=== PATIENT | male | born 1945 | race Caucasian/White ===

== ENCOUNTER 2018-02-05 04:22 | Emergency (ER) | payer MEDICARE, OTHER ==
[2018-02-05] MEDS ORDERED: ALBUTEROL SULFATE 0.083% NEB 2.5 MG/3 ML AMPUL NEB ONE ×2 (04:55→06:03)
[2018-02-05] MEDS ORDERED: IPRATROPIUM/ALBUTEROL 0.5-2.5 MG/3 ML AMPUL NEB ONE (04:55)
--- NOTE | 2018-02-05 04:56 | ER Document Report ---
ED Respiratory Problem - General Chief Complaint: Breathing Difficulty Stated Complaint: DIFFICULTY BREATHING Time Seen by Provider: 02/05/18 04:52 Notes: patient is a 72 year old male with a history of Parkinsons presents with wheezing and SOB that started this evening. Per at the bedside she, then went to check on him approximately 30 minutes prior to arrival and he was saying he was short of breath and wheezing and he was come to the emergency room. Denies any history of COPD, asthma. States he feels like he is breathing through a straw with chest tightness but he denies any pressure, pain , burning sensation. Otherwise healthy male TRAVEL OUTSIDE OF THE [place] IN LAST 30 DAYS: No - Related Data Allergies/Adverse Reactions: cimetidine [From Tagamet] Allergy (Severe, Verified 05/07/13 15:13) Anaphylaxis cimetidine HCl [From Tagamet] Allergy (Severe, Verified 05/07/13 15:13) Anaphylaxis ranitidine HCl [From Zantac] Allergy (Verified 09/05/13 14:23) Edema Past Medical History - Social History Smoking Status: Never Smoker Family History: Other - Past Medical History Cardiac Medical History: Reports: Hx Atrial Fibrillation Denies: Hx Heart Attack, Hx Hypertension Pulmonary Medical History: Denies: Hx Asthma Neurological Medical History: Denies: Hx Cerebrovascular Accident, Hx Seizures Malignancy Medical History: Reports Hx Skin Cancer GI Medical History: Reports: Hx Ulcer - 1978 PEPTIC. Denies: Hx Hepatitis, Hx Hiatal Hernia Infectious Medical History: Denies: Hx Hepatitis Past Surgical History: Denies: Hx Open Heart Surgery, Hx Pacemaker - Immunizations Hx Diphtheria, Pertussis, Tetanus Vaccination: No Review of Systems - Review of Systems Notes: REVIEW OF SYSTEMS: CONSTITUTIONAL : Denies fever, chills, or sweats. Denies recent illness. EENT: Denies eye, ear, throat, or mouth pain or symptoms. Denies nasal or sinus congestion or discharge. Denies throat, tongue, or mouth swelling or difficulty swallowing. CARDIOVASCULAR: Denies chest pain. Denies palpitations or racing or irregular heart beat. Denies ankle edema. RESPIRATORY: Admits shortness of breath, difficulty breathing, or wheezing.Denies cough, cold, or chest congestion. GASTROINTESTINAL: Denies abdominal pain or distention. Denies nausea, vomiting , or diarrhea. Denies blood in vomitus, stools, or per rectum. Denies black, tarry stools. Denies constipation. SKIN: Denies rash, lesions or sores. HEMATOLOGIC : Denies easy bruising or bleeding. LYMPHATIC: Denies swollen, enlarged glands. NEUROLOGICAL: Denies confusion or altered mental status. Denies passing out or loss of consciousness. Denies dizziness or lightheadedness. Denies headache. Denies weakness or paralysis or loss of use of either side. Denies problems with gait or speech. Denies sensory loss, numbness, or tingling. Denies seizures. PSYCHIATRIC: Denies anxiety or stress. Denies depression, suicidal ideation, or homicidal ideation. ALL OTHER SYSTEMS REVIEWED AND NEGATIVE. Dictation was performed using [employer] voice recognition software Physical Exam - Vital signs Vitals: Resp Pulse Ox 25 H 99 02/05/18 04:31 02/05/18 04:31 - Notes Notes: PHYSICAL EXAM GENERAL: Alert, interacts well. HEAD: Normocephalic, atraumatic. EYES: Pupils equal, round, and reactive to light. Extraocular movements intact. ENT: Oral mucosa moist, tongue midline. NECK: Full range of motion. Supple. Trachea midline. LUNGS: Wheezes noted bilaterally worse on inspiration without rales, or rhonchi. No respiratory distress. HEART: Regular rate and rhythm. No murmurs, gallops, or rubs. ABDOMEN: Soft, nondistended, nontender. No guarding, rebound, or rigidity.. Bowel sounds present in all 4 quadrants. EXTREMITIES: Moves all 4 extremities spontaneously. No edema, radial and dorsalis pedis pulses 2/4 bilaterally. No cyanosis. NEUROLOGICAL: Alert and oriented x4. Normal speech. PSYCH: Normal affect, normal mood. SKIN: Warm, dry, normal turgor. No rashes or lesions noted. Course - Re-evaluation Re-evalutation: 02/05/18 07:29 Patient is a 72-year-old male who is hemodynamically stable, no acute distress and afebrile. Patient satting 100% on 4 L nasal cannula. Patient received 2 nebulizer treatments and a dose of Solu-Medrol. Chest x-ray clear without any evidence of acute cardiopulmonary process or infiltrate. CBC stable without evidence of leukocytosis or anemia. Chemistry without evidence of electrolyte abnormalities, negative troponin. No evidence of EKG changes concerning for STEMI, arrhythmia. Patient with a well score of 0 and does not have any significant risk factors concerning for PE. No evidence of tachycardia or tachypnea and complete resolution of his wheezing after nebulizer treatments. Patient was ambulated to maintain a saturation as low as 98% on room air. Denies any tachypnea or tachycardia while ambulating. At this time patient does not meet inpatient criteria for admission and is in no acute respiratory distress. Family agreeable with discharge home with strict return precautions and follow-up instructions. - Vital Signs Vital signs: Temp Pulse Resp BP Pulse Ox 18 115/57 L 100 02/05/18 06:11 02/05/18 06:11 02/05/18 06:11 - Laboratory Result Diagrams: 02/05/18 05:00 02/05/18 05:00 Laboratory results interpreted by me: 02/05/18 02/05/18 05:00 05:00 RBC 4.14 L Hgb 12.9 L RDW 14.2 H Eosinophils % 7.0 H Total Protein 6.1 L - Diagnostic Test Radiology reviewed: Image reviewed, Reports reviewed - EKG Interpretation by Pa EKG shows normal: Sinus rhythm Rate: Normal Rhythm: NSR When compared to previous EKG there are: No significant change Discharge - Discharge Clinical Impression: Wheezing Condition: Good Disposition: HOME, SELF-CARE Additional Instructions: BRONCHITIS WITH BRONCHOSPASM (WHEEZING): You have bronchitis with bronchospasm (wheezing). Sometimes people develop wheezing with a chest cold. This occurs either because of an underlying tendency toward asthma or because the virus itself irritates the bronchial tubes. This irritation causes cough, shortness of breath, and wheezing. Emergency treatment of bronchospasm may include adrenaline shots or bronchodilator aerosol. You may feel lightheaded and have a rapid pulse for an hour or two. Rest and get plenty of fluids. At home, we'll treat you with a bronchodilator inhaler. Corticosteroids may be required for some patients. Until you recover, avoid chemical fumes, dusts, pollens, and exercising in very cold or dry air. If you smoke, stop now! Most cases of bronchitis get better without antibiotics. We prescribe antibiotics when we believe bacteria are damaging your airways, or if there's high risk the bronchitis will worsen into pneumonia. Increase your fluid intake. A cool mist humidifier may make your lungs more comfortable. An expectorant (cough medicine that loosens phlegm) can help. Repeated episodes of bronchitis and bronchospasm may result in lung damage -- for example, chronic bronchitis, recurrent pneumonias, or emphysema. If you develop a fever, increased wheezing, chest pain, or severe shortness of breath, you should contact the doctor immediately. DECONGESTANT MEDICATION: A decongestant medicine has been prescribed. Often this medicine is combined in the same tablet with an antihistamine or expectorant. This type of medicine is helpful in treating a bad cold or sinus condition, as well as in treatment of the nasal congestion of hay fever. It is not of much benefit for lung infections. Decongestant medicines are related to stimulants. They can cause an increase in blood pressure and heart rate. Persons with heart disease and high blood pressure should not take decongestants without discussing this with the physician. If you develop palpitations, chest pain, headache, or tremors, stop the medicine and consult your physician. COUGH-SUPPRESSANT & EXPECTORANT MEDICATION: You are to use a cough medication as needed for relief of symptoms. This medicine is a combination of an expectorant (to make the mucous thinner and more easily "coughed up") and a cough suppressant (to reduce the frequency of coughing). The cough-suppressant medicine is related to narcotics. You may experience mild nausea and sleepiness. Some patients who are very sensitive to narcotics may have stomach pain from this medicine. Taking the medicine with food reduces these side effects. Do not drive or work with machinery until you know how this medicine affects you. The expectorant should have no side effects. Iodine-containing expectorants (such as organidin) should not be taken by persons with active thyroid disease unless approved by your doctor. Call the doctor if you develop shortness of breath, hives, rash, itching, lightheadedness, or severe nausea and vomiting. INHALED BRONCHODILATORS: You have received a treatment of and/or prescription for an inhaled bronchodilator -- a medication which stimulates the airways in the lung to dilate. This improves the flow of air in asthma, bronchitis, and emphysema. These medicines have some similarity to adrenaline, and can cause similar side effects: shakiness, racing heart, and a sense of nervousness. These side effects decrease with time. Contact your doctor if these side effects are severe. Do not over-use the medicine. Too-frequent use of the inhaler may make it ineffective. Call your doctor if the inhaler is not controlling your symptoms at the prescribed doses. STEROID MEDICATION: You have been given an injection of or oral medicine of the cortisone/ steroid class. This medication is used to control inflammation or allergy. Evan t is usually only given for a short period of time, until the acute process subsides. There are usually no side effects from short-term use of cortisone-like medications. Some persons feel an increased sense of well-being and are not sleepy at bedtime. Long-term use of cortisone medications is best avoided, unless required for a severe condition. If your condition does not remit, or relapses after the course of corticosteroid medication, you should consult your physician. USE OF ACETAMINOPHEN (Tylenol): Acetaminophen may be taken for pain relief or fever control. It's much safer than aspirin, offering a wider range of "safe" dosages. It is safe during . Some brand names are Tylenol, Panadol, Datril, Anacin 3, Tempra, and Liquiprin. Acetaminophen can be repeated every four hours. The following are maximum recommended dosages: >89 pounds or adults 650 mg to 900 mg Acetaminophen can be repeated every four hours. Maximum dose not to exceed 4000 mg a day. FOLLOW-UP CARE: If you have been referred to a physician for follow-up care, call the physician s office for an appointment as you were instructed or within the next two days. If you experience worsening or a significant change in your symptoms, notify the physician immediately or return to the Emergency Department at any time for re-evaluation. Prescriptions: Albuterol Sulfate [Proair HFA Inhalation Aerosol 8.5 gm MDI] 2 puff IH Q4H PRN # 1 mdi PRN Reason: Prednisone [Deltasone 20 mg Tablet] 3 tab PO DAILY 5 Days tablet Referrals: MORAIMA AKERS PA-C [Primary Care Provider] - Follow up in 3-5 days
[2018-02-05 05:19] LABS: ABSOLUTE BASOPHILS # (AUTO) 0.1 10^3/uL (0.0-0.2); ABSOLUTE EOSINOPHILS # (AUTO) 0.5 10^3/uL (0.0-0.6); ABSOLUTE LYMPHOCYTES (AUTO) 1.5 10^3/uL (0.5-4.7); ABSOLUTE MONOCYTES (AUTO) 0.5 10^3/uL (0.1-1.4); BASOPHILS % (AUTO) 0.9 % (0-2); HEMATOCRIT 38.2 % (37.9-51.0); HEMOGLOBIN 12.9 g/dL (13.5-17.0); LYMPHOCYTES % (AUTO) 22.6 % (13-45); MEAN CORPUSCULAR HEMOGLOBIN 31.2 pg (27.0-33.4); MEAN CORPUSCULAR HGB CONC 33.8 g/dL (32.0-36.0); MEAN CORPUSCULAR VOLUME 92 fl (80-97); MONOCYTES % (AUTO) 7.9 % (3-13); PLATELET COUNT 216 10^3/uL (150-450); RED BLOOD COUNT 4.14 10^6/uL (4.35-5.55); RED CELL DISTRIBUTION WIDTH 14.2 % (11.5-14.0); SEGMENTED NEUTROPHILS % (AUTO) 61.6 % (42-78); TOTAL CELLS COUNTED % (AUTO) 100 %; VENOUS BLOOD BASE EXCESS 0.6 mmol/L; VENOUS BLOOD PCO2 50.5 mmHg (35-63); VENOUS BLOOD PH 7.35 (7.30-7.42); WHITE BLOOD COUNT 6.5 10^3/uL (4.0-10.5)
[2018-02-05 05:46] LABS: ALANINE AMINOTRANSFERASE 28 U/L (21-72); ALBUMIN 4.1 g/dL (3.5-5.0); ALKALINE PHOSPHATASE 45 U/L (38-126); ANION GAP 10 (5-19); ASPARTATE AMINO TRANSFERASE 22 U/L (17-59); BILIRUBIN,DIRECT 0.1 mg/dL (0.0-0.4); BILIRUBIN,TOTAL 0.4 mg/dL (0.2-1.3); BLOOD UREA NITROGEN 19 mg/dL (7-20); CALCIUM 9.1 mg/dL (8.4-10.2); CARBON DIOXIDE 29 mmol/L (22-30); CHLORIDE 103 mmol/L (98-107); GLUCOSE 100 mg/dL (75-110); POTASSIUM 4.3 mmol/L (3.6-5.0); SODIUM 141.5 mmol/L (137-145); TOTAL PROTEIN 6.1 g/dL (6.3-8.2)
[2018-02-05 05:47] LABS: NT PRO BNP 220 pg/mL (5-900)
[2018-02-05 05:48] LABS: TROPONIN I < 0.012 ng/mL
--- NOTE | 2018-02-05 06:06 | RADIOLOGY REPORT (SQ) ---
EXAM DESCRIPTION: CHEST PA/LAT CLINICAL HISTORY: 72 years, Male, SOB, wheezing COMPARISON: None. FINDINGS: Normal lung volume, clear parenchyma, normal cardiac silhouette, and intact bony thorax. IMPRESSION: No acute cardiopulmonary findings.
[2018-02-05 06:52] VITALS: BP 115/57
--- NOTE | 2018-02-05 10:27 | EKG REPORT ---
SEVERITY:- NORMAL ECG - SINUS RHYTHM : Confirmed by: Ruperto Rivera MD 05-Feb-2018 10:26:09
== END 2018-02-05 07:05 | disposition home or self-care (01) ==
LOC: ER 04:22
DX: R06.2 Wheezing (principal); R06.02 Shortness of breath; R07.89 Other chest pain; Z88.8 Allergy status to other drugs, medicaments and biological substances; Z85.828 Personal history of other malignant neoplasm of skin
CPT/HCPCS: 93005; 94640 ×2; 99285; 36415; 85025; 80053; 84484; 82803; 83880; 71046; 93010; A9270 ×2; J7620

== ENCOUNTER 2018-04-22 03:28 | Emergency (ER) | payer MEDICARE, BC ==
--- NOTE | 2018-04-22 03:42 | ER Document Report ---
ED General - General Chief Complaint: Breathing Difficulty Stated Complaint: RESPIRATORY DISTRESS Time Seen by Provider: 04/22/18 03:39 Notes: Patient is a 72-year-old male presents with complaint of difficulty breathing. She says he has recent diagnosis of bronchitis. Was given an inhaler and steroids. Tonight he started having some difficulty breathing. Paramedics arrived given 1 DuoNeb treatment and no sign of jaundice wheezing is completely resolved and now he feels better. He has no further complaints. Denies any chest pain. No fevers. No abdominal pain. No vomiting. TRAVEL OUTSIDE OF THE [place] IN LAST 30 DAYS: No - Related Data Allergies/Adverse Reactions: cimetidine [From Tagamet] Allergy (Severe, Verified 05/07/13 15:13) Anaphylaxis cimetidine HCl [From Tagamet] Allergy (Severe, Verified 05/07/13 15:13) Anaphylaxis ranitidine HCl [From Zantac] Allergy (Verified 09/05/13 14:23) Edema Past Medical History - Social History Smoking Status: Former Smoker Frequency of alcohol use: None Drug Abuse: None Family History: Other - Past Medical History Cardiac Medical History: Reports: Hx Atrial Fibrillation Denies: Hx Heart Attack, Hx Hypertension Pulmonary Medical History: Denies: Hx Asthma Neurological Medical History: Denies: Hx Cerebrovascular Accident, Hx Seizures Renal/ Medical History: Denies: Hx Peritoneal Dialysis Malignancy Medical History: Reports Hx Skin Cancer GI Medical History: Reports: Hx Ulcer - 1978 PEPTIC. Denies: Hx Hepatitis, Hx Hiatal Hernia Infectious Medical History: Denies: Hx Hepatitis Past Surgical History: Reports: Hx Cardiac Surgery - ablation. Denies: Hx Open Heart Surgery, Hx Pacemaker - Immunizations Hx Diphtheria, Pertussis, Tetanus Vaccination: No Review of Systems - Review of Systems Notes: My Normal Review Basic REVIEW OF SYSTEMS: CONSTITUTIONAL : Denies fever, chills, or sweats. Denies recent illness. EENT: Denies eye, ear, throat, or mouth pain or symptoms. Denies nasal or sinus congestion. CARDIOVASCULAR: Denies chest pain. RESPIRATORY: Wheezing and difficulty breathing. GASTROINTESTINAL: Denies abdominal pain. Denies nausea, vomiting, or diarrhea. GENITOURINARY: Denies difficulty urinating, painful urination, burning, frequency, or blood in urine. MUSCULOSKELETAL: Denies neck or back pain or joint pain or swelling. SKIN: Denies rash or skin lesions. NEUROLOGICAL: Denies altered mental status or loss of consciousness. Denies headache. Denies weakness or paralysis or loss of use of either side. Denies problems with gait or speech. Denies sensory or motor loss. ALL OTHER SYSTEMS REVIEWED AND NEGATIVE. Physical Exam - Vital signs Vitals: Resp Pulse Ox 13 99 04/22/18 03:32 04/22/18 03:32 - Notes Notes: General Appearance: Well nourished, alert, cooperative, no acute distress, no obvious discomfort. Well-appearing. Vitals: reviewed, See vital signs table. Head: no swelling or tenderness to the head Eyes: PERRL, EOMI, Conjuctiva clear Mouth: No decreasd moisture Throat: No tonsillar inflammation, No airway obstruction, No lymphadenopathy Neck: Supple, no neck tenderness Lungs: No wheezing, No rales, No rhonci, No accessory muscle use, good air exchange bilaterally. Heart: Normal rate, Regular rythm, No murmur, no rub Abdomen: Normal BS, soft, No rigidity, No abdominal tenderness, No guarding, no rebound, no abdominal masses, no organomegaly Extremities: strength 5/5 in all extremities, good pulses in all extremities, no swelling or tenderness in the extremities, no edema. Skin: warm, dry, appropriate color, no rash Neuro: speech clear, oriented x 2, normal affect, responds appropriately to questions. Course - Re-evaluation Re-evalutation: 04/22/18 06:02 Patient's lungs remained completely clear. His chest x-ray was negative for pneumonia. I did speak with patient's . She says that you have have a nebulizer machine at home but the rather vials. I will prescribe him some vitals. Also she mentions that he has inhaler but he does not really know how to use it. I will give him a spacer so that is much easier to use inhaler. Encouraged him follow-up post with a primary care doctor. Encourage him return to ER if he has recurrent wheezing, difficulty breathing, or feels unwell. agrees with plan and patient was discharged home. Dictation of this chart was performed using voice recognition software; therefore, there may be some unintended grammatical errors. - Vital Signs Vital signs: Temp Pulse Resp BP Pulse Ox 98.6 F 75 16 134/76 H 100 04/22/18 05:41 04/22/18 05:41 04/22/18 05:41 04/22/18 05:41 04/22/18 05:41 - EKG Interpretation by Me Additional EKG results interpreted by me: 04/22/18 03:47 EKG is reviewed and interpreted by me. EKG shows normal sinus rhythm with a rate of [address] segment elevation or depression. No ischemic T-wave inversions. [place] interval, QRS duration, QTc intervals are within normal range. No old EKG available for comparison. Discharge - Discharge Clinical Impression: Acute bronchitis Qualifiers: Bronchitis organism: unspecified organism Qualified Code(s): J20.9 - Acute bronchitis, unspecified Condition: Good Disposition: HOME, SELF-CARE Additional Instructions: Please use the spacer when you use the inhaler. Please use the nebulizer if you are at home as it may be more effective than the inhaler for Mr. Burns. Please return to the ER immediately if you develop worsening difficulty breathing not responding to the inhaler or nebulizer, fevers, or feel unwell. Prescriptions: Albuterol Sulfate [Albuterol Sulfate 2.5mg/3 mL] 1 vial IH Q4 PRN #25 vial PRN Reason: difficulty breathing Referrals: MORAIMA AKERS PA-C [Primary Care Provider] - 04/25/18
--- NOTE | 2018-04-22 04:17 | RADIOLOGY REPORT (SQ) ---
EXAM DESCRIPTION: XR CHEST 1 VIEW COMPLETED DATE/TME: 04/22/2018 03:39 CLINICAL HISTORY: dyspnea COMPARISON: 02/05/2018 FINDINGS: Single frontal view of the chest. Atherosclerotic calcification of the thoracic aorta. Heart is not enlarged. Leads overlie the chest. No consolidation, pneumothorax, or pleural effusion. No displaced rib fractures identified. Upper abdominal soft tissues are unremarkable. IMPRESSION: 1. No acute pulmonary process identified.
[2018-04-22 05:47] VITALS: BP 134/76
--- NOTE | 2018-04-22 13:52 | EKG REPORT ---
SEVERITY:- NORMAL ECG - SINUS RHYTHM : Confirmed by: Ruperto Rivera MD 22-Apr-2018 13:52:17
== END 2018-04-22 05:41 | disposition home or self-care (01) ==
LOC: ER 03:28
DX: J20.9 Acute bronchitis, unspecified (principal); R06.2 Wheezing; R06.9 Unspecified abnormalities of breathing; Z87.891 Personal history of nicotine dependence
CPT/HCPCS: 71045; 93005; 93010; 99285

== ENCOUNTER 2018-06-04 18:42 | Inpatient (IN) | payer MEDICARE, BC ==
--- NOTE | 2018-06-04 19:17 | ER Document Report ---
ED General - General Stated Complaint: DIFFICULTY BREATHING Time Seen by Provider: 06/04/18 18:58 Mode of Arrival: Ambulatory Information source: Patient Notes: 72-year-old male history of questionable COPD presents with difficulty breathing , patient's O2 sats noted to be 82% on room air he was admitting to shortness of breath. Patient does have a history of Parkinson's dementia. Patient was placed on BiPAP and O2 sats have been at 100%, he is in no respiratory distress at this time states he feels better TRAVEL OUTSIDE OF THE [place] IN LAST 30 DAYS: No - HPI Onset: Just prior to arrival Onset/Duration: Sudden Quality of pain: No pain Severity: Severe Pain Level: Denies Associated symptoms: Nonproductive cough, Shortness of breath Exacerbated by: Walking Relieved by: Denies Similar symptoms previously: Yes Recently seen / treated by doctor: No - Related Data Allergies/Adverse Reactions: cimetidine [From Tagamet] Allergy (Severe, Verified 05/07/13 15:13) Anaphylaxis cimetidine HCl [From Tagamet] Allergy (Severe, Verified 05/07/13 15:13) Anaphylaxis ranitidine HCl [From Zantac] Allergy (Verified 09/05/13 14:23) Edema Past Medical History - Social History Smoking Status: Former Smoker Cigarette use (# per day): No Chew tobacco use (# tins/day): No Smoking Education Provided: No Family History: Other - Past Medical History Cardiac Medical History: Reports: Hx Atrial Fibrillation Denies: Hx Heart Attack, Hx Hypertension Pulmonary Medical History: Denies: Hx Asthma Neurological Medical History: Denies: Hx Cerebrovascular Accident, Hx Seizures Renal/ Medical History: Denies: Hx Peritoneal Dialysis Malignancy Medical History: Reports Hx Skin Cancer GI Medical History: Reports: Hx Ulcer - 1978 PEPTIC. Denies: Hx Hepatitis, Hx Hiatal Hernia Infectious Medical History: Denies: Hx Hepatitis Past Surgical History: Reports: Hx Cardiac Surgery - ablation. Denies: Hx Open Heart Surgery, Hx Pacemaker - Immunizations Hx Diphtheria, Pertussis, Tetanus Vaccination: No Review of Systems - Review of Systems Notes: REVIEW OF SYSTEMS: CONSTITUTIONAL : Denies fever, chills, or sweats. Denies recent illness. EENT: Denies eye, ear, throat, or mouth pain or symptoms. Denies nasal or sinus congestion or discharge. Denies throat, tongue, or mouth swelling or difficulty swallowing. CARDIOVASCULAR: Denies chest pain. Denies palpitations or racing or irregular heart beat. Denies ankle edema. RESPIRATORY: Admits shortness of breath difficulty breathing. GASTROINTESTINAL: Denies abdominal pain or distention. Denies nausea, vomiting , or diarrhea. Denies blood in vomitus, stools, or per rectum. Denies black, tarry stools. Denies constipation. GENITOURINARY: Denies difficulty urinating, painful urination, burning, frequency, blood in urine, or discharge. MUSCULOSKELETAL: Denies back or neck pain or stiffness. Denies joint pain or swelling. SKIN: Denies rash, lesions or sores. HEMATOLOGIC : Denies easy bruising or bleeding. LYMPHATIC: Denies swollen, enlarged glands. NEUROLOGICAL: Denies confusion or altered mental status. Denies passing out or loss of consciousness. Denies dizziness or lightheadedness. Denies headache. Denies weakness or paralysis or loss of use of either side. Denies problems with gait or speech. Denies sensory loss, numbness, or tingling. Denies seizures. PSYCHIATRIC: Denies anxiety or stress. Denies depression, suicidal ideation, or homicidal ideation. ALL OTHER SYSTEMS REVIEWED AND NEGATIVE. Dictation was performed using [employer] voice recognition software PHYSICAL EXAMINATION: GENERAL: Well-appearing, well-nourished and in no acute distress. HEAD: Atraumatic, normocephalic. EYES: Pupils equal round and reactive to light, extraocular movements intact, sclera anicteric, conjunctiva are normal. ENT: Nares patent, oropharynx clear without exudates. Moist mucous membranes. NECK: Normal range of motion, supple without lymphadenopathy LUNGS: Intermittent wheezing HEART: Regular rate and rhythm without murmurs ABDOMEN: Soft, nontender, nondistended abdomen. No guarding, no rebound. No masses appreciated. Musculoskeletal: Normal range of motion, no pitting or edema. No cyanosis. NEUROLOGICAL: Cranial nerves grossly intact. Normal speech, normal gait. Normal sensory, motor exams PSYCH: Normal mood, normal affect. SKIN: Warm, Dry, normal turgor, no rashes or lesions noted. Physical Exam - Vital signs Vitals: Resp Pulse Ox 20 100 06/04/18 18:54 06/04/18 18:54 Course - Re-evaluation Re-evalutation: 07/28/18 19:31 Patient is alert oriented he knows where he dislocated it, he overall is in no distress at this time on BiPAP, he was noted to be significantly hypoxic 06/04/18 22:03 Patient has been stable on BiPAP, workup thus far is most consistent with COPD exacerbation, he is doing well on BiPAP but due to his Parkinson's is anxious, I will give some Valium at the request of family and admit - Vital Signs Vital signs: Temp Pulse Resp BP Pulse Ox 19 119/78 100 06/04/18 20:01 06/04/18 20:01 06/04/18 20:04 - Laboratory Result Diagrams: 06/04/18 19:23 06/04/18 19:23 Laboratory results interpreted by me: 06/04/18 06/04/18 06/04/18 19:23 19:23 19:30 RBC 4.14 L Hgb 13.2 L Seg Neutrophils % 78.2 H Lymphocytes % 11.4 L BUN 23 H Glucose 124 H Urine Protein 100 H Urine Ketones TRACE H Urine Bilirubin SMALL H Urine Urobilinogen 4.0 H Urine Ascorbic Acid 40 H - Diagnostic Test Radiology reviewed: Image reviewed, Reports reviewed Discharge - Discharge Clinical Impression: Hypoxemia Condition: Fair Disposition: ADMITTED INPATIENT Admitting Provider: Hospitalist Unit Admitted: Telemetry Referrals: MORAIMA AKERS PA-C [Primary Care Provider] - Follow up as needed
[2018-06-04 19:39] LABS: VENOUS BLOOD BASE EXCESS 2.5 mmol/L; VENOUS BLOOD HCO3 28.9 mmol/L (20-32); VENOUS BLOOD PCO2 52.1 mmHg (35-63); VENOUS BLOOD PH 7.36 (7.30-7.42)
[2018-06-04 19:49] LABS: ABSOLUTE EOSINOPHILS # (AUTO) 0.4 10^3/uL (0.0-0.6); ABSOLUTE MONOCYTES (AUTO) 0.5 10^3/uL (0.1-1.4); ABSOLUTE NEUT (AUTO) 7.1 10^3/uL (1.7-8.2); BASOPHILS % (AUTO) 0.5 % (0-2); EOSINOPHILS % (AUTO) 4.1 % (0-6); HEMATOCRIT 38.2 % (37.9-51.0); HEMOGLOBIN 13.2 g/dL (13.5-17.0); LYMPHOCYTES % (AUTO) 11.4 % (13-45); MEAN CORPUSCULAR HEMOGLOBIN 31.8 pg (27.0-33.4); MEAN CORPUSCULAR HGB CONC 34.4 g/dL (32.0-36.0); MEAN CORPUSCULAR VOLUME 92 fl (80-97); MONOCYTES % (AUTO) 5.8 % (3-13); PLATELET COUNT 200 10^3/uL (150-450); RED BLOOD COUNT 4.14 10^6/uL (4.35-5.55); RED CELL DISTRIBUTION WIDTH 13.7 % (11.5-14.0); SEGMENTED NEUTROPHILS % (AUTO) 78.2 % (42-78); TOTAL CELLS COUNTED % (AUTO) 100 %
[2018-06-04 19:51] LABS: APPEARANCE,URINE CLOUDY; BILIRUBIN,URINE SMALL (NEGATIVE); CALCIUM OXALATE CRYSTALS,URINE MODERATE /HPF; COLOR,URINE AMBER; GLUCOSE, URINE NEGATIVE (NEGATIVE); KETONES,URINE TRACE mg/dL (NEGATIVE); LEUKOCYTE ESTERASE,URINE NEGATIVE (NEGATIVE); NITRITE,URINE NEGATIVE (NEGATIVE); PROTEIN,URINE 100 mg/dL (NEGATIVE); URINE SPECIFIC GRAVITY 1.031
--- NOTE | 2018-06-04 19:52 | RADIOLOGY REPORT (SQ) ---
EXAM DESCRIPTION: CHEST SINGLE VIEW COMPLETED DATE/TIME: 06/04/2018 7:40 pm REASON FOR STUDY: sob COMPARISON: 04/22/2018 EXAM PARAMETERS: NUMBER OF VIEWS: One view. TECHNIQUE: Single frontal radiographic view of the chest acquired. RADIATION DOSE: NA LIMITATIONS: None. FINDINGS: LUNGS AND PLEURA: No opacities, masses or pneumothorax. No pleural effusion. MEDIASTINUM AND HILAR STRUCTURES: No masses. Contour normal. HEART AND VASCULAR STRUCTURES: Heart normal in size. Normal vasculature. BONES: No acute findings. HARDWARE: None in the chest. OTHER: No other significant finding. IMPRESSION: NO ACUTE RADIOGRAPHIC FINDING IN THE CHEST. TECHNICAL DOCUMENTATION: JOB ID: [id number] [employer]- All Rights Reserved Reading location - IP/workstation name: [email or web address]
[2018-06-04 19:56] LABS: ALANINE AMINOTRANSFERASE 26 U/L (21-72); ALBUMIN 3.8 g/dL (3.5-5.0); ALKALINE PHOSPHATASE 41 U/L (38-126); ANION GAP 10 (5-19); ASPARTATE AMINO TRANSFERASE 45 U/L (17-59); BILIRUBIN,DIRECT 0.3 mg/dL (0.0-0.4); BILIRUBIN,TOTAL 0.5 mg/dL (0.2-1.3); BLOOD UREA NITROGEN 23 mg/dL (7-20); CARBON DIOXIDE 29 mmol/L (22-30); CHLORIDE 103 mmol/L (98-107); CREATINE KINASE 81 U/L (55-170); GLUCOSE 124 mg/dL (75-110); POTASSIUM 4.4 mmol/L (3.6-5.0); TOTAL PROTEIN 6.5 g/dL (6.3-8.2)
[2018-06-04] MEDS ORDERED: METHYLPREDNISOLONE INJ 125 MG/2 ML SDV IV ONE (20:03)
[2018-06-04] MEDS ORDERED: IPRATROPIUM/ALBUTEROL 0.5-2.5 MG/3 ML AMPUL NEB ONE (20:03)
[2018-06-04 20:08] LABS: CREATINE KINASE MB 2.18 ng/mL (<4.55); NT PRO BNP 385 pg/mL (5-900)
[2018-06-04 20:16] LABS: TROPONIN I < 0.012 ng/mL
[2018-06-04] MEDS ORDERED: DIAZEPAM INJ 10 MG/2 ML DISP.SYRIN IV ONE (22:02)
[2018-06-04] MEDS ORDERED: LEVALBUTEROL HCL NEB 0.63 MG/3 ML AMPUL NEB PRN (23:38)
--- NOTE | 2018-06-05 01:24 | PDOC H&P ---
History of Present Illness Admission Date/PCP: 06/04/18 22:20 MORAIMA AKERS PA-C Patient complains of: difficulty breathing History of Present Illness: JAYLON QUICK JR is a 72 year old man with a history of parkinsonism and hallucinations, workup in progress for underlying diagnosis. The patient reports that about 2 years ago her was diagnosed with Parkinson's disease. Since that time he has been seen by multiple specialists. He currently has a new neurologist at [facility], Dr. Galarza. Prior to this he has been seeing Dr. Wilman Molina neurologist in [place]. Per his he is being worked up for the possibility of dementia with Lewy bodies and other causes of the mention including reversible causes. She states that over the past several weeks he has been having episodes of dyspnea. She also reports that intermittently he is having a significant amount of mucus draining from his nose. Over the past several weeks he has been in the ER several times. He does not have underlying lung disease of which we are aware. Today at home he started having respiratory distress, got to the place where he really could not breathe at all per his and she called EMS. By the time ambulance arrived the patient was satting 84% on room air. With a nonrebreather his sats improved and he was placed on a BiPAP in the ER. He was found to be wheezing and received a dose of Solu-Medrol. On my evaluation the patient is comfortable. He is intermittently nodding yes or no but cannot really answer questions and so all of this history is obtained from his . He is being admitted to the hospitalist service for acute hypoxemic respiratory failure of unclear etiology. Past Medical History Cardiac Medical History: Reports: Atrial Fibrillation Denies: Myocardial Infarction, Hypertension, Pulmonary Embolism Pulmonary Medical History: Reports: Respiratory Failure Denies: Asthma EENT Medical History: Reports: Eyes Neurological Medical History: Denies: Ischemic CVA, Seizures Endocrine Medical History: Denies: Diabetes Mellitus Type 2 Renal/ Medical History: Denies: Chronic Kidney Disease Malignancy Medical History: Reports: Skin Cancer GI Medical History: Denies: Hepatitis, Hiatal Hernia Musculoskeltal Medical History: Denies: Arthritis Skin Medical History: Reports: None Psychiatric Medical History: Reports: Dementia, Depression Denies: Alcohol Dependency, Substance Abuse, Tobacco Dependency Hematology: Denies: Anemia, Sickle Cell Disease Infectious Medical History: Reports: Other Infectious History Note: Patient's reports that in the he was diagnosed with a parasitic infection in [place], contrary unknown. He spent over a month in the hospital. I do not have other details related to this infectious history. Past Surgical History Past Surgical History: Reports: Other - Patient has undergone cardiac ablation for A. 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 - Advance Directive Resuscitation Status: Full Code Surrogate healthcare decision maker:: Spouse Dorothy Quick phone number [phone] Family History Family History: Other Parental Family History Reviewed: Yes - Father with COPD and pneumonia, mother with PA Children Family History Reviewed: Yes - Patient has 2 healthy children aged 50 and 47 Sibling(s) Family History Reviewed.: Yes - Patient's states that his siblings are healthy Medication/Allergy Home Medications: Aspirin [Aspirin 325 mg Tablet] 1 tab PO DAILY 06/04/18 Rivastigmine Tartrate [Rivastigmine] 1.5 mg PO DAILY 06/04/18 Allergies/Adverse Reactions: cimetidine [From Tagamet] Allergy (Severe, Verified 05/07/13 15:13) Anaphylaxis cimetidine HCl [From Tagamet] Allergy (Severe, Verified 05/07/13 15:13) Anaphylaxis ranitidine HCl [From Zantac] Allergy (Verified 09/05/13 14:23) Edema Review of Systems ROS unobtainable: Due to mental status, Other - I was able to obtain the following from his Constitutional: PRESENT: anorexia, weight loss Cardiovascular: ABSENT: chest pain Respiratory: PRESENT: cough, sputum Gastrointestinal: ABSENT: abdominal pain, nausea, vomiting Integumentary: ABSENT: rash Neurological: PRESENT: confusion, memory loss. ABSENT: syncope Psychiatric: PRESENT: depression, hallucinations Hematologic/Lymphatic: ABSENT: easy bleeding, easy bruising Allergic/Immunologic: ABSENT: seasonal rhinorrhea Physical Exam Vital Signs: Temp Pulse Resp BP Pulse Ox 19 114/57 L 97 06/04/18 22:01 06/04/18 22:00 06/05/18 00:37 Intake & Output 06/03/18 06/04/18 06/05/18 06:59 06:59 06:59 Weight 84.7 kg General appearance: PRESENT: no acute distress, well-developed, well-nourished Head exam: PRESENT: atraumatic, normocephalic Eye exam: ABSENT: conjunctival injection, scleral icterus Ear exam: PRESENT: normal external ear exam Mouth exam: PRESENT: moist Neck exam: ABSENT: lymphadenopathy Respiratory exam: PRESENT: decreased breath sounds, unlabored. ABSENT: rales, rhonchi, wheezes Cardiovascular exam: PRESENT: RRR. ABSENT: diastolic murmur, systolic murmur GI/Abdominal exam: PRESENT: normal bowel sounds, soft. ABSENT: distended, guarding, tenderness Rectal exam: PRESENT: deferred Musculoskeletal exam: ABSENT: deformity Neurological exam: PRESENT: awake, oriented to person. ABSENT: oriented to place, oriented to situation Psychiatric exam: PRESENT: flat affect Focused psych exam: PRESENT: other - Cannot assess Skin exam: PRESENT: dry, intact, warm Results Impressions: Chest X-Ray 06/04/18 19:03 IMPRESSION: NO ACUTE RADIOGRAPHIC FINDING IN THE CHEST. Assessment & Plan - Diagnosis (1) Acute hypoxemic respiratory failure Is this a current diagnosis for this admission?: Yes Plan: Unclear etiology at this time. Patient is afebrile but has been reporting feeling hot. His states at home he did not have a fever. He has been having thick mucus draining from his nose. This is possibly an infectious etiology. He has been started on ceftriaxone 1 g IV daily until further data returns. Will order sputum culture. He was wheezing in the ER and so I have started him on duo nebs scheduled while awake and then Xopenex every 2 hours as needed. He received a dose of Solu-Medrol in the ER and we can decide upon continuation of steroids or not tomorrow. Given his hallucinations and the possibility of an undiagnosed dementia I would want to avoid steroids if at all possible. Dr. Yousif pulmonology has been consulted to assist with assessment. If patient does not continue to improve we can consider CT scan of the chest. He was on BiPAP in the ER and has now improved and is on 4 L of nasal cannula oxygen without respiratory distress satting in the 90s. He is not tachypneic and not tachycardic, I think a PE is unlikely but we can consider this possibility if he does not improve. There is no strong evidence for volume overload but BNP is pending. We will continue to monitor closely on telemetry. (2) Hallucinations Is this a current diagnosis for this admission?: Yes Plan: Patient may have an undiagnosed dementia including the possibility of Lewy body dementia. His states that he is in the process of extensive workup at [facility]. He has recently been evaluated also for reversible causes of dementia such as related to vitamin B12, thyroid. Other lab tests are pending at [facility] including ESR, RPR, apolipoprotein E. He has recently been put on a trial of Rivest did mean 1.5 mg in the a.m. and 1.5 mg in the p.m. He took a dose on the morning of 06/04 but missed his dose in the evening, will bring his medication in. tells me that he has been trialed on multiple medications for hallucinations including antipsychotics which have all made his hallucinations worse. (3) Parkinsonism Is this a current diagnosis for this admission?: Yes Plan: Patient had been on Sinemet for a while and then developed hallucinations and Sinemet has been discontinued. Likely does not have Parkinson's disease. (4) Memory loss Is this a current diagnosis for this admission?: Yes Plan: Likely related to an undiagnosed dementia which is being worked up at [facility]. states that his distant memory is intact for the most part except that oftentimes he does not remember who she is. She states that at sikhism sometimes he recognizes people that he is known in the past. - Time Time Spent: Greater than 70 Minutes Medications reviewed and adjusted accordingly: Yes - Inpatient Certification Based on my medical assessment, after consideration of the patient's comorbidities, presenting symptoms, or acuity I expect that the services needed warrant INPATIENT care.: Yes I certify that my determination is in accordance with my understanding of Medicare's requirements for reasonable and necessary INPATIENT services [42 CFR 412.3e].: Yes Medical Necessity: Need Close Monitoring Due to Risk of Patient Decompensation, Risk of Complication if Not Cared For in Hospital
--- NOTE | 2018-06-05 03:08 | EKG REPORT ---
SEVERITY:- NORMAL ECG - SINUS RHYTHM : Confirmed by: Tyesha Garce MD 05-Jun-2018 03:07:53
[2018-06-05 06:10] LABS: HEMATOCRIT 38.1 % (37.9-51.0); HEMOGLOBIN 13.1 g/dL (13.5-17.0); MEAN CORPUSCULAR HEMOGLOBIN 31.8 pg (27.0-33.4); MEAN CORPUSCULAR HGB CONC 34.4 g/dL (32.0-36.0); MEAN CORPUSCULAR VOLUME 93 fl (80-97); PLATELET COUNT 196 10^3/uL (150-450); RED BLOOD COUNT 4.12 10^6/uL (4.35-5.55); RED CELL DISTRIBUTION WIDTH 13.6 % (11.5-14.0); WHITE BLOOD COUNT 7.9 10^3/uL (4.0-10.5)
[2018-06-05] MEDS: IPRATROPIUM/ALBUTEROL 0.5-2.5 MG/3 ML AMPUL NEB SCH ×4 (08:07→19:48)
[2018-06-05 09:19] LABS: ANION GAP 13 (5-19); BLOOD UREA NITROGEN 18 mg/dL (7-20); CALCIUM 9.2 mg/dL (8.4-10.2); CARBON DIOXIDE 22 mmol/L (22-30); CHLORIDE 107 mmol/L (98-107); CREATINE KINASE 109 U/L (55-170); GLUCOSE 162 mg/dL (75-110); POTASSIUM 4.8 mmol/L (3.6-5.0); SODIUM 141.9 mmol/L (137-145)
[2018-06-05] MEDS ORDERED: CEFTRIAXONE 1 GM/D5W RTU 1 GM/50 ML RTUPB IV SCH (10:00)
[2018-06-05] MEDS: CEFTRIAXONE SODIUM 1,000 MG in DEXTROSE 5%-WATER 50 ML IV SCH (11:02)
[2018-06-05] MEDS: NORMAL SALINE 1000 ML 1,000 ML IV PRN ×2 (11:55→22:49)
[2018-06-05] MEDS: DIAZEPAM 5 MG TABLET PO PRN (14:46)
--- NOTE | 2018-06-05 17:44 | PDOC PROGRESS REPORT ---
Subjective Progress Note for:: 06/05/18 Subjective:: No adverse events overnight. No fevers. He intermittently has a productive cough. His says that he occasionally chokes on food of all consistencies. She says that he does not do it all the time but she has noticed over the past several months he got it once in a while. Reason For Visit: ACUTE HYPOXEMIC RESPIRATORY FAILURE Physical Exam Vital Signs: Temp Pulse Resp BP Pulse Ox 98.2 F 92 12 134/65 H 99 06/05/18 15:25 06/05/18 15:25 06/05/18 15:25 06/05/18 15:25 06/05/18 15:25 Intake & Output 06/04/18 06/05/18 06/06/18 06:59 06:59 06:59 Intake Total 118 405 Output Total 250 Balance 118 155 Weight 84.7 kg General appearance: PRESENT: no acute distress, cooperative, disheveled Respiratory exam: PRESENT: clear to auscultation nicolle, unlabored. ABSENT: accessory muscle use, rales, rhonchi, tachypnea, wheezes Cardiovascular exam: PRESENT: RRR, +S1, +S2, systolic murmur. ABSENT: diastolic murmur GI/Abdominal exam: PRESENT: normal bowel sounds, soft. ABSENT: distended, guarding, rebound, tenderness Extremities exam: ABSENT: pedal edema, tenderness Musculoskeletal exam: PRESENT: normal inspection. ABSENT: deformity Neurological exam: PRESENT: alert, awake, oriented to person. ABSENT: oriented to place, oriented to time, oriented to situation Results Laboratory Results: 06/05/18 05:53 06/05/18 07:22 06/05/18 06/05/18 06/05/18 00:07 05:53 05:53 WBC 7.9 RBC 4.12 L Hgb 13.1 L Hct 38.1 MCV 93 MCH 31.8 MCHC 34.4 RDW 13.6 Plt Count 196 Sodium Cancelled Potassium Cancelled Chloride Cancelled Carbon Dioxide Cancelled Anion Gap Cancelled BUN Cancelled Creatinine Cancelled Est GFR ( Amer) Cancelled Est GFR (Non-Af Amer) Cancelled Glucose Cancelled Calcium Cancelled TSH 1.23 06/05/18 07:22 WBC RBC Hgb Hct MCV MCH MCHC RDW Plt Count Sodium 141.9 Potassium 4.8 Chloride 107 Carbon Dioxide 22 Anion Gap 13 BUN 18 Creatinine 0.87 Est GFR ( Amer) > 60 Est GFR (Non-Af Amer) > 60 Glucose 162 H Calcium 9.2 TSH 06/05/18 12:05 Sputum Gram Stain - Final 06/05/18 12:05 Sputum Sputum Culture - Final 06/05/18 06/05/18 06/05/18 00:07 00:07 05:53 Creatine Kinase 66 Cancelled NT-Pro-B Natriuret Pep 267 06/05/18 06/05/18 07:22 11:46 Creatine Kinase 109 115 NT-Pro-B Natriuret Pep Impressions: Chest X-Ray 06/04/18 19:03 IMPRESSION: NO ACUTE RADIOGRAPHIC FINDING IN THE CHEST. Assessment & Plan - Diagnosis (1) Acute hypoxemic respiratory failure Is this a current diagnosis for this admission?: Yes Plan: Resolved. I suspect that he may be aspirating and that could have triggered this episode yesterday, so I am going to have a speech therapy evaluation. - Time Time Spent with patient: 15-24 minutes
[2018-06-06] MEDS: DIAZEPAM 5 MG TABLET PO PRN ×3 (00:37→15:00)
[2018-06-06 04:42] LABS: HEMATOCRIT 34.5 % (37.9-51.0); HEMOGLOBIN 11.9 g/dL (13.5-17.0); MEAN CORPUSCULAR HEMOGLOBIN 31.9 pg (27.0-33.4); MEAN CORPUSCULAR HGB CONC 34.5 g/dL (32.0-36.0); MEAN CORPUSCULAR VOLUME 93 fl (80-97); PLATELET COUNT 198 10^3/uL (150-450); RED BLOOD COUNT 3.73 10^6/uL (4.35-5.55); RED CELL DISTRIBUTION WIDTH 13.6 % (11.5-14.0); WHITE BLOOD COUNT 9.7 10^3/uL (4.0-10.5)
[2018-06-06 04:47] LABS: ANION GAP 8 (5-19); BLOOD UREA NITROGEN 18 mg/dL (7-20); CALCIUM 8.8 mg/dL (8.4-10.2); CARBON DIOXIDE 26 mmol/L (22-30); CHLORIDE 110 mmol/L (98-107); GLUCOSE 96 mg/dL (75-110); SODIUM 143.8 mmol/L (137-145)
[2018-06-06] MEDS: IPRATROPIUM/ALBUTEROL 0.5-2.5 MG/3 ML AMPUL NEB SCH ×4 (07:54→20:58)
[2018-06-06] MEDS: CEFTRIAXONE SODIUM 1,000 MG in DEXTROSE 5%-WATER 50 ML IV SCH (10:49)
[2018-06-06] MEDS: NORMAL SALINE 1000 ML 1,000 ML IV PRN ×2 (10:50→22:12)
--- NOTE | 2018-06-06 17:29 | PDOC PROGRESS REPORT ---
Subjective Progress Note for:: 06/06/18 Subjective:: No adverse events overnight. No fevers. He intermittently has a productive cough. He had a swallow evaluation today and he did show a lot of signs of aspirating what apparently he was pocketing a lot of the foods that he was eating. Reason For Visit: ACUTE HYPOXEMIC RESPIRATORY FAILURE Physical Exam Vital Signs: Temp Pulse Resp BP Pulse Ox 98.5 F 86 16 149/77 H 97 06/06/18 15:25 06/06/18 15:25 06/06/18 15:25 06/06/18 15:25 06/06/18 15:25 Intake & Output 06/05/18 06/06/18 06/07/18 06:59 06:59 06:59 Intake Total 118 1705 1050 Output Total 800 Balance 734 490 9921 Weight 84.7 kg 81.7 kg General appearance: PRESENT: no acute distress, cooperative, disheveled Respiratory exam: PRESENT: clear to auscultation nicolle, unlabored. ABSENT: accessory muscle use, rales, rhonchi, tachypnea, wheezes Cardiovascular exam: PRESENT: RRR, +S1, +S2, systolic murmur. ABSENT: diastolic murmur GI/Abdominal exam: PRESENT: normal bowel sounds, soft. ABSENT: distended, guarding, rebound, tenderness Extremities exam: ABSENT: pedal edema, tenderness Musculoskeletal exam: PRESENT: normal inspection. ABSENT: deformity Neurological exam: PRESENT: alert, awake, oriented to person. ABSENT: oriented to place, oriented to time, oriented to situation Results Laboratory Results: 06/06/18 04:02 06/06/18 04:02 06/06/18 06/06/18 04:02 04:02 WBC 9.7 RBC 3.73 L Hgb 11.9 L Hct 34.5 L MCV 93 MCH 31.9 MCHC 34.5 RDW 13.6 Plt Count 198 Sodium 143.8 Potassium 4.0 Chloride 110 H Carbon Dioxide 26 Anion Gap 8 BUN 18 Creatinine 0.86 Est GFR ( Amer) > 60 Est GFR (Non-Af Amer) > 60 Glucose 96 Calcium 8.8 06/05/18 12:05 Sputum Gram Stain - Final 06/05/18 12:05 Sputum Sputum Culture - Final 06/05/18 06/05/18 06/05/18 00:07 00:07 05:53 Creatine Kinase 66 Cancelled NT-Pro-B Natriuret Pep 267 06/05/18 06/05/18 07:22 11:46 Creatine Kinase 109 115 NT-Pro-B Natriuret Pep Impressions: Chest X-Ray 06/04/18 19:03 IMPRESSION: NO ACUTE RADIOGRAPHIC FINDING IN THE CHEST. Assessment & Plan - Diagnosis (1) Acute hypoxemic respiratory failure Is this a current diagnosis for this admission?: Yes Plan: Resolved. I suspect that he may be aspirating and that could have triggered this episode yesterday. A modified barium swallow study has been ordered for tomorrow. - Time Time Spent with patient: 15-24 minutes
[2018-06-06] MEDS: RIVASTIGMINE TARTRATE 1.5 MG CAPSULE PO SCH (20:53)
[2018-06-07 04:47] LABS: HEMATOCRIT 38.4 % (37.9-51.0); HEMOGLOBIN 12.9 g/dL (13.5-17.0); MEAN CORPUSCULAR HEMOGLOBIN 31.2 pg (27.0-33.4); MEAN CORPUSCULAR HGB CONC 33.7 g/dL (32.0-36.0); MEAN CORPUSCULAR VOLUME 93 fl (80-97); PLATELET COUNT 194 10^3/uL (150-450); RED BLOOD COUNT 4.15 10^6/uL (4.35-5.55); RED CELL DISTRIBUTION WIDTH 13.6 % (11.5-14.0); WHITE BLOOD COUNT 9.6 10^3/uL (4.0-10.5)
[2018-06-07 05:06] LABS: ANION GAP 11 (5-19); BLOOD UREA NITROGEN 15 mg/dL (7-20); CALCIUM 8.9 mg/dL (8.4-10.2); CARBON DIOXIDE 24 mmol/L (22-30); CHLORIDE 108 mmol/L (98-107); GLUCOSE 92 mg/dL (75-110); POTASSIUM 3.9 mmol/L (3.6-5.0); SODIUM 142.9 mmol/L (137-145)
[2018-06-07] MEDS: NORMAL SALINE 1000 ML 1,000 ML IV PRN (08:14)
[2018-06-07] MEDS: IPRATROPIUM/ALBUTEROL 0.5-2.5 MG/3 ML AMPUL NEB SCH ×2 (09:06→13:17)
[2018-06-07] MEDS: RIVASTIGMINE TARTRATE 1.5 MG CAPSULE PO SCH ×2 (09:51→17:53)
[2018-06-07] MEDS: CEFTRIAXONE SODIUM 1,000 MG in DEXTROSE 5%-WATER 50 ML IV SCH (09:51)
[2018-06-07] MEDS: ASPIRIN 325 MG TABLET PO SCH (11:32)
[2018-06-07] MEDS ORDERED: GLYCERIN (ADULT) SUPP.RECT PR ONE (12:00)
--- NOTE | 2018-06-07 12:18 | RADIOLOGY REPORT (SQ) ---
EXAM DESCRIPTION: YOSHI SWALLOW COMPLETED DATE/TIME: 06/07/2018 9:18 am REASON FOR STUDY: dysphagia Parkinson's disease COMPARISON: None. TECHNIQUE: Videofluoroscopic swallowing examination was performed in conjunction with speech patholo gy. Videofluoroscopic imaging was obtained and reviewed and these are the findings: RADIATION DOSE: 2 minutes 3 seconds of fluoroscopy was used. 1 images saved to PACS. LIMITATIONS: None FINDINGS: The patient was brought into the fluoro room and placed upright on a modified barium swall ow chair. The patient was then given multiple consistencies mixed with barium to swallow under live fluoroscopic video guidance. According to the Speech Pathologist there was no penetration or aspirat ion. IMPRESSION: NO EVIDENCE OF PENETRATION OR ASPIRATION.PLEASE SEE SPEECH PATHOLOGIST REPORT FOR OTHER FINDINGS AND RECOMMENDATIONS. COMMENT: Quality ID [id number]: Final reports for procedures using fluoroscopy that document radiation exp osure indices, or exposure time and number of fluorographic images (if radiation exposure indices are not available) TECHNICAL DOCUMENTATION: JOB ID: [id number] [email or web address]- All Rights Reserved Reading location - IP/workstation name: [email or web address]
[2018-06-07] MEDS: ACETYLCYSTEINE 20% SOLN 800 MG/4 ML VIAL.NEB NEB SCH ×3 (14:08→20:04)
[2018-06-07] MEDS: LEVALBUTEROL HCL NEB 0.63 MG/3 ML AMPUL NEB PRN ×2 (15:03→20:04)
[2018-06-07] MEDS ORDERED: FUROSEMIDE INJ/PF 40 MG/4 ML SDV ONE (15:19)
[2018-06-07] MEDS ORDERED: FUROSEMIDE INJ/PF 40 MG/4 ML SDV IV ONE (16:00)
--- NOTE | 2018-06-07 17:21 | RADIOLOGY REPORT (SQ) ---
EXAM DESCRIPTION: CHEST SINGLE VIEW COMPLETED DATE/TIME: 06/07/2018 4:46 pm REASON FOR STUDY: Possible fluid overload COMPARISON: 06/04/2018 EXAM PARAMETERS: NUMBER OF VIEWS: One view. TECHNIQUE: Single frontal radiographic view of the chest acquired. RADIATION DOSE: NA LIMITATIONS: None. FINDINGS: LUNGS AND PLEURA: No opacities, masses or pneumothorax. No pleural effusion. MEDIASTINUM AND HILAR STRUCTURES: No masses. Contour normal. HEART AND VASCULAR STRUCTURES: Heart normal in size. Normal vasculature. BONES: No acute findings. HARDWARE: Loop recorder. OTHER: No other significant finding. IMPRESSION: NO ACUTE RADIOGRAPHIC FINDING IN THE CHEST. TECHNICAL DOCUMENTATION: JOB ID: [id number] [employer]- All Rights Reserved Reading location - IP/workstation name: [email or web address]
--- NOTE | 2018-06-07 17:47 | ST Inp Modified Barium Swallow ---
Medical Diagnosis - Medical Diagnoses Medical Diagnosis Description & ICD-10 Code(s): respiratory failure, dysphagia ST [place]patient [facility] [place] [facility] [place] General Date: 06/07/18 - History History Obtained From: Other - EMR -: Medical - Current diagnoses include acute hypoxemic respiratory failure, hallucinations, Parkinsonism, and memory loss. Patient has history of hallucinations and Parkinsonism, has seen multiple neurologist per history and physical. Per patients , diagnosis being considered is Lewy body dementia. Patient has recent episodes of dyspnea & mucus running from nose. Patient on regular diet consistency. No overt signs/symptoms of aspiration during bedside eval, but orally held bite of edith cracker for 1 minutes. Not sure if orally holding or severely delayed swallow and possible silent aspiration. Nursing reported that tests indicated aspiration and doctor also had concerns. Medications: Medications Reviewed Allergies: Refer to medical record - Subjective Current Nutritional Means: PO Current PO Diet: Regular Current Symptoms: Pneumonia Pain: Patient reports, 0/5 - Objective Assessment: Upright, Left Lateral - Food Trials Food Trials Used: Thin liquids, Pureed, Soft solids - edith cracker trials The Patient: Required Assist, fed by ST - Assessment Labial Function: Within Normal Limits Lingual Function: Within Functional Limits Mandibular Function: Within Functional Limits - Pharyngeal Stage Initiation of Pharyngeal Stage: Delayed Reflex Delay Time (seconds): 7 - with solid trials only Decreased Laryngeal Elevation: No Reduced Velo-Pharyngeal Closure: no Reduced Pressure Generation: Yes - mild Reduced Tongue Base Retraction: No Pre-Swallowing Pooling in Valleculae: Moderate Pre-Swallowing Pooling in Pyriforms: None Reduced Thyro-Hyiod Approximation: No Reduced Epiglottic Excursion: No Reduced Pharyngeal Peristalsis: No Multiple Swallows With: Effective - cued for second swallow Post Swallow Residuals in Valleculae: Mild Post Swallow Residuals in Pyriforms: None - Esophageal Stage Cricophageal Function: Normal - Impression/Summary Laryngeal Penetration: No Tracheal Aspiration: no Patient Presents With: Pharyngeal stage dysph., Mild-Moderate Risk of Aspiration: Mild Risk of Nutritional Compromise: WNL Risk Due To: Delayed swallow reflex - Recommendations Solid Diet Recommendations: Regular Liquid Diet Recommendations: Thin Regular Diet: Yes Strict Aspitarion Precautions: Yes Dysphagia Therapy with BATT MACHINE OPERATOR: No Recommended Techniques: Fully Upright During Meal, Alternate Bites/Sips Supervision: requires assistance - Time Total Time: 20 Total Timed Minutes: 20
--- NOTE | 2018-06-07 19:28 | PDOC PROGRESS REPORT ---
Subjective Progress Note for:: 06/07/18 Subjective:: Mr. Burns was initially admitted for shortness of breath with unclear etiology. He was suspected to have an episode of aspiration. No acute event overnight. Patient is tolerating a diet and oral intake well. He denies shortness of breath, cough, fever or chills. Reason For Visit: ACUTE HYPOXEMIC RESPIRATORY FAILURE Physical Exam Vital Signs: Temp Pulse Resp BP Pulse Ox 97.9 F 89 16 142/84 H 100 06/07/18 15:15 06/07/18 15:15 06/07/18 15:15 06/07/18 15:15 06/07/18 16:52 Intake & Output 06/06/18 06/07/18 06/08/18 06:59 06:59 06:59 Intake Total 1705 3144 1237 Output Total 800 925 225 Balance 905 2219 1012 Weight 180 lb 1.883 oz 174 lb 2.643 oz General appearance: PRESENT: no acute distress Head exam: PRESENT: atraumatic, normocephalic Eye exam: PRESENT: conjunctiva pink, EOMI, PERRLA. ABSENT: scleral icterus Neck exam: ABSENT: carotid bruit, JVD, lymphadenopathy, thyromegaly Respiratory exam: PRESENT: clear to auscultation nicolle. ABSENT: rales, rhonchi, wheezes Cardiovascular exam: PRESENT: RRR. ABSENT: diastolic murmur, rubs, systolic murmur Pulses: PRESENT: normal dorsalis pedis pul GI/Abdominal exam: PRESENT: normal bowel sounds, soft. ABSENT: distended, guarding, mass, organolmegaly, rebound, tenderness Rectal exam: PRESENT: deferred Extremities exam: PRESENT: full ROM. ABSENT: calf tenderness, clubbing, pedal edema Neurological exam: PRESENT: awake, oriented to person Psychiatric exam: PRESENT: appropriate affect, normal mood. ABSENT: homicidal ideation, suicidal ideation Skin exam: PRESENT: dry, intact, warm. ABSENT: cyanosis, rash Results Laboratory Results: 06/07/18 04:08 06/07/18 04:08 06/07/18 06/07/18 04:08 04:08 WBC 9.6 RBC 4.15 L Hgb 12.9 L Hct 38.4 MCV 93 MCH 31.2 MCHC 33.7 RDW 13.6 Plt Count 194 Sodium 142.9 Potassium 3.9 Chloride 108 H Carbon Dioxide 24 Anion Gap 11 BUN 15 Creatinine 0.82 Est GFR ( Amer) > 60 Est GFR (Non-Af Amer) > 60 Glucose 92 Calcium 8.9 06/05/18 06/05/18 06/05/18 00:07 00:07 05:53 Creatine Kinase 66 Cancelled NT-Pro-B Natriuret Pep 267 06/05/18 06/05/18 07:22 11:46 Creatine Kinase 109 115 NT-Pro-B Natriuret Pep Impressions: Chest X-Ray 06/07/18 00:00 IMPRESSION: NO ACUTE RADIOGRAPHIC FINDING IN THE CHEST. Modified Barium Swallow 06/07/18 00:00 IMPRESSION: NO EVIDENCE OF PENETRATION OR ASPIRATION.PLEASE SEE SPEECH PATHOLOGIST REPORT FOR OTHER FINDINGS AND RECOMMENDATIONS. Assessment & Plan - Diagnosis (1) Acute hypoxemic respiratory failure Is this a current diagnosis for this admission?: Yes Plan: Aspiration was suspected in light of patient's comorbidities. Pulmonology was also consulted. Swallow evaluation was unremarkable. Patient's care will be transferred to Dr. Teresa as per patient and 's request. Apparently Dr. Teresa has been the patient's PCP and is very familiar with the patient.
[2018-06-07] MEDS: DIAZEPAM 5 MG TABLET PO PRN (22:19)
[2018-06-08 05:26] LABS: ABSOLUTE BASOPHILS # (AUTO) 0.1 10^3/uL (0.0-0.2); ABSOLUTE EOSINOPHILS # (AUTO) 0.9 10^3/uL (0.0-0.6); ABSOLUTE LYMPHOCYTES (AUTO) 1.7 10^3/uL (0.5-4.7); ABSOLUTE MONOCYTES (AUTO) 0.6 10^3/uL (0.1-1.4); ABSOLUTE NEUT (AUTO) 4.5 10^3/uL (1.7-8.2); BASOPHILS % (AUTO) 0.8 % (0-2); EOSINOPHILS % (AUTO) 11.4 % (0-6); HEMATOCRIT 38.9 % (37.9-51.0); HEMOGLOBIN 13.1 g/dL (13.5-17.0); LYMPHOCYTES % (AUTO) 22.1 % (13-45); MEAN CORPUSCULAR HEMOGLOBIN 30.9 pg (27.0-33.4); MEAN CORPUSCULAR HGB CONC 33.6 g/dL (32.0-36.0); MEAN CORPUSCULAR VOLUME 92 fl (80-97); MONOCYTES % (AUTO) 8.1 % (3-13); PLATELET COUNT 196 10^3/uL (150-450); RED BLOOD COUNT 4.23 10^6/uL (4.35-5.55); RED CELL DISTRIBUTION WIDTH 13.6 % (11.5-14.0); SEGMENTED NEUTROPHILS % (AUTO) 57.6 % (42-78); TOTAL CELLS COUNTED % (AUTO) 100 %; WHITE BLOOD COUNT 7.8 10^3/uL (4.0-10.5)
[2018-06-08 05:41] LABS: ANION GAP 13 (5-19); BLOOD UREA NITROGEN 18 mg/dL (7-20); CALCIUM 9.3 mg/dL (8.4-10.2); CARBON DIOXIDE 25 mmol/L (22-30); CHLORIDE 104 mmol/L (98-107); GLUCOSE 93 mg/dL (75-110); POTASSIUM 3.6 mmol/L (3.6-5.0); SODIUM 142.4 mmol/L (137-145)
[2018-06-08] MEDS: ACETYLCYSTEINE 20% SOLN 800 MG/4 ML VIAL.NEB NEB SCH ×2 (07:43→19:35)
[2018-06-08] MEDS: LEVALBUTEROL HCL NEB 0.63 MG/3 ML AMPUL NEB PRN ×2 (07:43→19:36)
[2018-06-08] MEDS ORDERED: DIAZEPAM 5 MG TABLET PO PRN (09:17)
[2018-06-08] MEDS: ASPIRIN 325 MG TABLET PO SCH (09:53)
[2018-06-08] MEDS: CEFTRIAXONE SODIUM 1,000 MG in DEXTROSE 5%-WATER 50 ML IV SCH (09:53)
[2018-06-08] MEDS: RIVASTIGMINE TARTRATE 1.5 MG CAPSULE PO SCH ×2 (09:53→17:01)
--- NOTE | 2018-06-08 12:01 | PDOC PROGRESS REPORT ---
Subjective Progress Note for:: 06/08/18 Subjective:: Patient is seen he is sluggish but he responds to verbal stimuli. He is not confused he is not agitated he denies shortness of breath, fever, some intermittent cough no nausea vomiting. Discussed at full length and history with over the last several months. She does state that having intermittent dysphagia to swallow it solids for 6 months no regurgitation no nausea or vomiting. Reason For Visit: ACUTE HYPOXEMIC RESPIRATORY FAILURE Physical Exam Vital Signs: Temp Pulse Resp BP Pulse Ox 98.9 F 74 16 137/71 H 96 06/08/18 07:15 06/08/18 07:43 06/08/18 07:43 06/08/18 07:15 06/08/18 07:43 Intake & Output 06/07/18 06/08/18 06/09/18 06:59 06:59 06:59 Intake Total 3144 2487 Output Total 925 525 Balance 2219 1962 Weight 79 kg 68.1 kg General appearance: PRESENT: no acute distress, well-developed, well-nourished Head exam: PRESENT: atraumatic, normocephalic Eye exam: PRESENT: conjunctiva pink, EOMI, PERRLA. ABSENT: scleral icterus Ear exam: PRESENT: normal external ear exam Mouth exam: PRESENT: moist, tongue midline Neck exam: PRESENT: full ROM. ABSENT: carotid bruit, JVD, lymphadenopathy, thyromegaly Respiratory exam: PRESENT: clear to auscultation nicolle, symmetrical Cardiovascular exam: PRESENT: RRR. ABSENT: diastolic murmur, rubs, systolic murmur Pulses: PRESENT: normal dorsalis pedis pul, +2 pedal pulses bilateral Vascular exam: PRESENT: normal capillary refill GI/Abdominal exam: PRESENT: normal bowel sounds, soft Rectal exam: PRESENT: deferred Extremities exam: PRESENT: full ROM Neurological exam: PRESENT: awake, oriented to person, abnormal gait, CN II-XII grossly intact Psychiatric exam: PRESENT: appropriate affect Skin exam: PRESENT: dry, intact, warm. ABSENT: cyanosis, rash Results Laboratory Results: 06/08/18 04:19 06/08/18 04:19 06/08/18 06/08/18 04:19 04:19 WBC 7.8 RBC 4.23 L Hgb 13.1 L Hct 38.9 MCV 92 MCH 30.9 MCHC 33.6 RDW 13.6 Plt Count 196 Seg Neutrophils % 57.6 Lymphocytes % 22.1 Monocytes % 8.1 Eosinophils % 11.4 H Basophils % 0.8 Absolute Neutrophils 4.5 Absolute Lymphocytes 1.7 Absolute Monocytes 0.6 Absolute Eosinophils 0.9 H Absolute Basophils 0.1 Sodium 142.4 Potassium 3.6 Chloride 104 Carbon Dioxide 25 Anion Gap 13 BUN 18 Creatinine 0.88 Est GFR ( Amer) > 60 Est GFR (Non-Af Amer) > 60 Glucose 93 Calcium 9.3 06/05/18 06/05/18 06/05/18 00:07 00:07 05:53 Creatine Kinase 66 Cancelled NT-Pro-B Natriuret Pep 267 06/05/18 06/05/18 07:22 11:46 Creatine Kinase 109 115 NT-Pro-B Natriuret Pep Impressions: Chest X-Ray 06/07/18 00:00 IMPRESSION: NO ACUTE RADIOGRAPHIC FINDING IN THE CHEST. Modified Barium Swallow 06/07/18 00:00 IMPRESSION: NO EVIDENCE OF PENETRATION OR ASPIRATION.PLEASE SEE SPEECH PATHOLOGIST REPORT FOR OTHER FINDINGS AND RECOMMENDATIONS. Assessment & Plan - Diagnosis (1) Acute hypoxemic respiratory failure Is this a current diagnosis for this admission?: Yes Plan: Plan continue IV antibiotics beta-2 agonists, institute aspiration precautions elevate head of bed at 45 when feeding alternate solids with liquids small portions. We will also decrease his diazepam from 5 mg to 2.5 discussed at length with . (2) Hallucinations Is this a current diagnosis for this admission?: Yes (3) Dysphagia Qualifiers: Dysphagia type: oral phase Qualified Code(s): R13.11 - Dysphagia, oral phase Is this a current diagnosis for this admission?: Yes Plan: Plan we will check with call schedule to gastroenterology for evaluation for possible EGD if not now as an outpatient. - Time Time Spent with patient: 15-24 minutes Medications reviewed and adjusted accordingly: Yes Anticipated discharge: Home Within: within 48 hours - Inpatient Certification Medical Necessity: Failure to Improve With Outpatient Therapy, Significant Comorbidiites Make Outpatient Treatment Too Risky, Need for Nebulizer Therapy and Monitoring of Response Post Hospital Care: D/C Senior Compensation Consultant Documentation
[2018-06-09] MEDS: LEVALBUTEROL HCL NEB 0.63 MG/3 ML AMPUL NEB PRN ×2 (07:55→19:47)
[2018-06-09] MEDS: ACETYLCYSTEINE 20% SOLN 800 MG/4 ML VIAL.NEB NEB SCH ×2 (07:55→19:46)
[2018-06-09] MEDS: CEFTRIAXONE SODIUM 1,000 MG in DEXTROSE 5%-WATER 50 ML IV SCH (09:39)
[2018-06-09] MEDS: RIVASTIGMINE TARTRATE 1.5 MG CAPSULE PO SCH ×2 (09:39→17:13)
[2018-06-09] MEDS: ASPIRIN 325 MG TABLET PO SCH (09:39)
--- NOTE | 2018-06-09 13:12 | PDOC PROGRESS REPORT ---
Subjective Progress Note for:: 06/09/18 Subjective:: Patient seen today while being seen by PT/OT, reviewed recent HH request by also no GI consumer marketing specialist till Jun 14 . He is pleasant, denies SOB, afebrile and no cough. Reason For Visit: ACUTE HYPOXEMIC RESPIRATORY FAILURE Physical Exam Vital Signs: Temp Pulse Resp BP Pulse Ox 97.4 F 80 19 129/74 H 99 06/09/18 11:40 06/09/18 11:40 06/09/18 11:40 06/09/18 11:40 06/09/18 11:40 Intake & Output 06/08/18 06/09/18 06/10/18 06:59 06:59 06:59 Intake Total 2487 1138 50 Output Total 525 Balance 1962 1138 50 Weight 68.1 kg 68.2 kg General appearance: PRESENT: no acute distress, well-developed, well-nourished Head exam: PRESENT: atraumatic, normocephalic Eye exam: PRESENT: conjunctiva pink, EOMI, PERRLA. ABSENT: scleral icterus Ear exam: PRESENT: normal external ear exam Mouth exam: PRESENT: moist, tongue midline Neck exam: PRESENT: full ROM. ABSENT: carotid bruit, JVD, lymphadenopathy, thyromegaly Respiratory exam: PRESENT: decreased breath sounds Cardiovascular exam: PRESENT: RRR. ABSENT: diastolic murmur, rubs, systolic murmur Pulses: PRESENT: normal dorsalis pedis pul, +2 pedal pulses bilateral Vascular exam: PRESENT: normal capillary refill GI/Abdominal exam: PRESENT: normal bowel sounds, soft. ABSENT: distended, guarding, mass, organolmegaly, rebound, tenderness Rectal exam: PRESENT: deferred Extremities exam: PRESENT: full ROM Neurological exam: PRESENT: awake, oriented to person, abnormal gait, CN II-XII grossly intact Psychiatric exam: PRESENT: other - confused Skin exam: PRESENT: dry, intact, warm. ABSENT: cyanosis, rash Results Laboratory Results: 06/08/18 04:19 06/08/18 04:19 06/05/18 06/05/18 06/05/18 00:07 00:07 05:53 Creatine Kinase 66 Cancelled NT-Pro-B Natriuret Pep 267 06/05/18 06/05/18 07:22 11:46 Creatine Kinase 109 115 NT-Pro-B Natriuret Pep Impressions: Chest X-Ray 06/07/18 00:00 IMPRESSION: NO ACUTE RADIOGRAPHIC FINDING IN THE CHEST. Modified Barium Swallow 06/07/18 00:00 IMPRESSION: NO EVIDENCE OF PENETRATION OR ASPIRATION.PLEASE SEE SPEECH PATHOLOGIST REPORT FOR OTHER FINDINGS AND RECOMMENDATIONS. Assessment & Plan - Diagnosis (1) Acute hypoxemic respiratory failure Is this a current diagnosis for this admission?: Yes Plan: Plan continue IV antibiotics beta-2 agonists, institute aspiration precautions elevate head of bed at 45 when feeding alternate solids with liquids small portions. We will also decrease his diazepam from 5 mg to 2.5 discussed at length with . (2) Hallucinations Is this a current diagnosis for this admission?: Yes Plan: cont. d/c valium trial clonazepam (3) Dysphagia Qualifiers: Dysphagia type: oral phase Qualified Code(s): R13.11 - Dysphagia, oral phase Is this a current diagnosis for this admission?: Yes (4) Memory loss Is this a current diagnosis for this admission?: Yes Plan: schedule care PT/OT, hospital bed - Time Time Spent with patient: 15-24 minutes Medications reviewed and adjusted accordingly: Yes Anticipated discharge: Home with Homehealth Within: within 24 hours - Inpatient Certification I certify that my determination is in accordance with my understanding of Medicare's requirements for reasonable and necessary INPATIENT services [42 CFR 412.3e].: Yes Medical Necessity: Significant Comorbidiites Make Outpatient Treatment Too Risky , Need Close Monitoring Due to Risk of Patient Decompensation, Need for Nebulizer Therapy and Monitoring of Response, Need for Neurological Checks Post Hospital Care: D/C Boning Room Worker Documentation
[2018-06-10] MEDS: LEVALBUTEROL HCL NEB 0.63 MG/3 ML AMPUL NEB PRN (09:15)
[2018-06-10] MEDS: ACETYLCYSTEINE 20% SOLN 800 MG/4 ML VIAL.NEB NEB SCH (09:15)
[2018-06-10] MEDS: CEFTRIAXONE SODIUM 1,000 MG in DEXTROSE 5%-WATER 50 ML IV SCH (09:52)
[2018-06-10] MEDS: RIVASTIGMINE TARTRATE 1.5 MG CAPSULE PO SCH (09:53)
[2018-06-10] MEDS: ASPIRIN 325 MG TABLET PO SCH (09:53)
[2018-06-10 12:27] VITALS: BP 100/63
== END 2018-06-10 12:55 | disposition home health service (06) | DRG 189 ==
LOC: ER 18:42 → EH 22:20 → 5 23:59
PROVIDERS: ADMIT Internal Medicine; ATTEND Internal Medicine
DX: J96.01 Acute respiratory failure with hypoxia (principal); J44.1 Chronic obstructive pulmonary disease with (acute) exacerbation; R44.3 Hallucinations, unspecified; I48.91 Unspecified atrial fibrillation; G20 Parkinson's disease; R13.11 Dysphagia, oral phase; F02.80 Dementia in other diseases classified elsewhere, unspecified severity, without behavioral disturbance, psychotic disturbance, mood disturbance, and anxiety; R45.1 Restlessness and agitation; R41.3 Other amnesia
CPT/HCPCS: 36415; 71045; 74230; 80048; 80053; 81001; 82550; 82553; 82803; 83880; 84443; 84484; 85025; 85027; 87040; 87205; 93005; 93010; 94640; 94660; 96374; 96375; 99285; G8978-GP; G8979-GP; G8987-GO; G8988-GO; G8996-GN; G8997-GN; G8998-GN; J0696; J1940; J2930; J3360; J3490; J7030; J7614; J7620

== ENCOUNTER 2018-06-22 08:48 | Day surgery (SDC) | payer MEDICARE, BC ==
[~2018-06-22 08:48] MED LIST: DIPHENHYDRAMINE HCL 50 MG/ML VIAL ONE; EPINEPHRINE INJ 1 MG/10 ML DISP.SYRIN ONE; FENTANYL CITRATE INJ/PF 100 MCG/2 ML AMPUL ONE; FLUMAZENIL INJ 0.5 MG/5 ML VIAL ONE; GLUCAGON,HUMAN RECOMB 1 MG INJ ONE; MIDAZOLAM 2 MG/2 ML INJ ONE; NALOXONE HCL INJ/PF 0.4 MG/1 ML SDV ONE; ONDANSETRON HCL INJ/PF 4 MG/2 ML SDV ONE
--- NOTE | 2018-06-22 10:15 | Operative Report ---
Operative Report DATE OF SURGERY: 06/22/18 Operative Report: The risks benefits and alternatives of the procedure explained to the patient in detail and informed consent is obtained.A GIF Olympus video scope was inserted into the patient's mouth and hypopharynx, the esophagus is identified intubated and insufflated, the scope was then advanced through the esophagus stomach and duodenum ,retroflexion maneuver is done, the esophagus stomach and first and second portions of the duodenum examined PREOPERATIVE DIAGNOSIS: Chronic cough, possible extra esophageal symptoms of GERD POSTOPERATIVE DIAGNOSIS: Esophagitis. Hiatal hernia. Gastritis. Duodenitis with small duodenal erosion. Gastric mucosal specimen obtained to rule out for Helicobacter pylori OPERATION: EGD with biopsy SURGEON: KATHI RAMOS ANESTHESIA: Moderate Sedation - 2 mg of Versed. Conscious sedation monitoring time 30 minutes. TISSUE REMOVED OR ALTERED: As noted above. COMPLICATIONS: None. ESTIMATED BLOOD LOSS: None. INTRAOPERATIVE FINDINGS: As noted above. PROCEDURE: Patient tolerated the procedure well. No immediate postprocedure complications are noted. Patient discharged in good condition. Discharge date 06/22/2018. Discharge diet: Regular. Discharge activity: Regular. 2-3 week follow-up to discuss findings. Patient is instructed to call the office or proceed to the emergency room should there be any further problems or questions. We will wait on the pathology.
[2018-06-22 13:11] VITALS: BP 132/64
== END 2018-06-22 11:55 | disposition home or self-care (01) ==
LOC: END 08:48
PROVIDERS: ATTEND Internal Medicine Gastroenterology
DX: K20.9 Esophagitis, unspecified (principal); K29.50 Unspecified chronic gastritis without bleeding; K26.9 Duodenal ulcer, unspecified as acute or chronic, without hemorrhage or perforation; K44.9 Diaphragmatic hernia without obstruction or gangrene; G20 Parkinson's disease
CPT/HCPCS: 43239; J2250; J0171; J1200; J1610; J2310; J2405; J3010; J3490

== ENCOUNTER 2018-08-23 18:48 | Emergency (ER) | payer MEDICARE, BC ==
--- NOTE | 2018-08-23 19:38 | ER Document Report ---
ED Medical Screen (RME) - General Chief Complaint: Lower Abdominal Pain Stated Complaint: ABDOMINAL PAIN Time Seen by Provider: 08/23/18 19:34 Mode of Arrival: Ambulatory Information source: Patient Notes: 72-year-old male with a history of memory loss is brought to the emergency department by his after being seen by VERA Moreno. Patient had an appointment today because has had increased urination over the last few days. He was sent to the ED for evaluation of appendicitis. He was tender in the RLQ. In the ED, patient denies any abdominal pain, nausea. denies vomiting, diarrhea, constipation. I have greeted and performed a rapid initial assessment of this patient. A comprehensive ED assessment and evaluation of the patient, analysis of test results and completion of the medical decision making process will be conducted by additional ED providers. PHYSICAL EXAMINATION: GENERAL: Well-appearing, well-nourished and in no acute distress. HEAD: Atraumatic, normocephalic. EYES: Pupils equal round extraocular movements intact, conjunctiva are normal. ENT: Nares patent NECK: Normal range of motion LUNGS: No respiratory distress Musculoskeletal: Normal range of motion NEUROLOGICAL: Normal speech, normal gait. PSYCH: Normal mood, normal affect. SKIN: Warm, Dry, normal turgor, no rashes or lesions noted. TRAVEL OUTSIDE OF THE [place] IN LAST 30 DAYS: No - Related Data Allergies/Adverse Reactions: cimetidine [From Tagamet] Allergy (Severe, Verified 06/22/18 09:23) Anaphylaxis cimetidine HCl [From Tagamet] Allergy (Severe, Verified 06/22/18 09:23) Anaphylaxis ranitidine HCl [From Zantac] Allergy (Verified 06/22/18 09:23) Edema Past Medical History - Social History Frequency of alcohol use: None Drug Abuse: None - Past Medical History Cardiac Medical History: Reports: Hx Atrial Fibrillation Denies: Hx Coronary Artery Disease, Hx Heart Attack, Hx Hypertension, Hx Pulmonary Embolism Pulmonary Medical History: Reports: Hx Respiratory Failure Denies: Hx Asthma, Hx Bronchitis, Hx COPD, Hx Pneumonia Neurological Medical History: Denies: Hx Cerebrovascular Accident, Hx Seizures Endocrine Medical History: Denies: Hx Diabetes Mellitus Type 2 Renal/ Medical History: Denies: Hx Peritoneal Dialysis Malignancy Medical History: Reports Hx Skin Cancer GI Medical History: Reports: Hx Ulcer - 1978 [facility]. Denies: Hx Hepatitis, Hx Hiatal Hernia Musculoskeltal Medical History: Denies Hx Arthritis Psychiatric Medical History: Reports: Hx Dementia, Hx Depression Infectious Medical History: Denies: Hx Hepatitis Past Surgical History: Reports: Hx Cardiac Surgery - ablation, Other - Patient has undergone cardiac ablation for A. fib. Denies: Hx Open Heart Surgery, Hx Pacemaker - Immunizations Hx Diphtheria, Pertussis, Tetanus Vaccination: No History of Influenza Vaccine for 08/2017 - 01/2018 Season: Refused Physical Exam - Vital signs Vitals: Temp Pulse Resp BP Pulse Ox 97.7 F 74 18 127/64 H 99 08/23/18 18:56 08/23/18 18:56 08/23/18 18:56 08/23/18 18:56 08/23/18 18:56 Course - Vital Signs Vital signs: Temp Pulse Resp BP Pulse Ox 97.7 F 74 18 127/64 H 99 08/23/18 18:56 08/23/18 18:56 08/23/18 18:56 08/23/18 18:56 08/23/18 18:56 Doctor's Discharge - Discharge Referrals: LEROY AKHTAR MD [Primary Care Provider] - Follow up as needed
[2018-08-23 20:35] LABS: ABSOLUTE BASOPHILS # (AUTO) 0.1 10^3/uL (0.0-0.2); ABSOLUTE EOSINOPHILS # (AUTO) 0.7 10^3/uL (0.0-0.6); ABSOLUTE LYMPHOCYTES (AUTO) 1.6 10^3/uL (0.5-4.7); ABSOLUTE MONOCYTES (AUTO) 0.5 10^3/uL (0.1-1.4); EOSINOPHILS % (AUTO) 9.8 % (0-6); HEMATOCRIT 40.3 % (37.9-51.0); HEMOGLOBIN 13.7 g/dL (13.5-17.0); LYMPHOCYTES % (AUTO) 23.5 % (13-45); MEAN CORPUSCULAR HEMOGLOBIN 31.4 pg (27.0-33.4); MEAN CORPUSCULAR HGB CONC 33.9 g/dL (32.0-36.0); MEAN CORPUSCULAR VOLUME 93 fl (80-97); MONOCYTES % (AUTO) 7.4 % (3-13); PLATELET COUNT 213 10^3/uL (150-450); RED BLOOD COUNT 4.36 10^6/uL (4.35-5.55); RED CELL DISTRIBUTION WIDTH 13.5 % (11.5-14.0); SEGMENTED NEUTROPHILS % (AUTO) 58.3 % (42-78); TOTAL CELLS COUNTED % (AUTO) 100 %; WHITE BLOOD COUNT 6.9 10^3/uL (4.0-10.5)
[2018-08-23 20:40] LABS: APPEARANCE,URINE SLIGHTLY-CLOUDY; BILIRUBIN,URINE NEGATIVE (NEGATIVE); COLOR,URINE YELLOW; GLUCOSE, URINE NEGATIVE (NEGATIVE); KETONES,URINE NEGATIVE (NEGATIVE); LEUKOCYTE ESTERASE,URINE NEGATIVE (NEGATIVE); NITRITE,URINE NEGATIVE (NEGATIVE); PROTEIN,URINE NEGATIVE (NEGATIVE)
[2018-08-23 20:53] LABS: ALANINE AMINOTRANSFERASE 21 U/L (21-72); ALBUMIN 4.1 g/dL (3.5-5.0); ALKALINE PHOSPHATASE 44 U/L (38-126); ANION GAP 10 (5-19); ASPARTATE AMINO TRANSFERASE 18 U/L (17-59); BILIRUBIN,DIRECT 0.2 mg/dL (0.0-0.4); BILIRUBIN,TOTAL 0.7 mg/dL (0.2-1.3); BLOOD UREA NITROGEN 23 mg/dL (7-20); CALCIUM 9.1 mg/dL (8.4-10.2); CARBON DIOXIDE 29 mmol/L (22-30); CHLORIDE 104 mmol/L (98-107); GLUCOSE 136 mg/dL (75-110); LIPASE 94.6 U/L (23-300); POTASSIUM 3.8 mmol/L (3.6-5.0); SODIUM 142.6 mmol/L (137-145); TOTAL PROTEIN 6.7 g/dL (6.3-8.2)
[2018-08-23] MEDS ORDERED: NORMAL SALINE 1000 ML 1,000 ML IV ONE (21:12)
--- NOTE | 2018-08-23 21:48 | RADIOLOGY REPORT (SQ) ---
EXAM DESCRIPTION: CT ABDOMEN PELVIS WITH IV CONTRAST COMPLETED DATE/TME: 08/23/2018 20:19 CLINICAL HISTORY: 72 years Male RLQ pain COMPARISON: None. TECHNIQUE: Contiguous axial images obtained through the abdomen and pelvis following IV contrast. Reformatted images obtained. This exam was performed according to our department optimization program which includes automated exposure control, adjustment of the mA and/or kv according to patient size and/or use of iterative reconstruction technique. FINDINGS: The liver appears unremarkable. The spleen and pancreas appear unremarkable. No adrenal masses. The kidneys appear unremarkable. No hydronephrosis. The gallbladder is visualized. No aneurysmal dilatation of the aorta. No bowel obstruction. The appendix is unremarkable. No significant free fluid noted. IMPRESSION: No acute abnormality is identified.
--- NOTE | 2018-08-23 22:27 | ER Document Report ---
ED GI/ - General Chief Complaint: Lower Abdominal Pain Stated Complaint: ABDOMINAL PAIN Time Seen by Provider: 08/23/18 19:34 Mode of Arrival: Ambulatory Information source: Patient, Relative Notes: Patient was sent to the emergency room by his primary doctor for rule out appendicitis. Patient was having left lower quadrant abdominal pain. TRAVEL OUTSIDE OF THE [place] IN LAST 30 DAYS: No - HPI Patient complains to provider of: Abdominal pain Onset: Just prior to arrival Timing/Duration: Sudden Quality of pain: Sharp Severity at maximum: Moderate Severity in ED: Moderate Pain Level: 3 Location: LLQ Associated symptoms: None Exacerbated by: Denies Relieved by: Denies Similar symptoms previously: No Recently seen / treated by doctor: No - Related Data Allergies/Adverse Reactions: cimetidine [From Tagamet] Allergy (Severe, Verified 06/22/18 09:23) Anaphylaxis cimetidine HCl [From Tagamet] Allergy (Severe, Verified 06/22/18 09:23) Anaphylaxis ranitidine HCl [From Zantac] Allergy (Verified 06/22/18 09:23) Edema Past Medical History - General Information source: Patient - Social History Smoking Status: Never Smoker Frequency of alcohol use: None Drug Abuse: None Family History: Other Patient has suicidal ideation: No Patient has homicidal ideation: No - Past Medical History Cardiac Medical History: Reports: Hx Atrial Fibrillation Denies: Hx Coronary Artery Disease, Hx Heart Attack, Hx Hypertension, Hx Pulmonary Embolism Pulmonary Medical History: Reports: Hx Respiratory Failure Denies: Hx Asthma, Hx Bronchitis, Hx COPD, Hx Pneumonia Neurological Medical History: Denies: Hx Cerebrovascular Accident, Hx Seizures Endocrine Medical History: Denies: Hx Diabetes Mellitus Type 2 Renal/ Medical History: Denies: Hx Peritoneal Dialysis Malignancy Medical History: Reports Hx Skin Cancer GI Medical History: Reports: Hx Ulcer - 1978 [facility]. Denies: Hx Hepatitis, Hx Hiatal Hernia Musculoskeletal Medical History: Denies Hx Arthritis Psychiatric Medical History: Reports: Hx Dementia, Hx Depression Infectious Medical History: Denies: Hx Hepatitis Past Surgical History: Reports: Hx Cardiac Surgery - ablation, Other - Patient has undergone cardiac ablation for A. fib. Denies: Hx Open Heart Surgery, Hx Pacemaker - Immunizations Hx Diphtheria, Pertussis, Tetanus Vaccination: No Review of Systems - Review of Systems Constitutional: No symptoms reported EENT: No symptoms reported Cardiovascular: No symptoms reported Respiratory: No symptoms reported Gastrointestinal: Abdominal pain Genitourinary: No symptoms reported Male Genitourinary: No symptoms reported Musculoskeletal: No symptoms reported Skin: No symptoms reported Hematologic/Lymphatic: No symptoms reported Neurological/Psychological: No symptoms reported Physical Exam - Vital signs Vitals: Temp Pulse Resp BP Pulse Ox 97.7 F 74 18 127/64 H 99 08/23/18 18:56 18 18:56 08/23/18 18:56 08/23/18 18:56 08/23/18 18:56 Interpretation: Normal - General General appearance: Appears well, Alert - HEENT Head: Normocephalic, Atraumatic Eyes: Normal Pupils: PERRL - Respiratory Respiratory status: No respiratory distress Chest status: Nontender Breath sounds: Normal Chest palpation: Normal - Cardiovascular Rhythm: Regular Heart sounds: Normal auscultation Murmur: No - Abdominal Inspection: Normal Distension: No distension Bowel sounds: Normal Tenderness: Tender - LLQ tenderness to palpation. Organomegaly: No organomegaly - Back Back: Normal, Nontender - Extremities General upper extremity: Normal inspection, Nontender, Normal color, Normal ROM , Normal temperature General lower extremity: Normal inspection, Nontender, Normal color, Normal ROM , Normal temperature, Normal weight bearing. No: Tony's sign - Neurological Neuro grossly intact: Yes Cognition: Normal Orientation: AAOx4 [place] Coma Scale Eye Opening: Spontaneous [place] Coma Scale Verbal: Oriented Dede Coma Scale Motor: Obeys Commands Four [place] Coma Scale Total: 15 Speech: Normal Motor strength normal: LUE, RUE, LLE, RLE Sensory: Normal - Psychological Associated symptoms: Normal affect, Normal mood - Skin Skin Temperature: Warm Skin Moisture: Dry Skin Color: Normal Course - Vital Signs Vital signs: Temp Pulse Resp BP Pulse Ox 97.7 F 74 18 127/64 H 99 08/23/18 18:56 08/23/18 18:56 08/23/18 18:56 08/23/18 18:56 08/23/18 18:56 - Laboratory Result Diagrams: 08/23/18 19:50 08/23/18 19:50 Laboratory results interpreted by me: 08/23/18 08/23/18 08/23/18 19:50 19:50 19:50 Eosinophils % 9.8 H Absolute Eosinophils 0.7 H BUN 23 H Glucose 136 H Urine Urobilinogen 2.0 H - Diagnostic Test Radiology reviewed: Image reviewed, Reports reviewed - Transfer of Care Notes: 08/23/18 22:26 Abdominal pain. Discharge - Discharge Clinical Impression: Abdominal pain Qualifiers: Abdominal location: left lower quadrant Qualified Code(s): R10.32 - Left lower quadrant pain Condition: Stable Disposition: HOME, SELF-CARE Instructions: Abdominal Pain ([facility]) Additional Instructions: Please follow up with yoour regular doctor tomorrow morning. Return to the ED if your condition worsens. Referrals: LEROY AKHTAR MD [Primary Care Provider] - Follow up as needed
[2018-08-24 00:13] VITALS: BP 142/63
== END 2018-08-24 00:13 | disposition home or self-care (01) ==
LOC: ER 18:48
DX: R10.32 Left lower quadrant pain (principal); Z87.892 Personal history of anaphylaxis; Z88.8 Allergy status to other drugs, medicaments and biological substances
CPT/HCPCS: 99284; 96360; 36415; 83690; 85025; 80053; 81001; 74177; J7030

== ENCOUNTER 2018-11-12 19:06 | Emergency (ER) | payer MEDICARE, BC ==
[2018-11-12] MEDS ORDERED: RINGERS SOLUTION,LACTATED 500 ML IV ONE (19:10)
[2018-11-12] MEDS ORDERED: METHYLPREDNISOLONE INJ 125 MG/2 ML SDV IV ONE (19:10)
--- NOTE | 2018-11-12 19:10 | ER Document Report ---
ED General - General Chief Complaint: Breathing Difficulty Stated Complaint: DIFFICULTY BREATHING Time Seen by Provider: 11/12/18 19:08 Notes: Cognitive impairment patient is a 73-year-old male with a past medical history of a not yet defined form of cognitive impairment with associated memory loss, visual donations, and debility that has been progressively worsening over the last 3-4 years, recurrent episodes of shortness of breath, presents tonight by EMS after apparently being found dangling out of his car in a parking lot at [employer] while his had briefly gone inside to purchase something. Apparently the patient had set off the car alarm and was trying to get the attention of passerby's. The patient was apparently originally noted to be tachypneic, first responders initially reported a saturation of 67% although when EMS arrived they did note that the patient was saturating 100% on a nebulizer. History is extremely limited at time of presentation as the patient is profoundly demented, does not provide any meaningful history. TRAVEL OUTSIDE OF THE [place] IN LAST 30 DAYS: No - Related Data Allergies/Adverse Reactions: cimetidine [From Tagamet] Allergy (Severe, Verified 06/22/18 09:23) Anaphylaxis cimetidine HCl [From Tagamet] Allergy (Severe, Verified 06/22/18 09:23) Anaphylaxis ranitidine HCl [From Zantac] Allergy (Verified 06/22/18 09:23) Edema Past Medical History - General Information source: Emergency Med Personnel, [facility] Records Cannot obtain history due to: Dementia - Social History Smoking Status: Never Smoker Frequency of alcohol use: None Drug Abuse: None Lives with: Spouse/Significant other Family History: Reviewed & Not Pertinent, Other - Past Medical History Cardiac Medical History: Reports: Hx Atrial Fibrillation Denies: Hx Coronary Artery Disease, Hx Heart Attack, Hx Hypertension, Hx Pulmonary Embolism Pulmonary Medical History: Reports: Hx Respiratory Failure Denies: Hx Asthma, Hx Bronchitis, Hx COPD, Hx Pneumonia Neurological Medical History: Denies: Hx Cerebrovascular Accident, Hx Seizures Endocrine Medical History: Denies: Hx Diabetes Mellitus Type 2 Renal/ Medical History: Denies: Hx Peritoneal Dialysis Malignancy Medical History: Reports Hx Skin Cancer GI Medical History: Reports: Hx Ulcer - 1978 PEPTIC. Denies: Hx Hepatitis, Hx Hiatal Hernia Musculoskeletal Medical History: Denies Hx Arthritis Psychiatric Medical History: Reports: Hx Dementia, Hx Depression Infectious Medical History: Denies: Hx Hepatitis Past Surgical History: Reports: Hx Cardiac Surgery - ablation, Other - Patient has undergone cardiac ablation for A. fib. Denies: Hx Open Heart Surgery, Hx Pacemaker - Immunizations Hx Diphtheria, Pertussis, Tetanus Vaccination: No Review of Systems - Review of Systems Notes: Constitutional: Negative for fever. HENT: Negative for sore throat. Eyes: Negative for visual changes. Cardiovascular: Negative for chest pain. Respiratory: Positive for shortness of breath. Gastrointestinal: Negative for abdominal pain, vomiting or diarrhea. Genitourinary: Negative for dysuria. Musculoskeletal: Negative for back pain. Skin: Negative for rash. Neurological: Negative for headaches, weakness or numbness. 10 point ROS negative except as marked above and in HPI. Physical Exam - Vital signs Vitals: Resp Pulse Ox 17 96 11/12/18 19:26 11/12/18 19:26 Interpretation: Normal Notes: PHYSICAL EXAMINATION: GENERAL: Frail, somewhat chronically ill in appearance but in no acute distress HEAD: Atraumatic, normocephalic. EYES: Pupils equal round and reactive to light, extraocular movements intact, sclera anicteric, conjunctiva are normal. ENT: nares patent, oropharynx clear without exudates. Moist mucous membranes. NECK: Normal range of motion, supple without lymphadenopathy LUNGS: Breath sounds clear to auscultation bilaterally and equal. No wheezes rales or rhonchi. HEART: Regular rate and rhythm without murmurs ABDOMEN: Soft, nontender, normoactive bowel sounds. No guarding, no rebound. No masses appreciated. EXTREMITIES: Normal range of motion, no pitting or edema. No cyanosis. NEUROLOGICAL: No focal neurological deficits. Moves all extremities spontaneously and on command. PSYCH: Alert, oriented only to name SKIN: Warm, Dry, normal turgor, no rashes or lesions noted. Course - Re-evaluation Re-evalutation: 11/12/18 19:09 Patient presents after apparently initially being hypoxic in the field per initial first responders although when EMS arrived and patient was on a nebulizer he was 100%. They report that he was initially quite tight and after multiple normalizes his lungs opened, diffuse wheezing which has now resolved. On my assessment the patient is in no respiratory distress, no retractions, mild tachypnea, no wheezing. Heart rate is within normal limits. Patient appears to be somewhat frail, has a history of Parkinson's and appears to have a component of possible dementia or parkinsonian dementia. He is apparently already on steroids and has been diagnosed previously with a bronchitis. Will proceed with labs, chest x-ray and clinical monitoring. Will allow the fourth nebulizer have been initiated by EMS to complete. 11/12/18 21:04 I have had an extended conversation with the at the bedside. In summary I believe the patient's overall presentation is much more likely psychiatric, likely secondary to underlying progressive dementia or parkinsonian dementia than a true breathing issue. The patient has been seen repeatedly for these episodes, has had formal PFTs, CT scan of the chest, repeated chest x-rays always all of which have been unremarkable. The patient has been saturating above 94% on room air here in the emergency room despite sleeping without any supplemental oxygen. He has not received any additional breathing treatments. His lungs are remain completely clear. This episode did occur after the briefly went inside [employer] and left the patient in the car alone for several moments. She reports that most the time he has breathing irregularities it seems to be in the context of severe anxiety. She also reports the patient frequent he has visual and auditory hallucinations and is trying to get the patient a follow-up visit with geriatric psychiatry. We will start the patient on olanzapine here in the emergency room at 2.5 mg p.o. twice daily. The has also requested a urinalysis to further for any possibility of a urinary tract infection. This will also be completed. Will plan for discharge home thereafter. - Vital Signs Vital signs: Temp Pulse Resp BP Pulse Ox 97.9 F 16 106/70 95 11/12/18 23:25 11/12/18 22:01 11/12/18 22:01 11/12/18 22:01 - Laboratory Result Diagrams: 11/12/18 20:25 11/12/18 20:25 Laboratory results interpreted by me: 11/12/18 11/12/18 11/12/18 20:25 20:25 20:25 RBC 4.30 L VBG HCO3 32.7 H BUN 21 H Glucose 118 H Urine Urobilinogen Urine Ascorbic Acid 11/12/18 21:40 RBC VBG HCO3 BUN Glucose Urine Urobilinogen 2.0 H Urine Ascorbic Acid 40 H - Diagnostic Test Radiology reviewed: Image reviewed, Reports reviewed Radiology results interpreted by me: 11/12/18 22:10 Chest x-ray: No acute infiltrate or pneumothorax Discharge - Discharge Clinical Impression: Hallucinations, Memory loss, Panic reaction, Shortness of breath Condition: Good Disposition: HOME, SELF-CARE Additional Instructions: Your chest x-ray and labs are all normal today. The exact cause of your shortness of breath episodes that you keep having recurrently is uncertain but may be related to underlying panic reaction. After our conversation, we have elected to begin a low-dose of olanzapine at home as needed twice daily for anxiety or hallucinations. Please follow-up with your primary care doctor regarding today's concerns. Return for recurrence of shortness of breath, passing out, vomiting, fever or any other symptoms that are worrisome to you. Prescriptions: Olanzapine [Olanzapine Odt] 2.5 mg PO BID #20 tab.rapdis Referrals: LEROY AKHTAR MD [Primary Care Provider] - Follow up tomorrow
--- NOTE | 2018-11-12 20:14 | RADIOLOGY REPORT (SQ) ---
EXAM DESCRIPTION: CHEST SINGLE VIEW COMPLETED DATE/TIME: 11/12/2018 8:07 pm REASON FOR STUDY: sob COMPARISON: 02/05/2018 EXAM PARAMETERS: NUMBER OF VIEWS: One view. TECHNIQUE: Single frontal radiographic view of the chest acquired. RADIATION DOSE: NA LIMITATIONS: None. FINDINGS: LUNGS AND PLEURA: No opacities, masses or pneumothorax. No pleural effusion. MEDIASTINUM AND HILAR STRUCTURES: No masses. Contour normal. HEART AND VASCULAR STRUCTURES: Heart normal in size. Normal vasculature. BONES: No acute findings. HARDWARE: None in the chest. OTHER: No other significant finding. IMPRESSION: NO ACUTE RADIOGRAPHIC FINDING IN THE CHEST. TECHNICAL DOCUMENTATION: JOB ID: [id number] [employer]- All Rights Reserved Reading location - IP/workstation name: [email or web address]
[2018-11-12 20:36] LABS: ABSOLUTE LYMPHOCYTES (AUTO) 1.1 10^3/uL (0.5-4.7); ABSOLUTE MONOCYTES (AUTO) 0.3 10^3/uL (0.1-1.4); ABSOLUTE NEUT (AUTO) 4.2 10^3/uL (1.7-8.2); BASOPHILS % (AUTO) 0.6 % (0-2); EOSINOPHILS % (AUTO) 0.3 % (0-6); HEMATOCRIT 40.4 % (37.9-51.0); HEMOGLOBIN 13.6 g/dL (13.5-17.0); LYMPHOCYTES % (AUTO) 18.8 % (13-45); MEAN CORPUSCULAR HEMOGLOBIN 31.7 pg (27.0-33.4); MEAN CORPUSCULAR HGB CONC 33.7 g/dL (32.0-36.0); MEAN CORPUSCULAR VOLUME 94 fl (80-97); MONOCYTES % (AUTO) 4.6 % (3-13); PLATELET COUNT 231 10^3/uL (150-450); RED CELL DISTRIBUTION WIDTH 13.4 % (11.5-14.0); SEGMENTED NEUTROPHILS % (AUTO) 75.7 % (42-78); TOTAL CELLS COUNTED % (AUTO) 100 %; WHITE BLOOD COUNT 5.6 10^3/uL (4.0-10.5)
[2018-11-12 20:38] LABS: VENOUS BLOOD BASE EXCESS 5.3 mmol/L; VENOUS BLOOD HCO3 32.7 mmol/L (20-32); VENOUS BLOOD PCO2 60.4 mmHg (35-63); VENOUS BLOOD PH 7.35 (7.30-7.42)
[2018-11-12 20:52] LABS: ANION GAP 8 (5-19); BLOOD UREA NITROGEN 21 mg/dL (7-20); CALCIUM 9.4 mg/dL (8.4-10.2); CARBON DIOXIDE 28 mmol/L (22-30); CHLORIDE 104 mmol/L (98-107); GLUCOSE 118 mg/dL (75-110); POTASSIUM 4.5 mmol/L (3.6-5.0); SODIUM 139.9 mmol/L (137-145)
[2018-11-12] MEDS ORDERED: OLANZAPINE 5 MG TAB.RAPDIS PO ONE (21:04)
[2018-11-12 22:21] LABS: APPEARANCE,URINE CLEAR; BILIRUBIN,URINE NEGATIVE (NEGATIVE); COLOR,URINE YELLOW; GLUCOSE, URINE NEGATIVE (NEGATIVE); KETONES,URINE NEGATIVE (NEGATIVE); LEUKOCYTE ESTERASE,URINE NEGATIVE (NEGATIVE); NITRITE,URINE NEGATIVE (NEGATIVE); PROTEIN,URINE NEGATIVE (NEGATIVE); URINE SPECIFIC GRAVITY 1.026
[2018-11-12 22:49] VITALS: BP 106/70
--- NOTE | 2018-11-13 12:50 | EKG REPORT ---
SEVERITY:- NORMAL ECG - SINUS RHYTHM : Confirmed by: Tyesha Grace MD 13-Nov-2018 12:49:28
== END 2018-11-12 23:25 | disposition home or self-care (01) ==
LOC: ER 19:06
DX: R44.3 Hallucinations, unspecified (principal); R41.3 Other amnesia; F41.0 Panic disorder [episodic paroxysmal anxiety]; R06.82 Tachypnea, not elsewhere classified; F03.90 Unspecified dementia, unspecified severity, without behavioral disturbance, psychotic disturbance, mood disturbance, and anxiety
CPT/HCPCS: 93005; 99285; 51701; 36415; 85025; 80048; 81001; 84484; 82803; 71045; 93010; C1758; A9270; J3490

== ENCOUNTER 2018-12-30 23:57 | Emergency (ER) | payer MEDICARE, BC ==
[2018-12-31] MEDS ORDERED: IPRATROPIUM/ALBUTEROL 0.5-2.5 MG/3 ML AMPUL NEB ONE (00:21)
--- NOTE | 2018-12-31 00:25 | ER Document Report ---
ED General - General Chief Complaint: Breathing Difficulty Stated Complaint: DIFFICULTY BREATHING Time Seen by Provider: 12/31/18 00:09 Primary Care Provider: LEROY AKHTAR MD [Primary Care Provider] - Follow up as needed Cannot obtain history due to: Dementia Notes: Patient is a 73-year-old male with presumed Lewy body dementia who presents with concerns of difficulty breathing. He presents with his who states over the last several days his work of breathing has worsened and actually came significantly worse tonight prompting him to come to the emergency department for assessment. Patient has had an extensive evaluation for recurrent episodes of what appears to be difficulty breathing but is had normal pulmonary function testings and repeatedly normal evaluations by pulmonology. He has been followed by ENT, treated with sinusitis with cephalexin but states that this is not appear to have improved in symptoms. History is otherwise limited secondary to the patient's degree of dementia. TRAVEL OUTSIDE OF THE [place] IN LAST 30 DAYS: No - Related Data Allergies/Adverse Reactions: cimetidine [From Tagamet] Allergy (Severe, Verified 06/22/18 09:23) Anaphylaxis cimetidine HCl [From Tagamet] Allergy (Severe, Verified 06/22/18 09:23) Anaphylaxis ranitidine HCl [From Zantac] Allergy (Verified 06/22/18 09:23) Edema Past Medical History - General Information source: Relative - Social History Smoking Status: Former Smoker Frequency of alcohol use: None Drug Abuse: None Lives with: Spouse/Significant other Family History: Reviewed & Not Pertinent, Other - Past Medical History Cardiac Medical History: Reports: Hx Atrial Fibrillation Denies: Hx Coronary Artery Disease, Hx Heart Attack, Hx Hypertension, Hx Pulmonary Embolism Pulmonary Medical History: Reports: Hx Respiratory Failure Denies: Hx Asthma, Hx Bronchitis, Hx COPD, Hx Pneumonia Neurological Medical History: Denies: Hx Cerebrovascular Accident, Hx Seizures Endocrine Medical History: Denies: Hx Diabetes Mellitus Type 2 Renal/ Medical History: Denies: Hx Peritoneal Dialysis Malignancy Medical History: Reports Hx Skin Cancer GI Medical History: Reports: Hx Ulcer - 1978 [facility]. Denies: Hx Hepatitis, Hx Hiatal Hernia Musculoskeletal Medical History: Denies Hx Arthritis Psychiatric Medical History: Reports: Hx Dementia, Hx Depression Infectious Medical History: Denies: Hx Hepatitis Past Surgical History: Reports: Hx Cardiac Surgery - ablation, Other - Patient has undergone cardiac ablation for A. fib. Denies: Hx Open Heart Surgery, Hx Pacemaker - Immunizations Hx Diphtheria, Pertussis, Tetanus Vaccination: No Review of Systems - Review of Systems -: Yes ROS unobtainable due to patient's medical condition Physical Exam - Vital signs Vitals: Pulse 103 H 12/31/18 00:04 Interpretation: Tachycardic Notes: PHYSICAL EXAMINATION: GENERAL: Appears somewhat lethargic, in no overt distress HEAD: Atraumatic, normocephalic. EYES: Pupils equal round and reactive to light, extraocular movements intact, sclera anicteric, conjunctiva are normal. ENT: nares patent, oropharynx clear without exudates. Moist mucous membranes. NECK: Normal range of motion, supple without lymphadenopathy LUNGS: Somewhat rapid and deep respiratory pattern. Scattered extra Tory wheezing in all lung burns. HEART: Regular tachycardia without murmurs ABDOMEN: Soft, nontender, normoactive bowel sounds. No guarding, no rebound. No masses appreciated. EXTREMITIES: Normal range of motion, no pitting or edema. No cyanosis. NEUROLOGICAL: No focal neurological deficits. Moves all extremities sponta neously. PSYCH: Effectively nonverbal SKIN: Warm, Dry, normal turgor, no rashes or lesions noted. Course - Re-evaluation Re-evalutation: 12/31/18 00:23 Patient presents with coughing, intermittent difficulty breathing, ongoing for months but worse tonight. Patient likely has underlying lewy body dementia vs rapidly progressive Alzheimer's dementia. Unable to provide history. Sating 92% on initial presentation, moderately labored breathing with scattered rales and wheezes in all lung burns. Will obtain labs, CXR, provide duoneb and reassess. 12/31/18 02:55 Chest x-ray clear. Labs unremarkable. Patient has continued to clinically improve. 94% on room air. Continues to have coarse breath sounds in the upper airway although no longer wheezing. is very concerned about the possibility of sinusitis, states the patient has been having 5-6 weeks of similar symptoms and is requesting treatment for sinusitis. Will start the patient on a course of Augmentin for 10 days. Patient is otherwise cleared for discharge home. At this time will discharge with return precautions and follow- up recommendations. Verbal discharge instructions given a the bedside and opportunity for questions given. Medication warnings reviewed. is in agreement with this plan and has verbalized understanding of return precautions and the need for primary care follow-up in the next 24-72 hours. 12/31/18 02:56 - Vital Signs Vital signs: Temp Pulse Resp BP Pulse Ox 103 H 21 H 98 12/31/18 00:04 12/31/18 01:00 12/31/18 01:00 - Laboratory Result Diagrams: 12/31/18 00:15 12/31/18 00:15 Laboratory results interpreted by me: 12/31/18 12/31/18 12/31/18 00:15 00:15 00:15 WBC 13.6 H Seg Neutrophils % 79.1 H Absolute Neutrophils 10.8 H VBG pH 7.29 L BUN 29 H Glucose 126 H - Diagnostic Test Radiology reviewed: Image reviewed, Reports reviewed Radiology results interpreted by me: 12/31/18 02:56 Chest x-ray: No acute infiltrate or pneumothorax - EKG Interpretation by Me Additional EKG results interpreted by me: 12/31/18 02:57 Sinus tachycardia, rate 101. No ST elevations or depressions. QTC is 457. Discharge - Discharge Clinical Impression: Memory loss, Shortness of breath Sinusitis Qualifiers: Sinusitis location: maxillary Chronicity: acute Recurrence: not specified as recurrent Qualified Code(s): J01.00 - Acute maxillary sinusitis, unspecified Condition: Good Disposition: HOME, SELF-CARE Additional Instructions: Your 's breathing pattern improved here with treatment. He is maintaining his oxygen saturations without supplemental oxygen. His chest x-ray is normal. All of his labs are included with your paperwork today and do not show any concerning findings. We have started him on a course of Augmentin due to the duration of his ongoing sinusitis. Please return if your appear to be having increasing difficulty breathing, develops a fever greater than 100.4 F, or develops any other symptoms that are worrisome to you. Please foll ow-up with your primary care doctor in the next 24-48 hours. Prescriptions: Amox Tr/Potassium Clavulanate [Augmentin 875-125 Tablet] 1 tab PO BID 10 Days tablet Referrals: LEROY AKHTAR MD [Primary Care Provider] - Follow up in 3-5 days
[2018-12-31 00:30] LABS: VENOUS BLOOD BASE EXCESS -0.1 mmol/L; VENOUS BLOOD HCO3 27.9 mmol/L (20-32); VENOUS BLOOD PCO2 59.1 mmHg (35-63); VENOUS BLOOD PH 7.29 (7.30-7.42)
[2018-12-31 00:41] LABS: ABSOLUTE BASOPHILS # (AUTO) 0.1 10^3/uL (0.0-0.2); ABSOLUTE EOSINOPHILS # (AUTO) 0.3 10^3/uL (0.0-0.6); ABSOLUTE LYMPHOCYTES (AUTO) 1.9 10^3/uL (0.5-4.7); ABSOLUTE MONOCYTES (AUTO) 0.6 10^3/uL (0.1-1.4); ABSOLUTE NEUT (AUTO) 10.8 10^3/uL (1.7-8.2); BASOPHILS % (AUTO) 0.4 % (0-2); EOSINOPHILS % (AUTO) 2.4 % (0-6); HEMATOCRIT 42.2 % (37.9-51.0); HEMOGLOBIN 14.2 g/dL (13.5-17.0); LYMPHOCYTES % (AUTO) 13.9 % (13-45); MEAN CORPUSCULAR HEMOGLOBIN 31.3 pg (27.0-33.4); MEAN CORPUSCULAR HGB CONC 33.7 g/dL (32.0-36.0); MEAN CORPUSCULAR VOLUME 93 fl (80-97); MONOCYTES % (AUTO) 4.2 % (3-13); PLATELET COUNT 267 10^3/uL (150-450); RED BLOOD COUNT 4.53 10^6/uL (4.35-5.55); RED CELL DISTRIBUTION WIDTH 13.6 % (11.5-14.0); SEGMENTED NEUTROPHILS % (AUTO) 79.1 % (42-78); TOTAL CELLS COUNTED % (AUTO) 100 %; WHITE BLOOD COUNT 13.6 10^3/uL (4.0-10.5)
[2018-12-31 00:42] LABS: ANION GAP 8 (5-19); BLOOD UREA NITROGEN 29 mg/dL (7-20); CALCIUM 9.3 mg/dL (8.4-10.2); CARBON DIOXIDE 28 mmol/L (22-30); CHLORIDE 106 mmol/L (98-107); GLUCOSE 126 mg/dL (75-110); POTASSIUM 4.2 mmol/L (3.6-5.0); SODIUM 141.9 mmol/L (137-145)
--- NOTE | 2018-12-31 01:25 | RADIOLOGY REPORT (SQ) ---
EXAM DESCRIPTION: XR CHEST 1 VIEW COMPLETED DATE/TME: 12/31/2018 00:09 CLINICAL HISTORY: 73 years, Male, sob COMPARISON: 11/12/2018 chest NUMBER OF VIEWS: 1 TECHNIQUE: Portable chest LIMITATIONS: None. FINDINGS: Heart size is normal. Osteopenia. Lungs are clear. No pneumothorax IMPRESSION: No acute cardiopulmonary process copyright 2010 [employer]- All Rights Reserved
[2018-12-31 01:50] LABS: A TYPE INFLUENZA AG NEGATIVE (NEGATIVE); B INFLUENZA AG NEGATIVE (NEGATIVE)
[2018-12-31] MEDS ORDERED: AMOXICILLIN TR/POT CLAVULANATE 500-125 MG TAB PO ONE (02:55)
[2018-12-31 03:09] VITALS: BP 108/66
--- NOTE | 2018-12-31 08:25 | EKG REPORT ---
SEVERITY:- OTHERWISE NORMAL ECG - SINUS TACHYCARDIA : Confirmed by: Ruperto Rivera MD 31-Dec-2018 08:24:18
== END 2018-12-31 03:28 | disposition home or self-care (01) ==
LOC: ER 23:57
DX: J01.00 Acute maxillary sinusitis, unspecified (principal); R06.02 Shortness of breath; R41.3 Other amnesia; I48.91 Unspecified atrial fibrillation
CPT/HCPCS: 93005; 94640; 99285; 36415; 85025; 80048; 84484; 82803; 87804; 71045; 93010; A9270 ×2; J7620

== ENCOUNTER 2019-01-18 23:11 | Inpatient (IN) | payer MEDICARE, BC ==
[2019-01-19] MEDS ORDERED: IPRATROPIUM/ALBUTEROL 0.5-2.5 MG/3 ML AMPUL NEB ONE ×2 (00:41→03:09)
[2019-01-19] MEDS ORDERED: ONDANSETRON HCL INJ/PF 4 MG/2 ML SDV IV ONE ×2 (00:42→12:00)
[2019-01-19] MEDS ORDERED: MORPHINE SULFATE 10 MG/ML INJ IV ONE ×2 (00:42→02:46)
[2019-01-19 00:47] LABS: ALANINE AMINOTRANSFERASE 28 U/L (21-72); ALBUMIN 3.4 g/dL (3.5-5.0); ALKALINE PHOSPHATASE 49 U/L (38-126); ANION GAP 6 (5-19); ASPARTATE AMINO TRANSFERASE 15 U/L (17-59); BILIRUBIN,DIRECT 0.1 mg/dL (0.0-0.4); BILIRUBIN,TOTAL 0.7 mg/dL (0.2-1.3); BLOOD UREA NITROGEN 21 mg/dL (7-20); CALCIUM 8.7 mg/dL (8.4-10.2); CARBON DIOXIDE 26 mmol/L (22-30); CHLORIDE 106 mmol/L (98-107); GLUCOSE 178 mg/dL (75-110); LIPASE 95.1 U/L (23-300); SODIUM 137.8 mmol/L (137-145); TOTAL PROTEIN 5.1 g/dL (6.3-8.2)
[2019-01-19 00:56] LABS: HEMATOCRIT 41.3 % (37.9-51.0); HEMOGLOBIN 13.7 g/dL (13.5-17.0); MEAN CORPUSCULAR HEMOGLOBIN 31.5 pg (27.0-33.4); MEAN CORPUSCULAR HGB CONC 33.2 g/dL (32.0-36.0); MEAN CORPUSCULAR VOLUME 95 fl (80-97); PLATELET COUNT 212 10^3/uL (150-450); RED BLOOD COUNT 4.35 10^6/uL (4.35-5.55); RED CELL DISTRIBUTION WIDTH 14.1 % (11.5-14.0)
[2019-01-19 01:21] LABS: ABSOLUTE LYMPHOCYTES# (MANUAL) 0.5 10^3/uL (0.5-4.7); ABSOLUTE MONOCYTES # (MANUAL) 0.3 10^3/uL (0.1-1.4); ABSOLUTE NEUTROPHILS# (MANUAL) 12.2 10^3/uL (1.7-8.2); BAND NEUTROPHILS % (MANUAL) 2 % (3-5); BASOPHILS % (MANUAL) 0 % (0-2); EOSINOPHILS % (MANUAL) 0 % (0-6); LYMPHOCYTES % (MANUAL) 4 % (13-45); MONOCYTES % (MANUAL) 2 % (3-13); POLYCHROMASIA SLIGHT; SEGMENTED NEUTROPHILS % (MAN) 92 % (42-78); TOTAL CELLS COUNTED 100
[2019-01-19 01:22] LABS: PLATELET COMMENT ADEQUATE
--- NOTE | 2019-01-19 01:25 | RADIOLOGY REPORT (SQ) ---
EXAM DESCRIPTION: XR CHEST 1 VIEW COMPLETED DATE/TME: 01/19/2019 00:41 CLINICAL HISTORY: 73 years, Male, dyspnea COMPARISON: X-ray chest 12/31/2018 NUMBER OF VIEWS: TECHNIQUE: LIMITATIONS: None. FINDINGS: No evidence of pulmonary infiltrate or pleural effusion. The heart and mediastinum are unremarkable. Pulmonary vascularity appears normal. There is no significant change, as compared with the prior x-ray. IMPRESSION: No acute finding. copyright 2010 [employer]- All Rights Reserved
[2019-01-19 01:56] LABS: CREATINE KINASE MB 1.11 ng/mL (<4.55)
[2019-01-19 02:00] LABS: TROPONIN I < 0.012 ng/mL
[2019-01-19] MEDS ORDERED: LORAZEPAM INJ 2 MG/1 ML VIAL IV ONE (03:09)
[2019-01-19 04:24] LABS: APPEARANCE,URINE SLIGHTLY-CLOUDY; BILIRUBIN,URINE NEGATIVE (NEGATIVE); COLOR,URINE AMBER; GLUCOSE, URINE 50 mg/dL (NEGATIVE); KETONES,URINE TRACE mg/dL (NEGATIVE); LEUKOCYTE ESTERASE,URINE NEGATIVE (NEGATIVE); NITRITE,URINE NEGATIVE (NEGATIVE); PROTEIN,URINE 30 mg/dL (NEGATIVE); URINE SPECIFIC GRAVITY 1.033
--- NOTE | 2019-01-19 04:59 | RADIOLOGY REPORT (SQ) ---
EXAM DESCRIPTION: CT ABDOMEN PELVIS WITH IV CONTRAST COMPLETED DATE/TME: 01/19/2019 02:46 CLINICAL HISTORY: 73 years, Male, Abdominal pain. CREAT 1.08 COMPARISON: 08/23/18 TECHNIQUE: Axial CT images of the abdomen and pelvis were obtained after the administration of IV contrast. DLP 570 Images stored on PACS. All CT scanners at this facility use dose modulation, iterative reconstruction, and/or weight based dosing when appropriate to reduce radiation dose to as low as reasonably achievable (ALARA). [facility]: Dose Right [facility]: CareDose [facility]: Dose Right [facility]: Teradose 4D [facility]: [employer] LIMITATIONS: None. FINDINGS: Lower chest: Partially imaged. Lung bases: Unremarkable. Cardiac apex: Unremarkable. Solid abdominal viscera: Liver: Unremarkable. Gallbladder: Distended Pancreas: Unremarkable. Spleen: Unremarkable. Adrenal glands: Unremarkable. Right kidney: No hydronephrosis. There is a 3.3 cm cyst. Left kidney: No hydronephrosis. Urinary bladder: Unremarkable. Abdominal aorta: Atherosclerotic calcifications Peritoneal: Free fluid: None. Free air: None. Other: No pathologic sized lymph nodes in the upper abdomen. Bowel: Stomach: Unremarkable. Small bowel: Mild thickening of the small bowel Appendix: Unremarkable. Colon: Mild thickening of the sigmoid colon. Rectum: Unremarkable. Prostate: Unremarkable. Bones: Unremarkable. IMPRESSION: Distended gallbladder with no definite surrounding inflammatory changes. If there is concern for acute cholecystitis, an ultrasound may be useful in further evaluation. Mild thickening of the small bowel, which may be due to an enteritis. Mild thickening of the sigmoid colon, which may be due to underdistention or mild colitis/diverticulitis. TECHNICAL DOCUMENTATION: Quality ID # [id number]: Final reports with documentation of one or more dose reduction techniques (e.g., Automated exposure control, adjustment of the mA and/or kV according to patient size, use of iterative reconstruction technique) copyright 2011 [employer]- All Rights Reserved
--- NOTE | 2019-01-19 05:00 | RADIOLOGY REPORT (SQ) ---
EXAM DESCRIPTION: CT HEAD WITHOUT IV CONTRAST COMPLETED DATE/TME: 01/19/2019 03:22 CLINICAL HISTORY: 73 years Male, altered mental status COMPARISON: None. TECHNIQUE: No contrast. Coronal and sagittal reformat. This exam was performed according to our departmental dose-optimization program, which includes automated exposure control, adjustment of the mA and/or kV according to patient size and/or use of iterative reconstruction technique. FINDINGS: No hemorrhage or infarct. No mass, mass effect, or midline shift. Moderate pansinusitis includes mucosal occlusion of the frontal sinuses and ethmoid air cells. Moderate mucosal thickening of the left sphenoid sinus and bilateral maxillary air cells. High attenuation components of the left maxillary air cell. Atherosclerosis. Brain and extra-axial structures appear otherwise intact. IMPRESSION: No acute findings. Moderate chronic pansinusitis with possible fungal superinfection at the left maxillary air cell.
[2019-01-19] MEDS ORDERED: CIPROFLOXACIN 400 MG/D5W RTU 400 MG/200 ML RTUPB IV ONE (05:13)
[2019-01-19] MEDS ORDERED: NORMAL SALINE 500 ML IV ONE (05:14)
--- NOTE | 2019-01-19 05:26 | ER Document Report ---
ED General - General Chief Complaint: Abdominal Pain Stated Complaint: ABDOMINAL PAIN Time Seen by Provider: 01/19/19 00:28 Primary Care Provider: MORAIMA RIUZ PA-C [Primary Care Provider] - Follow up as needed TRAVEL OUTSIDE OF THE [place] IN LAST 30 DAYS: No - HPI Notes: Patient presents emergency department for evaluation with . She is a primary historian as patient does have Parkinson's as well as parkinsonian dementia. Evidently he has had a cough and some wheezing for the last week or 2. Today he started complaining of abdominal pain. He has had some nausea but no emesis. Normal bowel movements. He actually ate well today, eating breakfast, lunch, and dinner. Patient's states he is just not acting himself. He seems more agitated. - Related Data Allergies/Adverse Reactions: cimetidine [From Tagamet] Allergy (Severe, Verified 06/22/18 09:23) Anaphylaxis cimetidine HCl [From Tagamet] Allergy (Severe, Verified 06/22/18 09:23) Anaphylaxis ranitidine HCl [From Zantac] Allergy (Verified 06/22/18 09:23) Edema Past Medical History - General Information source: Patient, Relative - - Social History Smoking Status: Never Smoker Chew tobacco use (# tins/day): No Frequency of alcohol use: None Drug Abuse: None Family History: Reviewed & Not Pertinent, Other Patient has suicidal ideation: No Patient has homicidal ideation: No - Past Medical History Cardiac Medical History: Reports: Hx Atrial Fibrillation Denies: Hx Coronary Artery Disease, Hx Heart Attack, Hx Hypertension, Hx Pulmonary Embolism Pulmonary Medical History: Reports: Hx Respiratory Failure Denies: Hx Asthma, Hx Bronchitis, Hx COPD, Hx Pneumonia Neurological Medical History: Denies: Hx Cerebrovascular Accident, Hx Seizures Endocrine Medical History: Denies: Hx Diabetes Mellitus Type 2 Renal/ Medical History: Denies: Hx Peritoneal Dialysis Malignancy Medical History: Reports Hx Skin Cancer GI Medical History: Reports: Hx Ulcer - 1978 [employer]. Denies: Hx Hepatitis, Hx Hiatal Hernia Musculoskeletal Medical History: Denies Hx Arthritis Psychiatric Medical History: Reports: Hx Dementia - Parkinson's, Hx Depression Infectious Medical History: Denies: Hx Hepatitis Past Surgical History: Reports: Hx Cardiac Surgery - ablation, Other - Patient has undergone cardiac ablation for A. fib. Denies: Hx Open Heart Surgery, Hx Pacemaker - Immunizations Hx Diphtheria, Pertussis, Tetanus Vaccination: No Review of Systems - Review of Systems Constitutional: Weakness EENT: No symptoms reported Cardiovascular: No symptoms reported Respiratory: See HPI Gastrointestinal: See HPI Genitourinary: No symptoms reported Musculoskeletal: No symptoms reported Skin: No symptoms reported Hematologic/Lymphatic: No symptoms reported Neurological/Psychological: See HPI Physical Exam - Vital signs Notes: Afebrile. Blood pressure 92/58, heart rate 108, respiratory rate 14 and unlabored. - Notes Notes: Vital signs reviewed. Head is normocephalic and appears atraumatic. Pupils are equal, round, reactive to light. Oral mucosa is moist. Heart is regular rate and rhythm. Lungs show expiratory wheezes throughout. Abdomen is soft moderate left lower quadrant tenderness. No rebound or guarding. Extremities without cyanosis or clubbing. Skin is warm and dry. Parkinson's sequelae noted with facial expressions and some rigidity on muscle movement. Course - Re-evaluation Re-evalutation: 01/19/19 05:36 Patient presents emergency department for evaluation. He has placed on a car diac monitor. He is wheezing, given breathing treatment. Laboratory investigations were ordered. He is found to have a leukocytosis. He has a heart rate in the low 100s. His blood pressure remained stable. He did at one become more agitated. He was given a second breathing treatment and Ativan was ordered. I was still waiting for urine sample at that time to straight cath order was placed. Patient was sent for CT scan of the head and abdomen. CT scan of the head was unremarkable for anything acute. CT scan of the abdomen showed gallbladder distention as well as possible diverticulitis. He has absolutely no right upper quadrant tenderness to palpation, L initially or on recheck. He does continue to have left lower quadrant tenderness to palpation. He was given IV Cipro and Flagyl. Dr. Pretty was contacted for admission. - Laboratory Result Diagrams: 01/19/19 00:23 01/19/19 00:23 Laboratory results interpreted by me: 01/19/19 01/19/19 01/19/19 00:23 00:23 01:12 WBC 13.0 H RDW 14.1 H Seg Neuts % (Manual) 92 H Band Neutrophils % 2 L Lymphocytes % (Manual) 4 L Monocytes % (Manual) 2 L Abs Neuts (Manual) 12.2 H BUN 21 H Glucose 178 H AST 15 L Creatine Kinase 40 L Total Protein 5.1 L Albumin 3.4 L Urine Protein Urine Glucose (UA) Urine Ketones Urine Urobilinogen Urine Ascorbic Acid 01/19/19 04:02 WBC RDW Seg Neuts % (Manual) Band Neutrophils % Lymphocytes % (Manual) Monocytes % (Manual) Abs Neuts (Manual) BUN Glucose AST Creatine Kinase Total Protein Albumin Urine Protein 30 H Urine Glucose (UA) 50 H Urine Ketones TRACE H Urine Urobilinogen 4.0 H Urine Ascorbic Acid 40 H - Diagnostic Test Radiology reviewed: Reports reviewed - CT head unremarkable. Abdomen and pelvis revealed distended gallbladder and possible sigmoid diverticulitis - EKG Interpretation by Me Additional EKG results interpreted by me: 01/19/19 05:38 Sinus tach with a rate of 104 bpm. Normal axis and intervals, no acute ST changes concerning for ischemia or infarction. Discharge - Discharge Clinical Impression: Sigmoid diverticulitis, Sepsis Condition: Stable Disposition: ADMITTED INPATIENT Admitting Provider: Abrahan Pretty Referrals: MORAIMA RUIZ PA-C [Primary Care Provider] - Follow up as needed
[2019-01-19] MEDS ORDERED: DIAZEPAM INJ 10 MG/2 ML DISP.SYRIN IV PRN (05:37)
[2019-01-19] MEDS ORDERED: OLANZAPINE INJ/PF 10 MG SDV IM PRN (05:37)
[2019-01-19] MEDS ORDERED: MAGNESIUM HYDROXIDE SUSP 30 ML UDCUP PO PRN (05:39)
[2019-01-19] MEDS ORDERED: IPRATROPIUM/ALBUTEROL 0.5-2.5 MG/3 ML AMPUL NEB PRN (05:39)
[2019-01-19] MEDS ORDERED: ACETAMINOPHEN 325 MG TABLET PO PRN (05:39)
[2019-01-19] MEDS ORDERED: MAG HYDROX/AL HYDROX/SIMETH SUSP 30 ML UDCUP PO PRN (05:39)
[2019-01-19] MEDS ORDERED: METRONIDAZOLE 500 MG TABLET PO SCH (05:45)
[2019-01-19] MEDS ORDERED: METRONIDAZOLE 500 MG/NS RTU 500 MG/100 ML RTUPB IV ONE (06:00)
[2019-01-19] MEDS ORDERED: CIPROFLOXACIN 400 MG/D5W RTU 400 MG/200 ML RTUPB IV SCH (06:00)
[2019-01-19] MEDS: HEPARIN SOD (PORCINE) 5,000 UNIT/ML 1 ML SYRINGE SUBCUT SCH ×3 (06:04→22:32)
[2019-01-19] MEDS: NORMAL SALINE 1000 ML 1,000 ML IV PRN ×3 (06:04→10:15)
[2019-01-19] MEDS: CIPROFLOXACIN 400 MG/D5W RTU 400 MG/200 ML RTUPB IV SCH ×2 (06:04→16:59)
--- NOTE | 2019-01-19 06:59 | PDOC H&P ---
History of Present Illness Admission Date/PCP: 01/19/19 05:55 MORAIMA RUIZ PA-C Patient complains of: Abdominal pain History of Present Illness: JAYLON QUICK JR is a 73 year old male with a history of Parkinson's disease with Lewy body dementia and recent sinusitis. Requiring 100% care by his at bedside who is power of energy attorney. Patient has complained of at least 24 hours of abdominal pain several episodes of loose stools. In the emergency room is found to have leukocytosis and a CT revealing diverticulitis. Patient is currently sedated but has frequent episodes of severe confusion. No new medications. No previous episode known. He started on antibiotics and referred to the hospitalist for admission. Past Medical History Cardiac Medical History: Reports: Atrial Fibrillation Denies: Coronary Artery Disease, Myocardial Infarction, Hypertension, Pulmonary Embolism Pulmonary Medical History: Reports: Respiratory Failure Denies: Asthma, Bronchitis, Chronic Obstructive Pulmonary Disease (COPD), Pneumonia Neurological Medical History: Denies: Seizures Endocrine Medical History: Denies: Diabetes Mellitus Type 2 Malignancy Medical History: Reports: Skin Cancer GI Medical History: Denies: Hepatitis, Hiatal Hernia Musculoskeltal Medical History: Denies: Arthritis Psychiatric Medical History: Reports: Dementia - Parkinson's, Depression Hematology: Denies: Anemia, Sickle Cell Disease Past Surgical History Past Surgical History: Reports: Other - Patient has undergone cardiac ablation for A. fib Denies: Pacemaker Social History Information Source: Legal Guardian, POA - Power of [employer], [facility] Records Lives with: Spouse/Significant other Smoking Status: Never Smoker Frequency of Alcohol Use: Rare Hx Recreational Drug Use: No Drugs: None Hx Prescription Drug Abuse: No - Advance Directive Resuscitation Status: Full Code Family History Family History: Other Parental Family History Reviewed: Yes Children Family History Reviewed: Yes Sibling(s) Family History Reviewed.: Yes Medication/Allergy Home Medications: Aspirin [Aspirin 325 mg Tablet] 325 mg PO DAILY tablet 06/10/18 Olanzapine [Olanzapine Odt] 2.5 mg PO BID #20 tab.rapdis 11/12/18 Amox Tr/Potassium Clavulanate [Augmentin 875-125 Tablet] 1 tab PO BID 10 Days tablet 12/31/18 Allergies/Adverse Reactions: cimetidine [From Tagamet] Allergy (Severe, Verified 06/22/18 09:23) Anaphylaxis cimetidine HCl [From Tagamet] Allergy (Severe, Verified 06/22/18 09:23) Anaphylaxis ranitidine HCl [From Zantac] Allergy (Verified 06/22/18 09:23) Edema Review of Systems ROS unobtainable: Due to mental status - Advanced dementia Physical Exam Vital Signs: Temp Pulse Resp BP Pulse Ox 98.3 F 14 105/62 97 01/19/19 06:22 01/19/19 06:22 01/19/19 06:22 01/19/19 06:22 Intake & Output 01/17/19 01/18/19 01/19/19 11:59 11:59 11:59 Intake Total 500 Balance 500 Weight 70.307 kg General appearance: PRESENT: mild distress, thin, well-developed, other - Some temporal wasting with cachexia. ABSENT: cooperative, obese Head exam: PRESENT: atraumatic, normocephalic Eye exam: PRESENT: conjunctiva pink, EOMI, PERRLA. ABSENT: scleral icterus Ear exam: PRESENT: normal external ear exam Mouth exam: PRESENT: moist, tongue midline Neck exam: ABSENT: carotid bruit, JVD, lymphadenopathy, thyromegaly Respiratory exam: PRESENT: clear to auscultation nicolle. ABSENT: rales, rhonchi, wheezes Cardiovascular exam: PRESENT: RRR. ABSENT: diastolic murmur, rubs, systolic murmur Pulses: PRESENT: normal carotid pulses Vascular exam: PRESENT: normal capillary refill GI/Abdominal exam: PRESENT: normal bowel sounds, soft, tenderness - Left lower quadrant tenderness. ABSENT: distended, guarding, mass, organolmegaly, rebound Rectal exam: PRESENT: deferred Extremities exam: PRESENT: full ROM. ABSENT: calf tenderness, clubbing, pedal edema Neurological exam: PRESENT: altered, CN II-XII grossly intact. ABSENT: oriented to person, oriented to place, oriented to time, oriented to situation Psychiatric exam: PRESENT: agitated, appropriate affect, normal mood. ABSENT: homicidal ideation, suicidal ideation Skin exam: PRESENT: dry, intact, warm. ABSENT: cyanosis, rash Results Laboratory Results: 01/19/19 00:23 01/19/19 00:23 01/19/19 01/19/19 01/19/19 00:23 00:23 01:59 WBC 13.0 H RBC 4.35 Hgb 13.7 Hct 41.3 MCV 95 MCH 31.5 MCHC 33.2 RDW 14.1 H Plt Count 212 Seg Neutrophils % Not Reportable Lymphocytes % Not Reportable Monocytes % Not Reportable Eosinophils % Not Reportable Basophils % Not Reportable Absolute Neutrophils Not Reportable Absolute Lymphocytes Not Reportable Absolute Monocytes Not Reportable Absolute Eosinophils Not Reportable Absolute Basophils Not Reportable Sodium 137.8 Potassium 4.0 Chloride 106 Carbon Dioxide 26 Anion Gap 6 BUN 21 H Creatinine 1.08 Est GFR ( Amer) > 60 Est GFR (Non-Af Amer) > 60 Glucose 178 H Lactic Acid 1.6 Calcium 8.7 Total Bilirubin 0.7 AST 15 L ALT 28 Alkaline Phosphatase 49 Total Protein 5.1 L Albumin 3.4 L Lipase 95.1 Urine Color Urine Appearance Urine pH Ur Specific [place] Urine Protein Urine Glucose (UA) Urine Ketones Urine Blood Urine Nitrite Ur Leukocyte Esterase Urine WBC (Auto) Urine RBC (Auto) 01/19/19 04:02 WBC RBC Hgb Hct MCV MCH MCHC RDW Plt Count Seg Neutrophils % Lymphocytes % Monocytes % Eosinophils % Basophils % Absolute Neutrophils Absolute Lymphocytes Absolute Monocytes Absolute Eosinophils Absolute Basophils Sodium Potassium Chloride Carbon Dioxide Anion Gap BUN Creatinine Est GFR ( Amer) Est GFR (Non-Af Amer) Glucose Lactic Acid Calcium Total Bilirubin AST ALT Alkaline Phosphatase Total Protein Albumin Lipase Urine Color DICKSON Urine Appearance SLIGHTLY-CLOUDY Urine pH 5.0 Ur Specific [place] 1.033 Urine Protein 30 H Urine Glucose (UA) 50 H Urine Ketones TRACE H Urine Blood NEGATIVE Urine Nitrite NEGATIVE Ur Leukocyte Esterase NEGATIVE Urine WBC (Auto) 1 Urine RBC (Auto) 2 01/19/19 01/19/19 01:12 01:12 Creatine Kinase 40 L CK-MB (CK-2) 1.11 Troponin I < 0.012 Impressions: Chest X-Ray 01/19/19 00:41 IMPRESSION: No acute finding. copyright 2011 [employer]- All Rights Reserved Abdomen/Pelvis CT 01/19/19 02:46 IMPRESSION: Distended gallbladder with no definite surrounding inflammatory changes. If there is concern for acute cholecystitis, an ultrasound may be useful in further evaluation. Mild thickening of the small bowel, which may be due to an enteritis. Mild thickening of the sigmoid colon, which may be due to underdistention or mild colitis/diverticulitis. TECHNICAL DOCUMENTATION: Quality ID # 436: Final reports with documentation of one or more dose reduction techniques (e.g., Automated exposure control, adjustment of the mA and/or kV according to patient size, use of iterative reconstruction technique) copyright 2011 [employer]- All Rights Reserved Head CT 01/19/19 03:22 IMPRESSION: No acute findings. Moderate chronic pansinusitis with possible fungal superinfection at the left maxillary air cell. Assessment & Plan - Diagnosis (1) Sigmoid diverticulitis Is this a current diagnosis for this admission?: Yes Plan: Clear liquid as tolerated, Flagyl and Cipro. Supportive care (2) Dementia Is this a current diagnosis for this admission?: Yes Plan: Advanced dementia, anticipate pharmacological restraint. Unfortunately currently full code. POA education (3) Sepsis Is this a current diagnosis for this admission?: Yes Plan: Secondary to #1, follow-up CBC and culture - Time Time Spent: 50 to 70 Minutes - Inpatient Certification Medical Necessity: Need Close Monitoring Due to Risk of Patient Decompensation
--- NOTE | 2019-01-19 08:09 | EKG REPORT ---
SEVERITY:- OTHERWISE NORMAL ECG - SINUS TACHYCARDIA : Confirmed by: Ruperto Rviera MD 19-Jan-2019 08:08:48
[2019-01-19 09:01] LABS: ABSOLUTE EOSINOPHILS # (AUTO) 0.1 10^3/uL (0.0-0.6); ABSOLUTE LYMPHOCYTES (AUTO) 0.7 10^3/uL (0.5-4.7); ABSOLUTE MONOCYTES (AUTO) 0.4 10^3/uL (0.1-1.4); BASOPHILS % (AUTO) 0.3 % (0-2); EOSINOPHILS % (AUTO) 0.7 % (0-6); HEMATOCRIT 35.5 % (37.9-51.0); LYMPHOCYTES % (AUTO) 8.1 % (13-45); MEAN CORPUSCULAR HEMOGLOBIN 31.6 pg (27.0-33.4); MEAN CORPUSCULAR HGB CONC 33.7 g/dL (32.0-36.0); MEAN CORPUSCULAR VOLUME 94 fl (80-97); MONOCYTES % (AUTO) 4.3 % (3-13); PLATELET COUNT 193 10^3/uL (150-450); RED BLOOD COUNT 3.79 10^6/uL (4.35-5.55); RED CELL DISTRIBUTION WIDTH 13.8 % (11.5-14.0); SEGMENTED NEUTROPHILS % (AUTO) 86.6 % (42-78); TOTAL CELLS COUNTED % (AUTO) 100 %; WHITE BLOOD COUNT 9.2 10^3/uL (4.0-10.5)
[2019-01-19 09:31] LABS: ANION GAP 9 (5-19); BLOOD UREA NITROGEN 20 mg/dL (7-20); CALCIUM 8.4 mg/dL (8.4-10.2); CARBON DIOXIDE 22 mmol/L (22-30); CHLORIDE 108 mmol/L (98-107); GLUCOSE 128 mg/dL (75-110); POTASSIUM 4.2 mmol/L (3.6-5.0); SODIUM 138.5 mmol/L (137-145)
[2019-01-19] MEDS: METRONIDAZOLE 500 MG TABLET PO SCH ×3 (10:09→22:30)
[2019-01-19] MEDS: LORAZEPAM INJ 2 MG/1 ML VIAL IV PRN ×2 (13:55→22:29)
[2019-01-19] MEDS: RIVASTIGMINE 4.6 MG/24 HR PATCH.TD24 TD SCH (22:30)
[2019-01-20] MEDS: METRONIDAZOLE 500 MG TABLET PO SCH ×4 (03:07→21:18)
[2019-01-20] MEDS: LORAZEPAM INJ 2 MG/1 ML VIAL IV PRN (03:18)
[2019-01-20] MEDS: HEPARIN SOD (PORCINE) 5,000 UNIT/ML 1 ML SYRINGE SUBCUT SCH ×3 (05:22→21:12)
[2019-01-20] MEDS: CIPROFLOXACIN 400 MG/D5W RTU 400 MG/200 ML RTUPB IV SCH ×2 (06:26→17:16)
[2019-01-20 08:20] LABS: ABSOLUTE EOSINOPHILS # (AUTO) 0.9 10^3/uL (0.0-0.6); ABSOLUTE LYMPHOCYTES (AUTO) 1.7 10^3/uL (0.5-4.7); ABSOLUTE MONOCYTES (AUTO) 0.4 10^3/uL (0.1-1.4); ABSOLUTE NEUT (AUTO) 4.2 10^3/uL (1.7-8.2); BASOPHILS % (AUTO) 0.3 % (0-2); EOSINOPHILS % (AUTO) 12.1 % (0-6); HEMATOCRIT 37.8 % (37.9-51.0); HEMOGLOBIN 12.8 g/dL (13.5-17.0); LYMPHOCYTES % (AUTO) 23.4 % (13-45); MEAN CORPUSCULAR HEMOGLOBIN 31.8 pg (27.0-33.4); MEAN CORPUSCULAR HGB CONC 33.8 g/dL (32.0-36.0); MEAN CORPUSCULAR VOLUME 94 fl (80-97); MONOCYTES % (AUTO) 5.9 % (3-13); PLATELET COUNT 210 10^3/uL (150-450); RED BLOOD COUNT 4.01 10^6/uL (4.35-5.55); SEGMENTED NEUTROPHILS % (AUTO) 58.3 % (42-78); TOTAL CELLS COUNTED % (AUTO) 100 %; WHITE BLOOD COUNT 7.3 10^3/uL (4.0-10.5)
[2019-01-20 08:42] LABS: ANION GAP 7 (5-19); BLOOD UREA NITROGEN 14 mg/dL (7-20); CALCIUM 8.9 mg/dL (8.4-10.2); CARBON DIOXIDE 26 mmol/L (22-30); CHLORIDE 106 mmol/L (98-107); GLUCOSE 80 mg/dL (75-110); POTASSIUM 4.1 mmol/L (3.6-5.0); SODIUM 138.9 mmol/L (137-145)
[2019-01-20] MEDS: ASPIRIN 325 MG TABLET PO SCH (10:40)
--- NOTE | 2019-01-20 13:15 | PDOC PROGRESS REPORT ---
Subjective Progress Note for:: 01/20/19 Subjective:: 73 year old male with a history of Parkinson's disease with Lewy body dementia and recent sinusitis. Requiring 100% care by his at bedside who is power of attorney lawyer. Patient has complained of at least 24 hours of abdominal pain several episodes of loose stools. In the emergency room is found to have leukocytosis and a CT revealing diverticulitis. Patient is currently sedated but has frequent episodes of severe confusion. No new medications. No previous episode known. He started on antibiotics and referred to the hospitalist for admission. [id number]-ydol-old male history of Parkinson's disease admitted for diverticulitis. And on Cipro and Flagyl. No acute events in the last 24 hours. Afebrile. is complaining that patient is complaining of pain during the urination urine analysis and culture was requested. Reason For Visit: DIVERTICULITIS, DEMENTIA HYPOTENSION Physical Exam Vital Signs: Temp Pulse Resp BP Pulse Ox 97.9 F 80 18 156/86 H 97 01/20/19 12:00 01/20/19 12:00 01/20/19 12:00 01/20/19 12:00 01/20/19 12:00 Intake & Output 01/19/19 01/20/19 01/21/19 06:59 06:59 06:59 Intake Total 500 4126 Output Total 875 Balance 500 3251 Weight 70.307 kg 71.5 kg General appearance: PRESENT: no acute distress Head exam: PRESENT: atraumatic Eye exam: PRESENT: PERRLA Ear exam: PRESENT: normal external ear exam Neck exam: ABSENT: carotid bruit, JVD, lymphadenopathy, thyromegaly Respiratory exam: PRESENT: decreased breath sounds Cardiovascular exam: PRESENT: tachycardia GI/Abdominal exam: PRESENT: normal bowel sounds, soft. ABSENT: distended, guarding, mass, organolmegaly, rebound, tenderness Extremities exam: PRESENT: full ROM. ABSENT: calf tenderness, clubbing, pedal edema Neurological exam: PRESENT: alert, awake, oriented to person, oriented to place, oriented to time, oriented to situation, CN II-XII grossly intact. ABSENT: motor sensory deficit Psychiatric exam: PRESENT: appropriate affect, normal mood. ABSENT: homicidal ideation, suicidal ideation Results Laboratory Results: 01/20/19 06:24 01/20/19 06:24 01/20/19 01/20/19 06:24 06:24 WBC 7.3 RBC 4.01 L Hgb 12.8 L Hct 37.8 L MCV 94 MCH 31.8 MCHC 33.8 RDW 14.0 Plt Count 210 Seg Neutrophils % 58.3 Lymphocytes % 23.4 Monocytes % 5.9 Eosinophils % 12.1 H Basophils % 0.3 Absolute Neutrophils 4.2 Absolute Lymphocytes 1.7 Absolute Monocytes 0.4 Absolute Eosinophils 0.9 H Absolute Basophils 0.0 Sodium 138.9 Potassium 4.1 Chloride 106 Carbon Dioxide 26 Anion Gap 7 BUN 14 Creatinine 0.87 Est GFR ( Amer) > 60 Est GFR (Non-Af Amer) > 60 Glucose 80 Calcium 8.9 01/19/19 01/19/19 01:12 01:12 Creatine Kinase 40 L CK-MB (CK-2) 1.11 Troponin I < 0.012 Impressions: Chest X-Ray 01/19/19 00:41 IMPRESSION: No acute finding. copyright 2010 [employer]- All Rights Reserved Abdomen/Pelvis CT 01/19/19 02:46 IMPRESSION: Distended gallbladder with no definite surrounding inflammatory changes. If there is concern for acute cholecystitis, an ultrasound may be useful in further evaluation. Mild thickening of the small bowel, which may be due to an enteritis. Mild thickening of the sigmoid colon, which may be due to underdistention or mild colitis/diverticulitis. TECHNICAL DOCUMENTATION: Quality ID # 436: Final reports with documentation of one or more dose reduction techniques (e.g., Automated exposure control, adjustment of the mA and/or kV according to patient size, use of iterative reconstruction technique) copyright 2010 [employer]- All Rights Reserved Head CT 01/19/19 03:22 IMPRESSION: No acute findings. Moderate chronic pansinusitis with possible fungal superinfection at the left maxillary air cell. Assessment & Plan - Diagnosis (1) Sigmoid diverticulitis Is this a current diagnosis for this admission?: Yes Plan: 01/20/2019-patient came in with sigmoid diverticulitis he was started on clear liquid diet, and Flagyl and Cipro. There is mild thickening of the sigmoid co ta may be due to under distention or mild colitis/diverticulitis. Plan is to continue the present management. (2) Dementia Is this a current diagnosis for this admission?: No Plan: 01/20/2019-patient has advanced dementia. Patient is in restraints. Plan is to continue Exelon patch. (3) Sepsis Is this a current diagnosis for this admission?: Yes Plan: 01/20/2019-blood cultures urine cultures are pending. Patient is on ciprofloxacin 400 mg IV daily and Flagyl 500 mg p.o. every 6 hours. Patient is afebrile since admission. WBC count and on admission is 13,000. Patient baseline creatinine is around 2.88 it was 1.08 on admission acute kidney injury most likely due to sepsis. Patient's meet the criteria for sepsis. Of note lactic acid on admission is 1.6 normal. Managed to continue the present management. (4) Acute kidney failure Is this a current diagnosis for this admission?: Yes Plan: 01/20/2019 patient's baseline creatinine is 1.08 it was improved to 0.87 today acute kidney injury most likely secondary to sepsis/poor oral intake resolving. - Time Time Spent with patient: 15-24 minutes Medications reviewed and adjusted accordingly: Yes Anticipated discharge: Home
[2019-01-20] MEDS: RIVASTIGMINE 4.6 MG/24 HR PATCH.TD24 TD SCH (21:18)
[2019-01-21] MEDS: LORAZEPAM INJ 2 MG/1 ML VIAL IV PRN (01:26)
[2019-01-21] MEDS: HEPARIN SOD (PORCINE) 5,000 UNIT/ML 1 ML SYRINGE SUBCUT SCH ×2 (05:16→14:25)
[2019-01-21] MEDS: CIPROFLOXACIN 400 MG/D5W RTU 400 MG/200 ML RTUPB IV SCH (06:06)
[2019-01-21] MEDS: METRONIDAZOLE 500 MG TABLET PO SCH ×3 (06:06→14:25)
--- NOTE | 2019-01-21 07:20 | RADIOLOGY REPORT (SQ) ---
EXAM DESCRIPTION: US ABDOMEN LIMITED COMPLETED DATE/TME: 01/21/2019 00:00 CLINICAL HISTORY: 73 years Male, distended gall bladder Comparison: CT, one day prior. LIMITATIONS: None. FINDINGS: Cholelithiasis, negative sonographic Diaz's test, liver, a 0.5-cm diameter common bile duct, no intrahepatic ductal dilation, 12-cm right kidney with likely benign 2.8 cm cyst of the upper pole, obscured pancreas, visualized vasculature/abdominal aorta, small right pleural effusion, and no significant ascites appear otherwise unremarkable. IMPRESSION: Cholelithiasis. Small right pleural effusion. Else, no acute abdominal findings.
[2019-01-21 07:41] LABS: ABSOLUTE EOSINOPHILS # (AUTO) 0.8 10^3/uL (0.0-0.6); ABSOLUTE MONOCYTES (AUTO) 0.5 10^3/uL (0.1-1.4); ABSOLUTE NEUT (AUTO) 3.8 10^3/uL (1.7-8.2); BASOPHILS % (AUTO) 0.6 % (0-2); EOSINOPHILS % (AUTO) 11.6 % (0-6); HEMATOCRIT 38.3 % (37.9-51.0); HEMOGLOBIN 13.2 g/dL (13.5-17.0); LYMPHOCYTES % (AUTO) 28.1 % (13-45); MEAN CORPUSCULAR HGB CONC 34.5 g/dL (32.0-36.0); MEAN CORPUSCULAR VOLUME 93 fl (80-97); MONOCYTES % (AUTO) 6.9 % (3-13); PLATELET COUNT 212 10^3/uL (150-450); RED BLOOD COUNT 4.13 10^6/uL (4.35-5.55); RED CELL DISTRIBUTION WIDTH 13.7 % (11.5-14.0); SEGMENTED NEUTROPHILS % (AUTO) 52.8 % (42-78); TOTAL CELLS COUNTED % (AUTO) 100 %; WHITE BLOOD COUNT 7.3 10^3/uL (4.0-10.5)
[2019-01-21 08:05] LABS: ALANINE AMINOTRANSFERASE 19 U/L (21-72); ALBUMIN 3.3 g/dL (3.5-5.0); ALKALINE PHOSPHATASE 45 U/L (38-126); ANION GAP 8 (5-19); ASPARTATE AMINO TRANSFERASE 21 U/L (17-59); BILIRUBIN,DIRECT 0.2 mg/dL (0.0-0.4); BILIRUBIN,TOTAL 1.2 mg/dL (0.2-1.3); BLOOD UREA NITROGEN 12 mg/dL (7-20); CARBON DIOXIDE 26 mmol/L (22-30); CHLORIDE 104 mmol/L (98-107); GLUCOSE 76 mg/dL (75-110); POTASSIUM 3.8 mmol/L (3.6-5.0); SODIUM 138.3 mmol/L (137-145); TOTAL PROTEIN 5.2 g/dL (6.3-8.2)
[2019-01-21] MEDS: ASPIRIN 325 MG TABLET PO SCH (09:37)
[2019-01-21 16:12] VITALS: BP 141/71
--- NOTE | 2019-01-21 17:07 | PDOC DISCHARGE SUMMARY ---
General - Admit/Disc Date/PCP Admission Date/Primary Care Provider: 01/19/19 05:55 MORAIMA RUIZ PA-C Discharge Date: 01/21/19 - Discharge Diagnosis (1) Acute diarrhea Is this a current diagnosis for this admission?: Yes (2) Colitis Is this a current diagnosis for this admission?: Yes - Additional Information Resuscitation Status: Full Code Discharge Diet: As Tolerated Discharge Activity: Activity As Tolerated, Balance Activity w/Rest Prescriptions: Metronidazole [Flagyl 500 mg Tablet] 500 mg PO Q8H 5 Days #15 tablet Quetiapine Fumarate [Seroquel 25 mg Tablet] 25 mg PO QHS PRN #10 tablet PRN Reason: Home Medications: Aspirin [Aspirin 325 mg Tablet] 325 mg PO DAILY tablet 06/10/18 Ciprofloxacin HCl [Cipro 500 mg Tablet] 500 mg PO Q12 01/19/19 Rivastigmine [Exelon 4.6 mg/24 Hr Transdermal Patch] 1 each TD DAILY 01/19/19 Metronidazole [Flagyl 500 mg Tablet] 500 mg PO Q8H 5 Days #15 tablet 01/21/19 Quetiapine Fumarate [Seroquel 25 mg Tablet] 25 mg PO QHS PRN #10 tablet 01/21/19 History of Present Illness History of Present Illness: Admitting hospitalist's H&P: JAYLON QUICK JR is a 73 year old male with a history of Parkinson's disease with Lewy body dementia and recent sinusitis. Requiring 100% care by his at bedside who is power of claim attorney. Patient has complained of at least 24 hours of abdominal pain several episodes of loose stools. In the emergency room is found to have leukocytosis and a CT revealing diverticulitis. Patient is currently sedated but has frequent episodes of severe confusion. No new medications. No previous episode known. He started on antibiotics and referred to the hospitalist for admission. Hospital Course Hospital Course: This is a 73 year old male with a history of Parkinson's disease with Lewy body dementia and recent sinusitis who was admitted for colitis/diverticulitis. Per H&P, patient reportedly presented with loose stools. Per ED provider's note, patient had normal BM. Reinquired on history, patient's /DPOA says he was brought in as he had constipation and later had increasing frequency of non watery, nonbloody stools along with left lower quadrant pain. CT of the abdomen/pelvis did shows mild enteritis and mild colitis/diverticulitis. He was started on Flagyl and continued on ciprofloxacin. He did improve clinically. He tolerated diet well. CT did mention a distended gallbladder so a RUQ US was ordered by preceding provider. US showed cholelithiasis with no cholecystitis. Patient denies pain on the RUQ. There was also no RUQ tenderness and says he was only complaining of LLQ pain. He will be continued on 5 more days of Flagyl and cipro at home. was advised to discuss possible referral to surgery with PCP if patient's chol elithiasis becomes symptomatic. also asked for Ativan prn for patient's occasional agitation or restlessness as he required one dose for Ativan during this course. Explained ativan is not preferred to control agitation for dementia patients. also reports patient was having frequent urination. His UA was negative for UTI. His urinary frequency is likely related to his colitis secondary to bladder irritation from inflamed bowel. Physical Exam Vital Signs: Temp Pulse Resp BP Pulse Ox 98.3 F 96 18 125/66 97 01/21/19 15:32 01/21/19 15:32 01/21/19 15:32 01/21/19 15:32 01/21/19 15:32 Intake & Output 01/20/19 01/21/19 01/22/19 06:59 06:59 06:59 Intake Total 4126 760 466 Output Total 875 200 Balance 3251 560 466 Weight 157 lb 10.088 oz 157 lb 3.033 oz General appearance: PRESENT: no acute distress, well-developed, well-nourished Head exam: PRESENT: atraumatic, normocephalic Eye exam: PRESENT: conjunctiva pink, EOMI, PERRLA. ABSENT: scleral icterus Ear exam: PRESENT: normal external ear exam Mouth exam: PRESENT: moist, tongue midline Neck exam: ABSENT: carotid bruit, JVD, lymphadenopathy, thyromegaly Respiratory exam: PRESENT: clear to auscultation nicolle. ABSENT: rales, rhonchi, wheezes Cardiovascular exam: PRESENT: RRR. ABSENT: diastolic murmur, rubs, systolic murmur Pulses: PRESENT: normal dorsalis pedis pul Vascular exam: PRESENT: normal capillary refill GI/Abdominal exam: PRESENT: normal bowel sounds, soft. ABSENT: distended, guarding, mass, organolmegaly, rebound, tenderness Rectal exam: PRESENT: deferred Neurological exam: PRESENT: alert, awake, oriented to person, CN II-XII grossly intact. ABSENT: oriented to place, oriented to time, oriented to situation, motor sensory deficit Results Laboratory Results: 01/21/19 06:05 01/21/19 06:05 01/21/19 01/21/19 06:05 06:05 WBC 7.3 RBC 4.13 L Hgb 13.2 L Hct 38.3 MCV 93 MCH 32.0 MCHC 34.5 RDW 13.7 Plt Count 212 Seg Neutrophils % 52.8 Lymphocytes % 28.1 Monocytes % 6.9 Eosinophils % 11.6 H Basophils % 0.6 Absolute Neutrophils 3.8 Absolute Lymphocytes 2.0 Absolute Monocytes 0.5 Absolute Eosinophils 0.8 H Absolute Basophils 0.0 Sodium 138.3 Potassium 3.8 Chloride 104 Carbon Dioxide 26 Anion Gap 8 BUN 12 Creatinine 0.97 Est GFR ( Amer) > 60 Est GFR (Non-Af Amer) > 60 Glucose 76 Calcium 9.0 Magnesium 2.1 Total Bilirubin 1.2 AST 21 ALT 19 L Alkaline Phosphatase 45 Total Protein 5.2 L Albumin 3.3 L 01/19/19 01/19/19 01:12 01:12 Creatine Kinase 40 L CK-MB (CK-2) 1.11 Troponin I < 0.012 Impressions: Chest X-Ray 01/19/19 00:41 IMPRESSION: No acute finding. copyright 2010 [employer]- All Rights Reserved Abdomen/Pelvis CT 01/19/19 02:46 IMPRESSION: Distended gallbladder with no definite surrounding inflammatory changes. If there is concern for acute cholecystitis, an ultrasound may be useful in further evaluation. Mild thickening of the small bowel, which may be due to an enteritis. Mild thickening of the sigmoid colon, which may be due to underdistention or mild colitis/diverticulitis. TECHNICAL DOCUMENTATION: Quality ID # [id number]: Final reports with documentation of one or more dose reduction techniques (e.g., Automated exposure control, adjustment of the mA and/or kV according to patient size, use of iterative reconstruction technique) copyright 2011 [employer]- All Rights Reserved Head CT 01/19/19 03:22 IMPRESSION: No acute findings. Moderate chronic pansinusitis with possible fungal superinfection at the left maxillary air cell. Abdomen Ultrasound 01/21/19 00:00 IMPRESSION: Cholelithiasis. Small right pleural effusion. Else, no acute abdominal findings. Qualifiers - * PATIENT BEING DISCHARGED WITH ANY OF THE FOLLOWING DIAGNOSIS: No
== END 2019-01-21 16:39 | disposition home health service (06) | DRG 872 ==
LOC: ER 23:11 → EH 01-19 05:55 → 4N 01-19 07:20
PROVIDERS: ADMIT Internal Medicine; ATTEND Internal Medicine
DX: A41.9 Sepsis, unspecified organism (principal); K57.32 Diverticulitis of large intestine without perforation or abscess without bleeding; N17.9 Acute kidney failure, unspecified; I48.91 Unspecified atrial fibrillation; F02.80 Dementia in other diseases classified elsewhere, unspecified severity, without behavioral disturbance, psychotic disturbance, mood disturbance, and anxiety; G31.83 Neurocognitive disorder with Lewy bodies
CPT/HCPCS: 36415; 70450; 71045; 74177; 76705; 80048; 80053; 81001; 82550; 82553; 83605; 83690; 83735; 84484; 85025; 87040; 87086; 93005; 93010; 94640; 96374; 96375; 96376; 99285; C1758; J0744; J1644; J2060; J2270; J2405; J3490; J7030; J7040; J7620

== ENCOUNTER 2019-03-10 19:04 | Inpatient (IN) | payer MEDICARE, BC ==
[2019-03-10] MEDS ORDERED: IPRATROPIUM/ALBUTEROL 0.5-2.5 MG/3 ML AMPUL NEB ONE (19:37)
[2019-03-10] MEDS ORDERED: METHYLPREDNISOLONE INJ 125 MG/2 ML SDV IV ONE (19:37)
[2019-03-10] MEDS: ALBUTEROL SULFATE 0.083% NEB 2.5 MG/3 ML AMPUL NEB SCH ×2 (19:53→20:02)
--- NOTE | 2019-03-10 20:25 | RADIOLOGY REPORT (SQ) ---
EXAM DESCRIPTION: XR CHEST 1 VIEW COMPLETED DATE/TME: 03/10/2019 19:38 CLINICAL HISTORY: 73 years, Male, Shortness of breath COMPARISON: EXAM DESCRIPTION: CLINICAL HISTORY: Shortness of breath COMPARISON: None. FINDINGS: Single view of the chest is submitted. Cardiac silhouette is normal. No focal parenchymal or pleural disease. No acute bony abnormality. There is no significant pulmonary vascular engorgement. IMPRESSION: No evidence of acute cardiopulmonary disease. NUMBER OF VIEWS: TECHNIQUE: LIMITATIONS: None. FINDINGS: IMPRESSION: copyright 2010 [facility]- All Rights Reserved
[2019-03-10 20:47] LABS: HEMATOCRIT 40.7 % (37.9-51.0); HEMOGLOBIN 13.5 g/dL (13.5-17.0); MEAN CORPUSCULAR HEMOGLOBIN 31.1 pg (27.0-33.4); MEAN CORPUSCULAR HGB CONC 33.2 g/dL (32.0-36.0); MEAN CORPUSCULAR VOLUME 94 fl (80-97); PLATELET COUNT 234 10^3/uL (150-450); RED BLOOD COUNT 4.34 10^6/uL (4.35-5.55); RED CELL DISTRIBUTION WIDTH 14.2 % (11.5-14.0); VENOUS BLOOD HCO3 23.5 mmol/L (20-32); VENOUS BLOOD PCO2 42.5 mmHg (35-63); VENOUS BLOOD PH 7.36 (7.30-7.42); WHITE BLOOD COUNT 10.6 10^3/uL (4.0-10.5)
[2019-03-10 21:04] LABS: ABSOLUTE LYMPHOCYTES# (MANUAL) 0.6 10^3/uL (0.5-4.7); ANISOCYTOSIS SLIGHT; BAND NEUTROPHILS % (MANUAL) 5 % (3-5); BASOPHILS % (MANUAL) 0 % (0-2); BURR CELLS SLIGHT; EOSINOPHILS % (MANUAL) 0 % (0-6); HYPOCHROMASIA SLIGHT; LYMPHOCYTES % (MANUAL) 6 % (13-45); MONOCYTES % (MANUAL) 0 % (3-13); PLATELET COMMENT ADEQUATE; SEGMENTED NEUTROPHILS % (MAN) 89 % (42-78); TOTAL CELLS COUNTED 100
[2019-03-10 21:07] LABS: ALANINE AMINOTRANSFERASE 42 U/L (21-72); ALBUMIN 3.8 g/dL (3.5-5.0); ALKALINE PHOSPHATASE 54 U/L (38-126); ANION GAP 14 (5-19); ASPARTATE AMINO TRANSFERASE 24 U/L (17-59); BILIRUBIN,DIRECT 0.2 mg/dL (0.0-0.4); BILIRUBIN,TOTAL 0.4 mg/dL (0.2-1.3); BLOOD UREA NITROGEN 16 mg/dL (7-20); CALCIUM 8.8 mg/dL (8.4-10.2); CARBON DIOXIDE 22 mmol/L (22-30); CHLORIDE 103 mmol/L (98-107); GLUCOSE 194 mg/dL (75-110); POTASSIUM 3.4 mmol/L (3.6-5.0); SODIUM 138.8 mmol/L (137-145); TOTAL PROTEIN 5.9 g/dL (6.3-8.2)
[2019-03-11] MEDS ORDERED: CEFTRIAXONE 1 GM/D5W RTU 1 GM/50 ML RTUPB IV ONE (00:31)
[2019-03-11] MEDS ORDERED: AZITHROMYCIN INJ 500 MG VIAL IV ONE (00:31)
[2019-03-11] MEDS: NORMAL SALINE 1000 ML 1,000 ML IV PRN ×2 (01:08→03:00)
--- NOTE | 2019-03-11 02:42 | ER Document Report ---
ED General - General Chief Complaint: Respiratory Distress Stated Complaint: DIFFICULTY BREATHING Time Seen by Provider: 03/10/19 19:42 Primary Care Provider: LEROY AKHTAR MD [Primary Care Provider] - Follow up as needed Notes: 73-year-old male who was recently diagnosed with asthma and COPD presents the emergency department via EMS for progressively worsening shortness of breath over the past several days. states she gave him 2 breathing treatments at home and he did not improve so then she gave him 20 mg of Solu-Medrol that he had leftover from his last hospitalization and he still did not improve so that he was brought in by EMS. When EMS arrived the patient had a oxygen saturation of 89%, they gave him 2 duo nebs, Solu-Medrol 125 mg and albuterol in route. Patient admits to increasing cough productive of increased amount of sputum and increasing shortness bursts of breath, denies chest pain. Of note patient is also on Augmentin for diverticulitis which was diagnosed several weeks ago. Stool specimen was sent on Wednesday for C. difficile and it was negative. states she is somewhat disbelieving of this as his stool looks like "gelled mucus" and is constantly runny. TRAVEL OUTSIDE OF THE [place] IN LAST 30 DAYS: No - Related Data Allergies/Adverse Reactions: cimetidine [From Tagamet] Allergy (Severe, Verified 06/22/18 09:23) Anaphylaxis cimetidine HCl [From Tagamet] Allergy (Severe, Verified 06/22/18 09:23) Anaphylaxis ranitidine HCl [From Zantac] Allergy (Verified 06/22/18 09:23) Edema Past Medical History - General Information source: Patient, Relative - - Social History Smoking Status: Never Smoker Chew tobacco use (# tins/day): No Frequency of alcohol use: None Drug Abuse: None Family History: Reviewed & Not Pertinent Patient has suicidal ideation: No Patient has homicidal ideation: No - Past Medical History Cardiac Medical History: Reports: Hx Atrial Fibrillation Denies: Hx Coronary Artery Disease, Hx Heart Attack, Hx Hypertension, Hx Pulmonary Embolism Pulmonary Medical History: Reports: Hx Respiratory Failure Denies: Hx Asthma, Hx Bronchitis, Hx COPD, Hx Pneumonia Neurological Medical History: Denies: Hx Cerebrovascular Accident, Hx Seizures Endocrine Medical History: Denies: Hx Diabetes Mellitus Type 2 Renal/ Medical History: Denies: Hx Peritoneal Dialysis Malignancy Medical History: Reports Hx Skin Cancer GI Medical History: Reports: Hx Ulcer - 1978 [facility]. Denies: Hx Hepatitis, Hx Hiatal Hernia Musculoskeletal Medical History: Denies Hx Arthritis Psychiatric Medical History: Reports: Hx Dementia - Parkinson's, Hx Depression Infectious Medical History: Denies: Hx Hepatitis Past Surgical History: Reports: Hx Cardiac Surgery - ablation, Other - Patient has undergone cardiac ablation for A. fib. Denies: Hx Open Heart Surgery, Hx Pacemaker - Immunizations Hx Diphtheria, Pertussis, Tetanus Vaccination: No Review of Systems - Review of Systems Constitutional: No symptoms reported EENT: No symptoms reported Cardiovascular: No symptoms reported Respiratory: See HPI, Cough, Short of breath. denies: Hurts to breathe Gastrointestinal: See HPI, Diarrhea -: Yes All other systems reviewed and negative Physical Exam - Vital signs Vitals: Pulse Resp Pulse Ox 109 H 24 H 89 L 03/10/19 19:12 03/10/19 19:12 03/10/19 19:12 Interpretation: Hypertensive, Tachypneic - Notes Notes: GENERAL: Alert, interacts well. No acute distress. HEAD: Normocephalic, atraumatic EYES: Pupils equal, round and reactive to light, extraocular movements intact. ENT: Oral mucosa moist, tongue midline. NECK: Full range of motion, supple, trachea midline. LUNGS: Expiratory wheezing in the upper lobes, lower lobes are clear, no rales or rhonchi, no respiratory distress. HEART: Regular rate and rhythm, no murmurs, gallops, rubs. ABDOMEN: Soft, minimal epigastric tenderness to palpation, nondistended, bowel sounds present in all 4 quadrants. EXTREMITIES: Moves all 4 extremities spontaneously, no edema, radial and dorsalis pedis pulses 2/4 bilaterally. No cyanosis. NEUROLOGICAL: Alert and oriented x3, normal speech, biceps and patellar DTRs 2+ bilaterally. PSYCH: Normal mood, normal affect. SKIN: Warm, Dry, normal turgor, no rashes or lesions noted. Course - Re-evaluation Re-evalutation: 03/11/19 02:44 CBC shows slight leukocytosis at 10.6, otherwise unremarkable, venous blood gas unremarkable, CMP shows slight low potassium 3.4, elevated glucose at 194, lactic acid was initially elevated at 3.5 and then became significantly higher at 7.0, chest x-ray does not reveal any acute process. After the lactic acid doubled patient was started on empiric antibiotics and started treatment for sepsis. Discussed patient with Dr. Iraheta who agrees to admit the patient to his service on behalf of Dr. Akhtar. - Vital Signs Vital signs: Temp Pulse Resp BP Pulse Ox 98.1 F 109 H 19 115/57 L 98 03/10/19 23:00 03/10/19 19:12 03/11/19 01:01 03/11/19 01:01 03/11/19 01:01 - Laboratory Result Diagrams: 03/10/19 20:35 03/10/19 20:35 Laboratory results interpreted by me: 03/10/19 03/10/19 03/10/19 20:35 20:35 20:35 WBC 10.6 H RBC 4.34 L RDW 14.2 H Seg Neuts % (Manual) 89 H Lymphocytes % (Manual) 6 L Monocytes % (Manual) 0 L Abs Neuts (Manual) 10.0 H Abs Monocytes (Manual) 0.0 L Potassium 3.4 L Glucose 194 H Lactic Acid 3.5 H Total Protein 5.9 L 03/10/19 23:50 WBC RBC RDW Seg Neuts % (Manual) Lymphocytes % (Manual) Monocytes % (Manual) Abs Neuts (Manual) Abs Monocytes (Manual) Potassium Glucose Lactic Acid 7.0 H Total Protein - EKG Interpretation by Me Additional EKG results interpreted by me: 03/11/19 02:44 EKG shows sinus tachycardia at a rate of 117, left axis deviation, normal intervals, no ST segment change, no T wave inversions per my interpretation. Discharge - Discharge Clinical Impression: Acute hypoxemic respiratory failure Sepsis Qualifiers: Sepsis type: sepsis due to unspecified organism Qualified Code(s): A41.9 - Sepsis, unspecified organism Condition: Fair Disposition: ADMITTED INPATIENT Admitting Provider: Malick Unit Admitted: Telemetry Referrals: LEROY AKHTAR MD [Primary Care Provider] - Follow up as needed
[2019-03-11] MEDS ORDERED: ACETAMINOPHEN 325 MG TABLET PO PRN (07:50)
--- NOTE | 2019-03-11 08:14 | PDOC H&P ---
History of Present Illness Admission Date/PCP: 03/11/19 02:53 LEROY AKHTAR MD Patient complains of: Cough, shortness of breath, low oxygen level. History of Present Illness: JAYLON QUICK JR is a 73 year old male Past Medical History Cardiac Medical History: Reports: Atrial Fibrillation Denies: Coronary Artery Disease, Myocardial Infarction, Hypertension, Pulmonary Embolism Pulmonary Medical History: Reports: Respiratory Failure Denies: Asthma, Bronchitis, Chronic Obstructive Pulmonary Disease (COPD), Pneumonia Neurological Medical History: Denies: Seizures Endocrine Medical History: Denies: Diabetes Mellitus Type 2 Malignancy Medical History: Reports: Skin Cancer GI Medical History: Denies: Hepatitis, Hiatal Hernia Musculoskeltal Medical History: Denies: Arthritis Psychiatric Medical History: Reports: Dementia - Parkinson's, Depression Hematology: Denies: Anemia, Sickle Cell Disease Past Surgical History Past Surgical History: Reports: Other - Patient has undergone cardiac ablation for A. fib Denies: Pacemaker Social History Information Source: Relative, [facility] Records Lives with: Family Smoking Status: Never Smoker Frequency of Alcohol Use: Rare Hx Recreational Drug Use: No Drugs: None Hx Prescription Drug Abuse: No Family History Family History: Reviewed & Not Pertinent Parental Family History Reviewed: Yes Children Family History Reviewed: Yes Sibling(s) Family History Reviewed.: Yes Medication/Allergy Home Medications: Aspirin [Aspirin 325 mg Tablet] 325 mg PO DAILY tablet 06/10/18 Ciprofloxacin HCl [Cipro 500 mg Tablet] 500 mg PO Q12 01/19/19 Rivastigmine [Exelon 4.6 mg/24 Hr Transdermal Patch] 1 each TD DAILY 01/19/19 Metronidazole [Flagyl 500 mg Tablet] 500 mg PO Q8H 5 Days #15 tablet 01/21/19 Quetiapine Fumarate [Seroquel 25 mg Tablet] 25 mg PO QHS PRN #10 tablet 01/21/19 Allergies/Adverse Reactions: cimetidine [From Tagamet] Allergy (Severe, Verified 06/22/18 09:23) Anaphylaxis cimetidine HCl [From Tagamet] Allergy (Severe, Verified 06/22/18 09:23) Anaphylaxis ranitidine HCl [From Zantac] Allergy (Verified 06/22/18 09:23) Edema Review of Systems All systems: as per PMH Physical Exam Vital Signs: Temp Pulse Resp BP Pulse Ox 98.1 F 109 H 21 H 120/68 98 03/11/19 03:04 03/10/19 19:12 03/11/19 07:01 03/11/19 07:01 03/11/19 07:01 Intake & Output 03/10/19 03/11/19 03/12/19 06:59 06:59 06:59 Intake Total 2049 Balance 2049 Weight 68.946 kg General appearance: PRESENT: severe distress Head exam: PRESENT: atraumatic Eye exam: PRESENT: conjunctival injection Mouth exam: PRESENT: dry mucosa Neck exam: ABSENT: carotid bruit, JVD Respiratory exam: PRESENT: rhonchi. ABSENT: wheezes Cardiovascular exam: PRESENT: +S1, +S2, tachycardia GI/Abdominal exam: PRESENT: normal bowel sounds, soft Extremities exam: PRESENT: tenderness Musculoskeletal exam: PRESENT: tenderness Neurological exam: PRESENT: abnormal gait Psychiatric exam: PRESENT: anxious Results Laboratory Results: 03/10/19 20:35 03/10/19 20:35 03/10/19 03/10/19 03/10/19 20:35 20:35 20:35 WBC 10.6 H RBC 4.34 L Hgb 13.5 Hct 40.7 MCV 94 MCH 31.1 MCHC 33.2 RDW 14.2 H Plt Count 234 Seg Neutrophils % Not Reportable Lymphocytes % Not Reportable Monocytes % Not Reportable Eosinophils % Not Reportable Basophils % Not Reportable Absolute Neutrophils Not Reportable Absolute Lymphocytes Not Reportable Absolute Monocytes Not Reportable Absolute Eosinophils Not Reportable Absolute Basophils Not Reportable VBG pH VBG pCO2 VBG HCO3 VBG Base Excess Sodium 138.8 Potassium 3.4 L Chloride 103 Carbon Dioxide 22 Anion Gap 14 BUN 16 Creatinine 0.86 Est GFR ( Amer) > 60 Est GFR (Non-Af Amer) > 60 Glucose 194 H Lactic Acid 3.5 H Calcium 8.8 Total Bilirubin 0.4 AST 24 ALT 42 Alkaline Phosphatase 54 Total Protein 5.9 L Albumin 3.8 03/10/19 03/10/19 03/10/19 20:35 23:50 23:50 WBC RBC Hgb Hct MCV MCH MCHC RDW Plt Count Seg Neutrophils % Lymphocytes % Monocytes % Eosinophils % Basophils % Absolute Neutrophils Absolute Lymphocytes Absolute Monocytes Absolute Eosinophils Absolute Basophils VBG pH 7.36 VBG pCO2 42.5 VBG HCO3 23.5 VBG Base Excess -2.0 Sodium Potassium Chloride Carbon Dioxide Anion Gap BUN Creatinine Est GFR ( Amer) Est GFR (Non-Af Amer) Glucose Lactic Acid Cancelled 7.0 H Calcium Total Bilirubin AST ALT Alkaline Phosphatase Total Protein Albumin 03/11/19 05:10 WBC RBC Hgb Hct MCV MCH MCHC RDW Plt Count Seg Neutrophils % Lymphocytes % Monocytes % Eosinophils % Basophils % Absolute Neutrophils Absolute Lymphocytes Absolute Monocytes Absolute Eosinophils Absolute Basophils VBG pH VBG pCO2 VBG HCO3 VBG Base Excess Sodium Potassium Chloride Carbon Dioxide Anion Gap BUN Creatinine Est GFR ( Amer) Est GFR (Non-Af Amer) Glucose Lactic Acid 5.3 H Calcium Total Bilirubin AST ALT Alkaline Phosphatase Total Protein Albumin Impressions: Chest X-Ray 03/10/19 19:38 IMPRESSION: No evidence of acute cardiopulmonary disease. NUMBER OF VIEWS: TECHNIQUE: LIMITATIONS: None. FINDINGS: IMPRESSION: copyright 2010 [employer]- All Rights Reserved Assessment & Plan - Diagnosis (1) Tachycardia Is this a current diagnosis for this admission?: Yes Plan: We will continue with IV fluids and obtain an EKG (2) Leukocytosis Qualifiers: Leukocytosis type: unspecified Qualified Code(s): D72.829 - Elevated white blood cell count, unspecified Is this a current diagnosis for this admission?: Yes Plan: We will start with Rocephin and azithromycin (3) Acute hypoxemic respiratory failure Is this a current diagnosis for this admission?: Yes Plan: O2 with nebulization treatments (4) Sepsis Qualifiers: Sepsis type: sepsis due to unspecified organism Qualified Code(s): A41.9 - Sepsis, unspecified organism Is this a current diagnosis for this admission?: Yes Plan: We will continue with IV fluids and repeat lactic acid in couple of days (5) Dementia Qualifiers: Dementia type: Parkinson's disease Dementia behavioral disturbance: with behavioral disturbance Qualified Code(s): G20 - Parkinson's disease; F02.81 - Dementia in other diseases classified elsewhere with behavioral disturbance Is this a current diagnosis for this admission?: Yes Plan: We will add some lorazepam (6) Parkinsonism Qualifiers: Parkinsonism type: Parkinson's disease Qualified Code(s): G20 - Parkinson's disease Is this a current diagnosis for this admission?: Yes Plan: Continue current treatment (7) Pneumonia Qualifiers: Pneumonia type: due to unspecified organism Laterality: unspecified laterality Is this a current diagnosis for this admission?: Yes Plan: Continue with antibiotics (8) COPD (chronic obstructive pulmonary disease) Qualifiers: COPD type: COPD with acute exacerbation Qualified Code(s): J44.1 - Chronic obstructive pulmonary disease with (acute) exacerbation Is this a current diagnosis for this admission?: Yes Plan: We will add steroids and nebulization treatments (9) Asthma attack Is this a current diagnosis for this admission?: Yes Plan: Continue steroids and nebulization treatments
[2019-03-11] MEDS ORDERED: IPRATROPIUM BROMIDE 0.02% NEB 0.5 MG/2.5 ML AMPUL NEB ONE (09:01)
[2019-03-11] MEDS: LEVALBUTEROL HCL NEB 0.63 MG/3 ML AMPUL NEB SCH ×5 (09:01→23:56)
[2019-03-11] MEDS ORDERED: LEVALBUTEROL HCL NEB 0.63 MG/3 ML AMPUL NEB ONE (09:01)
[2019-03-11] MEDS: IPRATROPIUM BROMIDE 0.02% NEB 0.5 MG/2.5 ML AMPUL NEB SCH ×5 (09:01→23:55)
[2019-03-11] MEDS: METHYLPREDNISOLONE INJ 40 MG/1 ML SDV IV SCH ×3 (09:49→20:04)
[2019-03-11] MEDS: ENOXAPARIN SODIUM INJ 40 MG/0.4 ML DISP.SYRIN SUBCUT SCH (09:49)
[2019-03-11] MEDS: GUAIFENESIN 600 MG TABLET.SA PO SCH ×2 (09:49→21:01)
[2019-03-11] MEDS: POTASSI CL 20 MEQ/NS 1L 1,000 ML IV PRN ×2 (10:09→20:27)
[2019-03-11] MEDS: RIVASTIGMINE 4.6 MG/24 HR PATCH.TD24 TD SCH (10:37)
[2019-03-11] MEDS: CEFTRIAXONE SODIUM 1,000 MG in DEXTROSE 5%-WATER 50 ML IV SCH (10:37)
--- NOTE | 2019-03-11 11:16 | EKG REPORT ---
SEVERITY:- OTHERWISE NORMAL ECG - SINUS TACHYCARDIA : Confirmed by: Leidy Melton 11-Mar-2019 11:15:39
[2019-03-11] MEDS: QUETIAPINE FUMARATE 25 MG TABLET PO SCH (21:01)
[2019-03-11] MEDS: LORAZEPAM 0.5 MG TABLET PO PRN (23:51)
[2019-03-12] MEDS: METHYLPREDNISOLONE INJ 40 MG/1 ML SDV IV SCH ×4 (03:32→20:10)
[2019-03-12] MEDS: IPRATROPIUM BROMIDE 0.02% NEB 0.5 MG/2.5 ML AMPUL NEB SCH ×6 (04:06→23:41)
[2019-03-12] MEDS: LEVALBUTEROL HCL NEB 0.63 MG/3 ML AMPUL NEB SCH ×6 (04:06→23:41)
[2019-03-12] MEDS: POTASSI CL 20 MEQ/NS 1L 1,000 ML IV PRN (04:37)
[2019-03-12] MEDS: PANTOPRAZOLE SODIUM 40 MG TABLET.DR PO SCH (05:21)
[2019-03-12 05:33] LABS: ABSOLUTE MONOCYTES (AUTO) 0.7 10^3/uL (0.1-1.4); ABSOLUTE NEUT (AUTO) 11.7 10^3/uL (1.7-8.2); BASOPHILS % (AUTO) 0.2 % (0-2); HEMATOCRIT 37.3 % (37.9-51.0); HEMOGLOBIN 12.2 g/dL (13.5-17.0); LYMPHOCYTES % (AUTO) 7.4 % (13-45); MEAN CORPUSCULAR HEMOGLOBIN 30.4 pg (27.0-33.4); MEAN CORPUSCULAR HGB CONC 32.7 g/dL (32.0-36.0); MEAN CORPUSCULAR VOLUME 93 fl (80-97); MONOCYTES % (AUTO) 5.4 % (3-13); PLATELET COUNT 188 10^3/uL (150-450); RED CELL DISTRIBUTION WIDTH 14.4 % (11.5-14.0); TOTAL CELLS COUNTED % (AUTO) 100 %; WHITE BLOOD COUNT 13.5 10^3/uL (4.0-10.5)
[2019-03-12 05:48] LABS: ALANINE AMINOTRANSFERASE 34 U/L (21-72); ALKALINE PHOSPHATASE 34 U/L (38-126); ANION GAP 8 (5-19); ASPARTATE AMINO TRANSFERASE 35 U/L (17-59); BILIRUBIN,DIRECT 0.3 mg/dL (0.0-0.4); BILIRUBIN,TOTAL 0.5 mg/dL (0.2-1.3); BLOOD UREA NITROGEN 22 mg/dL (7-20); CALCIUM 8.4 mg/dL (8.4-10.2); CARBON DIOXIDE 23 mmol/L (22-30); CHLORIDE 110 mmol/L (98-107); GLUCOSE 140 mg/dL (75-110); POTASSIUM 4.8 mmol/L (3.6-5.0); SODIUM 140.8 mmol/L (137-145); TOTAL PROTEIN 5.5 g/dL (6.3-8.2)
[2019-03-12 07:08] LABS: ARTERIAL BLOOD BASE EXCESS 0.2 mmol/L; ARTERIAL BLOOD FIO2 21%; ARTERIAL BLOOD H2CO3 1.12 mmol/L (1.05-1.35); ARTERIAL BLOOD HCO3 24.2 mmol/L (20-24); ARTERIAL BLOOD O2 SATURATION 96.6 % (94-98); ARTERIAL BLOOD PCO2 37.2 mmHg (35-45); ARTERIAL BLOOD PH 7.43 (7.35-7.45); ARTERIAL BLOOD PO2 83.6 mmHg (80-100); ARTERIAL BLOOD TOTAL CO2 25.4 mmol/L (23-27)
[2019-03-12] MEDS ORDERED: CEFTRIAXONE 1 GM/D5W RTU 50 ML IV SCH (10:00)
--- NOTE | 2019-03-12 10:20 | PDOC PROGRESS REPORT ---
Subjective Progress Note for:: 03/12/19 Subjective:: The patient appears to be much better. His heart rate is down. He is less anxious. He is less shaky. He did have a good night. The apparently has helped him to get out of bed. Discussed with the about the need to call for help when she wants to get him out of bed so he does not fall. Reason For Visit: PNEUMONIA,SEPSIS Physical Exam Vital Signs: Temp Pulse Resp BP Pulse Ox 97.8 F 81 18 97/62 L 96 03/12/19 09:38 03/12/19 09:38 03/12/19 09:38 03/12/19 09:38 03/12/19 09:38 Intake & Output 03/11/19 03/12/19 03/13/19 06:59 06:59 06:59 Intake Total 2049 2339 Balance 2049 2339 Weight 68.946 kg 69.4 kg General appearance: PRESENT: mild distress Head exam: PRESENT: atraumatic Eye exam: PRESENT: conjunctival injection Mouth exam: PRESENT: moist Neck exam: ABSENT: carotid bruit, JVD Respiratory exam: PRESENT: rhonchi Cardiovascular exam: PRESENT: RRR, +S1, +S2 GI/Abdominal exam: PRESENT: normal bowel sounds, soft Extremities exam: PRESENT: tenderness Musculoskeletal exam: PRESENT: tenderness Neurological exam: PRESENT: other Psychiatric exam: PRESENT: anxious Results Laboratory Results: 03/12/19 04:38 03/12/19 04:38 03/12/19 03/12/19 03/12/19 04:38 04:38 06:17 WBC 13.5 H RBC 4.00 L Hgb 12.2 L Hct 37.3 L MCV 93 MCH 30.4 MCHC 32.7 RDW 14.4 H Plt Count 188 Seg Neutrophils % 87.0 H Lymphocytes % 7.4 L Monocytes % 5.4 Eosinophils % 0.0 Basophils % 0.2 Absolute Neutrophils 11.7 H Absolute Lymphocytes 1.0 Absolute Monocytes 0.7 Absolute Eosinophils 0.0 Absolute Basophils 0.0 Carbonic Acid 1.12 HCO3/H2CO3 Ratio 21:1 ABG pH 7.43 ABG pCO2 37.2 ABG pO2 83.6 ABG HCO3 24.2 H ABG O2 Saturation 96.6 ABG Base Excess 0.2 FiO2 21% Sodium 140.8 Potassium 4.8 Chloride 110 H Carbon Dioxide 23 Anion Gap 8 BUN 22 H Creatinine 0.79 Est GFR ( Amer) > 60 Est GFR (Non-Af Amer) > 60 Glucose 140 H Calcium 8.4 Total Bilirubin 0.5 AST 35 ALT 34 Alkaline Phosphatase 34 L Total Protein 5.5 L Albumin 3.0 L Impressions: Chest X-Ray 03/10/19 19:38 IMPRESSION: No evidence of acute cardiopulmonary disease. NUMBER OF VIEWS: TECHNIQUE: LIMITATIONS: None. FINDINGS: IMPRESSION: copyright 2010 [employer]- All Rights Reserved Assessment & Plan - Diagnosis (1) Tachycardia Is this a current diagnosis for this admission?: Yes Plan: Resolved continue IV hydration (2) Leukocytosis Qualifiers: Leukocytosis type: unspecified Qualified Code(s): D72.829 - Elevated white blood cell count, unspecified Is this a current diagnosis for this admission?: Yes Plan: Stable continue current treatment (3) Acute hypoxemic respiratory failure Is this a current diagnosis for this admission?: Yes (4) Sepsis Qualifiers: Sepsis type: sepsis due to unspecified organism Qualified Code(s): A41.9 - Sepsis, unspecified organism Is this a current diagnosis for this admission?: Yes Plan: Stable continue current treatment (5) Dementia Qualifiers: Dementia type: Parkinson's disease Dementia behavioral disturbance: with behavioral disturbance Qualified Code(s): G20 - Parkinson's disease; F02.81 - Dementia in other diseases classified elsewhere with behavioral disturbance Is this a current diagnosis for this admission?: Yes Plan: We will add some lorazepam (6) Parkinsonism Qualifiers: Parkinsonism type: Parkinson's disease Qualified Code(s): G20 - Parkinson's disease Is this a current diagnosis for this admission?: Yes Plan: Continue current treatment (7) Pneumonia Qualifiers: Pneumonia type: due to unspecified organism Laterality: unspecified laterality Is this a current diagnosis for this admission?: Yes (8) COPD (chronic obstructive pulmonary disease) Qualifiers: COPD type: COPD with acute exacerbation Qualified Code(s): J44.1 - Chronic obstructive pulmonary disease with (acute) exacerbation Is this a current diagnosis for this admission?: Yes Plan: We will add steroids and nebulization treatments (9) Asthma attack Is this a current diagnosis for this admission?: Yes Plan: Continue steroids and nebulization treatments
[2019-03-12] MEDS ORDERED: POTASSI CL 20 MEQ/NS 1L 1,000 ML IV PRN (10:21)
[2019-03-12] MEDS: ENOXAPARIN SODIUM INJ 40 MG/0.4 ML DISP.SYRIN SUBCUT SCH (10:40)
[2019-03-12] MEDS: GUAIFENESIN 600 MG TABLET.SA PO SCH ×2 (10:41→21:57)
[2019-03-12] MEDS: CEFTRIAXONE SODIUM 1,000 MG in DEXTROSE 5%-WATER 50 ML IV SCH (10:42)
[2019-03-12] MEDS: AZITHROMYCIN 500 MG in DEXTROSE 5%-WATER 250 ML IV SCH (10:43)
[2019-03-12] MEDS: RIVASTIGMINE 4.6 MG/24 HR PATCH.TD24 TD SCH (10:47)
[2019-03-12] MEDS: LORAZEPAM 0.5 MG TABLET PO PRN ×2 (13:37→17:20)
[2019-03-12] MEDS: QUETIAPINE FUMARATE 25 MG TABLET PO SCH (21:57)
--- NOTE | 2019-03-12 23:08 | EKG REPORT ---
SEVERITY:- NORMAL ECG - SINUS RHYTHM : Confirmed by: Leidy Melton 12-Mar-2019 23:08:00
[2019-03-13] MEDS: METHYLPREDNISOLONE INJ 40 MG/1 ML SDV IV SCH ×4 (03:47→21:40)
[2019-03-13] MEDS: LEVALBUTEROL HCL NEB 0.63 MG/3 ML AMPUL NEB SCH ×5 (03:55→20:45)
[2019-03-13] MEDS: IPRATROPIUM BROMIDE 0.02% NEB 0.5 MG/2.5 ML AMPUL NEB SCH ×5 (03:55→20:45)
[2019-03-13] MEDS: PANTOPRAZOLE SODIUM 40 MG TABLET.DR PO SCH (05:45)
[2019-03-13 06:47] LABS: HEMATOCRIT 36.9 % (37.9-51.0); HEMOGLOBIN 12.5 g/dL (13.5-17.0); MEAN CORPUSCULAR HEMOGLOBIN 31.5 pg (27.0-33.4); MEAN CORPUSCULAR HGB CONC 33.8 g/dL (32.0-36.0); MEAN CORPUSCULAR VOLUME 93 fl (80-97); PLATELET COUNT 209 10^3/uL (150-450); RED BLOOD COUNT 3.96 10^6/uL (4.35-5.55); RED CELL DISTRIBUTION WIDTH 14.3 % (11.5-14.0); WHITE BLOOD COUNT 9.5 10^3/uL (4.0-10.5)
[2019-03-13 07:08] LABS: ABSOLUTE LYMPHOCYTES# (MANUAL) 0.5 10^3/uL (0.5-4.7); ABSOLUTE MONOCYTES # (MANUAL) 0.3 10^3/uL (0.1-1.4); ABSOLUTE NEUTROPHILS# (MANUAL) 8.7 10^3/uL (1.7-8.2); BASOPHILS % (MANUAL) 0 % (0-2); EOSINOPHILS % (MANUAL) 0 % (0-6); LYMPHOCYTES % (MANUAL) 5 % (13-45); MONOCYTES % (MANUAL) 3 % (3-13); SEGMENTED NEUTROPHILS % (MAN) 92 % (42-78); TOTAL CELLS COUNTED 100
[2019-03-13 07:10] LABS: OVALOCYTES SLIGHT; PLATELET COMMENT ADEQUATE; POIKILOCYTOSIS SLIGHT
[2019-03-13] MEDS: RIVASTIGMINE 4.6 MG/24 HR PATCH.TD24 TD SCH (10:10)
[2019-03-13] MEDS: GUAIFENESIN 600 MG TABLET.SA PO SCH ×2 (10:11→21:41)
[2019-03-13] MEDS: CEFTRIAXONE SODIUM 1,000 MG in DEXTROSE 5%-WATER 50 ML IV SCH (11:02)
[2019-03-13] MEDS: AZITHROMYCIN 500 MG in DEXTROSE 5%-WATER 250 ML IV SCH (11:02)
[2019-03-13] MEDS: ENOXAPARIN SODIUM INJ 40 MG/0.4 ML DISP.SYRIN SUBCUT SCH (11:11)
--- NOTE | 2019-03-13 11:40 | RADIOLOGY REPORT (SQ) ---
EXAM DESCRIPTION: CT CHEST WITH COMPLETED DATE/TIME: 03/13/2019 11:20 am REASON FOR STUDY: sob COMPARISON: None. TECHNIQUE: CT scan of the chest performed using helical scanning technique with dynamic intravenous contrast injection. Images reviewed with lung, soft tissue and bone windows. Reconstructed coronal and sagittal MPR and MIP images reviewed. All images stored on PACS. All CT scanners at this facility use dose modulation, iterative reconstruction, and/or weight based d osing when appropriate to reduce radiation dose to as low as reasonably achievable (ALARA). [facility]: Dose Right [facility]: CareDose [facility]: Dose Right [facility]: Teradose 4D [facility]: SportsBoard CONTRAST TYPE AND DOSE: contrast/concentration: Isovue 350.00 mg/ml; Total Contrast Delivered: 80.0 ml; Total Saline Delivered: 55.0 ml RENAL FUNCTION: Within normal limits. RADIATION DOSE: CT Rad equipment meets quality standard of care and radiation dose reduction techniq ues were employed. CTDIvol: 8.2 mGy. DLP: 286 mGy-cm. . LIMITATIONS: None. FINDINGS: LUNGS AND PLEURA: Bilateral small pleural effusions and bibasilar atelectasis/ infiltrate s. No pneumothorax or pleural effusion. The central airways are clear. HILAR AND MEDIASTINAL STRUCTURES: Small calcified mediastinal and hilar or lymph nodes, probably sec ondary to prior granulomatous disease. HEART AND VASCULAR STRUCTURES: The pulmonary vasculature is mildly prominent in appearance particular ly in the lower lobes, may represents vascular congestion. No aneurysm or dissection. No central pul monary emboli. No pericardial effusion. Mild coronary artery calcifications. HARDWARE: None in the chest. UPPER ABDOMEN: No significant findings. Limited exam. THYROID AND OTHER SOFT TISSUES: No masses. No adenopathy. BONES: No significant finding. OTHER: No other significant finding. IMPRESSION: 1. Bilateral small pleural effusions and bibasilar atelectasis/infiltrates. 2. The pulmonary vasculature is mildly prominent particularly in the lower lobes, may represent vasc ular congestion. 3. Additional findings as above. TECHNICAL DOCUMENTATION: JOB ID: [id number] Quality ID # [id number]: Final reports with documentation of one or more dose reduction techniques (e.g., Au tomated exposure control, adjustment of the mA and/or kV according to patient size, use of iterative reconstruction technique) 2010 [employer]- All Rights Reserved Reading location - IP/workstation name: [email or web address]
--- NOTE | 2019-03-13 13:28 | PDOC PROGRESS REPORT ---
Subjective Progress Note for:: 03/13/19 Subjective:: He is confused today he is afebrile he is off oxygen with saturation over 94% he is not tachypneic the and states he has intermittent episodes of coughing with phlegm there is no diarrhea his appetite is fair to poor. Reason For Visit: PNEUMONIA,SEPSIS Physical Exam Vital Signs: Temp Pulse Resp BP Pulse Ox 98.0 F 90 14 152/83 H 98 03/13/19 08:13 03/13/19 11:55 03/13/19 11:55 03/13/19 08:13 03/13/19 11:55 Pulse Oximeter Continuous Start: 03/13/19 09:37 Freq: RTQ4 Status: Active Protocol: Document 03/13/19 11:55 [facility] (Rec: 03/13/19 11:56 [facility] [id number]) Pulse Oximetry Assessment Oxygen Saturation (92-100) 98 Oxygen Delivery Method Room Air Equipment Usage Initial Set Up Continuous Pulse Oximeter 24 Hour Charge Charge Now Continuous SpO2 Machine # N1 Intake & Output 03/12/19 03/13/19 03/14/19 06:59 06:59 06:59 Intake Total 2340 2340 Output Total 400 Balance 2340 1940 Weight 69.4 kg 66.2 kg General appearance: PRESENT: no acute distress Head exam: PRESENT: atraumatic, normocephalic Eye exam: PRESENT: conjunctiva pink, EOMI, PERRLA. ABSENT: scleral icterus Ear exam: PRESENT: normal external ear exam Mouth exam: PRESENT: moist, tongue midline Neck exam: PRESENT: full ROM. ABSENT: carotid bruit, JVD, lymphadenopathy, thyromegaly Respiratory exam: PRESENT: decreased breath sounds Cardiovascular exam: PRESENT: RRR. ABSENT: diastolic murmur, rubs, systolic murmur Pulses: PRESENT: normal dorsalis pedis pul, +2 pedal pulses bilateral Vascular exam: PRESENT: normal capillary refill GI/Abdominal exam: PRESENT: normal bowel sounds, soft. ABSENT: distended, guarding, mass, organolmegaly, rebound, tenderness Rectal exam: PRESENT: deferred Extremities exam: PRESENT: full ROM Neurological exam: PRESENT: awake, oriented to person, CN II-XII grossly intact, motor sensory deficit Psychiatric exam: PRESENT: appropriate affect, normal mood. ABSENT: homicidal ideation, suicidal ideation Results Laboratory Results: 03/13/19 06:25 03/12/19 04:38 03/13/19 06:25 WBC 9.5 RBC 3.96 L Hgb 12.5 L Hct 36.9 L MCV 93 MCH 31.5 MCHC 33.8 RDW 14.3 H Plt Count 209 Seg Neutrophils % Not Reportable Lymphocytes % Not Reportable Monocytes % Not Reportable Eosinophils % Not Reportable Basophils % Not Reportable Absolute Neutrophils Not Reportable Absolute Lymphocytes Not Reportable Absolute Monocytes Not Reportable Absolute Eosinophils Not Reportable Absolute Basophils Not Reportable Impressions: Chest X-Ray 03/10/19 19:38 IMPRESSION: No evidence of acute cardiopulmonary disease. NUMBER OF VIEWS: TECHNIQUE: LIMITATIONS: None. FINDINGS: IMPRESSION: copyright 2011 [employer]- All Rights Reserved Chest CT 03/13/19 09:38 IMPRESSION: 1. Bilateral small pleural effusions and bibasilar atelectasis/infiltrates. 2. The pulmonary vasculature is mildly prominent particularly in the lower lobes, may represent vascular congestion. 3. Additional findings as above. Assessment & Plan - Diagnosis (1) COPD (chronic obstructive pulmonary disease) Qualifiers: COPD type: COPD with acute exacerbation Qualified Code(s): J44.1 - Chronic obstructive pulmonary disease with (acute) exacerbation Is this a current diagnosis for this admission?: Yes Plan: We will decrease his steroids continue the beta-2 agonist and the Tia tropia we will put him on continuous O2 sat monitoring to see if they correlate with the episodes of shortness of breath we will also get a CT of the chest. (2) Leukocytosis Qualifiers: Leukocytosis type: unspecified Qualified Code(s): D72.829 - Elevated white blood cell count, unspecified Is this a current diagnosis for this admission?: Yes Plan: This has resolved so far blood cultures are negative he is no longer tachycardic there is no other obvious source of infection at present time but we will look into the CT of the chest since his chest x-ray was essentially normal. (3) Tachycardia Is this a current diagnosis for this admission?: Yes Plan: This has resolved with IV fluids we will continue to monitor. 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
[2019-03-13] MEDS: FUROSEMIDE INJ/PF 40 MG/4 ML SDV IV SCH (15:00)
--- NOTE | 2019-03-13 17:55 | XCELERA REPORT ---
[address] [address] Transthoracic Echocardiogram Report Name: ABDELRAHMAN MARES JAYLON JR [place] Age: 73 yrs Gender: Male : 1945 Patient Status: Inpatient Patient Location: [facility]^A Study Date: 03/13/2019 01:23 PM Height: 69 in Weight: 145 lb BSA: 1.8 m2 Procedure: A complete two-dimensional transthoracic echocardiogram was performed (2D, M-mode, spectral and color flow Doppler). The study was technically adequate with some images being suboptimal in quality. Reason For Study: chf Ordering Physician: LEROY AKHTAR Performed By: Ivette Love Interpretation Summary The left ventricular ejection fraction is normal. Doppler measurements suggest impaired left ventricular relaxation, which is associated with grade I/IV or mild diastolic dysfunction There is borderline concentric left ventricular hypertrophy. The left ventricle is grossly normal size. Not all wall segments were well visualized. The right ventricular systolic function is normal. The right ventricle is grossly normal size. The right atrium is normal. The left atrium is mildly dilated. There is a mild amount of mitral regurgitation There is no mitral valve stenosis. There is mild aortic stenosis There is a peak gradient of 20-25 mm of Hg. There is a trace to mild amount of aortic regurgitation There is a trace or physiologic amount of tricuspid regurgitation Tricuspid regurgitation jet envelope not well defined to measure RV systolic pressure accurately. The aortic root is not well visualized but is probably normal size. The inferior vena cava appeared normal and decreased < 50% with respiration (RAP 10-15 mmHg) There is no pericardial effusion. MMode/2D Measurements & Calculations RVDd: 2.7 cm LVIDd: 5.3 cm FS: 31.9 % Ao root diam: IVSd: 0.81 cm LVIDs: 3.6 cm EDV(Teich): 3.2 cm 135.0 ml Ao root area: LVPWd: 1.0 cm ESV(Teich): 54.6 ml7.9 cm2 EF(Teich): 59.6 % EDV(MOD-sp4): SV(MOD-sp4): 75.5 ml 47.0 ml ESV(MOD-sp4): 28.4 ml EF(MOD-sp4): 62.3 % Doppler Measurements & Calculations MV E max konstantin: MV dec slope: Ao V2 max: LV V1 max P.6 cm/sec 230.7 cm/sec 5.1 mmHg MV A max konstantin: 670.3 cm/sec2 Ao max PG: LV V1 mean P.9 cm/sec MV dec time: 0.15 sec 21.3 mmHg 2.5 mmHg MV E/A: 1.4 Ao V2 mean: LV V1 max: 163.2 cm/sec 113.1 cm/sec Ao mean PG: LV V1 mean: 12.0 mmHg 73.6 cm/sec Ao V2 VTI: 49.9 cm LV V1 VTI: 27.1 cm PA V2 max: 98.3 cm/sec PA max P.9 mmHg Left Ventricle The left ventricle is grossly normal size. There is borderline concentric left ventricular hypertrophy. The left ventricular ejection fraction is normal. Doppler measurements suggest impaired left ventricular relaxation, which is associated with grade I/IV or mild diastolic dysfunction. Not all wall segments were well visualized. Right Ventricle The right ventricle is grossly normal size. There is normal right ventricular wall thickness. The right ventricular systolic function is normal. Atria The right atrium is normal. The left atrium is mildly dilated. Interarterial septum not well visualized and not well dopplered. Cannot comment on ASD/PFO presence. Mitral Valve The mitral valve is grossly normal. There is no mitral valve stenosis. There is a mild amount of mitral regurgitation. Aortic Valve The aortic valve is mildly calcified. There is mild aortic stenosis. There is a peak gradient of 20-25 mm of Hg. There is a trace to mild amount of aortic regurgitation. Tricuspid Valve The tricuspid valve is not well visualized, but is grossly normal. There is no tricuspid stenosis. There is a trace or physiologic amount of tricuspid regurgitation. Tricuspid regurgitation jet envelope not well defined to measure RV systolic pressure accurately. Pulmonic Valve The pulmonic valve is not well visualized. Great Vessels The aortic root is not well visualized but is probably normal size. The inferior vena cava appeared normal and decreased < 50% with respiration (RAP 10-15 mmHg). Effusions There is no pericardial effusion. : LEROY AKHTAR > Leidy Melton
[2019-03-13] MEDS: QUETIAPINE FUMARATE 25 MG TABLET PO SCH (21:41)
[2019-03-14] MEDS: IPRATROPIUM BROMIDE 0.02% NEB 0.5 MG/2.5 ML AMPUL NEB SCH ×6 (00:55→20:17)
[2019-03-14] MEDS: LEVALBUTEROL HCL NEB 0.63 MG/3 ML AMPUL NEB SCH ×6 (00:55→20:17)
[2019-03-14] MEDS: METHYLPREDNISOLONE INJ 40 MG/1 ML SDV IV SCH ×3 (03:57→22:15)
[2019-03-14 04:45] LABS: ABSOLUTE LYMPHOCYTES (AUTO) 0.7 10^3/uL (0.5-4.7); ABSOLUTE MONOCYTES (AUTO) 0.6 10^3/uL (0.1-1.4); ABSOLUTE NEUT (AUTO) 8.4 10^3/uL (1.7-8.2); HEMATOCRIT 37.9 % (37.9-51.0); HEMOGLOBIN 12.7 g/dL (13.5-17.0); LYMPHOCYTES % (AUTO) 7.1 % (13-45); MEAN CORPUSCULAR HEMOGLOBIN 31.2 pg (27.0-33.4); MEAN CORPUSCULAR HGB CONC 33.6 g/dL (32.0-36.0); MEAN CORPUSCULAR VOLUME 93 fl (80-97); MONOCYTES % (AUTO) 6.3 % (3-13); PLATELET COUNT 208 10^3/uL (150-450); RED BLOOD COUNT 4.08 10^6/uL (4.35-5.55); RED CELL DISTRIBUTION WIDTH 13.7 % (11.5-14.0); SEGMENTED NEUTROPHILS % (AUTO) 86.6 % (42-78); TOTAL CELLS COUNTED % (AUTO) 100 %; WHITE BLOOD COUNT 9.7 10^3/uL (4.0-10.5)
[2019-03-14 05:06] LABS: ALANINE AMINOTRANSFERASE 69 U/L (21-72); ALBUMIN 2.8 g/dL (3.5-5.0); ALKALINE PHOSPHATASE 37 U/L (38-126); ANION GAP 8 (5-19); ASPARTATE AMINO TRANSFERASE 35 U/L (17-59); BILIRUBIN,DIRECT 0.3 mg/dL (0.0-0.4); BILIRUBIN,TOTAL 0.5 mg/dL (0.2-1.3); BLOOD UREA NITROGEN 26 mg/dL (7-20); CALCIUM 8.8 mg/dL (8.4-10.2); CARBON DIOXIDE 28 mmol/L (22-30); CHLORIDE 105 mmol/L (98-107); GLUCOSE 132 mg/dL (75-110); POTASSIUM 4.1 mmol/L (3.6-5.0)
[2019-03-14] MEDS: PANTOPRAZOLE SODIUM 40 MG TABLET.DR PO SCH (05:43)
[2019-03-14] MEDS: FUROSEMIDE INJ/PF 40 MG/4 ML SDV IV SCH (09:35)
[2019-03-14] MEDS: RIVASTIGMINE 4.6 MG/24 HR PATCH.TD24 TD SCH (09:41)
[2019-03-14] MEDS: GUAIFENESIN 600 MG TABLET.SA PO SCH ×2 (09:41→22:15)
[2019-03-14] MEDS: CEFTRIAXONE SODIUM 1,000 MG in DEXTROSE 5%-WATER 50 ML IV SCH (09:43)
[2019-03-14] MEDS: ENOXAPARIN SODIUM INJ 40 MG/0.4 ML DISP.SYRIN SUBCUT SCH (09:54)
[2019-03-14] MEDS: POLYETHYLENE GLYCOL 3350 POWDER 17 GM/1 PACKET PO SCH (10:30)
[2019-03-14] MEDS: AZITHROMYCIN 500 MG in DEXTROSE 5%-WATER 250 ML IV SCH (10:31)
--- NOTE | 2019-03-14 13:23 | PDOC PROGRESS REPORT ---
Subjective Progress Note for:: 03/14/19 Subjective:: Patient is seen today lying in bed off oxygen his O2 saturations are over 97% he is afebrile states that he does eat when she went out and brought him food does not like the hospital food at a cardiac diet. Throughout the night quiet slept no episodes of chest congestion coughing which when it does is intermittent no episodes of shortness of breath nausea vomiting. She states he has not had a BM in the last 48 hours. He has only been out of bed to chair has not ambulated. Discussed with her options regarding post hospital discharge i.e. residential facility, home health, physical therapy, home health aide. She is agreeable to meet with web content & social media manager to discuss those options. Discussed results of blood cultures, CBC, BMP 7, echo, CT of the chest. He is not as confused he is more lucid today. Reason For Visit: PNEUMONIA,SEPSIS Physical Exam Vital Signs: Temp Pulse Resp BP Pulse Ox 98.8 F 83 16 133/72 H 96 03/14/19 12:03 03/14/19 12:25 03/14/19 12:25 03/14/19 12:03 03/14/19 12:25 Pulse Oximeter Continuous Start: 03/13/19 09:37 Freq: RTQ4 Status: Active Protocol: Document 03/14/19 12:25 [facility] (Rec: 03/14/19 12:28 [facility] [id number]) Pulse Oximetry Assessment Oxygen Saturation (92-100) 96 Oxygen Delivery Method Room Air Fraction of Inspired Oxygen (FIO2) 21 Equipment Usage Equipment in Use Continuous SpO2 Machine # 1 Intake & Output 03/13/19 03/14/19 03/15/19 06:59 06:59 06:59 Intake Total 2340 1020 Output Total 400 1240 Balance 1940 -220 Weight 66.2 kg 66.2 kg General appearance: PRESENT: no acute distress Head exam: PRESENT: atraumatic, normocephalic Eye exam: PRESENT: conjunctiva pink, EOMI, PERRLA. ABSENT: scleral icterus Ear exam: PRESENT: normal external ear exam Mouth exam: PRESENT: moist, tongue midline Neck exam: PRESENT: full ROM. ABSENT: carotid bruit, JVD, lymphadenopathy, thyromegaly Respiratory exam: PRESENT: clear to auscultation nicolle Cardiovascular exam: PRESENT: RRR. ABSENT: diastolic murmur, rubs, systolic murmur Pulses: PRESENT: normal carotid pulses, +2 pedal pulses bilateral Vascular exam: PRESENT: normal capillary refill GI/Abdominal exam: PRESENT: normal bowel sounds, soft. ABSENT: distended, guarding, mass, organolmegaly, rebound, tenderness Extremities exam: PRESENT: full ROM Musculoskeletal exam: PRESENT: ambulatory Neurological exam: PRESENT: awake, oriented to person Additional comments: Still has persistent rigidity throughout all 4 extremities, masked facies Psychiatric exam: PRESENT: appropriate affect, normal mood. ABSENT: homicidal ideation, suicidal ideation Skin exam: PRESENT: dry, intact, warm. ABSENT: cyanosis, rash Results Laboratory Results: 03/14/19 03:53 03/14/19 03:53 03/14/19 03/14/19 03:53 03:53 WBC 9.7 RBC 4.08 L Hgb 12.7 L Hct 37.9 MCV 93 MCH 31.2 MCHC 33.6 RDW 13.7 Plt Count 208 Seg Neutrophils % 86.6 H Lymphocytes % 7.1 L Monocytes % 6.3 Eosinophils % 0.0 Basophils % 0.0 Absolute Neutrophils 8.4 H Absolute Lymphocytes 0.7 Absolute Monocytes 0.6 Absolute Eosinophils 0.0 Absolute Basophils 0.0 Sodium 141.0 Potassium 4.1 Chloride 105 Carbon Dioxide 28 Anion Gap 8 BUN 26 H Creatinine 0.72 Est GFR ( Amer) > 60 Est GFR (Non-Af Amer) > 60 Glucose 132 H Calcium 8.8 Total Bilirubin 0.5 AST 35 ALT 69 Alkaline Phosphatase 37 L Total Protein 5.0 L Albumin 2.8 L Impressions: Chest X-Ray 03/10/19 19:38 IMPRESSION: No evidence of acute cardiopulmonary disease. NUMBER OF VIEWS: TECHNIQUE: LIMITATIONS: None. FINDINGS: IMPRESSION: copyright 2011 [employer]- All Rights Reserved Chest CT 03/13/19 09:38 IMPRESSION: 1. Bilateral small pleural effusions and bibasilar atelectasis/infiltrates. 2. The pulmonary vasculature is mildly prominent particularly in the lower lobes, may represent vascular congestion. 3. Additional findings as above. Assessment & Plan - Diagnosis (1) COPD (chronic obstructive pulmonary disease) Qualifiers: COPD type: COPD with acute exacerbation Qualified Code(s): J44.1 - Chronic obstructive pulmonary disease with (acute) exacerbation Is this a current diagnosis for this admission?: Yes Plan: Continue short acting beta-2 agonist, and the Tia Lily p.m. nebulizer we will decrease steroid dosage. (2) Leukocytosis Qualifiers: Leukocytosis type: unspecified Qualified Code(s): D72.829 - Elevated white blood cell count, unspecified Is this a current diagnosis for this admission?: Yes Plan: Plan White count is normal, blood cultures are -72 hours, chest x-ray and CAT scan showed no evidence of inflammatory or infectious source. We will check a urine (3) Tachycardia Is this a current diagnosis for this admission?: Yes Plan: Resolved (4) Lewy body dementia Qualifiers: Dementia behavioral disturbance: without behavioral disturbance Qualified Code(s): G31.83 - Dementia with Lewy bodies; F02.80 - Dementia in other diseases classified elsewhere without behavioral disturbance Is this a current diagnosis for this admission?: Yes Plan: Patient currently is being treated by neurologist affiliated with [facility] in [place] we will add physical therapy discussed with alyson phan a new atypical antipsychotic to replace the Seroquel. (5) Constipation Is this a current diagnosis for this admission?: Yes Plan: Add MiraLAX 17 g with 8 ounces of water daily usually takes that at home. 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
[2019-03-14] MEDS: ACETAMINOPHEN 325 MG TABLET PO PRN (16:23)
[2019-03-14 16:39] LABS: APPEARANCE,URINE CLEAR; BILIRUBIN,URINE NEGATIVE (NEGATIVE); COLOR,URINE STRAW; GLUCOSE, URINE NEGATIVE (NEGATIVE); KETONES,URINE NEGATIVE (NEGATIVE); LEUKOCYTE ESTERASE,URINE NEGATIVE (NEGATIVE); NITRITE,URINE NEGATIVE (NEGATIVE); PROTEIN,URINE NEGATIVE (NEGATIVE); URINE SPECIFIC GRAVITY 1.012; UROBILINOGEN,URINE NEGATIVE mg/dL (<2.0)
[2019-03-14] MEDS: QUETIAPINE FUMARATE 25 MG TABLET PO SCH (22:16)
[2019-03-15] MEDS: IPRATROPIUM BROMIDE 0.02% NEB 0.5 MG/2.5 ML AMPUL NEB SCH ×7 (00:06→23:48)
[2019-03-15] MEDS: LEVALBUTEROL HCL NEB 0.63 MG/3 ML AMPUL NEB SCH ×7 (00:06→23:48)
[2019-03-15] MEDS: PANTOPRAZOLE SODIUM 40 MG TABLET.DR PO SCH (07:53)
[2019-03-15] MEDS: ENOXAPARIN SODIUM INJ 40 MG/0.4 ML DISP.SYRIN SUBCUT SCH (10:07)
[2019-03-15] MEDS: METHYLPREDNISOLONE INJ 40 MG/1 ML SDV IV SCH (10:07)
[2019-03-15] MEDS: POLYETHYLENE GLYCOL 3350 POWDER 17 GM/1 PACKET PO SCH (10:07)
[2019-03-15] MEDS: FUROSEMIDE INJ/PF 40 MG/4 ML SDV IV SCH (10:07)
[2019-03-15] MEDS: GUAIFENESIN 600 MG TABLET.SA PO SCH ×2 (10:07→21:57)
[2019-03-15] MEDS: RIVASTIGMINE 4.6 MG/24 HR PATCH.TD24 TD SCH (10:08)
[2019-03-15] MEDS: CEFTRIAXONE SODIUM 1,000 MG in DEXTROSE 5%-WATER 50 ML IV SCH (10:08)
[2019-03-15] MEDS: AZITHROMYCIN 500 MG in DEXTROSE 5%-WATER 250 ML IV SCH (11:15)
--- NOTE | 2019-03-15 12:18 | PDOC PROGRESS REPORT ---
Subjective Progress Note for:: 03/15/19 Subjective:: Patient comes in today he is afebrile oxygen saturation above 95%,no further SOB, minimal cough, had bowel movement. Reason For Visit: PNEUMONIA,SEPSIS Physical Exam Vital Signs: Temp Pulse Resp BP Pulse Ox 98.4 F 78 16 133/63 H 98 03/15/19 08:00 03/15/19 08:01 03/15/19 08:01 03/15/19 08:00 03/15/19 08:01 Pulse Oximeter Continuous Start: 03/13/19 09:37 Freq: RTQ4 Status: Active Protocol: Document 03/15/19 08:01 DBE (Rec: 03/15/19 08:13 DBE [id number]) Pulse Oximetry Assessment Oxygen Saturation (92-100) 96 Oxygen Delivery Method Room Air Fraction of Inspired Oxygen (FIO2) 21 Equipment Usage Equipment in Use Continuous SpO2 Machine # 1 Intake & Output 03/14/19 03/15/19 03/16/19 06:59 06:59 06:59 Intake Total 1020 1255 50 Output Total 1240 1600 Balance -220 -345 50 Weight 66.2 kg 67.2 kg General appearance: PRESENT: no acute distress, well-developed, well-nourished Head exam: PRESENT: atraumatic, normocephalic Eye exam: PRESENT: conjunctiva pink, EOMI, PERRLA. ABSENT: scleral icterus Ear exam: PRESENT: normal external ear exam Mouth exam: PRESENT: moist, tongue midline Neck exam: PRESENT: full ROM. ABSENT: carotid bruit, JVD, lymphadenopathy, thyromegaly Respiratory exam: PRESENT: clear to auscultation nicolle Cardiovascular exam: PRESENT: RRR. ABSENT: diastolic murmur, rubs, systolic murmur Pulses: PRESENT: normal dorsalis pedis pul, +2 pedal pulses bilateral Vascular exam: PRESENT: normal capillary refill GI/Abdominal exam: PRESENT: normal bowel sounds, soft. ABSENT: distended, guarding, mass, organolmegaly, rebound, tenderness Rectal exam: PRESENT: deferred Extremities exam: PRESENT: full ROM Musculoskeletal exam: PRESENT: ambulatory Neurological exam: PRESENT: alert, awake, oriented to person, oriented to place, oriented to time, oriented to situation, CN II-XII grossly intact. ABSENT: motor sensory deficit Psychiatric exam: PRESENT: appropriate affect, normal mood. ABSENT: homicidal i deation, suicidal ideation Skin exam: PRESENT: dry, intact, warm. ABSENT: cyanosis, rash Results Laboratory Results: 03/14/19 03:53 03/14/19 03:53 03/14/19 14:50 Urine Color STRAW Urine Appearance CLEAR Urine pH 5.0 Ur Specific [place] 1.012 Urine Protein NEGATIVE Urine Glucose (UA) NEGATIVE Urine Ketones NEGATIVE Urine Blood MODERATE H Urine Nitrite NEGATIVE Ur Leukocyte Esterase NEGATIVE Urine RBC (Auto) 6 03/14/19 18:20 Sputum Gram Stain - Final 03/14/19 18:20 Sputum Sputum Culture - Final Impressions: Chest X-Ray 03/10/19 19:38 IMPRESSION: No evidence of acute cardiopulmonary disease. NUMBER OF VIEWS: TECHNIQUE: LIMITATIONS: None. FINDINGS: IMPRESSION: copyright 2010 [employer]- All Rights Reserved Chest CT 03/13/19 09:38 IMPRESSION: 1. Bilateral small pleural effusions and bibasilar atelectasis/infiltrates. 2. The pulmonary vasculature is mildly prominent particularly in the lower lobes, may represent vascular congestion. 3. Additional findings as above. Assessment & Plan - Diagnosis (1) COPD (chronic obstructive pulmonary disease) Qualifiers: COPD type: COPD with acute exacerbation Qualified Code(s): J44.1 - Chronic obstructive pulmonary disease with (acute) exacerbation Is this a current diagnosis for this admission?: Yes Plan: cont. current treatment nebulizer, decrease change prednisone 20 mg daily (2) Leukocytosis Qualifiers: Leukocytosis type: unspecified Qualified Code(s): D72.829 - Elevated white blood cell count, unspecified Is this a current diagnosis for this admission?: Yes Plan: resolved (3) Tachycardia Is this a current diagnosis for this admission?: Yes (4) Lewy body dementia Qualifiers: Dementia behavioral disturbance: without behavioral disturbance Qualified Code(s): G31.83 - Dementia with Lewy bodies; F02.80 - Dementia in other diseases classified elsewhere without behavioral disturbance Is this a current diagnosis for this admission?: Yes Plan: cont. current rx (5) Constipation Is this a current diagnosis for this admission?: Yes - Time Time Spent with patient: 15-24 minutes Medications reviewed and adjusted accordingly: Yes Anticipated discharge: Home Within: Other - Inpatient Certification Based on my medical assessment, after consideration of the patient's comorbidities, presenting symptoms, or acuity I expect that the services needed warrant INPATIENT care.: Yes I certify that my determination is in accordance with my understanding of Medicare's requirements for reasonable and necessary INPATIENT services [42 CFR 412.3e].: Yes Medical Necessity: Need for Nebulizer Therapy and Monitoring of Response 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
--- NOTE | 2019-03-15 12:39 | PDOC CONSULTATION ---
History of Present Illness Admission Date/PCP: 03/11/19 02:53 LEROY AKHTAR MD History of Present Illness: JAYLON QUICK JR is a 73 year old male well known to [facility] Cory diane. The patient's is at the bedside and provided much of the patient history (Patient has dementia). She states that the patient began having difficulty breathing on Wednesday and after two breathing treatments was not displaying any signs of doing better. Patient expressed he would like to be taken to the hospital via car but she called EMS after realizing how he was struggling to breath. The patient did not have much of an appetite at admission; his states that is evening back out and he is eating regularly at this time. She states he does have a productive cough of white mucous and has no complaints in regards to being in pain currently. Past Medical History Cardiac Medical History: Reports: Atrial Fibrillation Denies: Coronary Artery Disease, Myocardial Infarction, Hypertension, Pulmonary Embolism Pulmonary Medical History: Reports: Respiratory Failure Denies: Asthma, Bronchitis, Chronic Obstructive Pulmonary Disease (COPD), Pneumonia Neurological Medical History: Denies: Seizures Endocrine Medical History: Denies: Diabetes Mellitus Type 2 Malignancy Medical History: Reports: Skin Cancer GI Medical History: Denies: Hepatitis, Hiatal Hernia Musculoskeltal Medical History: Denies: Arthritis Psychiatric Medical History: Reports: Dementia - Parkinson's, Depression Hematology: Denies: Anemia, Sickle Cell Disease Past Surgical History Past Surgical History: Reports: Other - Patient has undergone cardiac ablation for A. fib Denies: Pacemaker Social History Lives with: Family Smoking Status: Never Smoker Frequency of Alcohol Use: None Hx Recreational Drug Use: No Drugs: None Hx Prescription Drug Abuse: No Family History Family History: Reviewed & Not Pertinent Parental Family History Reviewed: Yes Children Family History Reviewed: Yes Sibling(s) Family History Reviewed.: Yes Medication/Allergy Home Medications: RX: Aspirin [Aspirin 325 mg Tablet] 325 mg PO DAILY tablet 06/10/18 Quetiapine Fumarate [Seroquel 25 mg Tablet] 25 mg PO QHS PRN #10 tablet 01/21/19 Albuterol Sulfate [Proair Hfa Inhalation Aerosol 8.5 gm Mdi] 1 puff IH Q6HP PRN 03/11/19 Ipratropium/Albuterol Sulfate [Duoneb 3 ml Ampul] 3 ml NEB RTQ6 03/11/19 Rivastigmine [Exelon 9.5 Mg/24 Hr Transdermal Patch] 1 each TD DAILY 03/11/19 Allergies/Adverse Reactions: cimetidine [From Tagamet] Allergy (Severe, Verified 06/22/18 09:23) Anaphylaxis cimetidine HCl [From Tagamet] Allergy (Severe, Verified 06/22/18 09:23) Anaphylaxis ranitidine HCl [From Zantac] Allergy (Verified 06/22/18 09:23) Edema Review of Systems Constitutional: ABSENT: anorexia, chills, fever(s), headache(s), weight gain, weight loss Eyes: ABSENT: visual disturbances Ears: ABSENT: hearing changes Nose, Mouth, and Throat: ABSENT: headache(s), mouth pain, sore throat Cardiovascular: PRESENT: dyspnea on exertion. ABSENT: edema, palpitations Respiratory: PRESENT: cough, dyspnea. ABSENT: hemoptysis Gastrointestinal: ABSENT: diarrhea, dysphagia, nausea, vomiting Genitourinary: ABSENT: difficulty urinating, dysuria, hematuria, nocturia Musculoskeletal: PRESENT: muscle weakness. ABSENT: back pain Integumentary: PRESENT: as per HPI. ABSENT: rash, wounds Neurological: PRESENT: confusion, frequent falls, lack of coordination, memory loss Psychiatric: ABSENT: homidical ideation, suicidal ideation Endocrine: ABSENT: cold intolerance, flushing, menstrual abnormalities Hematologic/Lymphatic: ABSENT: easy bruising, lymphadenopathy Allergic/Immunologic: ABSENT: seasonal rhinorrhea Physical Exam Vital Signs: Temp Pulse Resp BP Pulse Ox 98.4 F 78 16 133/63 H 98 03/15/19 08:00 03/15/19 08:01 03/15/19 08:01 03/15/19 08:00 03/15/19 08:01 Pulse Oximeter Continuous Start: 03/13/19 09:37 Freq: RTQ4 Status: Active Protocol: Document 03/15/19 08:01 DBE (Rec: 03/15/19 08:13 DBE [email or web address]) Pulse Oximetry Assessment Oxygen Saturation (92-100) 96 Oxygen Delivery Method Room Air Fraction of Inspired Oxygen (FIO2) 21 Equipment Usage Equipment in Use Continuous SpO2 Machine # 1 Intake & Output 03/14/19 03/15/19 03/16/19 06:59 06:59 06:59 Intake Total 1020 1255 Output Total 1240 1600 Balance -220 -345 Weight 66.2 kg 67.2 kg General appearance: PRESENT: no acute distress Head exam: PRESENT: atraumatic, normocephalic Eye exam: PRESENT: conjunctiva pink, EOMI. ABSENT: scleral icterus Ear exam: PRESENT: normal external ear exam Mouth exam: PRESENT: moist, tongue midline Neck exam: PRESENT: full ROM. ABSENT: JVD, lymphadenopathy, tenderness Respiratory exam: PRESENT: decreased breath sounds Cardiovascular exam: PRESENT: RRR. ABSENT: diastolic murmur, systolic murmur Pulses: PRESENT: normal dorsalis pedis pul GI/Abdominal exam: PRESENT: normal bowel sounds, soft Rectal exam: PRESENT: deferred Extremities exam: PRESENT: full ROM. ABSENT: clubbing, joint swelling Neurological exam: PRESENT: awake, oriented to person Psychiatric exam: PRESENT: appropriate affect, normal mood Results Laboratory Results: 03/14/19 03:53 03/14/19 03:53 03/14/19 14:50 Urine Color STRAW Urine Appearance CLEAR Urine pH 5.0 Ur Specific [place] 1.012 Urine Protein NEGATIVE Urine Glucose (UA) NEGATIVE Urine Ketones NEGATIVE Urine Blood MODERATE H Urine Nitrite NEGATIVE Ur Leukocyte Esterase NEGATIVE Urine RBC (Auto) 6 Impressions: Chest X-Ray 03/10/19 19:38 IMPRESSION: No evidence of acute cardiopulmonary disease. NUMBER OF VIEWS: TECHNIQUE: LIMITATIONS: None. FINDINGS: IMPRESSION: copyright 2011 [email or web address]- All Rights Reserved Chest CT 03/13/19 09:38 IMPRESSION: 1. Bilateral small pleural effusions and bibasilar atelectasis/infiltrates. 2. The pulmonary vasculature is mildly prominent particularly in the lower lobes, may represent vascular congestion. 3. Additional findings as above. Assessment & Plan - Diagnosis (1) Acute hypoxemic respiratory failure Is this a current diagnosis for this admission?: Yes Plan: continue supplemental o2 (2) COPD (chronic obstructive pulmonary disease) Qualifiers: COPD type: COPD with acute exacerbation Qualified Code(s): J44.1 - Chronic obstructive pulmonary disease with (acute) exacerbation Is this a current diagnosis for this admission?: Yes Plan: Will work with [facility] to get patient evaluated for home hospice, We discussed this with and she was ok with proceeding with the order. She understood this was to help her to keep him well at home. Our office will send detailed records and written order ahead of patient discharge. Use antibiotic regimen consistent with COPD, currently in place Inpatient Scribe Statement - . Entered by Genesis Romero , acting as scribe for .
[2019-03-15] MEDS: ACETAMINOPHEN 325 MG TABLET PO PRN (13:30)
[2019-03-15] MEDS: PREDNISONE 20 MG TABLET PO SCH (17:40)
[2019-03-15] MEDS: NYSTATIN 500000 UNIT/5 ML UDCUP PO SCH (17:44)
[2019-03-15] MEDS: QUETIAPINE FUMARATE 25 MG TABLET PO SCH (21:57)
[2019-03-16] MEDS: NYSTATIN 500000 UNIT/5 ML UDCUP PO SCH ×4 (01:58→17:16)
[2019-03-16] MEDS: LEVALBUTEROL HCL NEB 0.63 MG/3 ML AMPUL NEB SCH ×4 (03:54→16:21)
[2019-03-16] MEDS: IPRATROPIUM BROMIDE 0.02% NEB 0.5 MG/2.5 ML AMPUL NEB SCH ×4 (03:54→16:22)
[2019-03-16] MEDS: PANTOPRAZOLE SODIUM 40 MG TABLET.DR PO SCH (06:03)
[2019-03-16] MEDS: ENOXAPARIN SODIUM INJ 40 MG/0.4 ML DISP.SYRIN SUBCUT SCH (10:37)
[2019-03-16] MEDS: CEFTRIAXONE SODIUM 1,000 MG in DEXTROSE 5%-WATER 50 ML IV SCH (10:38)
[2019-03-16] MEDS: AZITHROMYCIN 500 MG in DEXTROSE 5%-WATER 250 ML IV SCH (10:39)
[2019-03-16] MEDS: RIVASTIGMINE 4.6 MG/24 HR PATCH.TD24 TD SCH (10:41)
[2019-03-16] MEDS: PREDNISONE 20 MG TABLET PO SCH ×2 (10:42→17:16)
[2019-03-16] MEDS: POLYETHYLENE GLYCOL 3350 POWDER 17 GM/1 PACKET PO SCH (10:42)
[2019-03-16] MEDS: GUAIFENESIN 600 MG TABLET.SA PO SCH (10:42)
[2019-03-16] MEDS: ACETAMINOPHEN 325 MG TABLET PO PRN ×2 (10:49→16:42)
--- NOTE | 2019-03-16 10:52 | PDOC DISCHARGE SUMMARY ---
General - Admit/Disc Date/PCP Admission Date/Primary Care Provider: 03/11/19 02:53 LEROY AKHTAR MD Discharge Date: 03/16/19 - Discharge Diagnosis (1) COPD (chronic obstructive pulmonary disease) Is this a current diagnosis for this admission?: Yes (2) Leukocytosis Is this a current diagnosis for this admission?: Yes (3) Tachycardia Is this a current diagnosis for this admission?: Yes (4) Lewy body dementia Is this a current diagnosis for this admission?: Yes (5) Constipation Is this a current diagnosis for this admission?: Yes - Additional Information Discharge Diet: As Tolerated Discharge Activity: Activity As Tolerated Prescriptions: Nystatin [Mycostatin 500,000 Unit/5 ml Susp Udcup] 100,000 unit PO Q6 #120 udc Prednisone [Deltasone 20 mg Tablet] 20 mg PO BID #20 tablet Home Medications: Aspirin [Aspirin 325 mg Tablet] 325 mg PO DAILY tablet 06/10/18 Quetiapine Fumarate [Seroquel 25 mg Tablet] 25 mg PO QHS PRN #10 tablet 01/21/19 Albuterol Sulfate [Proair HFA Inhalation Aerosol 8.5 gm MDI] 1 puff IH Q6HP PRN 03/11/19 Ipratropium/Albuterol Sulfate [Duoneb 3 ml Ampul] 3 ml NEB RTQ6 03/11/19 Rivastigmine [Exelon 9.5 mg/24 Hr Transdermal Patch] 1 each TD DAILY 03/11/19 Nystatin [Mycostatin 500,000 Unit/5 ml Susp Udcup] 100,000 unit PO Q6 #120 udc 03/16/19 Prednisone [Deltasone 20 mg Tablet] 20 mg PO BID #20 tablet 03/16/19 Rivastigmine [Exelon 4.6 mg/24 Hr Transdermal Patch] 1 each TD DAILY patch.[id number] 03/16/19 History of Present Illness Patient complains of: Shortness of breath decreased oxygen saturation leukocytosis History of Present Illness: JAYLON ABDELRAHMAN MARES is a 73 year old male Hospital Course Hospital Course: Patient was admitted to telemetry serial cardiac enzymes were done no evidence of arrhythmias were seen he had broad-spectrum antibiotics and cultures blood cultures, sputum culture and urine culture failed to show any evidence of overt infection. Within 24 hours of admission his leukocytosis resolved. Because of the episodic shortness of breath even though with the underlying history of COPD. He had a CT of the chest to see if there was any underlying pulmonary embolism showed some minimal fluid at both bases with atelectasis at that time he was started on some low-dose Lasix and discontinued IV fluids. Throughout his hospitalization besides the emergency room O2 saturation remained in the high 90s i.e. 95 to 96% on room air. We continued on IV steroids which were weaned down his short acting beta-2 agonist and iattropiunm nebulizer tr eatments. His activity level was increased seen by physical therapy which given options of the skilled rehab or at home. Upon questioning the it was felt she had the comfort to do the care at home as long as assistance would be arranged. Because of the episode of fluid at the bases of the lungs we also did an echo which showed no evidence of diminished ejection fraction no systolic or diastolic dysfunction no significant valvular disease associated with enlargement. After further treatment and stabilization it was felt patient was better served at home because of his long-standing history of Lewy bodies dementia. And arrangements were made for discharging at home. Physical Exam Vital Signs: Temp Pulse Resp BP Pulse Ox 98.1 F 84 16 121/73 96 03/16/19 08:14 03/16/19 08:30 03/16/19 08:30 03/16/19 08:14 03/16/19 08:30 Pulse Oximeter Continuous Start: 03/13/19 09 :37 Freq: RTQ4 Status: Active Protocol: Document 03/16/19 08:30 JDR (Rec: 03/16/19 08:39 JDR [id number]) Pulse Oximetry Assessment Oxygen Saturation (92-100) 96 Oxygen Delivery Method Room Air Fraction of Inspired Oxygen (FIO2) 21 Equipment Usage Equipment in Use Continuous SpO2 Machine # 1 Pulse Oximeter Nocturnal Start: 03/15/19 16:43 Freq: RTQ4 Status: Complete Protocol: Document 03/16/19 03:57 CMI (Rec: 03/16/19 03:58 CMI [email or web address]) Nocturnal Pulse Oximetry Equipment Usage Equipment in Use Oxygen Delivery Method (includes room Room Air air) O2 Sat by Pulse Oximetry (92-100) 97 Continuous SpO2 Machine # 1 Intake & Output 03/15/19 03/16/19 03/17/19 06:59 06:59 06:59 Intake Total 1255 900 Output Total 1600 900 Balance -345 0 Weight 67.2 kg 67 kg General appearance: PRESENT: no acute distress Head exam: PRESENT: atraumatic, normocephalic Eye exam: PRESENT: conjunctiva pink, EOMI, PERRLA. ABSENT: scleral icterus Ear exam: PRESENT: normal external ear exam Mouth exam: PRESENT: moist, tongue midline Neck exam: PRESENT: full ROM. ABSENT: carotid bruit, JVD, lymphadenopathy, thyromegaly Respiratory exam: PRESENT: decreased breath sounds Cardiovascular exam: PRESENT: RRR. ABSENT: diastolic murmur, rubs, systolic murmur Pulses: PRESENT: normal dorsalis pedis pul, +2 pedal pulses bilateral Vascular exam: PRESENT: normal capillary refill GI/Abdominal exam: PRESENT: normal bowel sounds, soft. ABSENT: distended, guarding, mass, organolmegaly, rebound, tenderness Rectal exam: PRESENT: deferred Musculoskeletal exam: PRESENT: ambulatory Neurological exam: PRESENT: awake, oriented to person, CN II-XII grossly intact Additional comments: Rigidity ,hyporeflexia Psychiatric exam: PRESENT: appropriate affect, normal mood. ABSENT: homicidal ideation, suicidal ideation Additional comments: Prone to visual hallucinations Skin exam: PRESENT: dry, intact, warm. ABSENT: cyanosis, rash Results Laboratory Results: 03/14/19 03:53 03/14/19 03:53 03/11/19 01:38 Blood Blood Culture - Final NO GROWTH IN 5 DAYS 03/10/19 20:25 Blood Blood Culture - Final NO GROWTH IN 5 DAYS 03/14/19 18:20 Sputum Gram Stain - Final 03/14/19 18:20 Sputum Sputum Culture - Final Impressions: Chest X-Ray 03/10/19 19:38 IMPRESSION: No evidence of acute cardiopulmonary disease. NUMBER OF VIEWS: TECHNIQUE: LIMITATIONS: None. FINDINGS: IMPRESSION: copyright 2010 [email or web address]- All Rights Reserved Chest CT 03/13/19 09:38 IMPRESSION: 1. Bilateral small pleural effusions and bibasilar atelectasis/infiltrates. 2. The pulmonary vasculature is mildly prominent particularly in the lower lobes, may represent vascular congestion. 3. Additional findings as above. Qualifiers - * PATIENT BEING DISCHARGED WITH ANY OF THE FOLLOWING DIAGNOSIS: No Acute Heart Failure Is this a Heart Failure Patient?: No Follow-up Appointment scheduled within 7 days?: Yes Plan Discharge Plan: And after long discussion with subspecialty and . He will be discharged home on hospital bed, bedside commode home health assistance will be arranged discussed with pulmonary prior to discharge. He will be given a prescription subscription for prednisone 20 twice daily, Voltaren gel to the legs and we will see him in 1 week. Arrangements will also be made for outpatient pulmonary. And neurology. Time Spent: Greater than 30 Minutes
[2019-03-16 12:42] VITALS: BP 118/66
--- NOTE | 2019-03-16 15:26 | PDOC PROGRESS REPORT ---
Subjective Progress Note for:: 03/16/19 Subjective:: Patient appears better today at bedside discussed plan of care being [facility] has been ordered and we are working to get her home at home prior to discharge Reason For Visit: PNEUMONIA,SEPSIS Physical Exam Vital Signs: Temp Pulse Resp BP Pulse Ox 98.1 F 84 16 121/73 96 03/16/19 08:14 03/16/19 08:30 03/16/19 08:30 03/16/19 08:14 03/16/19 08:30 Pulse Oximeter Continuous Start: 03/13/19 09:37 Freq: RTQ4 Status: Active Protocol: Document 03/16/19 08:30 JDR (Rec: 03/16/19 08:39 JDR [email or web address]) Pulse Oximetry Assessment Oxygen Saturation (92-100) 96 Oxygen Delivery Method Room Air Fraction of Inspired Oxygen (FIO2) 21 Equipment Usage Equipment in Use Continuous SpO2 Machine # 1 Pulse Oximeter Nocturnal Start: 03/15/19 16:43 Freq: RTQ4 Status: Complete Protocol: Document 03/16/19 03:57 CMI (Rec: 03/16/19 03:58 CMI [email or web address]) Nocturnal Pulse Oximetry Equipment Usage Equipment in Use Oxygen Delivery Method (includes room Room Air air) O2 Sat by Pulse Oximetry (92-100) 97 Continuous SpO2 Machine # 1 Intake & Output 03/15/19 03/16/19 03/17/19 06:59 06:59 06:59 Intake Total 1255 900 Output Total 1600 900 Balance -345 0 Weight 67.2 kg 67 kg General appearance: PRESENT: no acute distress, cooperative Head exam: PRESENT: atraumatic, normocephalic Eye exam: PRESENT: conjunctiva pink, EOMI. ABSENT: scleral icterus Ear exam: PRESENT: normal external ear exam Mouth exam: PRESENT: moist, neck supple, tongue midline Neck exam: PRESENT: full ROM. ABSENT: carotid bruit, JVD, lymphadenopathy Respiratory exam: PRESENT: decreased breath sounds. ABSENT: rales, rhonchi, wheezes Cardiovascular exam: PRESENT: RRR. ABSENT: diastolic murmur, systolic murmur Pulses: PRESENT: normal dorsalis pedis pul Vascular exam: PRESENT: normal capillary refill GI/Abdominal exam: PRESENT: soft. ABSENT: distended, hyperactive bowel sounds, hypoactive bowel sounds, Diaz's sign Rectal exam: PRESENT: deferred Extremities exam: PRESENT: full ROM. ABSENT: clubbing, joint swelling, pedal edema Musculoskeletal exam: PRESENT: full ROM Neurological exam: PRESENT: altered, awake Psychiatric exam: PRESENT: appropriate affect, normal mood. ABSENT: homicidal ideation, suicidal ideation Results Laboratory Results: 03/14/19 03:53 03/14/19 03:53 03/11/19 01:38 Blood Blood Culture - Final NO GROWTH IN 5 DAYS 03/10/19 20:25 Blood Blood Culture - Final NO GROWTH IN 5 DAYS 03/14/19 18:20 Sputum Gram Stain - Final 03/14/19 18:20 Sputum Sputum Culture - Final Impressions: Chest X-Ray 03/10/19 19:38 IMPRESSION: No evidence of acute cardiopulmonary disease. NUMBER OF VIEWS: TECHNIQUE: LIMITATIONS: None. FINDINGS: IMPRESSION: copyright 2011 [employer]- All Rights Reserved Chest CT 03/13/19 09:38 IMPRESSION: 1. Bilateral small pleural effusions and bibasilar atelectasis/infiltrates. 2. The pulmonary vasculature is mildly prominent particularly in the lower lobes, may represent vascular congestion. 3. Additional findings as above. Assessment & Plan - Diagnosis (1) Acute hypoxemic respiratory failure Is this a current diagnosis for this admission?: Yes Plan: continue supplemental o2, patient unable to complete 6 minute walk at this time due to weakness. Overnight oximetry sats >90% through entire night. Discussed with previous doctors to obtain records from to qualify for home hospice patient has seen Dr. Molina in [place] and Dr. Storm Galarza at [place] (2) COPD (chronic obstructive pulmonary disease) Qualifiers: COPD type: COPD with acute exacerbation Qualified Code(s): J44.1 - Chronic obstructive pulmonary disease with (acute) exacerbation Is this a current diagnosis for this admission?: Yes Plan: Order sent to [facility], patient being evaluated for admission to hospice. Determining if patient meets guidelines for full admission. Patient pending discharged upon admission to hospice at primary care provider's discretion Inpatient Scribe Statement - . Entered by Genesis Romero, acting as scribe for .
== END 2019-03-16 17:35 | disposition hospice, home (50) | DRG 192 ==
LOC: ER 19:04 → EH 03-11 02:53 → 4S 03-11 08:19
PROVIDERS: ADMIT Internal Medicine; ATTEND Internal Medicine
PROC: 3E0F73Z Introduction of Anti-inflammatory into Respiratory Tract, Via Natural or Artificial Opening (ICD-10-PCS; principal; 2019-03-11)
DX: J44.1 Chronic obstructive pulmonary disease with (acute) exacerbation (principal); G31.83 Neurocognitive disorder with Lewy bodies; F02.80 Dementia in other diseases classified elsewhere, unspecified severity, without behavioral disturbance, psychotic disturbance, mood disturbance, and anxiety; K59.00 Constipation, unspecified; I48.91 Unspecified atrial fibrillation; F32.9 Major depressive disorder, single episode, unspecified; Z79.82 Long term (current) use of aspirin; Z79.899 Other long term (current) drug therapy; Z85.828 Personal history of other malignant neoplasm of skin; Z88.8 Allergy status to other drugs, medicaments and biological substances
CPT/HCPCS: 36415; 36600; 71045; 71260; 80053; 81001; 82803; 83605; 85025; 87040; 87070; 87205; 93005; 93010; 93306; 94640; 94762; 96365; 96367; 96375; 99285; J0456; J0696; J1650; J1940; J2920; J2930; J3480; J3490; J7030; J7060; J7512; J7614; J7620

== ENCOUNTER 2019-07-06 20:26 | Observation (INO) | payer MEDICARE, BC ==
[2019-07-06] MEDS: MAGNESIUM SULFATE/D5W 1 GM/100 ML RTUPB IV SCH ×2 (21:06→23:02)
--- NOTE | 2019-07-06 21:33 | RADIOLOGY REPORT (SQ) ---
EXAM DESCRIPTION: XR CHEST 1 VIEW COMPLETED DATE/TME: 07/06/2019 20:31 CLINICAL HISTORY: 73 years, Male, respiratory distress COMPARISON: Multiple priors, most recent from 05/21/2019 NUMBER OF VIEWS: One TECHNIQUE: Single frontal view of the chest was obtained portably. LIMITATIONS: None. FINDINGS: Cardiac and mediastinal contours are normal in appearance. Lungs are clear. No pleural effusion or pneumothorax. IMPRESSION: No acute disease. copyright 2010 [employer]- All Rights Reserved
[2019-07-06 22:59] LABS: APPEARANCE,URINE SLIGHTLY-CLOUDY; BILIRUBIN,URINE NEGATIVE (NEGATIVE); GLUCOSE, URINE NEGATIVE (NEGATIVE); KETONES,URINE NEGATIVE (NEGATIVE); LEUKOCYTE ESTERASE,URINE NEGATIVE (NEGATIVE); NITRITE,URINE NEGATIVE (NEGATIVE); PROTEIN,URINE NEGATIVE (NEGATIVE); UROBILINOGEN,URINE NEGATIVE mg/dL (<2.0)
[2019-07-06 22:59] LABS: PROTHROMBIN TIME 14.2 SEC (11.4-15.4)
[2019-07-06 23:00] LABS: PARTIAL THROMBOPLASTIN TIME 21.6 SEC (23.5-35.8)
[2019-07-06 23:00] LABS: COLOR,URINE YELLOW
[2019-07-06 23:22] LABS: CREATINE KINASE MB 1.54 ng/mL (<4.55); NT PRO BNP 224 pg/mL (5-900); TROPONIN I < 0.012 ng/mL
[2019-07-06 23:39] LABS: HEMATOCRIT 39.1 % (37.9-51.0); HEMOGLOBIN 12.8 g/dL (13.5-17.0); MEAN CORPUSCULAR HEMOGLOBIN 30.6 pg (27.0-33.4); MEAN CORPUSCULAR HGB CONC 32.7 g/dL (32.0-36.0); MEAN CORPUSCULAR VOLUME 94 fl (80-97); PLATELET COUNT 172 10^3/uL (150-450); RED BLOOD COUNT 4.17 10^6/uL (4.35-5.55); RED CELL DISTRIBUTION WIDTH 13.6 % (11.5-14.0); WHITE BLOOD COUNT 12.7 10^3/uL (4.0-10.5)
--- NOTE | 2019-07-06 23:43 | EKG REPORT ---
SEVERITY:- BORDERLINE ECG - SINUS TACHYCARDIA BORDERLINE ST DEPRESSION, DIFFUSE LEADS BORDERLINE PROLONGED QT INTERVAL : Confirmed by: Ruperto Rivera MD 06-Jul-2019 23:42:31
[2019-07-06 23:49] LABS: VENOUS BLOOD BASE EXCESS -3.7 mmol/L; VENOUS BLOOD HCO3 23.2 mmol/L (20-32); VENOUS BLOOD PCO2 49.2 mmHg (35-63); VENOUS BLOOD PH 7.29 (7.30-7.42)
[2019-07-06 23:56] LABS: ABSOLUTE LYMPHOCYTES# (MANUAL) 0.3 10^3/uL (0.5-4.7); ABSOLUTE MONOCYTES # (MANUAL) 0.4 10^3/uL (0.1-1.4); BASOPHILS % (MANUAL) 0 % (0-2); EOSINOPHILS % (MANUAL) 1 % (0-6); LYMPHOCYTES % (MANUAL) 2 % (13-45); MONOCYTES % (MANUAL) 3 % (3-13); SEGMENTED NEUTROPHILS % (MAN) 94 % (42-78); TOTAL CELLS COUNTED 100
[2019-07-06 23:57] LABS: PLATELET COMMENT ADEQUATE; RBC MORPHOLOGY COMMENT NORMO-CYTIC/CHROMIC
[2019-07-06 23:58] LABS: ALBUMIN 3.7 g/dL (3.5-5.0); ALKALINE PHOSPHATASE 73 U/L (38-126); ANION GAP 10 (5-19); ASPARTATE AMINO TRANSFERASE 17 U/L (17-59); BILIRUBIN,DIRECT 0.2 mg/dL (0.0-0.4); BILIRUBIN,TOTAL 0.3 mg/dL (0.2-1.3); BLOOD UREA NITROGEN 19 mg/dL (7-20); CALCIUM 8.6 mg/dL (8.4-10.2); CARBON DIOXIDE 23 mmol/L (22-30); CHLORIDE 107 mmol/L (98-107); CREATINE KINASE 56 U/L (55-170); GLUCOSE 224 mg/dL (75-110); POTASSIUM 3.4 mmol/L (3.6-5.0); TOTAL PROTEIN 5.9 g/dL (6.3-8.2)
[2019-07-07] MEDS ORDERED: PIPERACILLIN/TAZOBACTAM 3.375 GM VIAL IV ONE (00:16)
[2019-07-07] MEDS ORDERED: NORMAL SALINE 1000 ML 1,000 ML IV ONE (00:17)
[2019-07-07] MEDS ORDERED: POTASSI CL 20 MEQ/NS 1L 1,000 ML IV PRN (00:18)
--- NOTE | 2019-07-07 00:34 | ER Document Report ---
ED Respiratory Problem - General Chief Complaint: Shortness Of Breath Stated Complaint: SHORTNESS OF BREATH Time Seen by Provider: 07/06/19 20:39 Primary Care Provider: MORAIMA AKERS PA-C [Primary Care Provider] - Follow up as needed Notes: Patient is a 73-year-old male presents to the emergency department via EMS for respiratory distress. EMS states patient has had generalized cough and congestion with respiratory distress for the last couple of days. [facility] typically uses albuterol at home. [facility] room oxygenation was noted to be 65%. EMS gave the patient 6 albuterol treatments and his oxygen saturation came up to 98%. They also gave 125 mg of Solu-Medrol and 1 L of normal saline solution. Initially EMS states patient has a history of congestive heart failure, dementia, Alzheimer's, COPD. Once patient's arrives in the emergency department she states patient does not have a history of congestive heart failure or COPD. States patient has an appointment to see a custom frame assembler this coming week states typically at the custom frame assembler office he "does great with all of the testing" but always ends up having respiratory distress. Patient has been admitted to this facility within the last month for respiratory distress. Patient does have a history of dementia but is able to state his name, knows where he is active and knows his 's name. Patient states his breathing feels a lot better compared to when 911 arrived at his house. TRAVEL OUTSIDE OF THE [place] IN LAST 30 DAYS: No - Related Data Allergies/Adverse Reactions: cimetidine [From Tagamet] Allergy (Severe, Verified 06/22/18 09:23) Anaphylaxis ranitidine HCl [From Zantac] Allergy (Verified 06/22/18 09:23) Edema Past Medical History - General Information source: Patient, Relative - Social History Smoking Status: Unknown if Ever Smoked Family History: CAD - Mother, COPD - Father - Past Medical History Cardiac Medical History: Reports: Hx Atrial Fibrillation Denies: Hx Coronary Artery Disease, Hx Heart Attack, Hx Hypertension, Hx Pulmonary Embolism Pulmonary Medical History: Reports: Hx Respiratory Failure Denies: Hx Asthma, Hx Bronchitis, Hx COPD, Hx Pneumonia Neurological Medical History: Denies: Hx Cerebrovascular Accident, Hx Seizures Endocrine Medical History: Denies: Hx Diabetes Mellitus Type 1, Hx Diabetes Mellitus Type 2, Hx Hyperthyroidism, Hx Hypothyroidism Renal/ Medical History: Denies: Hx Peritoneal Dialysis Malignancy Medical History: Reports Hx Skin Cancer GI Medical History: Reports: Hx Ulcer - 1978 [employer]. Denies: Hx Cirrhosis, Hx Hepatitis, Hx Hiatal Hernia Musculoskeletal Medical History: Denies Hx Arthritis, Denies Hx Gout Skin Medical History: Denies Hx Eczema, Denies Hx Psoriasis Psychiatric Medical History: Reports: Hx Dementia - Parkinson's, Hx Depression Infectious Medical History: Denies: Hx Hepatitis Past Surgical History: Reports: Hx Cardiac Catheterization, Hx Cardiac Surgery - ablation, Other - Patient has undergone cardiac ablation for A. fib. Denies: Hx Open Heart Surgery, Hx Pacemaker - Immunizations Hx Diphtheria, Pertussis, Tetanus Vaccination: No Review of Systems - Review of Systems Constitutional: denies: Fever EENT: See HPI Cardiovascular: denies: Chest pain Respiratory: See HPI Gastrointestinal: No symptoms reported Genitourinary: No symptoms reported Male Genitourinary: No symptoms reported Musculoskeletal: No symptoms reported Skin: No symptoms reported Hematologic/Lymphatic: No symptoms reported Neurological/Psychological: See HPI Physical Exam - Notes Notes: GENERAL: Alert, interacts well. Tachypneic, intercostal muscle use noted. HEAD: Normocephalic, atraumatic. EYES: Pupils equal, round, and reactive to light. Extraocular movements intact. ENT: Oral mucosa moist, tongue midline. NECK: Full range of motion. Supple. Trachea midline. LUNGS: Expiratory wheeze to auscultation bilaterally, no discernible rales, or rhonchi. HEART: Tachycardic rate and rhythm. No murmur ABDOMEN: Soft, non-tender. Non-distended. Bowel sounds present in all 4 quadrants. EXTREMITIES: Moves all 4 extremities spontaneously. No edema, normal radial and dorsalis pedis pulses bilaterally. No cyanosis. BACK: no cervical, thoracic, lumbar midline tenderness. No saddle anesthesia, normal distal neurovascular exam. NEUROLOGICAL: Alert and oriented x3. Normal speech. PSYCH: Normal affect, normal mood. SKIN: Warm, dry, normal turgor. No rashes or lesions noted. Course - Re-evaluation Re-evalutation: Upon initial assessment of the patient he continues to be tachypneic with respiratory rate of 28, he does appear to have intercostal muscle use. Patient' s oxygen saturation is noted to be 90%. BiPAP ordered and placed. With BiPAP patient's oxygen saturation is 100%, respiratory rate is down to 19. Upon reassessment patient is sleeping. Patient's chest x-ray shows no obvious signs of pneumonia. Patient is lactic acid was noted to be elevated. Patient was given 1 L of fluid by EMS, second liter of fluid initiated in the emergency department. Zosyn started at this time. Patient resting comfortably on BiPAP, lung sounds scant expiratory wheeze noted bilateral bases. No further intercostal muscle use. EKG shows sinus tachycardia rate of 125, QTC 479. 07/07/19 00:39 I discussed this case with hospitalist Dr. Pretty. He is requesting a tel emetry bed. No need for vancomycin at this time. - Laboratory Result Diagrams: 07/06/19 23:31 07/06/19 22:35 Laboratory results interpreted by me: 07/06/19 07/06/19 07/06/19 21:48 22:35 22:35 WBC RBC Hgb Seg Neuts % (Manual) Lymphocytes % (Manual) Abs Neuts (Manual) Abs Lymphs (Manual) APTT 21.6 L VBG pH Potassium 3.4 L Glucose 224 H Lactic Acid Total Protein 5.9 L Urine Ascorbic Acid 40 H 07/06/19 07/06/19 07/06/19 23:31 23:31 23:31 WBC 12.7 H RBC 4.17 L Hgb 12.8 L Seg Neuts % (Manual) 94 H Lymphocytes % (Manual) 2 L Abs Neuts (Manual) 11.9 H Abs Lymphs (Manual) 0.3 L APTT VBG pH 7.29 L Potassium Glucose Lactic Acid 2.6 H Total Protein Urine Ascorbic Acid Discharge - Discharge Clinical Impression: Respiratory distress, Hypoxemia Condition: Stable Disposition: ADMITTED INPATIENT Admitting Provider: Sukhwinder (Hospitalist) Unit Admitted: Telemetry Referrals: MORAIMA AKERS PA-C [Primary Care Provider] - Follow up as needed
[2019-07-07] MEDS ORDERED: ACETAMINOPHEN 325 MG TABLET PO PRN (00:40)
[2019-07-07] MEDS ORDERED: IPRATROPIUM/ALBUTEROL 0.5-2.5 MG/3 ML AMPUL NEB PRN (00:40)
[2019-07-07] MEDS ORDERED: GUAIFENESIN SYRP 200 MG/10 ML UDC PO PRN (00:40)
[2019-07-07] MEDS ORDERED: FLUTICASONE NASAL SPRAY 50 MCG/SPRY 120 SPRAY/16 GM NASL ONE (01:00)
[2019-07-07] MEDS ORDERED: FLUTICASONE NASAL SPRAY 50 MCG/SPRY 120 SPRAY/16 GM ONE (02:11)
[2019-07-07] MEDS ORDERED: CHLORPHENIRAMINE MALEATE 4 MG TABLET ONE (02:11)
[2019-07-07] MEDS: CHLORPHENIRAMINE MALEATE 4 MG TABLET PO SCH ×5 (03:23→23:24)
--- NOTE | 2019-07-07 05:39 | PDOC H&P ---
History of Present Illness Admission Date/PCP: 07/07/19 00:45 MORAIMA AKERS PA-C Patient complains of: Acute shortness of breath History of Present Illness: JAYLON QUICK JR is a 73 year old male with a past medical history of Parkinson's with Lewy body dementia, excessive airway secretions and recurrent aspiration pneumonitis. He presents with an abrupt onset of respiratory distress found by EMS with an oxygen saturation of only 65% he receives albuterol x6 with stress dose steroids. In the emergency room he has a mild leukocytosis of 12 and hypokalemia 3.4 he receives supplemental oxygen and empiric antibiotics then referred to the hospitalist for admission. Patient is awake and alert oriented x2 in no acute distress. is at bedside providing excellent history which suggests aspiration of airway secretions given near constant pooling and or drooling during rest. Scopolamine patch is declined by patient given interaction with Exelon. Alex españa has had multiple recent work-ups for the above including upper endoscopy with gentle esophageal dilatation and multiple CT chest and pulmonology consultations. She has outpatient pulmonology consultation scheduled in [place] with [facility]. Past Medical History Cardiac Medical History: Reports: Atrial Fibrillation Denies: Coronary Artery Disease, Myocardial Infarction, Hypertension, Pulmonary Embolism Pulmonary Medical History: Reports: Respiratory Failure Denies: Asthma, Bronchitis, Chronic Obstructive Pulmonary Disease (COPD), Pneumonia Neurological Medical History: Denies: Seizures Endocrine Medical History: Denies: Diabetes Mellitus Type 1, Diabetes Mellitus Type 2, Hyperthyroidism, Hypothyroidism Malignancy Medical History: Reports: Skin Cancer GI Medical History: Denies: Cirrhosis, Hepatitis, Hiatal Hernia Musculoskeltal Medical History: Denies: Arthritis, Gout Skin Medical History: Denies: Eczema, Psoriasis Psychiatric Medical History: Reports: Dementia - Parkinson's, Depression Hematology: Denies: Anemia, Sickle Cell Disease, Bleeding Tendencies Past Surgical History Past Surgical History: Reports: Cardiac Catheterization, Other - Patient has undergone cardiac ablation for A. fib Denies: Pacemaker Social History Information Source: Patient, Relative, Emergency Med Personnel, [facility] Records Lives with: Family, Spouse/Significant other Smoking Status: Never Smoker Frequency of Alcohol Use: None Hx Recreational Drug Use: No Drugs: None Hx Prescription Drug Abuse: No - Advance Directive Resuscitation Status: Full Code Family History Family History: CAD - Mother, COPD - Father Parental Family History Reviewed: Yes Children Family History Reviewed: Yes Sibling(s) Family History Reviewed.: Yes Medication/Allergy Home Medications: Aspirin [Aspirin 325 mg Tablet] 325 mg PO DAILY tablet 06/10/18 Rivastigmine [Exelon 9.5 mg/24 Hr Transdermal Patch] 1 each TD DAILY 03/11/19 Alprazolam 0.25 mg PO BIDP PRN 05/19/19 Quetiapine Fumarate [Seroquel 25 mg Tablet] 25 mg PO QHS 05/19/19 Fluticasone Propionate [Flonase Nasal [place] 50 Mcg/[place] 16 gm] 1 spray NASL Q12 PRN #1 inhaler 05/23/19 Pantoprazole Sodium [Protonix [address] Tablet] 40 mg PO Q6AM #30 tablet.dr 05/23/19 Prednisone [Deltasone 10 mg Tablet] 10 mg PO BID 3 Days #6 tablet 05/23/19 Allergies/Adverse Reactions: cimetidine [From Tagamet] Allergy (Severe, Verified 06/22/18 09:23) Anaphylaxis ranitidine HCl [From Zantac] Allergy (Verified 06/22/18 09:23) Edema Review of Systems Constitutional: ABSENT: chills, fever(s), headache(s), weight gain, weight loss Eyes: ABSENT: visual disturbances Ears: ABSENT: hearing changes Cardiovascular: ABSENT: chest pain, dyspnea on exertion, edema, orthropnea, palpitations Respiratory: ABSENT: cough, hemoptysis Gastrointestinal: ABSENT: abdominal pain, constipation, diarrhea, hematemesis, hematochezia, nausea, vomiting Genitourinary: ABSENT: dysuria, hematuria Musculoskeletal: ABSENT: joint swelling Integumentary: ABSENT: rash, wounds Neurological: ABSENT: abnormal gait, abnormal speech, confusion, dizziness, focal weakness, syncope Psychiatric: ABSENT: anxiety, depression, homidical ideation, suicidal ideation Endocrine: ABSENT: cold intolerance, heat intolerance, polydipsia, polyuria Hematologic/Lymphatic: ABSENT: easy bleeding, easy bruising Physical Exam Vital Signs: Temp Pulse Resp BP Pulse Ox 97.4 F 95 13 104/53 L 100 07/07/19 02:42 07/07/19 02:42 07/07/19 02:42 07/07/19 02:42 07/07/19 02:42 Intake & Output 07/05/19 07/06/19 07/07/19 11:59 11:59 11:59 Intake Total 200 Output Total 100 Balance 100 Weight 66.3 kg General appearance: PRESENT: cooperative, mild distress, thin, well-developed, well-nourished. ABSENT: disheveled Head exam: PRESENT: atraumatic, normocephalic Eye exam: PRESENT: conjunctiva pink, EOMI, PERRLA. ABSENT: scleral icterus Ear exam: PRESENT: normal external ear exam Mouth exam: PRESENT: moist, tongue midline Neck exam: ABSENT: carotid bruit, JVD, lymphadenopathy, thyromegaly Respiratory exam: PRESENT: clear to auscultation nicolle, symmetrical, other - Significant cervical kyphosis. ABSENT: accessory muscle use, rales, rhonchi, stridor, wheezes Cardiovascular exam: PRESENT: RRR. ABSENT: diastolic murmur, rubs, systolic murmur Pulses: PRESENT: normal dorsalis pedis pul Vascular exam: PRESENT: normal capillary refill GI/Abdominal exam: PRESENT: normal bowel sounds, soft. ABSENT: distended, guarding, mass, organolmegaly, rebound, tenderness Rectal exam: PRESENT: deferred Extremities exam: PRESENT: full ROM. ABSENT: calf tenderness, clubbing, pedal edema Neurological exam: PRESENT: alert, awake, oriented to person, oriented to place, oriented to time, oriented to situation, CN II-XII grossly intact. ABSENT: motor sensory deficit Psychiatric exam: PRESENT: appropriate affect, normal mood. ABSENT: homicidal ideation, suicidal ideation Skin exam: PRESENT: dry, intact, warm. ABSENT: cyanosis, rash Results Laboratory Results: 07/06/19 23:31 07/06/19 22:35 07/06/19 07/06/19 07/06/19 21:48 22:35 23:31 WBC 12.7 H RBC 4.17 L Hgb 12.8 L Hct 39.1 MCV 94 MCH 30.6 MCHC 32.7 RDW 13.6 Plt Count 172 Seg Neutrophils % Not Reportable VBG pH VBG pCO2 VBG HCO3 VBG Base Excess Sodium 139.7 Potassium 3.4 L Chloride 107 Carbon Dioxide 23 Anion Gap 10 BUN 19 Creatinine 0.98 Est GFR ( Amer) > 60 Glucose 224 H Lactic Acid Calcium 8.6 Magnesium 2.3 Total Bilirubin 0.3 AST 17 Alkaline Phosphatase 73 Total Protein 5.9 L Albumin 3.7 Urine Color YELLOW Urine Appearance SLIGHTLY-CLOUDY Urine pH 5.0 Ur Specific [place] 1.030 Urine Protein NEGATIVE Urine Glucose (UA) NEGATIVE Urine Ketones NEGATIVE Urine Blood NEGATIVE Urine Nitrite NEGATIVE Ur Leukocyte Esterase NEGATIVE Urine WBC (Auto) 2 Urine RBC (Auto) 2 07/06/19 07/06/19 23:31 23:31 WBC RBC Hgb Hct MCV MCH MCHC RDW Plt Count Seg Neutrophils % VBG pH 7.29 L VBG pCO2 49.2 VBG HCO3 23.2 VBG Base Excess -3.7 Sodium Potassium Chloride Carbon Dioxide Anion Gap BUN Creatinine Est GFR ( Amer) Glucose Lactic Acid 2.6 H Calcium Magnesium Total Bilirubin AST Alkaline Phosphatase Total Protein Albumin Urine Color Urine Appearance Urine pH Ur Specific [place] Urine Protein Urine Glucose (UA) Urine Ketones Urine Blood Urine Nitrite Ur Leukocyte Esterase Urine WBC (Auto) Urine RBC (Auto) 07/06/19 07/06/19 22:35 22:35 Creatine Kinase 56 CK-MB (CK-2) 1.54 Troponin I < 0.012 NT-Pro-B Natriuret Pep 224 Impressions: Chest X-Ray 07/06/19 20:31 IMPRESSION: No acute disease. copyright 2010 [employer]- All Rights Reserved Assessment and Plan - Diagnosis (1) Aspiration pneumonitis Is this a current diagnosis for this admission?: Yes Plan: Secondary to excessive oral secretions of Exelon and Parkinson's. Trial scopolamine patch declined. Aspiration precautions, nectar thickened liquids. Former swallowing study negative (2) Lewy body dementia Qualifiers: Dementia behavioral disturbance: without behavioral disturbance Qualified Code(s): G31.83 - Dementia with Lewy bodies; F02.80 - Dementia in other diseases classified elsewhere without behavioral disturbance Is this a current diagnosis for this admission?: Yes Plan: Supportive care (3) Reactive airway disease with acute exacerbation Qualifiers: Asthma severity: mild Asthma persistence: intermittent Qualified Code(s): J45.21 - Mild intermittent asthma with (acute) exacerbation Is this a current diagnosis for this admission?: Yes Plan: Albuterol, Atrovent, steroids PRN, supplemental oxygen - Time Time Spent with patient: 25-34 minutes - Inpatient Certification Medical Necessity: Need Close Monitoring Due to Risk of Patient Decompensation
[2019-07-07] MEDS: IPRATROPIUM/ALBUTEROL 0.5-2.5 MG/3 ML AMPUL NEB SCH ×2 (08:31→15:59)
[2019-07-07] MEDS ORDERED: FLUTICASONE NASAL SPRAY 50 MCG/SPRY 120 SPRAY/16 GM NASL SCH (10:00)
[2019-07-07] MEDS: HEPARIN SOD (PORCINE) 5,000 UNIT/ML 1 ML VIAL SUBCUT SCH ×3 (15:57→21:06)
[2019-07-07] MEDS ORDERED: FLUTICASONE NASAL SPRAY 50 MCG/SPRY 120 SPRAY/16 GM NASL PRN (16:28)
[2019-07-07] MEDS ORDERED: ONDANSETRON HCL INJ/PF 4 MG/2 ML SDV IV PRN (16:29)
--- NOTE | 2019-07-07 17:12 | PDOC PROGRESS REPORT ---
Subjective Progress Note for:: 07/07/19 Subjective:: JAYLON QUICK JR is a 73 year old male with a past medical history of Parkinson's with Lewy body dementia, excessive airway secretions and recurrent aspiration pneumonitis who was admitted 07/07/2019 for aspiration pneumonitis. Patient was seen on morning rounds. He was found resting in bed comfortably on supplemental oxygen via nasal cannula; he is not home O2 dependent. His was sleeping at the bedside, she did not wake during our discussion. Patient is able to tell me about having to call the rescue squad last night due to sudden onset of difficulty breathing. He does confirm that this is happened in the past. 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 He does not redirect to the current situation. He was able to deny fever, chills, chest pain, abdominal pain and nausea. No concerns per nursing. Reason For Visit: COPD EXACERBATION BRONCHITIS VS ASPIRATION Physical Exam Vital Signs: Temp Pulse Resp BP Pulse Ox 98.2 F 94 18 132/70 H 97 07/07/19 15:17 07/07/19 16:00 07/07/19 16:00 07/07/19 15:17 07/07/19 16:00 Intake & Output 07/06/19 07/07/19 07/08/19 06:59 06:59 06:59 Intake Total 1200 100 Output Total 100 200 Balance 1100 -100 Weight 66.3 kg General appearance: PRESENT: no acute distress, cooperative, mild distress, thin, well-developed, well-nourished Head exam: PRESENT: atraumatic, normocephalic Eye exam: PRESENT: conjunctiva pink, EOMI, PERRLA. ABSENT: scleral icterus Ear exam: PRESENT: normal external ear exam Mouth exam: PRESENT: moist, tongue midline Neck exam: ABSENT: carotid bruit, JVD, lymphadenopathy, thyromegaly Respiratory exam: PRESENT: clear to auscultation nicolle, symmetrical, unlabored, other - Supplemental oxygen by nasal cannula. ABSENT: rales, rhonchi, wheezes Cardiovascular exam: PRESENT: RRR, +S1, +S2. ABSENT: diastolic murmur, rubs, systolic murmur Pulses: PRESENT: normal dorsalis pedis pul Vascular exam: PRESENT: normal capillary refill GI/Abdominal exam: PRESENT: normal bowel sounds, soft. ABSENT: distended, guarding, mass, organolmegaly, rebound, tenderness Rectal exam: PRESENT: deferred Extremities exam: PRESENT: full ROM. ABSENT: calf tenderness, clubbing, pedal edema Musculoskeletal exam: PRESENT: other - Kyphosis Neurological exam: PRESENT: alert, awake, oriented to person, oriented to place, oriented to time, oriented to situation, CN II-XII grossly intact. ABSENT: motor sensory deficit Psychiatric exam: PRESENT: appropriate affect, normal mood. ABSENT: homicidal ideation, suicidal ideation Skin exam: PRESENT: dry, intact, warm. ABSENT: cyanosis, rash Results Laboratory Results: 07/06/19 23:31 07/06/19 22:35 07/06/19 07/06/19 07/06/19 21:48 22:35 23:31 WBC 12.7 H RBC 4.17 L Hgb 12.8 L Hct 39.1 MCV 94 MCH 30.6 MCHC 32.7 RDW 13.6 Plt Count 172 Seg Neutrophils % Not Reportable VBG pH VBG pCO2 VBG HCO3 VBG Base Excess Sodium 139.7 Potassium 3.4 L Chloride 107 Carbon Dioxide 23 Anion Gap 10 BUN 19 Creatinine 0.98 Est GFR ( Amer) > 60 Glucose 224 H Lactic Acid Calcium 8.6 Magnesium 2.3 Total Bilirubin 0.3 AST 17 Alkaline Phosphatase 73 Total Protein 5.9 L Albumin 3.7 Urine Color YELLOW Urine Appearance SLIGHTLY-CLOUDY Urine pH 5.0 Ur Specific [place] 1.030 Urine Protein NEGATIVE Urine Glucose (UA) NEGATIVE Urine Ketones NEGATIVE Urine Blood NEGATIVE Urine Nitrite NEGATIVE Ur Leukocyte Esterase NEGATIVE Urine WBC (Auto) 2 Urine RBC (Auto) 2 07/06/19 07/06/19 23:31 23:31 WBC RBC Hgb Hct MCV MCH MCHC RDW Plt Count Seg Neutrophils % VBG pH 7.29 L VBG pCO2 49.2 VBG HCO3 23.2 VBG Base Excess -3.7 Sodium Potassium Chloride Carbon Dioxide Anion Gap BUN Creatinine Est GFR ( Amer) Glucose Lactic Acid 2.6 H Calcium Magnesium Total Bilirubin AST Alkaline Phosphatase Total Protein Albumin Urine Color Urine Appearance Urine pH Ur Specific [place] Urine Protein Urine Glucose (UA) Urine Ketones Urine Blood Urine Nitrite Ur Leukocyte Esterase Urine WBC (Auto) Urine RBC (Auto) 07/06/19 07/06/19 22:35 22:35 Creatine Kinase 56 CK-MB (CK-2) 1.54 Troponin I < 0.012 NT-Pro-B Natriuret Pep 224 Impressions: Chest X-Ray 07/06/19 20:31 IMPRESSION: No acute disease. copyright 2010 [employer]- All Rights Reserved Assessment and Plan - Diagnosis (1) Aspiration pneumonitis Is this a current diagnosis for this admission?: Yes Plan: Secondary to excessive oral secretions related to Parkinson's. Trial scopolamine patch declined. Aspiration precautions, nectar thickened liquids. Former swallowing study negative Continue supplemental oxygen, Scheduled and as needed nebulizer treatments. Resume home dose Protonix. No indications for antibiotics or steroid therapy at this time. (2) Lewy body dementia Qualifiers: Dementia behavioral disturbance: without behavioral disturbance Qualified Code(s): G31.83 - Dementia with Lewy bodies; F02.80 - Dementia in other diseases classified elsewhere without behavioral disturbance Is this a current diagnosis for this admission?: Yes Plan: Supportive care Resume home medication regiment of Exelon and Seroquel per family's request. (3) Reactive airway disease with acute exacerbation Qualifiers: Asthma severity: mild Asthma persistence: intermittent Qualified Code(s): J45.21 - Mild intermittent asthma with (acute) exacerbation Is this a current diagnosis for this admission?: Yes Plan: Supplemental oxygen as needed to maintain saturations. Scheduled and as needed nebulizer treatments. PPI. Resume home dose Flonase. Consider steroid therapy; no wheezing at this time and patient appears comfortable. - Time Time Spent with patient: 15-24 minutes Medications reviewed and adjusted accordingly: Yes Anticipated discharge: Home Within: within 24 hours
[2019-07-07] MEDS: RIVASTIGMINE 9.5 MG/24 HR PATCH.TD24 TD SCH (19:00)
[2019-07-07] MEDS: PANTOPRAZOLE SODIUM 40 MG TABLET.DR PO SCH (19:03)
[2019-07-07] MEDS ORDERED: QUETIAPINE FUMARATE 100 MG TABLET PO SCH (22:00)
[2019-07-08] MEDS: IPRATROPIUM/ALBUTEROL 0.5-2.5 MG/3 ML AMPUL NEB SCH ×2 (00:01→08:49)
[2019-07-08] MEDS ORDERED: ALPRAZOLAM 0.25 MG TABLET PO ONE (06:10)
[2019-07-08] MEDS: PANTOPRAZOLE SODIUM 40 MG TABLET.DR PO SCH (06:22)
[2019-07-08] MEDS: HEPARIN SOD (PORCINE) 5,000 UNIT/ML 1 ML VIAL SUBCUT SCH (06:25)
[2019-07-08 06:45] LABS: HEMATOCRIT 37.2 % (37.9-51.0); HEMOGLOBIN 12.4 g/dL (13.5-17.0); MEAN CORPUSCULAR HEMOGLOBIN 30.8 pg (27.0-33.4); MEAN CORPUSCULAR HGB CONC 33.4 g/dL (32.0-36.0); MEAN CORPUSCULAR VOLUME 92 fl (80-97); PLATELET COUNT 202 10^3/uL (150-450); RED BLOOD COUNT 4.03 10^6/uL (4.35-5.55); RED CELL DISTRIBUTION WIDTH 13.5 % (11.5-14.0)
[2019-07-08 07:03] LABS: ANION GAP 6 (5-19); BLOOD UREA NITROGEN 16 mg/dL (7-20); CALCIUM 8.7 mg/dL (8.4-10.2); CARBON DIOXIDE 26 mmol/L (22-30); CHLORIDE 108 mmol/L (98-107); GLUCOSE 87 mg/dL (75-110); POTASSIUM 4.1 mmol/L (3.6-5.0)
[2019-07-08] MEDS ORDERED: (PENDING PHARMACY ID) (Quetiapine Fumarate [Seroquel] 50 MG) PO SCH (10:00)
[2019-07-08] MEDS: RIVASTIGMINE 9.5 MG/24 HR PATCH.TD24 TD SCH (11:07)
[2019-07-08 12:57] VITALS: BP 164/77
--- NOTE | 2019-07-10 18:44 | PDOC DISCHARGE SUMMARY ---
General - Admit/Disc Date/PCP Admission Date/Primary Care Provider: 07/07/19 00:45 MORAIMA AKERS PA-C Discharge Date: 07/08/19 - Discharge Diagnosis (1) Aspiration pneumonitis Is this a current diagnosis for this admission?: Yes Summary: Secondary to excessive oral secretions related to Parkinson's. Trial scopolamine patch declined. The patient was admitted to the medical floor and continuous cardiac telemetry. He was placed on aspiration precautions, with nectar thickened liquids. A prior swallow study was negative for aspiration, therefore not repeated. He was supported with supplemental oxygen with scheduled and as needed nebulizer treatments. His oxygen was gradually weaned and he is now ambulatory on room air without difficulty. His home dose Protonix was continued. There is no indications for continued antibiotic or steroid therapy. At time of discharge, the patient was asymptomatic and in stable condition. He is discharged home in the care of his with home health nursing services. 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 They are instructed to return to the emergency department as needed for any concerning symptoms. (2) Lewy body dementia Is this a current diagnosis for this admission?: Yes Summary: Home medication regiment was continued. (3) Reactive airway disease with acute exacerbation Is this a current diagnosis for this admission?: Yes Summary: Resolved; patient is now ambulatory on room air and asymptomatic with clear lung sounds. Patient was provided supplemental oxygen, scheduled and as needed nebulizer, Protonix, and Flonase. He did receive IV Solu-Medrol x1 in the emergency department but did not require any additional steroid dosing. No indications for antibiotic therapy. - Additional Information Resuscitation Status: Full Code Discharge Diet: Cardiac Discharge Activity: Activity As Tolerated, Balance Activity w/Rest Prescriptions: Nystatin/Triamcin [Mycolog-II Cream 15 gm] 1 applic TP BIDP PRN #1 tube PRN Reason: Rash Home Medications: Rivastigmine [Exelon 9.5 mg/24 Hr Transdermal Patch] 1 each TD DAILY 03/11/19 Alprazolam 0.25 mg PO BIDP PRN 05/19/19 Fluticasone Propionate [Flonase Nasal [place] 50 Mcg/[place] 16 gm] 1 spray NASL Q12 PRN #1 inhaler 05/23/19 Pantoprazole Sodium [Protonix [address] Tablet] 40 mg PO Q6AM #30 tablet. 05/23/19 Omeprazole 20 mg PO DAILY 07/07/19 Quetiapine Fumarate [Seroquel] 50 mg PO DAILY 07/07/19 Acetaminophen [Tylenol 325 mg Tablet] 650 mg PO Q4HP PRN #0 tablet 07/08/19 Nystatin/Triamcin [Mycolog-II Cream 15 gm] 1 applic TP BIDP PRN #1 tube 07/08/19 History of Present Illness History of Present Illness: Per H&P by Dr. Pretty: JAYLON QUICK JR is a 73 year old male with a past medical history of Parkinson's with Lewy body dementia, excessive airway se cretions and recurrent aspiration pneumonitis. He presents with an abrupt onset of respiratory distress found by EMS with an oxygen saturation of only 65% he receives albuterol x6 with stress dose steroids. In the emergency room he has a mild leukocytosis of 12 and hypokalemia 3.4 he receives supplemental oxygen and empiric antibiotics then referred to the hospitalist for admission. Patient is awake and alert oriented x2 in no acute distress. is at bedside providing excellent history which suggests aspiration of airway secretions given near constant pooling and or drooling during rest. Scopolamine patch is declined by patient given interaction with Exelon. Patient has had multiple recent work-ups for the above including upper endoscopy with gentle esophageal dilatation and multiple CT chest and pulmonology consultations. She has outpatient pulmonology consultation scheduled in [place] with [facility]. Physical Exam Vital Signs: Temp Pulse Resp BP Pulse Ox 97.8 F 63 18 120/52 L 97 07/08/19 12:09 07/08/19 12:07/08/19 12:09 07/08/19 12:07/08/19 12:09 General appearance: PRESENT: no acute distress, cooperative, thin, well- developed, well-nourished Head exam: PRESENT: atraumatic, normocephalic Eye exam: PRESENT: conjunctiva pink, EOMI, PERRLA. ABSENT: scleral icterus Ear exam: PRESENT: normal external ear exam Mouth exam: PRESENT: moist, tongue midline Neck exam: ABSENT: carotid bruit, JVD, lymphadenopathy, thyromegaly Respiratory exam: PRESENT: clear to auscultation nicolle. ABSENT: rales, rhonchi, wheezes Cardiovascular exam: PRESENT: RRR. ABSENT: diastolic murmur, rubs, systolic murmur Pulses: PRESENT: normal dorsalis pedis pul Vascular exam: PRESENT: normal capillary refill GI/Abdominal exam: PRESENT: normal bowel sounds, soft. ABSENT: distended, guarding, mass, organolmegaly, rebound, tenderness Rectal exam: PRESENT: deferred Extremities exam: PRESENT: full ROM. ABSENT: calf tenderness, clubbing, pedal edema Musculoskeletal exam: PRESENT: other - Kyphosis Neurological exam: PRESENT: alert, awake, oriented to person, oriented to place, oriented to time, oriented to situation, CN II-XII grossly intact, other - Intermittent confusion; at baseline per . ABSENT: motor sensory deficit Psychiatric exam: PRESENT: appropriate affect, normal mood. ABSENT: homicidal ideation, suicidal ideation Skin exam: PRESENT: dry, intact, warm. ABSENT: cyanosis, rash Results Laboratory Results: 07/08/19 06:08 07/08/19 06:08 07/06/19 07/06/19 22:35 22:35 Creatine Kinase 56 CK-MB (CK-2) 1.54 Troponin I < 0.012 NT-Pro-B Natriuret Pep 224 Impressions: Chest X-Ray 07/06/19 20:31 IMPRESSION: No acute disease. copyright 2010 [employer]- All Rights Reserved Qualifiers - * PATIENT BEING DISCHARGED WITH ANY OF THE FOLLOWING DIAGNOSIS: No Acute Heart Failure - Is this a Heart Failure Patient?: No Plan Discharge Plan: The patient is discharged home in the care of family members with home health nursing services. He is advised to follow-up with his primary care provider within 1 week. He already has a follow-up appointment scheduled with his thin film technician scheduled for next week; encouraged to keep this appointment. Take medications as prescribed. Return to the emergency department as needed for concerning symptoms. Time Spent: Greater than 30 Minutes
== END 2019-07-08 13:30 | disposition home or self-care (01) ==
LOC: ER 20:26 → INTOOBSV 07-07 00:45 → EH 07-07 00:45 → 4S 07-07 02:15
PROVIDERS: ADMIT Internal Medicine; ATTEND Internal Medicine
DX: G31.83 Neurocognitive disorder with Lewy bodies (principal); F02.80 Dementia in other diseases classified elsewhere, unspecified severity, without behavioral disturbance, psychotic disturbance, mood disturbance, and anxiety; J69.0 Pneumonitis due to inhalation of food and vomit; J45.21 Mild intermittent asthma with (acute) exacerbation; R06.03 Acute respiratory distress; D72.829 Elevated white blood cell count, unspecified; E87.6 Hypokalemia; M40.292 Other kyphosis, cervical region; R00.0 Tachycardia, unspecified; R09.02 Hypoxemia; Z79.899 Other long term (current) drug therapy
CPT/HCPCS: 93005; 99285; 96365; 96366; 36415 ×2; 87040; 82553; 82550; 83605; 83735; 85025; 85027; 85610; 85730; 80048; 80053; 81001; 84484; 82803; 83880; 71045; 94799 ×2; 93010; 94660 ×2; 94640 ×2; G0378 ×3; A9270 ×5; J1644 ×2; J3475; J3490 ×6; J3480; J2543; J7620

== ENCOUNTER 2019-07-16 02:31 | Emergency (ER) | payer MEDICARE, BC ==
--- NOTE | 2019-07-16 03:04 | ER Document Report ---
ED Respiratory Problem - General Stated Complaint: SHORTNESS OF BREATH Time Seen by Provider: 07/16/19 02:56 Primary Care Provider: MORAIMA AKERS PA-C [Primary Care Provider] - Follow up as needed Notes: Patient is a 73-year-old male that comes emergency department for chief complaint of respiratory distress. He comes by EMS, he was given 4 DuoNeb's and Solu-Medrol, he was brought in on CPAP and still having labored breathing therefore he was transitioned to BiPAP. He was approximately 90% before being placed on CPAP per EMS. Patient has a past medical history of recurrent aspiration pneumonitis from excessive airway secretions, Parkinson's, Lewy body dementia. He comes from home. He is on home inhalers but is not diagnosed with COPD or CHF. No fevers reported. Patient has very limited history giving because of his respiratory condition and dementia, history was obtained from EMS and nursing staff. TRAVEL OUTSIDE OF THE [place] IN LAST 30 DAYS: No - Related Data Allergies/Adverse Reactions: cimetidine [From Tagamet] Allergy (Severe, Verified 06/22/18 09:23) Anaphylaxis ranitidine HCl [From Zantac] Allergy (Verified 06/22/18 09:23) Edema Past Medical History - General Information source: Emergency Med Personnel - Social History Smoking Status: Never Smoker Frequency of alcohol use: None Drug Abuse: None Lives with: Spouse/Significant other Family History: CAD - Mother, COPD - Father - Past Medical History Cardiac Medical History: Reports: Hx Atrial Fibrillation Denies: Hx Coronary Artery Disease, Hx Heart Attack, Hx Hypertension, Hx Pulmonary Embolism Pulmonary Medical History: Reports: Hx Respiratory Failure Denies: Hx Asthma, Hx Bronchitis, Hx COPD, Hx Pneumonia Neurological Medical History: Denies: Hx Cerebrovascular Accident, Hx Seizures Endocrine Medical History: Denies: Hx Diabetes Mellitus Type 1, Hx Diabetes Mellitus Type 2, Hx Hyperthyroidism, Hx Hypothyroidism Renal/ Medical History: Denies: Hx Peritoneal Dialysis Malignancy Medical History: Reports Hx Skin Cancer GI Medical History: Reports: Hx Ulcer - 1977 PEPTIC. Denies: Hx Cirrhosis, Hx Hepatitis, Hx Hiatal Hernia Musculoskeletal Medical History: Denies Hx Arthritis, Denies Hx Gout Skin Medical History: Denies Hx Eczema, Denies Hx Psoriasis Psychiatric Medical History: Reports: Hx Dementia - Parkinson's, Hx Depression Infectious Medical History: Denies: Hx Hepatitis Past Surgical History: Reports: Hx Cardiac Catheterization, Hx Cardiac Surgery - ablation, Other - Patient has undergone cardiac ablation for A. fib. Denies: Hx Open Heart Surgery, Hx Pacemaker - Immunizations Hx Diphtheria, Pertussis, Tetanus Vaccination: No Review of Systems - Review of Systems Constitutional: No symptoms reported EENT: No symptoms reported Cardiovascular: No symptoms reported Respiratory: See HPI Gastrointestinal: No symptoms reported Genitourinary: No symptoms reported Male Genitourinary: No symptoms reported Musculoskeletal: No symptoms reported Skin: No symptoms reported Hematologic/Lymphatic: No symptoms reported Neurological/Psychological: No symptoms reported Physical Exam - Vital signs Vitals: Resp 24 H 07/16/19 02:37 - Notes Notes: GENERAL: Alert, responsive, does not appear to be in any distress HEAD: Normocephalic, atraumatic. EYES: Pupils equal, round, and reactive to light. Extraocular movements intact. ENT: Oral mucosa moist, tongue midline. Oropharynx unremarkable. Airway patent. Nares patent, no nasal septal hematoma, TM's intact. NECK: Full range of motion. Supple. Trachea midline. LUNGS: Scattered expiratory wheezes, no rales, rhonchi, no respiratory distress, no labored breathing. HEART: Regular rate and rhythm. No murmur ABDOMEN: Soft, non-tender. Non-distended. EXTREMITIES: Moves all 4 extremities spontaneously. No edema, normal radial and dorsalis pedis pulses bilaterally. No cyanosis. BACK: no cervical, thoracic, lumbar midline tenderness. NEUROLOGICAL: Alert and follows directions but will not speak. SKIN: Warm, dry, normal turgor. No rashes or lesions noted. Course - Re-evaluation Re-evalutation: On my evaluation patient has a few expiratory wheezes but no respiratory distress. He was already on BiPAP. Oxygen is 100%. Respiratory rate is 12-14. No lower extremity edema. No cough. Patient is cooperative but nonverbal. No signs of distress. CBC unremarkable, chemistry unremarkable, BNP is not elevated, venous blood gas unremarkable, troponin is not elevated, chest x-ray is unremarkable. came to bedside. She is very familiar with this, she states that he does this frequently, almost every couple of weeks. She states that for the first 2 hours he will wheeze and have some difficulty breathing, but then afterwards his symptoms resolve and he normalizes. She states afterwards he does not even need oxygen. She states she was told it was because of his excessive secretions that build up and then plug, but then after treatment and oxygen he no longer needs it. Patient was taken off of BiPAP, placed on nasal cannula, he has no signs of distress. His lungs are actually clear on reevaluation as well. Patient will be monitored. On reevaluation patient had been taken off of oxygen by me and he still has no hypoxia, signs of distress, and wheezing has completely resolved. states she is very familiar with this. Patient follows closely with pulmonology. She requests to take him home. She states she will come back if he worsens, she has the ability to monitor his oxygen, she is very used to this. Stable time of discharge with return precautions. - Vital Signs Vital signs: Temp Pulse Resp BP Pulse Ox 97.6 F 13 103/58 L 100 07/16/19 02:38 07/16/19 05:01 07/16/19 05:01 07/16/19 05:01 - Laboratory Result Diagrams: 07/16/19 02:50 07/16/19 04:05 Laboratory results interpreted by me: 07/16/19 04:05 Chloride 108 H Glucose 133 H AST 16 L Total Protein 5.2 L Albumin 3.3 L Discharge - Discharge Clinical Impression: Difficulty breathing Condition: Stable Disposition: HOME, SELF-CARE Additional Instructions: His work-up does not show any concerning findings at this time. 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 Referrals: MORAIMA AKERS PA-C [Primary Care Provider] - Follow up as needed
[2019-07-16 03:05] LABS: ABSOLUTE BASOPHILS # (AUTO) 0.1 10^3/uL (0.0-0.2); ABSOLUTE EOSINOPHILS # (AUTO) 0.5 10^3/uL (0.0-0.6); ABSOLUTE LYMPHOCYTES (AUTO) 2.2 10^3/uL (0.5-4.7); ABSOLUTE MONOCYTES (AUTO) 0.4 10^3/uL (0.1-1.4); ABSOLUTE NEUT (AUTO) 5.5 10^3/uL (1.7-8.2); BASOPHILS % (AUTO) 0.9 % (0-2); EOSINOPHILS % (AUTO) 5.6 % (0-6); HEMOGLOBIN 13.8 g/dL (13.5-17.0); LYMPHOCYTES % (AUTO) 25.2 % (13-45); MEAN CORPUSCULAR HEMOGLOBIN 30.4 pg (27.0-33.4); MEAN CORPUSCULAR VOLUME 92 fl (80-97); MONOCYTES % (AUTO) 4.7 % (3-13); PLATELET COUNT 228 10^3/uL (150-450); RED BLOOD COUNT 4.55 10^6/uL (4.35-5.55); RED CELL DISTRIBUTION WIDTH 13.8 % (11.5-14.0); SEGMENTED NEUTROPHILS % (AUTO) 63.6 % (42-78); TOTAL CELLS COUNTED % (AUTO) 100 %; WHITE BLOOD COUNT 8.7 10^3/uL (4.0-10.5)
[2019-07-16 03:11] LABS: VENOUS BLOOD BASE EXCESS -1.8 mmol/L; VENOUS BLOOD HCO3 25.1 mmol/L (20-32); VENOUS BLOOD PCO2 50.9 mmHg (35-63); VENOUS BLOOD PH 7.31 (7.30-7.42)
[2019-07-16] MEDS ORDERED: MAGNESIUM SULFATE/D5W 1 GM/100 ML RTUPB IV SCH (03:15)
[2019-07-16] MEDS ORDERED: NORMAL SALINE 500 ML IV ONE (03:25)
--- NOTE | 2019-07-16 03:26 | RADIOLOGY REPORT (SQ) ---
Chest single view on 07/16/2019 at 3:09 AM CLINICAL INDICATION: Shortness of breath COMPARISON: 07/06/2019 FINDINGS: The lungs are clear. Mild vascular calcification is noted in the aorta. Cardiac, hilar and mediastinal contours are within normal limits. Pulmonary vascularity is within normal limits. No bony abnormality is noted. IMPRESSION: No active disease.
[2019-07-16 03:37] LABS: CREATINE KINASE MB 1.97 ng/mL (<4.55); TROPONIN I < 0.012 ng/mL
[2019-07-16 04:45] LABS: ALBUMIN 3.3 g/dL (3.5-5.0); ALKALINE PHOSPHATASE 62 U/L (38-126); ANION GAP 7 (5-19); ASPARTATE AMINO TRANSFERASE 16 U/L (17-59); BILIRUBIN,DIRECT 0.2 mg/dL (0.0-0.4); BILIRUBIN,TOTAL 0.5 mg/dL (0.2-1.3); BLOOD UREA NITROGEN 18 mg/dL (7-20); CALCIUM 8.8 mg/dL (8.4-10.2); CARBON DIOXIDE 25 mmol/L (22-30); CHLORIDE 108 mmol/L (98-107); CREATINE KINASE 61 U/L (55-170); GLUCOSE 133 mg/dL (75-110); POTASSIUM 3.7 mmol/L (3.6-5.0); TOTAL PROTEIN 5.2 g/dL (6.3-8.2)
[2019-07-16 05:12] VITALS: BP 103/58
--- NOTE | 2019-07-16 18:18 | ER Document Report ---
Doctor's Note Notes: 07/16/19 18:17 Blood culture showed gram-positive rods in 1 tube. Nurse was instructed to call the patient and check on them. If patient is feeling better we will wait to see what else grows out as this may be contaminant, the patient is feeling worse they should return to the emergency department immediately.
--- NOTE | 2019-07-16 18:56 | EKG REPORT ---
SEVERITY:- OTHERWISE NORMAL ECG - SINUS TACHYCARDIA : Confirmed by: Leidy Melotn 16-Jul-2019 18:56:39
== END 2019-07-16 05:30 | disposition home or self-care (01) ==
LOC: ER 02:31
DX: R06.02 Shortness of breath (principal); I48.91 Unspecified atrial fibrillation
CPT/HCPCS: 93005; 99285; 96360; 36415; 87040; 82553; 82550; 85025; 87077; 80053; 84484; 82803; 83880; 71045; 93010; 94660; J7040

== ENCOUNTER 2019-08-02 03:25 | Observation (INO) | payer MEDICARE, BC ==
[2019-08-02] MEDS ORDERED: METHYLPREDNISOLONE INJ 125 MG/2 ML SDV IV ONE (03:33)
[2019-08-02] MEDS ORDERED: ALBUTEROL SULFATE 0.083% NEB 2.5 MG/3 ML AMPUL NEB ONE (03:33)
[2019-08-02] MEDS ORDERED: IPRATROPIUM BROMIDE 0.02% NEB 0.5 MG/2.5 ML AMPUL NEB ONE (03:33)
--- NOTE | 2019-08-02 03:42 | ER Document Report ---
ED General <HUNTER GRAYSON Miranda - Last Filed: 08/02/19 07:51> - General TRAVEL OUTSIDE OF THE [place] IN LAST 30 DAYS: No <INES GAMEZ - Last Filed: 08/02/19 20:15> - General Chief Complaint: Shortness Of Breath Stated Complaint: DIFFICULTY BREATHING Time Seen by Provider: 08/02/19 03:30 - HPI Notes: 73-year-old male history of severe COPD as well as Parkinson's disease presents with difficulty breathing. History is limited via patient clinical condition. History comes primarily via patient's . History of recurrent COPD, prior stated history of intubation. Several days of increasing severe dyspnea, worse at night. Cough productive of clear sputum. Moderate to severe intensity. Some vague associated chest pain with difficulty breathing. Nonpleuritic. No other modifying factors, no other associated symptoms, no other provocative or palliative factors. Worse with exertion. (INES GAMEZ) - Related Data Allergies/Adverse Reactions: cimetidine [From Tagamet] Allergy (Severe, Verified 06/22/18 09:23) Anaphylaxis ranitidine HCl [From Zantac] Allergy (Verified 06/22/18 09:23) Edema Past Medical History - Social History Smoking Status: Unknown if Ever Smoked Family History: CAD - Mother, COPD - Father Patient has suicidal ideation: No Patient has homicidal ideation: No - Medical History Medical History: Other - Includes prior COPD - Past Medical History Cardiac Medical History: Reports: Hx Atrial Fibrillation Denies: Hx Coronary Artery Disease, Hx Heart Attack, Hx Hypertension, Hx Pulmonary Embolism Pulmonary Medical History: Reports: Hx Respiratory Failure Denies: Hx Asthma, Hx Bronchitis, Hx COPD, Hx Pneumonia Neurological Medical History: Reports: Hx Parkinson's Disease. Denies: Hx Cerebrovascular Accident, Hx Seizures Endocrine Medical History: Denies: Hx Diabetes Mellitus Type 1, Hx Diabetes Mellitus Type 2, Hx Hyperthyroidism, Hx Hypothyroidism Renal/ Medical History: Denies: Hx Peritoneal Dialysis Malignancy Medical History: Reports Hx Skin Cancer GI Medical History: Reports: Hx Ulcer - 1978 PEPTIC. Denies: Hx Cirrhosis, Hx Hepatitis, Hx Hiatal Hernia Musculoskeletal Medical History: Denies Hx Arthritis, Denies Hx Gout Skin Medical History: Denies Hx Eczema, Denies Hx Psoriasis Psychiatric Medical History: Reports: Hx Dementia - Parkinson's, Hx Depression Infectious Medical History: Denies: Hx Hepatitis Past Surgical History: Reports: Hx Cardiac Catheterization, Hx Cardiac Surgery - ablation, Other - Patient has undergone cardiac ablation for A. fib. Denies: Hx Open Heart Surgery, Hx Pacemaker - Immunizations Hx Diphtheria, Pertussis, Tetanus Vaccination: No <INES GAMEZ - Last Filed: 08/02/19 20:15> Review of Systems <INES GAMEZ - Last Filed: 08/02/19 20:15> - Review of Systems Notes: Review of systems as in the history of present illness, otherwise negative x 10 systems. (INES GAMEZ) Physical Exam <INES GAMEZ - Last Filed: 08/02/19 20:15> - Vital signs Vitals: Pulse Resp BP Pulse Ox 94 19 156/95 H 100 08/02/19 03:31 08/02/19 03:31 08/02/19 03:31 08/02/19 03:31 - Notes Notes: General: Well developed . Alert distress HEENT: Normocephalic, atraumatic. Pupils equal round reactive to light. No JVD. Chest: No trauma. Respiratory: Poor air exchange with markedly diminished breath sounds and end expiratory wheezing, increased work of breathing Cardiac: Regular rhythm. No murmurs or gallops. Abdomen: Soft, benign. Nondistended. Nontender. Back: No asymmetry or gross abnormality. Motor: Grossly normal power and tone. Neurologic: Alert, nonfocal. Cranial nerves II-12 are intact. Sensation intact. Vascular: Well perfused. Normal peripheral pulses. Skin: No petechiae or purpura. (INES GAMEZ) Course - Laboratory Result Diagrams: 08/02/19 06:29 08/02/19 06:29 <HUNTER GRAYSON - Last Filed: 08/02/19 07:51> - Laboratory Result Diagrams: 08/02/19 06:29 08/02/19 06:29 - EKG Interpretation by [place] EKG shows normal: Sinus rhythm, Hope, Intervals, ST-T Waves - No acute ischemic changes or EKG <INES GAMEZ - Last Filed: 08/02/19 20:15> - Re-evaluation Re-evalutation: 08/02/19 03:42 Elderly male with severe increased work of breathing, respiratory failure, COPD exacerbation status bronchospasm. He is used nebulizers at home without any improvement. Consider Pneumonia as well. Plan to proceed with aggressive bronchodilator therapy, IV steroids, labs, EKG, x-ray, BiPAP, reevaluate. 08/02/19 05:05 Chest x-ray shows some evidence of possible right upper lung field pneumonia. There is been substantial delay in acquiring labs from patient due to access issues. I have suggested now been obtained and are pending. Patient had marked improvement on BiPAP, work of breathing is substantially decreased, wheezing is improving. Given his evidence of pneumonia, will cover with IV antibiotics, cultures, pending admission after laboratory evaluation 08/02/19 06:18 Patient has had marked improvement on BiPAP, ABG shows no CO2 retention and substantial improvement. Work of breathing has markedly improved. Labs are pending and needed to be redrawn secondary to hemolysis. Final disposition to be made by Dr. Grayson. (INES GAMEZ) - Vital Signs Vital signs: Temp Pulse Resp BP Pulse Ox 98.1 F 94 20 131/70 H 98 08/02/19 04:04 08/02/19 03:31 08/02/19 10:51 08/02/19 10:51 08/02/19 10:51 - Laboratory Laboratory results interpreted by me: 08/02/19 08/02/19 08/02/19 05:30 06:29 06:29 RBC 4.20 L Hgb 12.8 L Lymph % (Auto) 5.5 L Moore % (Auto) 1.7 L Absolute Lymphs (auto) 0.4 L Seg Neutrophils % 91.0 H ABG pO2 103.0 H ABG HCO3 25.7 H Glucose 179 H Discharge - Discharge Admitting Provider: Kathia Arriaga NP <HUNTER GRAYSON - Last Filed: 08/02/19 07:51> <INES GAMEZ - Last Filed: 08/02/19 20:15> - Discharge Clinical Impression: COPD exacerbation Pneumonia Qualifiers: Pneumonia type: due to unspecified organism Laterality: right Lung location: upper lobe of lung Qualified Code(s): J18.1 - Lobar pneumonia, unspecified organism Condition: Good Disposition: ADMITTED OBSERVATION
--- NOTE | 2019-08-02 04:12 | RADIOLOGY REPORT (SQ) ---
EXAM DESCRIPTION: XR CHEST 1 VIEW COMPLETED DATE/TME: 08/02/2019 03:33 CLINICAL HISTORY: 73 years Male, Dyspnea COMPARISON: 07/16/19 NUMBER OF VIEWS/TECHNIQUE: 1/AP FINDINGS: Right upper hemithorax is partially obscured due to mandible artifact. Possible small patchy opacity of the right upper lobe. Atherosclerosis. Normal cardiac silhouette size. No pneumothorax. Stable bony thorax. IMPRESSION: Small right upper lobar pneumonia, atelectasis, and/or artifact. Significant limitations due to mandible positioning artifact. Recommend CR/CT surveillance including at 7-12 weeks following initiation of any clinically warranted therapy.
[2019-08-02] MEDS ORDERED: AZITHROMYCIN INJ 500 MG VIAL IV ONE (04:34)
[2019-08-02] MEDS ORDERED: CEFTRIAXONE 1 GM/D5W RTU 1 GM/50 ML RTUPB IV ONE (05:00)
[2019-08-02 05:45] LABS: ARTERIAL BLOOD BASE EXCESS 1.1 mmol/L; ARTERIAL BLOOD H2CO3 1.23 mmol/L (1.05-1.35); ARTERIAL BLOOD HCO3 25.7 mmol/L (20-24); ARTERIAL BLOOD O2 SATURATION 97.8 % (94-98); ARTERIAL BLOOD PCO2 40.7 mmHg (35-45); ARTERIAL BLOOD PH 7.42 (7.35-7.45); ARTERIAL BLOOD TOTAL CO2 26.9 mmol/L (23-27)
[2019-08-02 05:49] LABS: ARTERIAL BLOOD FIO2 25%
[2019-08-02 05:58] LABS: APPEARANCE,URINE CLEAR; BILIRUBIN,URINE NEGATIVE (NEGATIVE); CALCIUM OXALATE CRYSTALS,URINE RARE /HPF; COLOR,URINE YELLOW; GLUCOSE, URINE NEGATIVE (NEGATIVE); KETONES,URINE NEGATIVE (NEGATIVE); LEUKOCYTE ESTERASE,URINE NEGATIVE (NEGATIVE); NITRITE,URINE NEGATIVE (NEGATIVE); PROTEIN,URINE NEGATIVE (NEGATIVE); URINE SPECIFIC GRAVITY 1.026; UROBILINOGEN,URINE NEGATIVE mg/dL (<2.0)
[2019-08-02 06:47] LABS: ABSOLUTE EOSINOPHILS # (AUTO) 0.1 10^3/uL (0.0-0.6); ABSOLUTE LYMPHOCYTES (AUTO) 0.4 10^3/uL (0.5-4.7); ABSOLUTE MONOCYTES (AUTO) 0.1 10^3/uL (0.1-1.4); ABSOLUTE NEUT (AUTO) 7.3 10^3/uL (1.7-8.2); BASOPHILS % (AUTO) 0.3 % (0-2); EOSINOPHILS % (AUTO) 1.5 % (0-6); HEMATOCRIT 38.6 % (37.9-51.0); HEMOGLOBIN 12.8 g/dL (13.5-17.0); LYMPHOCYTES % (AUTO) 5.5 % (13-45); MEAN CORPUSCULAR HEMOGLOBIN 30.6 pg (27.0-33.4); MEAN CORPUSCULAR HGB CONC 33.3 g/dL (32.0-36.0); MEAN CORPUSCULAR VOLUME 92 fl (80-97); MONOCYTES % (AUTO) 1.7 % (3-13); PLATELET COUNT 193 10^3/uL (150-450); RED CELL DISTRIBUTION WIDTH 13.5 % (11.5-14.0); TOTAL CELLS COUNTED % (AUTO) 100 %
[2019-08-02 07:02] LABS: ANION GAP 10 (5-19); BLOOD UREA NITROGEN 20 mg/dL (7-20); CALCIUM 9.2 mg/dL (8.4-10.2); CARBON DIOXIDE 26 mmol/L (22-30); CHLORIDE 107 mmol/L (98-107); GLUCOSE 179 mg/dL (75-110); POTASSIUM 3.6 mmol/L (3.6-5.0)
--- NOTE | 2019-08-02 10:50 | H&P/Discharge Summary ---
Discharge Summary Admission Date/PCP: 08/02/19 08:23 MORAIMA AKERS PA-C Discharge Date: 08/02/19 Resuscitation Status: Full Code - Discharge Diagnosis (1) Acute hypoxemic respiratory failure Is this a current diagnosis for this admission?: Yes (2) Lewy body dementia Is this a current diagnosis for this admission?: Yes (3) Parkinsons disease Is this a current diagnosis for this admission?: Yes Allergies/Adverse Reactions: cimetidine [From Tagamet] Allergy (Severe, Verified 06/22/18 09:23) Anaphylaxis ranitidine HCl [From Zantac] Allergy (Verified 06/22/18 09:23) Edema Discharge Diet: As Tolerated, Regular Discharge Activity: Activity As Tolerated, Slowly Increase Activity, Supervised Activity History of Present Illness Admission Date/PCP: 08/02/19 08:23 MORAIMA AKERS PA-C Patient complains of: dyspnea History of Present Illness: JAYLON QUICK JR is a 73 year old male with a past medical history of Parkinson's and Lewy body dementia with copious oral secretions resulting in frequent aspiration pneumonitis and acute, short-lived, hypoxic respiratory failure/distress who presented to the emergency department today via EMS with report of sudden onset shortness of breath, cough, and hypoxia on room air. The patient was provided IV Solu-Medrol, nebulizer treatments, and initially placed on BiPAP. He responded immediately and was quickly titrated off of oxygen. He did empirically receive IV azithromycin and Rocephin for possible right upper lobe pneumonia. However, upon personal review of imaging and prior experience with this patient, the obesity noted in the right upper lobe is likely artifact related to his kyphosis and positioning. The patient was intubated on room air; he maintained oxygen saturations of 93 to 98% with minimally elevated heart rate and no increased work of breathing. A long discussion was had with the patient's regarding his frequent episodes of respiratory distress. She reports that they have a an appointment scheduled with his drum barker operator for next week to have a bronchoscopy done. She advises that she feels that she would be able to manage these episodes at home if she had oxygen equipment, however, he has not been able to be qualified for oxygen during his multiple emergency room and admission visits. I did offer observational admission of the patient, which she declined. We discussed further interventions to try at home (changing position, keeping head of bed elevated, etc) as well as things to discuss with the drum barker operator at the follow-up visit (possibly overnight pulse oximetry/sleep study, physiotherapy vest, scopolamine patch). We also discussed palliative care versus hospice consultation; see separate ACP note. The patient and ultimately decided to be discharged to home with resumption of home health nursing, physical therapy, and occupational therapy services. They are encouraged to follow-up with her primary care provider within 1 week and to keep her pulmonology appointment as mentioned. They are also encouraged to return to the emergency department as needed for any concerning symptoms. Patient is discharged home, in stable condition, into the care of his with home health services. Follow-up with primary care provider within 1 week. Follow-up with drum barker operator as scheduled. Palliative Care referral placed. Take medications as prescribed. Recommend trial of scopolamine patch. Return to the emergency department as needed for concerning symptoms. Past Medical History Cardiac Medical History: Reports: Atrial Fibrillation Denies: Coronary Artery Disease, Myocardial Infarction, Hypertension, Pulmonary Embolism Pulmonary Medical History: Reports: Chronic Obstructive Pulmonary Disease (COPD), Respiratory Failure Denies: Asthma, Bronchitis, Pneumonia Neurological Medical History: Reports: Other - Parkinson's, Lewy body dementia Denies: Ischemic CVA, Seizures Endocrine Medical History: Denies: Diabetes Mellitus Type 2, Hypothyroidism Malignancy Medical History: Reports: Skin Cancer GI Medical History: Denies: Cirrhosis, Hepatitis, Hiatal Hernia Musculoskeltal Medical History: Denies: Arthritis, Gout Skin Medical History: Denies: Eczema, Psoriasis Psychiatric Medical History: Reports: Dementia - Lewy body, Parkinson's, Depression Hematology: Denies: Anemia, Sickle Cell Disease, Bleeding Tendencies Past Surgical History Past Surgical History: Reports: Cardiac Catheterization, Other - Patient has undergone cardiac ablation for A. fib Denies: Pacemaker Social History Information Source: Relative Smoking Status: Unknown if Ever Smoked Frequency of Alcohol Use: None Hx Recreational Drug Use: No Drugs: None Hx Prescription Drug Abuse: No - Advance Directive Resuscitation Status: Full Code Surrogate healthcare decision maker:: Patient's . Family History Family History: CAD - Mother, COPD - Father Parental Family History Reviewed: Yes Children Family History Reviewed: Yes Sibling(s) Family History Reviewed.: Yes Review of Systems Constitutional: ABSENT: chills, fever(s), headache(s), weight gain, weight loss Eyes: ABSENT: visual disturbances Ears: ABSENT: hearing changes Cardiovascular: ABSENT: chest pain, dyspnea on exertion, edema, orthropnea, palpitations Respiratory: PRESENT: dyspnea. ABSENT: cough, hemoptysis Gastrointestinal: ABSENT: abdominal pain, constipation, diarrhea, hematemesis, hematochezia, nausea, vomiting Genitourinary: ABSENT: dysuria, hematuria Musculoskeletal: ABSENT: joint swelling Integumentary: ABSENT: rash, wounds Neurological: ABSENT: abnormal gait, abnormal speech, confusion, dizziness, focal weakness, syncope Psychiatric: ABSENT: anxiety, depression, homidical ideation, suicidal ideation Endocrine: ABSENT: cold intolerance, heat intolerance, polydipsia, polyuria Hematologic/Lymphatic: ABSENT: easy bleeding, easy bruising Physical Exam Vital Signs: Temp Pulse Resp BP Pulse Ox 98.1 F 94 19 120/63 100 08/02/19 04:04 08/02/19 03:31 08/02/19 07:01 08/02/19 07:00 08/02/19 07:01 Intake & Output 08/01/19 08/02/19 08/03/19 06:59 06:59 06:59 Intake Total 50 Balance 50 Weight 69.4 kg General appearance: PRESENT: no acute distress, cooperative, well-developed, well-nourished Head exam: PRESENT: atraumatic, normocephalic Eye exam: PRESENT: conjunctiva pink, EOMI, PERRLA. ABSENT: scleral icterus Ear exam: PRESENT: normal external ear exam Mouth exam: PRESENT: moist, tongue midline, other - copious oral secretion Neck exam: ABSENT: carotid bruit, JVD, lymphadenopathy, thyromegaly Respiratory exam: PRESENT: clear to auscultation nicolle, symmetrical, unlabored. ABSENT: rales, rhonchi, wheezes Cardiovascular exam: PRESENT: RRR, +S1, +S2. ABSENT: diastolic murmur, rubs, systolic murmur Pulses: PRESENT: normal dorsalis pedis pul Vascular exam: PRESENT: normal capillary refill GI/Abdominal exam: PRESENT: normal bowel sounds, soft. ABSENT: distended, g uarding, mass, organolmegaly, rebound, tenderness Rectal exam: PRESENT: deferred Extremities exam: PRESENT: full ROM. ABSENT: calf tenderness, clubbing, pedal edema Musculoskeletal exam: PRESENT: ambulatory Neurological exam: PRESENT: alert, awake, oriented to person, oriented to place, CN II-XII grossly intact, other - at baseline. ABSENT: oriented to time, oriented to situation, motor sensory deficit Psychiatric exam: PRESENT: appropriate affect, normal mood. ABSENT: homicidal ideation, suicidal ideation Skin exam: PRESENT: dry, intact, warm. ABSENT: cyanosis, rash Results Laboratory Results: 08/02/19 06:29 08/02/19 06:29 08/02/19 08/02/19 08/02/19 04:05 04:58 04:58 WBC Cancelled RBC Cancelled Hgb Cancelled Hct Cancelled MCV Cancelled MCH Cancelled MCHC Cancelled RDW Cancelled Plt Count Cancelled Seg Neutrophils % Cancelled Carbonic Acid HCO3/H2CO3 Ratio ABG pH ABG pCO2 ABG pO2 ABG HCO3 ABG O2 Saturation ABG Base Excess FiO2 Sodium Cancelled Potassium Cancelled Chloride Cancelled Carbon Dioxide Cancelled Anion Gap Cancelled BUN Cancelled Creatinine Cancelled Est GFR ( Amer) Cancelled Est GFR (Non-Af Amer) Cancelled Glucose Cancelled Calcium Cancelled Urine Color YELLOW Urine Appearance CLEAR Urine pH 5.0 Ur Specific Coleman 1.026 Urine Protein NEGATIVE Urine Glucose (UA) NEGATIVE Urine Ketones NEGATIVE Urine Blood NEGATIVE Urine Nitrite NEGATIVE Ur Leukocyte Esterase NEGATIVE Urine WBC (Auto) 1 Urine RBC (Auto) 2 08/02/19 08/02/19 08/02/19 05:30 06:29 06:29 WBC 8.0 RBC 4.20 L Hgb 12.8 L Hct 38.6 MCV 92 MCH 30.6 MCHC 33.3 RDW 13.5 Plt Count 193 Seg Neutrophils % 91.0 H Carbonic Acid 1.23 HCO3/H2CO3 Ratio 20:1 ABG pH 7.42 ABG pCO2 40.7 ABG pO2 103.0 H ABG HCO3 25.7 H ABG O2 Saturation 97.8 ABG Base Excess 1.1 FiO2 25% Sodium 142.8 Potassium 3.6 Chloride 107 Carbon Dioxide 26 Anion Gap 10 BUN 20 Creatinine 0.91 Est GFR ( Amer) > 60 Est GFR (Non-Af Amer) Glucose 179 H Calcium 9.2 Urine Color Urine Appearance Urine pH Ur Specific Coleman Urine Protein Urine Glucose (UA) Urine Ketones Urine Blood Urine Nitrite Ur Leukocyte Esterase Urine WBC (Auto) Urine RBC (Auto) 08/02/19 08/02/19 04:58 06:29 Troponin I Cancelled < 0.012 Impressions: Chest X-Ray 08/02/19 03:33 IMPRESSION: Small right upper lobar pneumonia, atelectasis, and/or artifact. Significant limitations due to mandible positioning artifact. Recommend CR/CT surveillance including at 7-12 weeks following initiation of any clinically warranted therapy. Qualifiers PATIENT BEING DISCHARGED WITH ANY OF THE FOLLOWING DIAGNOSIS: No Assessment & Plan - Time Time Spent: 50 to 70 Minutes Medications reviewed and adjusted accordingly: Yes Anticipated dischagre: Home with Homehealth - Plan Summary Plan Summary: Discharge to home with home health and palliative care services.
[2019-08-02 11:06] VITALS: BP 131/70
--- NOTE | 2019-08-02 11:41 | EKG REPORT ---
SEVERITY:- NORMAL ECG - SINUS RHYTHM : Confirmed by: Leidy Melton 02-Aug-2019 11:40:18
--- NOTE | 2019-08-02 21:42 | ADVANCED CARE ---
- Diagnosis (1) Acute hypoxemic respiratory failure Diagnosis Current: Yes (2) Lewy body dementia Diagnosis Current: Yes (3) Parkinsons disease Diagnosis Current: Yes Attendance: Patient and his , Dorothy Burns. Resuscitation Status: Full Code Discussion: Discussed with the patient (limitedly secondary to dementia and intermittent confusion this morning) and his , Dorothy Burns, who is his primary care provider. We reviewed his recent multiple admissions for respiratory distress/acute respiratory failure with hypoxia secondary to aspiration pneumonitis related to difficulty managing copious oral secretions related to his concerns and limited by his Parkinson's disease and Lewy body dementia. Patient's tells me that he has a follow-up appointment with their established photostat operator helper next week for a bronchoscopy. She informs me that they have been told that there would be no additional recommended procedures or assessment following this as he has already had numerous CT, MRI, and EGDs. She is understandably frustrated by his frequent hypoxic event that rapidly resolved. During his last admission there was some concern for possible pneu monia, however, this was ultimately ruled out. She indicates that she feels that she would be able to manage these events at home if she had appropriate equipment, namely oxygen, however the patient did not qualify for home O2 during his prior admission or this ED visit as he maintains his oxygen saturations while ambulatory on room air. We discussed the chronic nature of his Parkinson's and dementia with the expectation that his disease will worsen with time and that this may become a more frequent occurrence until, eventually, he develops a severe pulmonary infection related to these aspiration events. The patient's adamantly decline hospice services and confirms that the patient remains a full code at this time. However, she is interested in palliative care services for assistan ce in symptom management and recognizing that in the future they may wish to discuss transitioning his goals of care. She is agreeable to meeting with the social work team and arranging for a [facility] consultation today to arrange for outpatient palliative care services. Care Planning Goals: Continue home health services. Addition of home palliative care services. Remain full code. Document(s) Completed: N/A Time Spent: 20 min
== END 2019-08-02 11:16 | disposition home or self-care (01) ==
LOC: ER 03:25 → EH 08:23
PROVIDERS: ADMIT Internal Medicine; ATTEND Internal Medicine
PROC: 5A09357 Assistance with Respiratory Ventilation, Less than 24 Consecutive Hours, Continuous Positive Airway Pressure (ICD-10-PCS; principal; 2019-08-02)
DX: J96.01 Acute respiratory failure with hypoxia (principal); G31.83 Neurocognitive disorder with Lewy bodies; F02.80 Dementia in other diseases classified elsewhere, unspecified severity, without behavioral disturbance, psychotic disturbance, mood disturbance, and anxiety; M40.209 Unspecified kyphosis, site unspecified; I48.91 Unspecified atrial fibrillation; J44.9 Chronic obstructive pulmonary disease, unspecified; F32.9 Major depressive disorder, single episode, unspecified; Z85.828 Personal history of other malignant neoplasm of skin; Z88.8 Allergy status to other drugs, medicaments and biological substances; Z83.6 Family history of other diseases of the respiratory system
CPT/HCPCS: 94660 ×2; 93005; 94640 ×2; 99285; 96375; 96365; 96367; 36415; 87040; 82803; 85025; 80048; 81001; 84484; 71045; 93010; 36600; J2930; J0456; J0696; A9270; J3490

== ENCOUNTER 2019-10-29 14:48 | Emergency (ER) | payer MEDICARE, BC ==
--- NOTE | 2019-10-29 15:26 | ER Document Report ---
ED General - General Chief Complaint: Respiratory Distress Stated Complaint: RESPIRATORY DISTRESS Primary Care Provider: MORAIMA AKERS PA-C [Primary Care Provider] - Follow up as needed TRAVEL OUTSIDE OF THE [place] IN LAST 30 DAYS: No - HPI Notes: Parkinson's, Lewy body dementia, issues in past with acute respiratory failure admissions secondary to copious oral secretions resulting in frequent aspiration pneumonitis and acute, short-lived, hypoxic respiratory failure decompensations who presented to the emergency department today via EMS with report of sudden onset shortness of breath, cough, and hypoxia on room air. reviewed great ACP discussions in EMR jul 27 detailing 's understandable frustration and grapple w/ his parkinson's trajectory. EMS report they are unsure what hospice agency has been doing daily visits. The agent actually arrived after their arrival. They report had to resend hospice service to initiate EMS transport therefore she did so. She said today that he has had respiratory distress copious thick secretions and he has been "talking out of his mind". She also is worried that he has complained to her of chest pain over 2 days. She says she is fine he is on daily antibiotic for urinary tract infections in the past associated with catheterizations for which she has not been catheterized also in a while. EMS also report patient was on his usual 3 L nasal cannula at home and was SPO2 78. They placed him on CPAP at 10. He had SPO2 maintained at 92% in route. They said they had difficulty hearing lungs sounds in bilateral bases. He was sleeping in a chair when they arrived with obvious increased work of breathing and was not responsive to voice or much physical stimuli with spontaneous breathing. His capnography they said initially 50 was then in the 20s. His blood pressure initially was right over 100 systolic after initiating CPAP and magnesium infusion blood pressures 99. Heart rates in the 100s. Glucose 120. On arrival, reports has been using [facility]. They see 1 FRUIT COORDINATOR once a week to assist with bathing or supervision while for example as a grocery. Also have an RN visit once a week. She says it is been extremely helpful to help her is the sole caregiver who is with him 31/05. She says she understands that this is a terminal progressive illness I do so understands that there may be within this hospice agency ways to escalate intervention or symptom burden that are in line with his goals of care as his disease trajectory continues and his needs therefore change. She says he has not had any fevers chills but he did have some sweats this morning. He has been very nervous and is been saying please do not leave me him scared and then he had been complaining of chest pain for the last 2 days. She denies any falls daughter and others in the room say he has had about 2 falls in the over the last few weeks. She says that in the last month he is really not getting out of the house she tries to make sure he is not always using his oxygen at home because you does not "want him to be dependent on it". He has used it though consistently in the last 2 days and that time he is also not wanting to get out of bed much. Before these last 2 days he gets up every day and uses oxygen sometimes if he needs it. She says repeatedly that he does not have lung problems his lungs look perfect but that t he Parkinson's makes him have such thick secretions. I mentioned that this is actually an effect on the lungs and that Parkinson's as looks like has been discussed before with her effects a number of physiologic areas and functions not only the brain but the autonomic system which includes blood pressure and heart rate regulation as well as his mucus secretions and bowel functions and so on. She says she understands that as he is affected by 1 and then is more and more sedentary can then become a cycle and adding on a delirium which he has evidence of is also a dangerous condition in which it can be when he is not able to bounce back from so easily. Therefore we agreed our role here in emergency department is to try to figure out if there is something that we can do to reverse this dyspnea or delirium and figure out the reasons why they might be happening and usually it is a multitude of factors. We all agree our goal is to get him back home and she would still be wanting to use the hospice services and we can also try to help her with figuring out more of a safety plan for incre asing symptom burdens as they come along in his trajectory with the hospice agency who is skilled at dealing with these things hopefully in Parkinson's patients specifically. - Related Data Allergies/Adverse Reactions: cimetidine [From Tagamet] Allergy (Severe, Verified 06/22/18 09:23) Anaphylaxis ranitidine HCl [From Zantac] Allergy (Verified 06/22/18 09:23) Edema Past Medical History - General Information source: Relative, [facility] Records Cannot obtain history due to: Altered mental status - Social History Smoking Status: Never Smoker Lives with: Spouse/Significant other Family History: CAD - Mother, COPD - Father Patient has suicidal ideation: No Patient has homicidal ideation: No - Past Medical History Cardiac Medical History: Reports: Hx Atrial Fibrillation Denies: Hx Coronary Artery Disease, Hx Heart Attack, Hx Hypertension, Hx Pulmonary Embolism Pulmonary Medical History: Reports: Hx Respiratory Failure Denies: Hx Asthma, Hx Bronchitis, Hx COPD, Hx Pneumonia Neurological Medical History: Reports: Hx Parkinson's Disease. Denies: Hx Cerebrovascular Accident, Hx Seizures Endocrine Medical History: Denies: Hx Diabetes Mellitus Type 1, Hx Diabetes Mellitus Type 2, Hx Hyperthyroidism, Hx Hypothyroidism Renal/ Medical History: Denies: Hx Peritoneal Dialysis Malignancy Medical History: Reports Hx Skin Cancer GI Medical History: Reports: Hx Ulcer - 1977 [facility]. Denies: Hx Cirrhosis, Hx Hepatitis, Hx Hiatal Hernia Musculoskeletal Medical History: Denies Hx Arthritis, Denies Hx Gout Skin Medical History: Denies Hx Eczema, Denies Hx Psoriasis Psychiatric Medical History: Reports: Hx Dementia - Parkinson's, Hx Depression Infectious Medical History: Denies: Hx Hepatitis Past Surgical History: Reports: Hx Cardiac Catheterization, Hx Cardiac Surgery - ablation, Other - Patient has undergone cardiac ablation for A. fib. Denies: Hx Open Heart Surgery, Hx Pacemaker - Immunizations Hx Diphtheria, Pertussis, Tetanus Vaccination: No Review of Systems - Review of Systems Constitutional: See HPI, Diaphoresis, Weakness, Weight loss. denies: Fever EENT: No symptoms reported, Difficulty swallowing. denies: Eye discharge, Sinus discharge, Throat pain, Mouth swelling, Dental problem Cardiovascular: No symptoms reported, Chest pain, Dyspnea. denies: Syncope, Edema Respiratory: No symptoms reported, Cough, Short of breath, Sputum. denies: Hemoptysis, Stridor, Wheezing Gastrointestinal: No symptoms reported, Poor appetite, Poor fluid intake. denies: Abdomen distended, Abdominal pain, Diarrhea, Nausea, Vomiting, Constipation, Black stools, Fecal incontinence Genitourinary: No symptoms reported. denies: Frequency, Hematuria, Pain, Retention Male Genitourinary: No symptoms reported Musculoskeletal: No symptoms reported. denies: Joint swelling, Deformity, Leg swelling Skin: No symptoms reported Hematologic/Lymphatic: No symptoms reported Neurological/Psychological: No symptoms reported, Other - Intermittent leg talking about needing to sign the papers for the [employer] in [place] and other nonsensical topics usually agrees with. She says he is been sleeping more than this seems to be in a waxing waning pattern. Also seems slightly hard to maintain his attention and he seems to be picking at things such as the nasal cannula. Physical Exam - Vital signs Vitals: Resp Pulse Ox 24 H 97 10/29/19 14:54 10/29/19 14:54 - Notes Notes: Frail older gentleman initially brought in on CPAP 10 by EMS blood pressures systolic 100, SPO2 90s, increased work of breathing including tachypnea in the upper 20s, abdominal recruitment. Diminished breath sounds and air movement bilateral lower lungs. No audible wheeze. No cyanosis. - General In distress: Moderate - HEENT Head: Normocephalic, Atraumatic. No: Open wounds Eyes: No: Pale conjunctiva, Scleral icterus Conjunctiva: No: Purulent discharge Extraocular movements intact: Yes Eyelashes: Normal Pupils: PERRL Nasal: Normal Mouth/Lips: Other - After BiPAP does have some thick mucus buildup around lips. Mucous membranes: Dry Neck: Supple. No: Neck mass - Respiratory Respiratory status: Respiratory distress, Labored, Retractions, Tachypnea. No: Cyanosis Breath sounds: Decreased air movement, Rhonchi - Significant upper airway transmission no significant wheeze or rales audible though grossly diminished lung sounds diffusely. - Cardiovascular Rhythm: Regular, Tachycardia Murmur: No Pulses: Normal: Radial, Dorsalis pedis Normal capillary refill: Yes - All extremities warm well perfused, no edema. - Abdominal Inspection: No: Wounds Distension: No distension. No: Distended bladder Tenderness: Nontender. No: Guarding Organomegaly: No organomegaly - Back Back: Nontender. No: Deformity/step-off, CVA tenderness, Wounds - Extremities General upper extremity: Other - No focal findings on examination of bilateral upper and lower extremities. No evidence of pressure related skin breakdown or other skin compromise. Does have some atrophy of extremities without specific distribution. - Neurological Cognition: Inattentive Orientation: Disoriented to events [place] Coma Scale Eye Opening: Spontaneous [place] Coma Scale Verbal: Inappropriate [place] Coma Scale Motor: Obeys Commands - Moving all extremities with intention no cranial nerve deficits grossly no other focal motor or sensory deficits. [place] Coma Scale Total: 13 - Psychological Associated symptoms: Restlessness. No: Aggressive - Skin Skin Temperature: Warm Skin Moisture: Dry Skin Color: Normal. negative: Dusky, Mottled, Ashen, Cyanotic, Petechiae, Ecchymosis Skin irregularity: negative: Decubitus ulcer, Lesion, Rash, Tender indurated area Course - Re-evaluation Re-evalutation: 10/30/19 02:31 Patient was very redirectable he was initially trying to get his BiPAP mask off but would stop if he held his hand and asked him to remain calm that we will get this off soon his mental status improved later and that he was making some sensible comment such as he is been here along is ready to go home. was able to talk with the [place] hospice agent who will be out tomorrow for six- month assessment. They also confirmed that he will be able to continue hospice services. We discussed that on his chest x-ray which was a single view there is no radiology interpretation of a pneumonia seen but I did feel compared to prior he had some increased haziness in loss of definition at the right cardio phrenic border otherwise no evidence of pneumothorax or other horace consolidations just on the single view. Given his potential recent aspiration did go ahead and cover for possible aspiration but understands that I would prefer that she be reassessed by the hospice doctor that he can order a chest x-ray or ensure that he is continuing to clear his delirium and his respiratory status is not at worse. Of course if needed in the meantime if there is any symptom burden that can be controlled by the hospice services then of course the ED is always here. I believe has a good understanding of the hospice system and is utilizing it appropriately given his chronic and she understands terminal disease process. She also understands that I am concerned given his delirium and even though this acute hypoxemia and respiratory distress is resolved fairly quickly still he is very fragile and could continue to worsen especially if he is aspirated and then developed a pneumonia on top of this. - Vital Signs Vital signs: Temp Pulse Resp BP Pulse Ox 98.1 F 115 H 20 139/80 H 98 10/29/19 19:01 10/29/19 14:59 10/29/19 22:01 10/29/19 22:00 10/29/19 22:01 - Laboratory Result Diagrams: 10/29/19 15:00 10/29/19 15:00 Laboratory results interpreted by me: 10/29/19 10/29/19 10/29/19 15:00 15:00 15:00 RBC 4.13 L Hgb 12.7 L VBG pH 7.26 L VBG pCO2 64.5 H Chloride 108 H Glucose 113 H Phosphorus 5.2 H Magnesium 3.3 H Total Protein 5.8 L Albumin 3.4 L Urine Glucose (UA) Urine Ketones 10/29/19 19:40 RBC Hgb VBG pH VBG pCO2 Chloride Glucose Phosphorus Magnesium Total Protein Albumin Urine Glucose (UA) 150 H Urine Ketones TRACE H Critical Care Note - Critical Care Note Total time excluding time spent on procedures (mins): 30 Discharge - Discharge Clinical Impression: Acute respiratory distress, Respiratory compromise, Acute hypoxemic respiratory failure, Right lower lobe pulmonary infiltrate Condition: Fair Disposition: HOME-ASSISTED LIVING Additional Instructions: Today in the emergency department patient was initially very short of breath and retaining CO2 and recovered well with BiPAP. I think he likely did have pr obably some mucus plugging that may have on its own resolved. He still has some evidence of delirium. His urine showed no signs of infection. His chest x-ray does not show any obvious large consolidations or effusions but I do see some haziness at the right lower heart border. For this reason I will cover him for a pneumonia and cover for aspiration pneumonia with Augmentin and azithromycin. When you see the hospice telephone services sales representative tomorrow it sounds like there going to be evaluating for recertification of hospice benefit but I would like the hospice doctor to be following up for this treatment of potential pneumonia and also can discuss plan for if he were to have this mucous plugging again. He also has evidence of delirium so I am hoping with the improvement in his breathing he will start to clear this it is good to continue getting him out of bed and use the incentive spirometer to keep his lungs working some if possible but be wary of falls in this period where he is delirious though. Prescriptions: Amox Tr/Potassium Clavulanate [Augmentin 875-125 mg Tablet] 1 tab PO BID 5 Days #20 tablet Azithromycin 500 mg PO DAILY 5 Days #5 tablet Referrals: MORAIMA AKERS PA-C [Primary Care Provider] - Follow up as needed
[2019-10-29] MEDS ORDERED: IPRATROPIUM/ALBUTEROL 0.5-2.5 MG/3 ML AMPUL NEB PRN (15:27)
[2019-10-29] MEDS ORDERED: NORMAL SALINE 250 ML IV ONE (15:30)
[2019-10-29 15:39] LABS: VENOUS BLOOD BASE EXCESS -0.3 mmol/L; VENOUS BLOOD HCO3 28.2 mmol/L (20-32); VENOUS BLOOD PCO2 64.5 mmHg (35-63); VENOUS BLOOD PH 7.26 (7.30-7.42)
[2019-10-29 15:40] LABS: ABSOLUTE EOSINOPHILS # (AUTO) 0.3 10^3/uL (0.0-0.6); ABSOLUTE LYMPHOCYTES (AUTO) 1.7 10^3/uL (0.5-4.7); ABSOLUTE MONOCYTES (AUTO) 0.3 10^3/uL (0.1-1.4); ABSOLUTE NEUT (AUTO) 5.8 10^3/uL (1.7-8.2); BASOPHILS % (AUTO) 0.5 % (0-2); EOSINOPHILS % (AUTO) 3.6 % (0-6); HEMATOCRIT 38.1 % (37.9-51.0); HEMOGLOBIN 12.7 g/dL (13.5-17.0); LYMPHOCYTES % (AUTO) 21.2 % (13-45); MEAN CORPUSCULAR HEMOGLOBIN 30.8 pg (27.0-33.4); MEAN CORPUSCULAR HGB CONC 33.5 g/dL (32.0-36.0); MEAN CORPUSCULAR VOLUME 92 fl (80-97); MONOCYTES % (AUTO) 3.8 % (3-13); PLATELET COUNT 225 10^3/uL (150-450); RED BLOOD COUNT 4.13 10^6/uL (4.35-5.55); SEGMENTED NEUTROPHILS % (AUTO) 70.9 % (42-78); TOTAL CELLS COUNTED % (AUTO) 100 %; WHITE BLOOD COUNT 8.2 10^3/uL (4.0-10.5)
[2019-10-29 15:46] LABS: INTERNATIONAL RATION (INR) 1.16; PARTIAL THROMBOPLASTIN TIME 25.8 SEC (23.5-35.8); PROTHROMBIN TIME 14.8 SEC (11.4-15.4)
[2019-10-29 15:51] LABS: ALBUMIN 3.4 g/dL (3.5-5.0); ALKALINE PHOSPHATASE 64 U/L (38-126); ANION GAP 6 (5-19); ASPARTATE AMINO TRANSFERASE 19 U/L (17-59); BILIRUBIN,DIRECT 0.2 mg/dL (0.0-0.4); BILIRUBIN,TOTAL 0.8 mg/dL (0.2-1.3); BLOOD UREA NITROGEN 18 mg/dL (7-20); CALCIUM 8.7 mg/dL (8.4-10.2); CARBON DIOXIDE 29 mmol/L (22-30); CHLORIDE 108 mmol/L (98-107); GLUCOSE 113 mg/dL (75-110); PHOSPHORUS 5.2 mg/dL (2.5-4.5); POTASSIUM 4.8 mmol/L (3.6-5.0); TOTAL PROTEIN 5.8 g/dL (6.3-8.2)
--- NOTE | 2019-10-29 15:54 | RADIOLOGY REPORT (SQ) ---
EXAM DESCRIPTION: CHEST SINGLE VIEW COMPLETED DATE/TIME: 10/29/2019 3:38 pm REASON FOR STUDY: hypoxia COMPARISON: 08/02/2019 EXAM PARAMETERS: NUMBER OF VIEWS: One view. TECHNIQUE: Single frontal radiographic view of the chest acquired. RADIATION DOSE: NA LIMITATIONS: None. FINDINGS: LUNGS AND PLEURA: No opacities, masses or pneumothorax. No pleural effusion. MEDIASTINUM AND HILAR STRUCTURES: No masses. Contour normal. HEART AND VASCULAR STRUCTURES: Heart normal in size. Normal vasculature. BONES: No acute findings. HARDWARE: None in the chest. OTHER: No other significant finding. IMPRESSION: NO ACUTE RADIOGRAPHIC FINDING IN THE CHEST. TECHNICAL DOCUMENTATION: JOB ID: [id number] [employer]- All Rights Reserved Reading location - IP/workstation name: [email or web address]
[2019-10-29] MEDS: MAGNESIUM SULFATE/D5W 1 GM/100 ML RTUPB IV SCH ×2 (16:18→17:41)
[2019-10-29 19:57] LABS: APPEARANCE,URINE CLEAR; BILIRUBIN,URINE NEGATIVE (NEGATIVE); COLOR,URINE YELLOW; GLUCOSE, URINE 150 mg/dL (NEGATIVE); KETONES,URINE TRACE mg/dL (NEGATIVE); LEUKOCYTE ESTERASE,URINE NEGATIVE (NEGATIVE); NITRITE,URINE NEGATIVE (NEGATIVE); PROTEIN,URINE NEGATIVE (NEGATIVE); URINE SPECIFIC GRAVITY 1.024; UROBILINOGEN,URINE NEGATIVE mg/dL (<2.0)
[2019-10-29 22:41] VITALS: BP 139/80
--- NOTE | 2019-10-30 07:01 | EKG REPORT ---
SEVERITY:- ABNORMAL ECG - SINUS TACHYCARDIA PROBABLE LEFT ATRIAL ABNORMALITY CONSIDER ANTEROSEPTAL INFARCT : Confirmed by: Leidy Melton 30-Oct-2019 07:00:59
== END 2019-10-29 22:30 | disposition home health service (06) ==
LOC: ER 14:48
DX: J96.01 Acute respiratory failure with hypoxia (principal); R06.03 Acute respiratory distress; R91.8 Other nonspecific abnormal finding of lung field; Z51.5 Encounter for palliative care; R07.9 Chest pain, unspecified; G20 Parkinson's disease; R41.82 Altered mental status, unspecified
CPT/HCPCS: 93005; 94640; 99291; 96365; 96366; 36415; 87040; 83605; 83735; 84100; 85025; 85610; 85730; 80053; 81001; 84484; 82803; 71045; 93010; 94660; J3475; J7050; A9270; J7620

== ENCOUNTER 2019-11-06 17:44 | Emergency (ER) | payer MEDICARE, BC ==
[2019-11-06] MEDS ORDERED: IPRATROPIUM/ALBUTEROL 0.5-2.5 MG/3 ML AMPUL NEB ONE (17:54)
--- NOTE | 2019-11-06 17:58 | ER Document Report ---
ED General - General Chief Complaint: Shortness Of Breath Stated Complaint: SHORTNESS OF BREATH Primary Care Provider: MORAIMA AKERS PA-C [Primary Care Provider] - Follow up as needed Notes: 74-year-old male presents emergency department via EMS for hypoxia and acute shortness of breath at home. Patient has a history of "lung problems" but the family was unable to tell EMS what these are. Patient recently was on hospice for these lung problems but he was recently taken off of hospice and is now a full code. EMS states that the patient was seen recently in the hospital and found to have a mucous plug, once that was suctioned out he was discharged home. Today when they arrived at the house the family had tried suctioning him but his oxygen saturation only improved from 60% to 86% on his usual 3 L via nasal cannula. When EMS arrived they started him on CPAP at 7 cm, gave him 125 mg of Solu-Medrol and 1 DuoNeb as well as 2 g of mag. He is now 99% on arrival to the emergency department on CPAP. Patient admits mild cough. Can provide no other history. Currently no family members are at bedside. TRAVEL OUTSIDE OF THE [place] IN LAST 30 DAYS: No - Related Data Allergies/Adverse Reactions: cimetidine [From Tagamet] Allergy (Severe, Verified 06/22/18 09:23) Anaphylaxis ranitidine HCl [From Zantac] Allergy (Verified 06/22/18 09:23) Edema Past Medical History - General Information source: Patient, Emergency Med Personnel Cannot obtain history due to: Dementia - Social History Smoking Status: Smoker,Current Status Unk Family History: CAD - Mother, COPD - Father - Past Medical History Cardiac Medical History: Reports: Hx Atrial Fibrillation Denies: Hx Coronary Artery Disease, Hx Heart Attack, Hx Hypertension, Hx Pulmonary Embolism Pulmonary Medical History: Reports: Hx Respiratory Failure Denies: Hx Asthma, Hx Bronchitis, Hx COPD, Hx Pneumonia Neurological Medical History: Reports: Hx Parkinson's Disease. Denies: Hx Cerebrovascular Accident, Hx Seizures Endocrine Medical History: Denies: Hx Diabetes Mellitus Type 1, Hx Diabetes Mellitus Type 2, Hx Hyperthyroidism, Hx Hypothyroidism Renal/ Medical History: Denies: Hx Peritoneal Dialysis Malignancy Medical History: Reports Hx Skin Cancer GI Medical History: Reports: Hx Ulcer - 1978 PEPTIC. Denies: Hx Cirrhosis, Hx Hepatitis, Hx Hiatal Hernia Musculoskeletal Medical History: Denies Hx Arthritis, Denies Hx Gout Skin Medical History: Denies Hx Eczema, Denies Hx Psoriasis Psychiatric Medical History: Reports: Hx Dementia - Parkinson's, Hx Depression Infectious Medical History: Denies: Hx Hepatitis Past Surgical History: Reports: Hx Cardiac Catheterization, Hx Cardiac Surgery - ablation, Other - Patient has undergone cardiac ablation for A. fib. Denies: Hx Open Heart Surgery, Hx Pacemaker - Immunizations Hx Diphtheria, Pertussis, Tetanus Vaccination: No Review of Systems - Review of Systems -: Yes ROS unobtainable due to patient's medical condition - On CPAP, confused, unable to answer questions at this time. Physical Exam - Vital signs Vitals: Temp Pulse Resp BP Pulse Ox 98.1 F 92 13 123/75 100 11/06/19 17:44 11/06/19 17:44 11/06/19 17:44 11/06/19 17:44 11/06/19 17:44 - Notes Notes: GENERAL: Sitting upright on the stretcher, appears fatigued, answers few questi ons. HEAD: Normocephalic, atraumatic EYES: Pupils equal, round and reactive to light, extraocular movements intact. ENT: Oral mucosa moist, tongue midline. NECK: Full range of motion, supple, trachea midline. LUNGS: Diffuse moderate expiratory wheezing, tachypneic, on CPAP, appears short of breath. HEART: Tachycardic rate and rhythm, no murmurs, gallops, rubs. ABDOMEN: Soft, nontender, nondistended, bowel sounds present in all 4 quadrants. EXTREMITIES: Moves all 4 extremities spontaneously, no edema, radial and dorsalis pedis pulses 2/4 bilaterally. No cyanosis. NEUROLOGICAL: Sitting up on the stretcher, leaning slightly forward, eyes are closed but he opens them as soon as you talk to them, cannot answer orientation questions, is able to answer other questions by shaking his head yes and no, no facial droop. SKIN: Warm, Dry, normal turgor. Course - Re-evaluation Re-evalutation: 11/06/19 19:47 who is now at bedside clarifies that the patient actually had to be increased to 6 L via nasal cannula at home prior to EMSs arrival and still only got about 86%. She states that he has been significantly increasingly fatigued over the past 2 days. States that normally he would be able to walk across the room and go to the bathroom but now he cannot even walk across the room. She also notes that the patient does not have any underlying lung disease, states that the Parkinson's causes him to slump over which causes mucus to build up in his lungs which causes him to become short of breath and have bronchospasm. States that he sees a cutter down in [place] but that he does not have any history of COPD. She states that he does take breathing treatments to help with the mucus buildup. She denies any history of smoking or COPD. Denies any history of asthma. 11/07/19 03:21 CBC shows leukocytosis at 13.9, mild anemia with hemoglobin 13.3, platelets are normal, coags are prolonged, arterial blood gas actually shows normal oxygenation and no signs of CO2 retention, venous blood gas has similar findings, CMP grossly unremarkable, there is elevated glucose but this is nonfasting, troponin is normal, lactic acid is normal x2 at 1.6 and 1.8 respectively, urinalysis does not show any signs of dehydration or infection, chest x-ray shows no acute process. Patient's breathing has improved significantly after being placed on BiPAP and being given multiple breathing treatments. There is no evidence of CO2 retention. Patient has been quite somnolent throughout his stay despite no CO2 retention. I have ordered a CT scan of the head however just prior to being sent to CT scan of the head the patient has now woken up, is somewhat agitated and accusing us of trying to hurt him and accusing his of trying to hurt him. He is able to grab my arm with full strength and refused to let me go. informs us that he has missed his evening Seroquel. Patient will get be given his Seroquel. He has been taken off of BiPAP, is doing quite well. No further wheezing. If the CAT scan of the head is normal and he remains well off of BiPAP for an hour he will actually be discharged home. Suspect this patient has recurrent aspiration causing aspiration pneumonitis on a regular basis. 11/07/19 03:43 CT scan of the head shows pansinusitis. Family is already aware of this, they have been told that he needs surgery to fix this however he is a poor surgical candidate. He is already taking nasal steroids at home. Patient continues to be stable, no wheezing, no respiratory distress, no supplemental oxygen needed. His sensorium has cleared. Patient and are both eager to return home. Patient will be discharged to home. - Vital Signs Vital signs: Temp Pulse Resp BP Pulse Ox 98.2 F 83 20 124/74 100 11/07/19 02:18 11/07/19 02:17 11/07/19 02:18 11/07/19 02:18 11/07/19 02:18 - Laboratory Result Diagrams: 11/06/19 20:17 11/06/19 19:10 Laboratory results interpreted by me: 11/06/19 11/06/19 11/06/19 18:48 19:10 19:10 WBC RBC Hgb RDW Seg Neuts % (Manual) Band Neutrophils % Lymphocytes % (Manual) Monocytes % (Manual) Abs Neuts (Manual) PT 24.1 H ABG pO2 ABG O2 Saturation Glucose 111 H POC Glucose 155 H Urine Urobilinogen 11/06/19 11/06/19 11/06/19 19:44 19:45 20:17 WBC 13.9 H RBC 4.28 L Hgb 13.3 L RDW 14.1 H Seg Neuts % (Manual) 88 H Band Neutrophils % 2 L Lymphocytes % (Manual) 8 L Monocytes % (Manual) 2 L Abs Neuts (Manual) 12.5 H PT ABG pO2 168.2 H ABG O2 Saturation 99.1 H Glucose POC Glucose Urine Urobilinogen 2.0 H - EKG Interpretation by Me Additional EKG results interpreted by me: 11/06/19 19:48 EKG shows sinus tachycardia at a rate of 103, normal axis, prolonged QT interval, slightly delayed R wave progression, no ST segment elevations or depressions, there are T wave inversions noted in lead III per my interpretation. Critical Care Note - Critical Care Note Total time excluding time spent on procedures (mins): 67 Discharge - Discharge Clinical Impression: Aspiration pneumonitis, Parkinsons disease, Acute hypoxemic respiratory failure Condition: Stable Disposition: HOME, SELF-CARE Additional Instructions: Tonight after receiving breathing treatments, steroids and BiPAP for respiratory support his wheezing and shortness of breath completely resolved. I suspect he is having some aspiration that is causing him to wheeze and have bronchospasm. I have prescribed a course of [id number] antibiotics. This is a prescription for azithromycin that you should only fill if he develops a fever (temperature of 100.4 or greater) in the next 24 hours. Otherwise throw away the prescrip tion. If he develops symptoms again like he did tonight please suction him and give him 2 breathing treatments [id number], if this does not rapidly improve his symptoms then call 911 again. Please return to the emergency department for any new or concerning symptoms. Prescriptions: Azithromycin [Zithromax 250 mg Tablet] 250 mg PO ASDIR PRN #6 tablet PRN Reason: Referrals: MORAIMA AKERS PA-C [Primary Care Provider] - Follow up as needed
--- NOTE | 2019-11-06 18:27 | RADIOLOGY REPORT (SQ) ---
EXAM DESCRIPTION: CHEST SINGLE VIEW COMPLETED DATE/TIME: 11/06/2019 6:03 pm REASON FOR STUDY: SOB, wheezing, hypoxia COMPARISON: 10/29/2019 TECHNIQUE: Single frontal radiographic view of the chest acquired. NUMBER OF VIEWS: One view. LIMITATIONS: None. FINDINGS: LUNGS AND PLEURA: No pneumothorax. No consolidation or pleural effusion. MEDIASTINUM AND HILAR STRUCTURES: Stable. HEART AND VASCULAR STRUCTURES: Stable. BONES: No acute findings. HARDWARE: None in the chest. OTHER: No other significant finding. IMPRESSION: NO ACUTE FINDINGS. TECHNICAL DOCUMENTATION: JOB ID: [id number] [place]-72 2010 [employer]- All Rights Reserved Reading location - IP/workstation name: [email or web address]
[2019-11-06 19:41] LABS: INTERNATIONAL RATION (INR) 2.12; PROTHROMBIN TIME 24.1 SEC (11.4-15.4)
[2019-11-06 19:46] LABS: ALKALINE PHOSPHATASE 76 U/L (38-126); ANION GAP 12 (5-19); ASPARTATE AMINO TRANSFERASE 21 U/L (17-59); BILIRUBIN,DIRECT 0.2 mg/dL (0.0-0.4); BILIRUBIN,TOTAL 0.7 mg/dL (0.2-1.3); BLOOD UREA NITROGEN 15 mg/dL (7-20); CARBON DIOXIDE 26 mmol/L (22-30); CHLORIDE 104 mmol/L (98-107); GLUCOSE 111 mg/dL (75-110); TOTAL PROTEIN 6.7 g/dL (6.3-8.2)
[2019-11-06 20:24] LABS: APPEARANCE,URINE CLEAR; BILIRUBIN,URINE NEGATIVE (NEGATIVE); COLOR,URINE YELLOW; GLUCOSE, URINE NEGATIVE (NEGATIVE); KETONES,URINE NEGATIVE (NEGATIVE); PROTEIN,URINE NEGATIVE (NEGATIVE); URINE SPECIFIC GRAVITY 1.021
[2019-11-06 20:25] LABS: ARTERIAL BLOOD H2CO3 1.24 mmol/L (1.05-1.35); ARTERIAL BLOOD HCO3 23.2 mmol/L (20-24); ARTERIAL BLOOD O2 SATURATION 99.1 % (94-98); ARTERIAL BLOOD PCO2 41.3 mmHg (35-45); ARTERIAL BLOOD PH 7.37 (7.35-7.45); ARTERIAL BLOOD PO2 168.2 mmHg (80-100); ARTERIAL BLOOD TOTAL CO2 24.5 mmol/L (23-27)
[2019-11-06 20:28] LABS: ARTERIAL BLOOD FIO2 30%
[2019-11-06 20:37] LABS: HEMATOCRIT 39.1 % (37.9-51.0); HEMOGLOBIN 13.3 g/dL (13.5-17.0); MEAN CORPUSCULAR HGB CONC 33.9 g/dL (32.0-36.0); MEAN CORPUSCULAR VOLUME 91 fl (80-97); PLATELET COUNT 213 10^3/uL (150-450); RED BLOOD COUNT 4.28 10^6/uL (4.35-5.55); RED CELL DISTRIBUTION WIDTH 14.1 % (11.5-14.0); WHITE BLOOD COUNT 13.9 10^3/uL (4.0-10.5)
[2019-11-06 21:06] LABS: ABSOLUTE LYMPHOCYTES# (MANUAL) 1.1 10^3/uL (0.5-4.7); ABSOLUTE MONOCYTES # (MANUAL) 0.3 10^3/uL (0.1-1.4); ANISOCYTOSIS SLIGHT; BAND NEUTROPHILS % (MANUAL) 2 % (3-5); BASOPHILS % (MANUAL) 0 % (0-2); EOSINOPHILS % (MANUAL) 0 % (0-6); LYMPHOCYTES % (MANUAL) 8 % (13-45); MONOCYTES % (MANUAL) 2 % (3-13); SEGMENTED NEUTROPHILS % (MAN) 88 % (42-78); TOTAL CELLS COUNTED 100
[2019-11-06 21:10] LABS: PLATELET COMMENT ADEQUATE
--- NOTE | 2019-11-06 22:04 | EKG REPORT ---
SEVERITY:- BORDERLINE ECG - SINUS TACHYCARDIA CONSIDER ANTERIOR INFARCT BORDERLINE PROLONGED QT INTERVAL : Confirmed by: Ruperto Rivera MD 06-Nov-2019 22:03:39
[2019-11-07 00:18] LABS: VENOUS BLOOD BASE EXCESS -2.6 mmol/L; VENOUS BLOOD PCO2 37.9 mmHg (35-63); VENOUS BLOOD PH 7.38 (7.30-7.42)
[2019-11-07] MEDS ORDERED: QUETIAPINE FUMARATE 25 MG TABLET PO ONE (01:55)
--- NOTE | 2019-11-07 03:22 | RADIOLOGY REPORT (SQ) ---
EXAM DESCRIPTION: CT HEAD WITHOUT IV CONTRAST COMPLETED DATE/TME: 11/07/2019 01:08 CLINICAL HISTORY: 74 years, Male, decreased LOC COMPARISON: EXAM: CT head without contrast. INDICATION: Decreased loss of consciousness. TECHNIQUE: Contiguous axial CT images of the brain. Intravenous contrast: Absent. DLP 1304 mGy-cm. This exam was performed according to our departmental dose-optimization program, which includes automated exposure control, adjustment of the mA and/or kV according to patient size and/or use of iterative reconstruction technique. COMPARISON: 01/19/19. FINDINGS: Subcutaneous: Unremarkable. No acute intracranial hemorrhage. No midline shift. No mass effect. Ventricles: No hydrocephalus. Chavarria-white differentiation preserved. Paranasal sinuses/mastoid air cells: There is near complete opacification of the paranasal sinuses. Bones/orbits: Visualized portions are unremarkable. IMPRESSION: 1. No CT evidence of acute intracranial hemorrhage. 2. Pansinusitis. TECHNIQUE: Images stored on PACS. All CT scanners at this facility use dose modulation, iterative reconstruction, and/or weight based dosing when appropriate to reduce radiation dose to as low as reasonably achievable (ALARA). [facility]: Dose Right [facility]: CareDose [facility]: Dose Right [facility]: Teradose 4D [facility]: [employer] LIMITATIONS: None. FINDINGS: IMPRESSION: TECHNICAL DOCUMENTATION: Quality ID # [id number]: Final reports with documentation of one or more dose reduction techniques (e.g., Automated exposure control, adjustment of the mA and/or kV according to patient size, use of iterative reconstruction technique) copyright 2011 [employer]- All Rights Reserved
[2019-11-07 04:13] VITALS: BP 101/64
== END 2019-11-07 04:13 | disposition home or self-care (01) ==
LOC: ER 17:44
DX: J69.0 Pneumonitis due to inhalation of food and vomit (principal); J96.01 Acute respiratory failure with hypoxia; G20 Parkinson's disease; F02.81 Dementia in other diseases classified elsewhere, unspecified severity, with behavioral disturbance; R00.0 Tachycardia, unspecified; D64.9 Anemia, unspecified; R40.0 Somnolence; J32.4 Chronic pansinusitis; Z79.51 Long term (current) use of inhaled steroids; Z88.8 Allergy status to other drugs, medicaments and biological substances; Z79.899 Other long term (current) drug therapy
CPT/HCPCS: 93005; 94640; 99291; 51701; 36415; 87040; 82962; 82803 ×2; 83605; 85025; 85610; 80053; 81001; 84484; 71045; 70450; 93010; 36600; 94660 ×2; A9270 ×2; J7620

== ENCOUNTER 2019-11-21 20:49 | Emergency (ER) | payer MEDICARE, BC ==
--- NOTE | 2019-11-21 21:24 | ER Document Report ---
ED General - General Chief Complaint: Respiratory Distress Stated Complaint: RESPIRATORY DISTRESS Time Seen by Provider: 11/21/19 21:05 Primary Care Provider: MORAIMA AKERS PA-C [Primary Care Provider] - Follow up as needed Mode of Arrival: Medic Information source: Patient, Emergency Med Personnel TRAVEL OUTSIDE OF THE [place] IN LAST 30 DAYS: No - HPI Onset: Just prior to arrival Onset/Duration: Sudden Quality of pain: No pain Severity: Moderate Pain Level: Denies Associated symptoms: Productive cough, Shortness of breath Exacerbated by: Coughing Relieved by: Other - EMS treatment with a Neb, IV Magnesium, IV Solumedrol Similar symptoms previously: Yes - multiple times Recently seen / treated by doctor: Yes - patient was just seen in the ER on 10/29 and 11/06 Notes: 74 year old female with a history of Parkinson's, Parkinson's Dementia, AFib, Skin Cancer, Gastritis and "Lung Problems" which sounds like chronic aspiration and mucus plugging here for shortness of breath and hypoxemia. The patient became short of breath and lethargic so EMS was called. EMS found the patient to be hypoxic on their arrival so they placed him on Bipap, administered a neb, and administered IV Mg. The patient was breathing better on ER arrival. - Related Data Allergies/Adverse Reactions: cimetidine [From Tagamet] Allergy (Severe, Verified 11/21/19 21:35) Anaphylaxis ranitidine HCl [From Zantac] Allergy (Verified 11/21/19 21:35) Edema Past Medical History - General Information source: Patient - Social History Smoking Status: Former Smoker Frequency of alcohol use: None Drug Abuse: None Lives with: Family Family History: CAD - Mother, COPD - Father Patient has suicidal ideation: No Patient has homicidal ideation: No - Past Medical History Cardiac Medical History: Reports: Hx Atrial Fibrillation Denies: Hx Coronary Artery Disease, Hx Heart Attack, Hx Hypertension, Hx Pulmonary Embolism Pulmonary Medical History: Reports: Hx Respiratory Failure Denies: Hx Asthma, Hx Bronchitis, Hx COPD, Hx Pneumonia Neurological Medical History: Reports: Hx Parkinson's Disease. Denies: Hx Cerebrovascular Accident, Hx Seizures Endocrine Medical History: Denies: Hx Diabetes Mellitus Type 1, Hx Diabetes Mellitus Type 2, Hx Hyperthyroidism, Hx Hypothyroidism Renal/ Medical History: Denies: Hx Peritoneal Dialysis Malignancy Medical History: Reports Hx Skin Cancer GI Medical History: Reports: Hx Ulcer - 1978 PEPTIC. Denies: Hx Cirrhosis, Hx Hepatitis, Hx Hiatal Hernia Musculoskeletal Medical History: Denies Hx Arthritis, Denies Hx Gout Skin Medical History: Denies Hx Eczema, Denies Hx Psoriasis Psychiatric Medical History: Reports: Hx Dementia - Parkinson's, Hx Depression Infectious Medical History: Denies: Hx Hepatitis Past Surgical History: Reports: Hx Cardiac Catheterization, Hx Cardiac Surgery - ablation, Other - Patient has undergone cardiac ablation for A. fib. Denies: Hx Open Heart Surgery, Hx Pacemaker - Immunizations Hx Diphtheria, Pertussis, Tetanus Vaccination: No Review of Systems - Review of Systems Constitutional: Other - lethargy EENT: No symptoms reported Cardiovascular: No symptoms reported Respiratory: Cough, Other - respiratory distress Gastrointestinal: No symptoms reported Genitourinary: No symptoms reported Male Genitourinary: No symptoms reported Musculoskeletal: No symptoms reported Skin: No symptoms reported Hematologic/Lymphatic: No symptoms reported Neurological/Psychological: No symptoms reported Physical Exam - Vital signs Vitals: Temp Pulse Resp BP Pulse Ox 98.7 F 102 H 22 H 101/69 100 11/21/19 20:51 11/21/19 20:51 11/21/19 20:51 11/21/19 20:51 11/21/19 20:51 - Notes Notes: Reviewed vital signs and nursing note as charted by RN. CONSTITUTIONAL: Well-appearing, well-nourished; attentive, alert and interactive with good eye contact; acting appropriately for age HEAD: Normocephalic; atraumatic; No swelling EYES: PERRL; Conjunctivae clear, no drainage; EOMI ENT: External ears without lesions; External auditory canal is patent; TMs without erythema, landmarks clear and well visualized; no rhinorrhea; Pharynx without erythema or lesions, no tonsillar hypertrophy, airway patent, mucous membranes pink and moist NECK: Supple, no cervical lymphadenopathy, no masses CARD: Regular rate and rhythm; no murmurs, no rubs, no gallops, capillary refill < 2 seconds, symmetric pulses RESP: Respiratory rate and effort are normal. There is normal chest excursion. No respiratory distress, no retractions, no stridor, no nasal flaring, no accessory muscle use. The lungs are clear to auscultation bilaterally, no wheezing, no rales, no rhonchi. ABD/GI: Normal bowel sounds; non-distended; soft, non-tender, no rebound, no gu arding, no palpable organomegaly EXT: Normal ROM in all joints; non-tender to palpation; no effusions, no edema SKIN: Normal color for age and race; warm; dry; good turgor; no acute lesions noted NEURO: No facial asymmetry; Moves all extremities equally; Motor and sensory function intact Course - Vital Signs Vital signs: Temp Pulse Resp BP Pulse Ox 98.7 F 102 H 19 136/81 H 94 11/21/19 20:51 11/21/19 20:51 11/22/19 00:01 11/22/19 00:01 11/22/19 00:01 - Laboratory Result Diagrams: 11/21/19 22:28 11/21/19 22:28 Laboratory results interpreted by me: 11/21/19 11/21/19 11/21/19 22:28 22:28 22:28 WBC 14.7 H RBC 4.34 L Hgb 13.4 L RDW 14.4 H Seg Neuts % (Manual) 90 H Lymphocytes % (Manual) 4 L Monocytes % (Manual) 2 L Abs Neuts (Manual) 13.7 H ABG pO2 ABG O2 Saturation Glucose 137 H Creatine Kinase 53 L NT-Pro-B Natriuret Pep 449 H 11/21/19 23:31 WBC RBC Hgb RDW Seg Neuts % (Manual) Lymphocytes % (Manual) Monocytes % (Manual) Abs Neuts (Manual) ABG pO2 54.8 L ABG O2 Saturation 89.2 L Glucose Creatine Kinase NT-Pro-B Natriuret Pep Discharge - Discharge Clinical Impression: Hypoxemia Aspiration into respiratory tract Qualifiers: Encounter type: subsequent encounter Qualified Code(s): T17.908D - Unspecified foreign body in respiratory tract, part unspecified causing other injury, subsequent encounter Condition: Stable Disposition: HOME, SELF-CARE Additional Instructions: Follow up with your primary care doctor, your ENT doctor and with a [facility] since you seem to have chronic aspiration issues and possible chronic mucus plugging issues. Try using an Incentive Spirometer at home as well as nebulized Mucinex. Speak with your primary care doctor and [facility] about these possible treatment options. Referrals: MORAIMA AKERS PA-C [Primary Care Provider] - Follow up as needed
--- NOTE | 2019-11-21 21:59 | RADIOLOGY REPORT (SQ) ---
Chest single view on 11/21/2019 at 9:37 PM CLINICAL INDICATION: Respiratory distress COMPARISON: 11/06/2019 FINDINGS: The lungs are clear. Mild vascular calcification is noted in the aorta. Cardiac, hilar and mediastinal contours are within normal limits. Pulmonary vascularity is within normal limits. No bony abnormality is noted. IMPRESSION: No active disease.
[2019-11-21 22:40] LABS: HEMATOCRIT 39.9 % (37.9-51.0); HEMOGLOBIN 13.4 g/dL (13.5-17.0); MEAN CORPUSCULAR HEMOGLOBIN 30.9 pg (27.0-33.4); MEAN CORPUSCULAR HGB CONC 33.6 g/dL (32.0-36.0); MEAN CORPUSCULAR VOLUME 92 fl (80-97); PLATELET COUNT 187 10^3/uL (150-450); RED BLOOD COUNT 4.34 10^6/uL (4.35-5.55); RED CELL DISTRIBUTION WIDTH 14.4 % (11.5-14.0); WHITE BLOOD COUNT 14.7 10^3/uL (4.0-10.5)
[2019-11-21 23:00] LABS: ALBUMIN 3.8 g/dL (3.5-5.0); ALKALINE PHOSPHATASE 100 U/L (38-126); ANION GAP 10 (5-19); ASPARTATE AMINO TRANSFERASE 20 U/L (17-59); BILIRUBIN,DIRECT 0.2 mg/dL (0.0-0.4); BILIRUBIN,TOTAL 0.5 mg/dL (0.2-1.3); BLOOD UREA NITROGEN 20 mg/dL (7-20); CALCIUM 9.1 mg/dL (8.4-10.2); CARBON DIOXIDE 26 mmol/L (22-30); CHLORIDE 105 mmol/L (98-107); CREATINE KINASE 53 U/L (55-170); GLUCOSE 137 mg/dL (75-110); POTASSIUM 3.8 mmol/L (3.6-5.0); TOTAL PROTEIN 6.6 g/dL (6.3-8.2)
[2019-11-21 23:06] LABS: ABSOLUTE LYMPHOCYTES# (MANUAL) 0.6 10^3/uL (0.5-4.7); ABSOLUTE MONOCYTES # (MANUAL) 0.3 10^3/uL (0.1-1.4); ANISOCYTOSIS SLIGHT; BAND NEUTROPHILS % (MANUAL) 3 % (3-5); BASOPHILS % (MANUAL) 0 % (0-2); EOSINOPHILS % (MANUAL) 1 % (0-6); LYMPHOCYTES % (MANUAL) 4 % (13-45); MONOCYTES % (MANUAL) 2 % (3-13); SEGMENTED NEUTROPHILS % (MAN) 90 % (42-78); TOTAL CELLS COUNTED 100
[2019-11-21 23:07] LABS: PLATELET COMMENT ADEQUATE
[2019-11-21 23:08] LABS: CREATINE KINASE MB 2.01 ng/mL (<4.55); NT PRO BNP 449 pg/mL (<125)
[2019-11-21 23:09] LABS: TROPONIN I < 0.012 ng/mL
[2019-11-21 23:40] LABS: ARTERIAL BLOOD BASE EXCESS -1.3 mmol/L; ARTERIAL BLOOD H2CO3 1.09 mmol/L (1.05-1.35); ARTERIAL BLOOD HCO3 22.8 mmol/L (20-24); ARTERIAL BLOOD O2 SATURATION 89.2 % (94-98); ARTERIAL BLOOD PCO2 36.3 mmHg (35-45); ARTERIAL BLOOD PH 7.42 (7.35-7.45); ARTERIAL BLOOD PO2 54.8 mmHg (80-100); ARTERIAL BLOOD TOTAL CO2 23.9 mmol/L (23-27)
[2019-11-21 23:41] LABS: ARTERIAL BLOOD FIO2 ROOM AIR
[2019-11-22 01:49] VITALS: BP 142/89
--- NOTE | 2019-11-22 05:38 | EKG REPORT ---
SEVERITY:- NORMAL ECG - SINUS RHYTHM : Confirmed by: Tyesha Grace MD 22-Nov-2019 05:37:19
== END 2019-11-22 02:11 | disposition home or self-care (01) ==
LOC: ER 20:49
DX: T17.908A Unspecified foreign body in respiratory tract, part unspecified causing other injury, initial encounter (principal); X58.XXXA Exposure to other specified factors, initial encounter; R53.83 Other fatigue; R05 Cough; G20 Parkinson's disease; F02.80 Dementia in other diseases classified elsewhere, unspecified severity, without behavioral disturbance, psychotic disturbance, mood disturbance, and anxiety; Z87.892 Personal history of anaphylaxis; Z88.8 Allergy status to other drugs, medicaments and biological substances; Z87.891 Personal history of nicotine dependence
CPT/HCPCS: 36415; 71045; 80053; 82550; 82553; 82803; 83605; 83880; 84484; 85025; 87040; 93005; 93010; 94660; 99285

== ENCOUNTER 2020-01-15 15:58 | Emergency (ER) | payer MEDICARE, BC ==
--- NOTE | 2020-01-15 16:09 | ER Document Report ---
ED Medical Screen (RME) - General Chief Complaint: Cough Stated Complaint: COUGH Time Seen by Provider: 01/15/20 16:04 Primary Care Provider: MORAIMA AKERS PA-C [Primary Care Provider] - Follow up as needed Mode of Arrival: Ambulatory Information source: Relative - Notes: 74-year-old male presented to ED for shortness of breath and dry cough for 2 weeks. states he has not had any fevers. He does have a history of Parkinson's reflux dementia and Lewy body. He has skin is removed recently whenever was sent off to check for cancer. states that sometimes he has green-yellow or orange sputum. States he also has secretions in his nose that are green-orange and yellow. I have greeted and performed a rapid initial assessment of this patient. A comprehensive ED assessment and evaluation of the patient, analysis of test results and completion of medical decision making process will be conducted by an additional ED providers. TRAVEL OUTSIDE OF THE [place] IN LAST 30 DAYS: No - Related Data Allergies/Adverse Reactions: cimetidine [From Tagamet] Allergy (Severe, Verified 01/15/20 16:04) Anaphylaxis ranitidine HCl [From Zantac] Allergy (Verified 01/15/20 16:04) Edema Past Medical History - Past Medical History Cardiac Medical History: Reports: Hx Atrial Fibrillation Denies: Hx Coronary Artery Disease, Hx Heart Attack, Hx Hypertension, Hx Pulmonary Embolism Pulmonary Medical History: Reports: Hx Respiratory Failure Denies: Hx Asthma, Hx Bronchitis, Hx COPD, Hx Pneumonia Neurological Medical History: Reports: Hx Parkinson's Disease. Denies: Hx Cer ebrovascular Accident, Hx Seizures Endocrine Medical History: Denies: Hx Diabetes Mellitus Type 1, Hx Diabetes Mellitus Type 2, Hx Hyperthyroidism, Hx Hypothyroidism Renal/ Medical History: Denies: Hx Peritoneal Dialysis Malignancy Medical History: Reports Hx Skin Cancer GI Medical History: Reports: Hx Ulcer - 1977 PEPTIC. Denies: Hx Cirrhosis, Hx Hepatitis, Hx Hiatal Hernia Musculoskeltal Medical History: Denies Hx Arthritis, Denies Hx Gout Skin Medical History: Denies Hx Eczema, Denies Hx Psoriasis Psychiatric Medical History: Reports: Hx Dementia - Parkinson's, Hx Depression Infectious Medical History: Denies: Hx Hepatitis Past Surgical History: Reports: Hx Cardiac Catheterization, Hx Cardiac Surgery - ablation, Other - Patient has undergone cardiac ablation for A. fib. Denies: Hx Open Heart Surgery, Hx Pacemaker - Immunizations Hx Diphtheria, Pertussis, Tetanus Vaccination: No Doctor's Discharge - Discharge Referrals: MORAIMA AKERS PA-C [Primary Care Provider] - Follow up as needed
--- NOTE | 2020-01-15 16:30 | ER Document Report ---
ED General - General Chief Complaint: Cough Stated Complaint: COUGH Time Seen by Provider: 01/15/20 16:04 Primary Care Provider: MORAIMA AKERS PA-C [Primary Care Provider] - Follow up as needed Mode of Arrival: Ambulatory TRAVEL OUTSIDE OF THE [place] IN LAST 30 DAYS: No - HPI Patient complains to provider of: cough Notes: Elderly patient presents with increasing productive cough. Patient has history of Parkinson's nonverbal at baseline. concern for possible pneumonia. Has been a great deal of sputum. Has history of multiple pneumonias in the past. - Related Data Allergies/Adverse Reactions: cimetidine [From Tagamet] Allergy (Severe, Verified 01/15/20 16:04) Anaphylaxis ranitidine HCl [From Zantac] Allergy (Verified 01/15/20 16:04) Edema Home Medications: Xanx, Pramepexole, albutrol, Quetiapine Past Medical History - General Information source: Relative - - Social History Smoking Status: Never Smoker Chew tobacco use (# tins/day): No Drug Abuse: None Family History: CAD - Mother, COPD - Father Patient has suicidal ideation: No Patient has homicidal ideation: No - Past Medical History Cardiac Medical History: Reports: Hx Atrial Fibrillation Denies: Hx Coronary Artery Disease, Hx Heart Attack, Hx Hypertension, Hx Pulmonary Embolism Pulmonary Medical History: Reports: Hx Respiratory Failure Denies: Hx Asthma, Hx Bronchitis, Hx COPD, Hx Pneumonia Neurological Medical History: Reports: Hx Parkinson's Disease. Denies: Hx Cerebrovascular Accident, Hx Seizures Endocrine Medical History: Denies: Hx Diabetes Mellitus Type 1, Hx Diabetes Mellitus Type 2, Hx Hyperthyroidism, Hx Hypothyroidism Renal/ Medical History: Denies: Hx Peritoneal Dialysis Malignancy Medical History: Reports Hx Skin Cancer GI Medical History: Reports: Hx Ulcer - 1978 PEPTIC. Denies: Hx Cirrhosis, Hx Hepatitis, Hx Hiatal Hernia Musculoskeletal Medical History: Denies Hx Arthritis, Denies Hx Gout Skin Medical History: Denies Hx Eczema, Denies Hx Psoriasis Psychiatric Medical History: Reports: Hx Dementia - Parkinson's, Hx Depression Infectious Medical History: Denies: Hx Hepatitis Past Surgical History: Reports: Hx Cardiac Catheterization, Hx Cardiac Surgery - ablation, Other - Patient has undergone cardiac ablation for A. fib. Denies: Hx Open Heart Surgery, Hx Pacemaker - Immunizations Hx Diphtheria, Pertussis, Tetanus Vaccination: No Review of Systems - Review of Systems -: Yes ROS unobtainable due to patient's medical condition Physical Exam - Vital signs Vitals: Temp Pulse Resp BP Pulse Ox 98.1 F 71 16 120/64 99 01/15/20 16:10 01/15/20 16:10 01/15/20 16:10 01/15/20 16:10 01/15/20 16:10 - Notes Notes: PHYSICAL EXAMINATION: GENERAL: Well-appearing, well-nourished and in no acute distress. HEAD: Atraumatic, normocephalic. EYES: Pupils equal round and reactive to light, extraocular movements intact, sclera anicteric, conjunctiva are normal. ENT: nares patent, oropharynx clear without exudates. Moist mucous membranes. NECK: Normal range of motion, supple without lymphadenopathy LUNGS: Diffuse rhonchi HEART: Regular rate and rhythm without murmurs ABDOMEN: Soft, nontender, normoactive bowel sounds. No guarding, no rebound. No masses appreciated. EXTREMITIES: Normal range of motion, no pitting or edema. No cyanosis. SKIN: Warm, Dry, normal turgor, no rashes or lesions noted. Course - Re-evaluation Re-evalutation: 01/15/20 17:29 Elderly male presents with concern for possible pneumonia with productive cough. Patient is afebrile stable vitals within normal limits. Will initiate antibiotic therapy in the emergency department. Patient will be discharged home follow-up PCP return if anything worsens or changes. - Vital Signs Vital signs: Temp Pulse Resp BP Pulse Ox 98.1 F 71 16 120/64 99 01/15/20 16:10 01/15/20 16:10 01/15/20 16:10 01/15/20 16:10 01/15/20 16:10 - Laboratory Result Diagrams: 01/15/20 16:35 01/15/20 16:35 Laboratory results interpreted by me: 01/15/20 01/15/20 16:35 16:35 RBC 4.28 L Hgb 13.4 L RDW 14.3 H Eos % (Auto) 14.4 H Absolute Eos (auto) 1.0 H Chloride 109 H BUN 22 H Est GFR (MDRD) Non-Af 58 L Glucose 72 L Discharge - Discharge Clinical Impression: Pneumonia Qualifiers: Pneumonia type: due to unspecified organism Laterality: unspecified laterality Lung location: unspecified part of lung Qualified Code(s): J18.9 - Pneumonia, unspecified organism Condition: Stable Disposition: HOME, SELF-CARE Prescriptions: Doxycycline Hyclate 100 mg PO BID #20 tablet. Referrals: MORAIMA AKERS PA-C [Primary Care Provider] - Follow up as needed
--- NOTE | 2020-01-15 16:35 | RADIOLOGY REPORT (SQ) ---
EXAM DESCRIPTION: CHEST 2 VIEWS COMPLETED DATE/TIME: 01/15/2020 4:26 pm REASON FOR STUDY: Cough productive x2 weeks COMPARISON: None. EXAM PARAMETERS: NUMBER OF VIEWS: two views TECHNIQUE: Digital Frontal and Lateral radiographic views of the chest acquired. RADIATION DOSE: NA LIMITATIONS: Lung apices obscured by overlying neck. FINDINGS: LUNGS AND PLEURA: Emphysematous change with increased AP diameter and flattening of the he midiaphragm. No focal consolidation, pleural effusion or pneumothorax. MEDIASTINUM AND HILAR STRUCTURES: No masses or contour abnormalities. HEART AND VASCULAR STRUCTURES: Heart normal size. No evidence for failure. BONES: No acute findings. HARDWARE: None in the chest. OTHER: No other significant finding. IMPRESSION: Emphysematous change without evidence of acute cardiopulmonary process. TECHNICAL DOCUMENTATION: JOB ID: [id number] 2010 [employer]- All Rights Reserved Reading location - IP/workstation name: [email or web address]
[2020-01-15 16:56] LABS: ABSOLUTE BASOPHILS # (AUTO) 0.1 10^3/uL (0.0-0.2); ABSOLUTE MONOCYTES (AUTO) 0.5 10^3/uL (0.1-1.4); ABSOLUTE NEUT (AUTO) 3.3 10^3/uL (1.7-8.2); BASOPHILS % (AUTO) 1.1 % (0-2); EOSINOPHILS % (AUTO) 14.4 % (0-6); HEMOGLOBIN 13.4 g/dL (13.5-17.0); LYMPHOCYTES % (AUTO) 28.8 % (13-45); MEAN CORPUSCULAR HEMOGLOBIN 31.4 pg (27.0-33.4); MEAN CORPUSCULAR HGB CONC 33.6 g/dL (32.0-36.0); MEAN CORPUSCULAR VOLUME 94 fl (80-97); MONOCYTES % (AUTO) 7.2 % (3-13); PLATELET COUNT 230 10^3/uL (150-450); RED BLOOD COUNT 4.28 10^6/uL (4.35-5.55); RED CELL DISTRIBUTION WIDTH 14.3 % (11.5-14.0); SEGMENTED NEUTROPHILS % (AUTO) 48.5 % (42-78); TOTAL CELLS COUNTED % (AUTO) 100 %; WHITE BLOOD COUNT 6.9 10^3/uL (4.0-10.5)
[2020-01-15 17:18] LABS: ALBUMIN 4.2 g/dL (3.5-5.0); ALKALINE PHOSPHATASE 60 U/L (38-126); ANION GAP 8 (5-19); ASPARTATE AMINO TRANSFERASE 22 U/L (17-59); BILIRUBIN,TOTAL 0.5 mg/dL (0.2-1.3); BLOOD UREA NITROGEN 22 mg/dL (7-20); CALCIUM 9.2 mg/dL (8.4-10.2); CARBON DIOXIDE 27 mmol/L (22-30); CHLORIDE 109 mmol/L (98-107); GLUCOSE 72 mg/dL (75-110); POTASSIUM 4.2 mmol/L (3.6-5.0); TOTAL PROTEIN 6.7 g/dL (6.3-8.2)
[2020-01-15] MEDS ORDERED: IPRATROPIUM/ALBUTEROL 0.5-2.5 MG/3 ML AMPUL NEB ONE ×2 (17:41)
[2020-01-15 18:33] VITALS: BP 121/62
== END 2020-01-15 18:29 | disposition home or self-care (01) ==
LOC: ER 15:58
DX: J18.9 Pneumonia, unspecified organism (principal); I48.91 Unspecified atrial fibrillation; Z85.828 Personal history of other malignant neoplasm of skin
CPT/HCPCS: 94640; 99283; 36415; 85025; 80053; 71046; A9270; J7620

== ENCOUNTER 2020-01-19 01:39 | Inpatient (IN) | payer MEDICARE, BC ==
[2020-01-19] MEDS ORDERED: NOREPINEPHRINE BITARTRATE INJ/PF 4 MG/4 ML SDV IV ONE (01:47)
[2020-01-19] MEDS ORDERED: DEXTROSE 5%-WATER 250 ML with NOREPINEPHRINE BITARTRATE 4 MG IV PRN ×2 (02:17)
[2020-01-19 02:29] LABS: ABSOLUTE BASOPHILS # (AUTO) 0.1 10^3/uL (0.0-0.2); ABSOLUTE EOSINOPHILS # (AUTO) 0.9 10^3/uL (0.0-0.6); ABSOLUTE LYMPHOCYTES (AUTO) 2.2 10^3/uL (0.5-4.7); ABSOLUTE MONOCYTES (AUTO) 0.5 10^3/uL (0.1-1.4); ABSOLUTE NEUT (AUTO) 6.5 10^3/uL (1.7-8.2); BASOPHILS % (AUTO) 0.7 % (0-2); EOSINOPHILS % (AUTO) 8.8 % (0-6); HEMATOCRIT 34.1 % (37.9-51.0); HEMOGLOBIN 11.3 g/dL (13.5-17.0); MEAN CORPUSCULAR HEMOGLOBIN 31.5 pg (27.0-33.4); MEAN CORPUSCULAR HGB CONC 33.1 g/dL (32.0-36.0); MEAN CORPUSCULAR VOLUME 95 fl (80-97); MONOCYTES % (AUTO) 4.8 % (3-13); PLATELET COUNT 164 10^3/uL (150-450); RED BLOOD COUNT 3.59 10^6/uL (4.35-5.55); RED CELL DISTRIBUTION WIDTH 14.6 % (11.5-14.0); SEGMENTED NEUTROPHILS % (AUTO) 63.7 % (42-78); TOTAL CELLS COUNTED % (AUTO) 100 %; WHITE BLOOD COUNT 10.2 10^3/uL (4.0-10.5)
[2020-01-19 02:35] LABS: ALBUMIN 2.8 g/dL (3.5-5.0); ALKALINE PHOSPHATASE 53 U/L (38-126); ANION GAP 7 (5-19); ASPARTATE AMINO TRANSFERASE 21 U/L (17-59); BILIRUBIN,DIRECT 0.2 mg/dL (0.0-0.4); BILIRUBIN,TOTAL 0.5 mg/dL (0.2-1.3); BLOOD UREA NITROGEN 20 mg/dL (7-20); CALCIUM 7.9 mg/dL (8.4-10.2); CARBON DIOXIDE 26 mmol/L (22-30); CHLORIDE 112 mmol/L (98-107); GLUCOSE 148 mg/dL (75-110); POTASSIUM 3.7 mmol/L (3.6-5.0); TOTAL PROTEIN 5.1 g/dL (6.3-8.2)
[2020-01-19 02:41] LABS: APPEARANCE,URINE SLIGHTLY-CLOUDY; BILIRUBIN,URINE NEGATIVE (NEGATIVE); COLOR,URINE YELLOW; GLUCOSE, URINE 50 mg/dL (NEGATIVE); KETONES,URINE NEGATIVE (NEGATIVE); PROTEIN,URINE 100 mg/dL (NEGATIVE); URINE SPECIFIC GRAVITY 1.023
[2020-01-19 02:46] LABS: INTERNATIONAL RATION (INR) 1.21; PROTHROMBIN TIME 15.4 SEC (11.4-15.4)
--- NOTE | 2020-01-19 02:47 | ER Document Report ---
Entered by JUANY LEE SCRIBE 01/19/20 0200 Acting as scribe for:AVA DIGGS IV, MD ED General - General Chief Complaint: Unresponsive Stated Complaint: UNRESPONSIVE Information source: Emergency Med Personnel Notes: 74-year-old male with COPD and Parkinson's disease presents to the emergency department via EMS in respiratory distress. Patient's reported to EMS that patient completed his albuterol treatment and got remarkably worse in his condition. Patient was found unresponsive by EMS upon arrival. EMS reported a respiratory rate of 20 and a systolic blood pressure of 83 with no improvement. EMS performed a rapid sequence intubation on patient. Patient was given 100 ketamine and 125 mg solu-medrol prior to arrival. EMS explains past patient presentations as odd. DDx: respiratory failure secondary to COPD, PNA, sepsis and influenza. TRAVEL OUTSIDE OF THE [place] IN LAST 30 DAYS: No - Related Data Allergies/Adverse Reactions: cimetidine [From Tagamet] Allergy (Severe, Verified 01/15/20 16:04) Anaphylaxis ranitidine HCl [From Zantac] Allergy (Verified 01/15/20 16:04) Edema Past Medical History - General Cannot obtain history due to: Intubated - Social History Smoking Status: Smoker,Current Status Unk Lives with: Spouse/Significant other Family History: CAD - Mother, COPD - Father - Past Medical History Cardiac Medical History: Reports: Hx Atrial Fibrillation Pulmonary Medical History: Reports: Hx Respiratory Failure Neurological Medical History: Reports: Hx Parkinson's Disease Malignancy Medical History: Reports Hx Skin Cancer GI Medical History: Reports: Hx Ulcer - 1977 [facility] Psychiatric Medical History: Reports: Hx Dementia - Parkinson's, Hx Depression Past Surgical History: Reports: Hx Cardiac Catheterization, Hx Cardiac Surgery - ablation, Other - Patient has undergone cardiac ablation for A. fib - Immunizations Hx Diphtheria, Pertussis, Tetanus Vaccination: No Review of Systems - Review of Systems -: Yes ROS unobtainable due to patient's medical condition Physical Exam - Vital signs Vitals: Resp BP Pulse Ox 11 L 87/49 L 100 01/19/20 01:43 01/19/20 01:43 01/19/20 01:43 - Notes Notes: Physical Exam: General: Intubated prior to arrival. HEENT: Normocephalic. Atraumatic. PERRL. Extraocular movements intact. O ropharynx clear. Neck: Supple. Non-tender. Respiratory: No respiratory distress. Breath sounds bilaterally. No wheezes or rhonchi. Cardiovascular: Regular rate and rhythm. Abdominal: Normal Inspection. Non-tender. No distension. Normal Bowel Sounds. Back: No gross abnormalities. Extremities: Moves all four extremities. Upper extremities: Normal inspection. Normal ROM. Lower extremities: Normal inspection. No edema. Normal ROM. Neurological: Normal cognition. AAOx4. Normal speech. Psychological: Normal affect. Normal Mood. Skin: Warm. Dry. Normal color. Course - Re-evaluation Re-evalutation: 01/19/20 02:26 Patient's family was notified of patient's current status and plan for admission and stabilization. - Vital Signs Vital signs: Temp Pulse Resp BP Pulse Ox 95.7 F L 16 130/63 H 100 01/19/20 03:21 01/19/20 03:21 01/19/20 03:21 01/19/20 03:21 - Laboratory Result Diagrams: 01/19/20 01:43 01/19/20 01:43 Laboratory results interpreted by me: 01/19/20 01/19/20 01/19/20 01:43 01:43 02:15 RBC 3.59 L Hgb 11.3 L Hct 34.1 L RDW 14.6 H Eos % (Auto) 8.8 H Absolute Eos (auto) 0.9 H Chloride 112 H Glucose 148 H Calcium 7.9 L Total Protein 5.1 L Albumin 2.8 L Urine Protein 100 H Urine Glucose (UA) 50 H Urine Urobilinogen 2.0 H Urine Ascorbic Acid 20 H - EKG Interpretation by Me Additional EKG results interpreted by me: 01/19/20 02:48 EKG obtained on 01/19/2020 at 0230 hrs. was interpreted by this MD. Findings: Sinus rhythm, rate 91, normal axis, P waves proceed QRS complexes, QRS complexes appear narrow, there are no obviously visible patterns of ST segment elevation or depression present to suggest acute myocardial ischemia or infarction. Impression normal sinus rhythm with nonspecific ST segments. - Consults VERA Mendoza Time consulted: 02:27 Reason for consultation: 01/19/20 02:27 respiratory failure, intubated Consulted provider: will come to ER Critical Care Note - Critical Care Note Total time excluding time spent on procedures (mins): 30 Discharge - Discharge Clinical Impression: Respiratory failure Qualifiers: Chronicity: unspecified Respiratory failure complication: hypoxia Qualified Code(s): J96.91 - Respiratory failure, unspecified with hypoxia Condition: Critical Disposition: ADMITTED INPATIENT Admitting Provider: Mary Jo (Mastic Worker) Unit Admitted: ICU I personally performed the services described in the documentation, reviewed and edited the documentation which was dictated to the scribe in my presence, and it accurately records my words and actions.
--- NOTE | 2020-01-19 03:04 | RADIOLOGY REPORT (SQ) ---
EXAM: XR Chest, 1 View EXAM DATE/TIME: 01/19/2020 02:18 CLINICAL HISTORY: The patient is 74 years old and is Male; suspected sepsis; intubated TECHNIQUE: Frontal view of the chest. COMPARISON: Chest radiograph from 11/21/2019 FINDINGS: LUNGS: The lungs are mildly hyperinflated but clear. No consolidation visualized. PLEURAL SPACE: Unremarkable. No pneumothorax. HEART: No significant enlargement of the cardiac silhouette. MEDIASTINUM: Unremarkable. BONES/JOINTS: No acute osseous findings. TUBES, LINES AND DEVICES: Endotracheal tube terminates 5 cm above the samanta. Enteric tube terminates in the stomach, with the distal sidehole in the lower esophagus. IMPRESSION: No acute findings visualized in the chest.
[2020-01-19 03:11] LABS: ARTERIAL BLOOD BASE EXCESS -5.1 mmol/L; ARTERIAL BLOOD FIO2 60%; ARTERIAL BLOOD H2CO3 1.54 mmol/L (1.05-1.35); ARTERIAL BLOOD HCO3 22.2 mmol/L (20-24); ARTERIAL BLOOD O2 SATURATION 99.4 % (94-98); ARTERIAL BLOOD PH 7.26 (7.35-7.45); ARTERIAL BLOOD PO2 242.4 mmHg (80-100); ARTERIAL BLOOD TOTAL CO2 23.8 mmol/L (23-27)
[2020-01-19] MEDS ORDERED: MIDAZOLAM HCL 50 MG/100 ML RTUINJ ONE (03:48)
[2020-01-19] MEDS ORDERED: MIDAZOLAM HCL 50 MG/100 ML RTUINJ IV PRN (03:57)
[2020-01-19] MEDS ORDERED: RINGERS SOLUTION,LACTATED 1,000 ML IV PRN (03:57)
[2020-01-19] MEDS ORDERED: DEXTROSE 50%-WATER 25 GM/50 ML DISP.SYRIN IV PRN ×2 (03:57)
[2020-01-19] MEDS ORDERED: IPRATROPIUM/ALBUTEROL 0.5-2.5 MG/3 ML AMPUL NEB ONE ×2 (04:18→04:45)
[2020-01-19] MEDS ORDERED: AMPICILLIN SOD/SULBACTAM 3 GM VIAL IV SCH (04:35)
[2020-01-19] MEDS ORDERED: AMPICILLIN SOD/SULBACTAM 3 GM VIAL IV PRN (04:57)
[2020-01-19] MEDS ORDERED: AMPICILLIN SOD/SULBACTAM 3 GM VIAL IV ONE (05:00)
[2020-01-19] MEDS ORDERED: AMPICILLIN SODIUM/SULBACTAM NA 3 GM in NORMAL SALINE 100 ML IV ONE (05:00)
--- NOTE | 2020-01-19 05:17 | CRITICAL CARE ADMISSION REPORT ---
<JOSE LOVE - Last Filed: 01/19/20 04:40> HPI Date:: 01/19/20 Time:: 04:30 Reason for ICU Reason:: Respiratory Failure HPI: Parkinson's has continued to progress and in the past 2 years has had increasing number of hospital admissions and ER visits with similar complaints of respiratory distress secondary to inability to handle secretions. Today, patient developed shortness of breath not relieved by albuterol. He was found unresponsive by EMS upon arrival and was intubated with rapid sequence intubation including ketamine. Upon arrival to emergency department, patient was hypotensive and started on levophed. Patient is being admitted to the intensive care unit for management of his respiratory failure. I had a lengthy conversation with his and family. We reviewed the patient's overall trajectory with his Parkinson's disease and aspiration history. Patient's does not seem receptive to the idea that this is the end stage of his disease process and that frequent aspiration is a sign of its progression. History obtained from:: Family, Chart Review - Diagnosis/Plan (1) Respiratory failure Qualifiers: Chronicity: unspecified Respiratory failure complication: hypoxia Qualified Code(s): J96.91 - Respiratory failure, unspecified with hypoxia Is this a current diagnosis for this admission?: Yes Plan: Continue patient's current vent settings for now. Obtain ABG and record minute ventilation to establish baseline. Titrate FiO2 to SPO2. Start Solu-Medrol, duo nebs. Unasyn started for probable aspiration pneumonia component of his respiratory failure. (2) Aspiration pneumonitis Is this a current diagnosis for this admission?: Yes Plan: Plan outlined above for respiratory failure. Continue steroids. Patient should undergo a repeat swallow evaluation prior to discharge. Discussion should be held with and family regarding the option of a tracheostomy to better handle secretions. (3) Parkinsons disease Plan: Start home meds for Parkinson's disease. We will reach out to patient's neurologist for guidance regarding his chronic condition. - . Plan Summary: Mr. Burns is at the end stage of his Parkinson's disease as indicated by frequent hospitalizations due to aspiration. His and family will require a great deal of emotional support in understanding where he is along his disease trajectory. Continue supportive care and ventilatory support. Continue antibiotics, steroids and duo nebs for probable aspiration pneumonia. Patient will need a barium swallow prior to discharge once he is extubated. The option for tracheostomy for airway protection and secretion clearance/pulmonary toileting should be addressed with family. Past Medical History Cardiac Medical History: Reports: Atrial Fibrillation Denies: Coronary Artery Disease, Myocardial Infarction, Hypertension, Pulmonary Embolism Pulmonary Medical History: Reports: Respiratory Failure Denies: Asthma, Bronchitis, Chronic Obstructive Pulmonary Disease (COPD), Pneumonia Neurological Medical History: Denies: Seizures Endocrine Medical History: Denies: Diabetes Mellitus Type 1, Diabetes Mellitus Type 2, Hyperthyroidism, Hypothyroidism Malignancy Medical History: Reports: Skin Cancer GI Medical History: Denies: Cirrhosis, Hepatitis, Hiatal Hernia Musculoskeltal Medical History: Denies: Arthritis, Gout Skin Medical History: Denies: Eczema, Psoriasis Psychiatric Medical History: Reports: Dementia - Parkinson's, Depression Hematology: Denies: Anemia, Sickle Cell Disease, Bleeding Tendencies Past Surgical History Past Surgical History: Reports: Cardiac Catheterization, Other - Patient has undergone cardiac ablation for A. fib Denies: Pacemaker Social/Family History - Social History Lives with: Spouse/Significant other Smoking Status: Never Smoker Frequency of Alcohol Use: None Hx Recreational Drug Use: No Drugs: None Hx Prescription Drug Abuse: No - Medication/Allergies Home Medications: Scopolamine 1 each TD Q72HP PRN #10 patch.td.3 08/02/19 Amox Tr/Potassium Clavulanate [Augmentin 875-125 mg Tablet] 1 tab PO BID 5 Days #20 tablet 10/29/19 Azithromycin 500 mg PO DAILY 5 Days #5 tablet 10/29/19 Azithromycin [Zithromax 250 mg Tablet] 250 mg PO ASDIR PRN #6 tablet 11/07/19 Doxycycline Hyclate 100 mg PO BID #20 tablet. 01/15/20 Allergies/Adverse Reactions: cimetidine [From Tagamet] Allergy (Severe, Verified 01/15/20 16:04) Anaphylaxis ranitidine HCl [From Zantac] Allergy (Verified 01/15/20 16:04) Edema Review of Systems ROS unobtainable: Due to endotracheal tube Physical Exam Vital Signs: Temp Pulse Resp BP Pulse Ox 95.7 F L 91 16 130/63 H 99 01/19/20 03:21 01/19/20 04:28 01/19/20 04:28 01/19/20 03:21 01/19/20 04:28 Intake & Output 01/17/20 01/18/2001/18/20 06:59 06:59 06:59 Intake Total 7 Balance 7 Weight 75.1 kg Weight/Height Weight 75.1 kg Height 5 ft 10 in General appearance: PRESENT: thin, other - Sedated Head exam: PRESENT: atraumatic, normocephalic Eye exam: PRESENT: PERRLA Mouth exam: PRESENT: moist - Copious, very thick oral secretions. Neck exam: ABSENT: JVD, lymphadenopathy Respiratory exam: ABSENT: accessory muscle use, prolonged expiratory phas, symmetrical, wheezes Cardiovascular exam: PRESENT: RRR, +S1, +S2 Pulses: PRESENT: normal radial pulses, +2 pedal pulses bilateral Vascular exam: PRESENT: normal capillary refill GI/Abdominal exam: PRESENT: normal bowel sounds, soft. ABSENT: organolmegaly Extremities exam: ABSENT: pedal edema Musculoskeletal exam: PRESENT: normal inspection. ABSENT: deformity Neurological exam: PRESENT: CN II-XII grossly intact, other - Sedated Skin exam: PRESENT: dry, skin tears Tubes/Lines: PRESENT: Endotracheal Tube Laboratory/Radiographs Laboratory Results: 01/19/20 01:43 01/19/20 01:43 01/19/20 01/19/20 01/19/20 01:43 01:43 01:43 WBC 10.2 RBC 3.59 L Hgb 11.3 L Hct 34.1 L MCV 95 MCH 31.5 MCHC 33.1 RDW 14.6 H Plt Count 164 Seg Neutrophils % 63.7 Carbonic Acid HCO3/H2CO3 Ratio ABG pH ABG pCO2 ABG pO2 ABG HCO3 ABG O2 Saturation ABG Base Excess FiO2 Sodium 144.8 Potassium 3.7 Chloride 112 H Carbon Dioxide 26 Anion Gap 7 BUN 20 Creatinine 0.93 Est GFR ( Amer) > 60 Glucose 148 H Lactic Acid 1.1 Calcium 7.9 L Total Bilirubin 0.5 AST 21 Alkaline Phosphatase 53 Total Protein 5.1 L Albumin 2.8 L Urine Color Urine Appearance Urine pH Ur Specific Anna Urine Protein Urine Glucose (UA) Urine Ketones Urine Blood Urine RBC (Auto) 01/19/20 01/19/20 01/19/20 02:15 02:46 03:59 WBC RBC Hgb Hct MCV MCH MCHC RDW Plt Count Seg Neutrophils % Carbonic Acid 1.54 H HCO3/H2CO3 Ratio 14:1 ABG pH 7.26 L ABG pCO2 51.0 H ABG pO2 242.4 H ABG HCO3 22.2 ABG O2 Saturation 99.4 H ABG Base Excess -5.1 FiO2 60% Sodium Potassium Chloride Carbon Dioxide Anion Gap BUN Creatinine Est GFR ( Amer) Glucose Lactic Acid 1.2 Calcium Total Bilirubin AST Alkaline Phosphatase Total Protein Albumin Urine Color YELLOW Urine Appearance SLIGHTLY-CLOUDY Urine pH 5.0 Ur Specific Anna 1.023 Urine Protein 100 H Urine Glucose (UA) 50 H Urine Ketones NEGATIVE Urine Blood NEGATIVE Urine RBC (Auto) 1 01/19/20 01:43 Troponin I < 0.012 Impressions: Chest X-Ray 01/19/20 02:18 IMPRESSION: No acute findings visualized in the chest. All labs, radiographs, diagnostic studies and EKGs were personally reviewed: Yes In addition, reports of radiographic and diagnostic studies were read: Yes Critical Time Critical Time (minutes): 75 -: The care of a critically ill patient is dynamic. This note represents a static moment in the admission process. Orders and treatments may be given simultaneously and urgently, and time is not shipping services sales representative of the treatment process. This patient requires Critical Care secondary to life threatening organ or limb dysfunction. Without Critical Care services, the patient is at risk for increased mortality and morbidity. <FRANK BROTHERS - Last Filed: 01/19/20 08:40> HPI - . Plan Summary: I personally saw and examined patient and discussed case and care with VERA Love. Agree with care, findings and plan. See my note which is addended. Physical Exam Vital Signs: Temp Pulse Resp BP Pulse Ox 98.4 F 85 15 103/55 L 99 01/19/20 08:00 01/19/20 08:00 01/19/20 08:00 01/19/20 08:00 01/19/20 08:00 Intake & Output 01/18/20 01/19/20 01/20/20 06:59 06:59 06:59 Intake Total 7 Output Total 45 Balance 7 -45 Weight 68.6 kg Weight/Height Weight 68.6 kg Height 5 ft 10 in Laboratory/Radiographs Laboratory Results: 01/19/20 01:43 01/19/20 01:43 01/19/20 01/19/20 01/19/20 01:43 01:43 01:43 WBC 10.2 RBC 3.59 L Hgb 11.3 L Hct 34.1 L MCV 95 MCH 31.5 MCHC 33.1 RDW 14.6 H Plt Count 164 Seg Neutrophils % 63.7 Carbonic Acid HCO3/H2CO3 Ratio ABG pH ABG pCO2 ABG pO2 ABG HCO3 ABG O2 Saturation ABG Base Excess FiO2 Sodium 144.8 Potassium 3.7 Chloride 112 H Carbon Dioxide 26 Anion Gap 7 BUN 20 Creatinine 0.93 Est GFR ( Amer) > 60 Glucose 148 H Lactic Acid 1.1 Calcium 7.9 L Total Bilirubin 0.5 AST 21 Alkaline Phosphatase 53 Total Protein 5.1 L Albumin 2.8 L Urine Color Urine Appearance Urine pH Ur Specific Anna Urine Protein Urine Glucose (UA) Urine Ketones Urine Blood Urine RBC (Auto) 01/19/20 01/19/20 01/19/20 02:15 02:46 03:59 WBC RBC Hgb Hct MCV MCH MCHC RDW Plt Count Seg Neutrophils % Carbonic Acid 1.54 H HCO3/H2CO3 Ratio 14:1 ABG pH 7.26 L ABG pCO2 51.0 H ABG pO2 242.4 H ABG HCO3 22.2 ABG O2 Saturation 99.4 H ABG Base Excess -5.1 FiO2 60% Sodium Potassium Chloride Carbon Dioxide Anion Gap BUN Creatinine Est GFR ( Amer) Glucose Lactic Acid 1.2 Calcium Total Bilirubin AST Alkaline Phosphatase Total Protein Albumin Urine Color YELLOW Urine Appearance SLIGHTLY-CLOUDY Urine pH 5.0 Ur Specific Anna 1.023 Urine Protein 100 H Urine Glucose (UA) 50 H Urine Ketones NEGATIVE Urine Blood NEGATIVE Urine RBC (Auto) 1 01/19/20 05:50 WBC RBC Hgb Hct MCV MCH MCHC RDW Plt Count Seg Neutrophils % Carbonic Acid 1.34 HCO3/H2CO3 Ratio 17:1 ABG pH 7.35 ABG pCO2 44.6 ABG pO2 269.2 H ABG HCO3 24.0 ABG O2 Saturation 99.6 H ABG Base Excess -1.8 FiO2 60% Sodium Potassium Chloride Carbon Dioxide Anion Gap BUN Creatinine Est GFR ( Amer) Glucose Lactic Acid Calcium Total Bilirubin AST Alkaline Phosphatase Total Protein Albumin Urine Color Urine Appearance Urine pH Ur Specific Anna Urine Protein Urine Glucose (UA) Urine Ketones Urine Blood Urine RBC (Auto) 01/19/20 01:43 Troponin I < 0.012 Impressions: Chest X-Ray 01/19/20 02:18 IMPRESSION: No acute findings visualized in the chest. Critical Time -: The care of a critically ill patient is dynamic. This note represents a static moment in the admission process. Orders and treatments may be given simultaneously and urgently, and time is not shipping services sales representative of the treatment p rocess. This patient requires Critical Care secondary to life threatening organ or limb dysfunction. Without Critical Care services, the patient is at risk for increased mortality and morbidity.
[2020-01-19 05:58] LABS: ARTERIAL BLOOD BASE EXCESS -1.8 mmol/L; ARTERIAL BLOOD H2CO3 1.34 mmol/L (1.05-1.35); ARTERIAL BLOOD O2 SATURATION 99.6 % (94-98); ARTERIAL BLOOD PCO2 44.6 mmHg (35-45); ARTERIAL BLOOD PH 7.35 (7.35-7.45); ARTERIAL BLOOD PO2 269.2 mmHg (80-100); ARTERIAL BLOOD TOTAL CO2 25.3 mmol/L (23-27)
[2020-01-19 06:00] LABS: ARTERIAL BLOOD FIO2 60%
[2020-01-19] MEDS ORDERED: METHYLPREDNISOLONE INJ 125 MG/2 ML SDV IV SCH (06:00)
[2020-01-19] MEDS: HEPARIN SOD (PORCINE) 5,000 UNIT/ML 1 ML VIAL SUBCUT SCH ×3 (06:06→21:02)
[2020-01-19] MEDS ORDERED: INFLUENZA QUAD (6MOS+) 2019-20 VAC 0.5 ML SYR IM ONE (07:59)
[2020-01-19] MEDS: IPRATROPIUM/ALBUTEROL 0.5-2.5 MG/3 ML AMPUL NEB SCH ×3 (08:52→15:59)
[2020-01-19] MEDS ORDERED: PANTOPRAZOLE SODIUM 40 MG VIAL IV SCH (10:00)
[2020-01-19] MEDS: AMPICILLIN SODIUM/SULBACTAM NA 3 GM in NORMAL SALINE 100 ML IV SCH ×3 (12:20→23:37)
[2020-01-19] MEDS: RINGERS SOLUTION,LACTATED 1,000 ML IV PRN (12:23)
[2020-01-19 17:18] LABS: ARTERIAL BLOOD BASE EXCESS -1.9 mmol/L; ARTERIAL BLOOD H2CO3 1.21 mmol/L (1.05-1.35); ARTERIAL BLOOD HCO3 23.1 mmol/L (20-24); ARTERIAL BLOOD O2 SATURATION 65.3 % (94-98); ARTERIAL BLOOD PCO2 40.3 mmHg (35-45); ARTERIAL BLOOD PH 7.38 (7.35-7.45); ARTERIAL BLOOD TOTAL CO2 24.3 mmol/L (23-27)
[2020-01-19 17:22] LABS: ARTERIAL BLOOD FIO2 35%
[2020-01-19 17:23] LABS: ARTERIAL BLOOD PO2 34.7 mmHg (80-100)
--- NOTE | 2020-01-19 18:22 | EKG REPORT ---
SEVERITY:- NORMAL ECG - SINUS RHYTHM : Confirmed by: Leidy Melton 19-Jan-2020 18:21:16
[2020-01-19] MEDS ORDERED: FLUTICASONE NASAL SPRAY 50 MCG/SPRY 120 SPRAY/16 GM NASL PRN (18:23)
--- NOTE | 2020-01-19 18:23 | Progress Note ---
Provider Note Provider Note: I personally saw and evaluated Mr. Burns after his admission done by VERA Love. On signout rounds we discussed the patient's presentation, findings, plans and progression. Patient was seen on multidisciplinary rounds and routine in standard critical care bundles such as the ABCD EF bundle were completed. The long lengthy discussion with the patient's who states that he has been continuing to decline. He endorses suctioning because of secretions and noted that they have become more excessive. He was started on scopolamine for this. She denies any aspiration events and he has been evaluated multiple times for this. Patient's stated that these have occurred here but the last one that we have is from 2018. That time the impression was that he had pharyngeal stage dysphagia mild to moderate and possible early Lewy body dementia. Recommendations were for regular solid diet thin liquids with aspiration precautions and to remain fully upright during the meal alternating bites and sips and would require assistance. I am concerned that the patient's decline has worsened and may be unrecognized by his . She states that he appears to be doing better with Parkinson's rehabilitation however other indicators suggest that this is not so. Patient was continually evaluated throughout the day to determine suitability for liberation from mechanical ventilation. Versed sedation had been stopped during morning rounds. He had slight urine output but improved in the afternoon evaluation. He was being weaned from the ventilator on SBT went he abruptly extubated. Evaluation showed no hoarseness or stridor He did have thick secretions which were suctioned. I am concerned the patient may have the development of supranuclear palsy and or significant worsening dementia with possible ALS. I have discussed this with the patient's . We will await for him to be fully awake and reexamine him for full neurologic function or dysfunction. We will begin patient's medications. He is not tolerating carbidopa type medications and has not been on them for some time. Total critical care time 60 minutes
[2020-01-19] MEDS ORDERED: PRAMIPEXOLE DI-HCL 0.25 MG TABLET PO SCH (18:30)
[2020-01-19] MEDS ORDERED: ALBUTEROL SULFATE 0.083% NEB 2.5 MG/3 ML AMPUL NEB SCH (20:00)
[2020-01-19] MEDS: QUETIAPINE FUMARATE 25 MG TABLET PO SCH (21:01)
[2020-01-19] MEDS: RIVASTIGMINE 9.5 MG/24 HR PATCH.TD24 TD SCH (21:01)
[2020-01-19] MEDS: PRAMIPEXOLE DI-HCL 0.5 MG TABLET PO SCH (21:02)
[2020-01-19] MEDS: ALPRAZOLAM 0.25 MG TABLET PO PRN (21:03)
[2020-01-20] MEDS: HEPARIN SOD (PORCINE) 5,000 UNIT/ML 1 ML VIAL SUBCUT SCH ×3 (05:22→21:51)
[2020-01-20] MEDS: AMPICILLIN SODIUM/SULBACTAM NA 3 GM in NORMAL SALINE 100 ML IV SCH ×4 (05:22→23:01)
[2020-01-20] MEDS: ACETAMINOPHEN 325 MG TABLET PO PRN (06:37)
--- NOTE | 2020-01-20 08:18 | RADIOLOGY REPORT (SQ) ---
EXAM DESCRIPTION: CHEST SINGLE VIEW COMPLETED DATE/TIME: 01/20/2020 6:35 am REASON FOR STUDY: aspiration COMPARISON: 01/19/2020 NUMBER OF VIEWS: One view. TECHNIQUE: Single frontal radiographic view of the chest acquired. LIMITATIONS: None. FINDINGS: LUNGS AND PLEURA: Lungs are slightly hyperinflated. Mild upper lobe scarring is suggested . No pneumothorax or developing opacity. MEDIASTINUM AND HILAR STRUCTURES: No masses. Contour normal. HEART AND VASCULAR STRUCTURES: Heart normal in size. Normal vasculature. BONES: No acute findings. HARDWARE: Endotracheal and nasogastric tubes have been removed. No indwelling lines appreciated. OTHER: No other significant finding. IMPRESSION: No acute findings. Extubated. TECHNICAL DOCUMENTATION: JOB ID: [id number] 2010 [employer]- All Rights Reserved Reading location - IP/workstation name: [email or web address]
[2020-01-20 08:37] LABS: ABSOLUTE EOSINOPHILS # (AUTO) 0.1 10^3/uL (0.0-0.6); ABSOLUTE LYMPHOCYTES (AUTO) 1.4 10^3/uL (0.5-4.7); ABSOLUTE MONOCYTES (AUTO) 0.6 10^3/uL (0.1-1.4); ABSOLUTE NEUT (AUTO) 7.9 10^3/uL (1.7-8.2); BASOPHILS % (AUTO) 0.5 % (0-2); EOSINOPHILS % (AUTO) 0.6 % (0-6); HEMATOCRIT 33.7 % (37.9-51.0); HEMOGLOBIN 11.7 g/dL (13.5-17.0); LYMPHOCYTES % (AUTO) 13.9 % (13-45); MEAN CORPUSCULAR HEMOGLOBIN 31.9 pg (27.0-33.4); MEAN CORPUSCULAR HGB CONC 34.9 g/dL (32.0-36.0); MEAN CORPUSCULAR VOLUME 92 fl (80-97); MONOCYTES % (AUTO) 5.9 % (3-13); PLATELET COUNT 168 10^3/uL (150-450); RED BLOOD COUNT 3.68 10^6/uL (4.35-5.55); RED CELL DISTRIBUTION WIDTH 14.6 % (11.5-14.0); SEGMENTED NEUTROPHILS % (AUTO) 79.1 % (42-78); TOTAL CELLS COUNTED % (AUTO) 100 %
[2020-01-20 08:45] LABS: ANION GAP 6 (5-19); BLOOD UREA NITROGEN 21 mg/dL (7-20); CALCIUM 8.3 mg/dL (8.4-10.2); CARBON DIOXIDE 25 mmol/L (22-30); CHLORIDE 109 mmol/L (98-107); GLUCOSE 94 mg/dL (75-110); PHOSPHORUS 3.2 mg/dL (2.5-4.5); POTASSIUM 4.1 mmol/L (3.6-5.0)
[2020-01-20] MEDS: ASCORBIC ACID 500 MG TABLET PO SCH (09:18)
[2020-01-20] MEDS: ASPIRIN 325 MG TABLET PO SCH (09:18)
[2020-01-20] MEDS: RIVASTIGMINE 9.5 MG/24 HR PATCH.TD24 TD SCH (09:19)
[2020-01-20] MEDS: ALPRAZOLAM 0.25 MG TABLET PO PRN ×2 (09:19→21:51)
[2020-01-20] MEDS: PRAMIPEXOLE DI-HCL 0.5 MG TABLET PO SCH ×3 (09:19→18:28)
[2020-01-20] MEDS: RINGERS SOLUTION,LACTATED 1,000 ML IV PRN (09:23)
--- NOTE | 2020-01-20 12:23 | PDOC CRITICAL CARE PROG REPORT ---
General Date:: 01/20/20 ICU Day:: 2 Hospital Day:: 2 Resuscitation Status: Full Code Medical Power of Traffic Signal Supervisor Maintenance: : Dorothy Events in the past 12 to 24 Hours:: The patient was weaning on mechanical ventilation and self extubated late yesterday afternoon. He has been stable from a respiratory standpoint but had significant agitation and secretion issues last night. Nursing note: "At approximately 2130, pt's stepping out of room. Pt became increasingly agitated and confused. Pt disrobing, becoming very hostile when this development writer attempted to redress him. Pt saying that he wanted to leave. This development writer attempting to reorient him. Unable. Pt becoming more agitated, attempting to pull out IV's. This development writer holding line, unable to get patient to release his healthcare receptionist on IV. Pt attempting to bite this development writer and dig his fingernails into this writers hands. arriving back at bedside, also unable to decrease pt's agitation. calling family to attempt to calm pt. Pt finally relaxing enough to release healthcare receptionist on IV. Sleeves placed on pt's arms bilaterally. remains at bedside to reassure pt and decrease anxious events. Pt is currently sleeping, no distress noted." He is more quiet today and did receive his medications including Seroquel last evening. I had a long lengthy discussion with the patient's regarding his normal status at home. There appears to be insidious worsening of his overall status. Review of his medical records reveals an admission to the hospital and/or evaluation in the emergency room every 1 to 2 months. Patient's has to continually watch him for excess secretions and has to suction him. She describes the events for this admission is quite concerning. She stated that he could not breathe and became stridorous. She notes that there was hypoxia on his pulse oximeter. Review of systems relevant to events:: Patient was able to swallow his medications. Remains afebrile hemodynamically non-labile. His strength is diminished at baseline. Reason for ICU Addmission:: Respiratory Failure - Medications: Medications reviewed and adjusted accordingly: Yes Physical Exam Vital Signs: Temp Pulse Resp BP Pulse Ox 98.8 F 76 14 150/88 H 99 01/20/20 08:00 01/20/20 10:00 01/20/20 08:00 01/20/20 10:00 01/20/20 10:00 Intake & Output 01/19/20 01/20/20 01/21/20 06:59 06:59 06:59 Intake Total 7 500 1000 Output Total 910 325 Balance 7 -410 675 Weight 68.6 kg 68.4 kg Weight/Height Weight 68.4 kg Height 5 ft 10 in General appearance: PRESENT: no acute distress, cooperative, thin, well- developed, well-nourished Exam: Elderly appearing nontoxic chronically and acutely ill-appearing 74-year-old male no active distress. He is oriented to person only. He can recognize and identify his . Head exam: PRESENT: atraumatic, normocephalic Eye exam: PRESENT: conjunctiva pink, EOMI, PERRLA. ABSENT: conjunctival injection, nystagmus, scleral icterus Ear exam: PRESENT: normal external ear exam Mouth exam: PRESENT: moist Neck exam: PRESENT: other - Patient's neck in flexed deformity with significant kyphoscoliosis. Restricted range of motion in both flexion extension and ro tation. ABSENT: carotid bruit, full ROM, JVD, lymphadenopathy, meningismus, tenderness, thyromegaly, tracheal deviation Respiratory exam: PRESENT: clear to auscultation nicolle, unlabored. ABSENT: accessory muscle use, rales, rhonchi, tachypnea, wheezes Cardiovascular exam: PRESENT: RRR, +S1, +S2 Pulses: ABSENT: normal dorsalis pedis pul GI/Abdominal exam: PRESENT: normal bowel sounds, soft. ABSENT: ascites, distended, guarding, mass, organolmegaly, rebound, tenderness Rectal exam: PRESENT: deferred Gentrourinary exam: PRESENT: indwelling catheter Extremities exam: PRESENT: other - No rigidity. No tremor. ABSENT: tenderness Musculoskeletal exam: ABSENT: deformity, dislocation Neurological exam: PRESENT: awake, oriented to person, CN II-XII grossly intact, other - Patient feels that [place] [address] He is able to identify his Dorothy and that they have been for 100s of years. He is able to identify his siblings but is unable to clarify any specific questions. Specifically he lacks executive function tests. He has remote memory although often has to be prompted by his . When asked "what does 2+2 equal" he is unable to answer or qualify and answer. No appreciable cogwheeling. There is no tremor noted.. ABSENT: oriented to place, oriented to time, oriented to situation, motor sensory deficit Psychiatric exam: PRESENT: flat affect Focused psych exam: PRESENT: delusional. ABSENT: pressured speech, psychomotor agitation, restlessness Skin exam: PRESENT: dry, intact, warm. ABSENT: cyanosis, rash Tubes/Lines: PRESENT: Other - Robles catheter Laboratory/Radiographs Laboratory Results: 01/20/20 08:22 01/20/20 08:22 01/19/20 01/19/20 01/20/20 16:22 16:55 08:22 WBC 10.0 RBC 3.68 L Hgb 11.7 L Hct 33.7 L MCV 92 MCH 31.9 MCHC 34.9 RDW 14.6 H Plt Count 168 Seg Neutrophils % 79.1 H Carbonic Acid Cancelled 1.21 HCO3/H2CO3 Ratio Cancelled 19:1 ABG pH Cancelled 7.38 ABG pCO2 Cancelled 40.3 ABG pO2 Cancelled 34.7 L* ABG HCO3 Cancelled 23.1 ABG O2 Saturation Cancelled 65.3 L ABG Base Excess Cancelled -1.9 FiO2 Cancelled 35% Sodium Potassium Chloride Carbon Dioxide Anion Gap BUN Creatinine Est GFR ( Amer) Glucose Calcium Phosphorus Magnesium 01/20/20 08:22 WBC RBC Hgb Hct MCV MCH MCHC RDW Plt Count Seg Neutrophils % Carbonic Acid HCO3/H2CO3 Ratio ABG pH ABG pCO2 ABG pO2 ABG HCO3 ABG O2 Saturation ABG Base Excess FiO2 Sodium 139.5 Potassium 4.1 Chloride 109 H Carbon Dioxide 25 Anion Gap 6 BUN 21 H Creatinine 0.78 Est GFR ( Amer) > 60 Glucose 94 Calcium 8.3 L Phosphorus 3.2 Magnesium 2.2 01/19/20 01:43 Troponin I < 0.012 Impressions: Chest X-Ray 01/20/20 06:00 IMPRESSION: No acute findings. Extubated. All labs, radiographs, diagnostic studies and EKGs were personally reviewed: Yes In addition, reports of radiographic and diagnostic studies were read: Yes Assessment and Plan - Diagnosis (1) Acute hypoxemic respiratory failure Is this a current diagnosis for this admission?: Yes Plan: Improved. Self-extubated (2) Aspiration pneumonitis Is this a current diagnosis for this admission?: Yes Plan: Appears to be recurrent and he is at risk (3) Delirium due to another medical condition, acute, hyperactive Is this a current diagnosis for this admission?: Yes Plan: Improved today. There is to have nocturnal agitated delirium (sundowning) (4) At risk for aspiration Is this a current diagnosis for this admission?: Yes (5) Dementia Qualifiers: Dementia type: Lewy body dementia Dementia behavioral disturbance: with behavioral disturbance Qualified Code(s): G31.83 - Dementia with Lewy bodies; F02.81 - Dementia in other diseases classified elsewhere with behavioral disturbance Is this a current diagnosis for this admission?: Yes (6) Lewy body dementia Qualifiers: Dementia behavioral disturbance: with behavioral disturbance Qualified Code(s): G31.83 - Dementia with Lewy bodies; F02.81 - Dementia in other diseases classified elsewhere with behavioral disturbance Is this a current diagnosis for this admission?: Yes (7) Parkinsonism Qualifiers: Parkinsonism type: unspecified Qualified Code(s): G20 - Parkinson's disease Is this a current diagnosis for this admission?: Yes (8) Kyphoscoliosis Is this a current diagnosis for this admission?: Yes Plan Summary: This patient appears to have recurrent aspiration events. His discloses that he has been diagnosed with Parkinson disease however he does not have physical examination findings consistent with this. He does appear to have significant dementia that I feel and believe is under recognized by his . His dementia appears to be more frontal temporal. He does have significant neurological dysfunction with muscular deconditioning and dysfunction. He is at risk for further aspiration and have ordered speech eval. I sincerely believe that his has significant student life advisor exhaustion and because of her care of her may be under recognizing his degree of dysfunction. I have discussed with her the fact that his delirium and frontotemporal processes may have been made worse by the sedation and the intubation. Additionally he had significant time period of hypoxia which may have compromise and already altered sensorium. In his deconditioned state I have asked for physical therapy to be involved to get in a more objective evaluation. I believe that this patient should be placed in a nursing facility. I am concerned giving his evaluation, that he may have the process of progressive supranuclear palsy. I have asked for MRI and MRA of the brain to look at his brainstem as well. He will need neurological follow-up. His states that he does see a neurologist for his "Parkinson's disease" Patient appears to be relatively stable from a hemodynamic and respiratory standpoint but will need to be vigilantly monitored for aspiration. PT and speech therapy have been consulted. Critical Time Critical Time (minutes): 0 - 36032. Tensive amount of time spent with the and review of his case and care Level of Care: IMCU Anticipated discharge: SNF Within: within 48 hours -: 1. The care of a critical patient is a dynamic process. This note is a re presentative synopsis but static in nature. The timeframe for treatments given in order is not necessarily the actual time these treatments may have been done. 2. This patient requires critical care secondary to ongoing requirements for therapy not offered or safe outside the critical care environment. Transfer to a lower level of care will result in altered life or limb morbidity and mortalit y. 3. Multidisciplinary rounds completed. 4. ABCDE bundle addressed.
[2020-01-20] MEDS: IPRATROPIUM/ALBUTEROL 0.5-2.5 MG/3 ML AMPUL NEB PRN (14:58)
[2020-01-20] MEDS ORDERED: IPRATROPIUM/ALBUTEROL 0.5-2.5 MG/3 ML AMPUL NEB SCH ×2 (20:15)
[2020-01-20] MEDS: QUETIAPINE FUMARATE 25 MG TABLET PO SCH (21:52)
[2020-01-21] MEDS: ACETAMINOPHEN 325 MG TABLET PO PRN (02:30)
[2020-01-21] MEDS: IPRATROPIUM/ALBUTEROL 0.5-2.5 MG/3 ML AMPUL NEB PRN ×2 (02:49→13:40)
[2020-01-21] MEDS: AMPICILLIN SODIUM/SULBACTAM NA 3 GM in NORMAL SALINE 100 ML IV SCH ×4 (05:27→23:06)
[2020-01-21] MEDS: HEPARIN SOD (PORCINE) 5,000 UNIT/ML 1 ML VIAL SUBCUT SCH ×3 (05:28→21:02)
[2020-01-21] MEDS: ALPRAZOLAM 0.25 MG TABLET PO PRN ×2 (11:04→21:02)
[2020-01-21] MEDS: ASCORBIC ACID 500 MG TABLET PO SCH (11:04)
[2020-01-21] MEDS: PRAMIPEXOLE DI-HCL 0.5 MG TABLET PO SCH ×3 (11:05→18:39)
[2020-01-21] MEDS: ASPIRIN 325 MG TABLET PO SCH (11:05)
[2020-01-21] MEDS: RIVASTIGMINE 9.5 MG/24 HR PATCH.TD24 TD SCH (11:06)
[2020-01-21] MEDS: RINGERS SOLUTION,LACTATED 1,000 ML IV PRN (11:08)
--- NOTE | 2020-01-21 14:07 | PDOC CRITICAL CARE PROG REPORT ---
General Date:: 01/21/20 ICU Day:: 3 Hospital Day:: 3 Resuscitation Status: Full Code Medical Power of Barrel Bander: : Dorothy Events in the past 12 to 24 Hours:: 01.21.2020: The patient's night was significant for the agitated delirium. Eventually resolved. Not require medications or than meds have been prescribed already. He is slightly more lethargic this morning but did tolerate a supervised feeding given by his but not self fed. Patient offers no complaints. 01.20.2020:The patient was weaning on mechanical ventilation and self extubated late yesterday afternoon. He has been stable from a respiratory standpoint but had significant agitation and secretion issues last night. Nursing note: "At approximately 0, pt's stepping out of room. Pt became increasingly agitated and confused. Pt disrobing, becoming very hostile when this screen writer attempted to redress him. Pt saying that he wanted to leave. This screen writer attempting to reorient him. Unable. Pt becoming more agitated, attempting to pull out IV's. This screen writer holding line, unable to get patient to release his tanker service attendant on IV. Pt attempting to bite this screen writer and dig his fingernails into this writers hands. arriving back at bedside, also unable to decrease pt's agitation. calling family to attempt to calm pt. Pt finally relaxing enough to release tanker service attendant on IV. Sleeves placed on pt's arms bilaterally. remains at bedside to reassure pt and decrease anxious events. Pt is currently sleeping, no distress noted." He is more quiet today and did receive his medications including Seroquel last evening. I had a long lengthy discussion with the patient's regarding his normal status at home. There appears to be insidious worsening of his overall status. Review of his medical records reveals an admission to the hospital and/or evaluation in the emergency room every 1 to 2 months. Patient's has to continually watch him for excess secretions and has to suction him. She describes the events for this admission is quite concerning. She stated that he could not breathe and became stridorous. She notes that there was hypoxia on his pulse oximeter. Review of systems relevant to events:: 01.21.2020: Patient is tolerating diet. Speech and swallow eval recommendations noted. Patient denies any complaints but he is confused and still unaware of where he is. 01.20.2020: Patient was able to swallow his medications. Remains afebrile hemodynamically non-labile. His strength is diminished at baseline. Reason for ICU Addmission:: Respiratory Failure - Medications: Medications reviewed and adjusted accordingly: Yes Physical Exam Vital Signs: Temp Pulse Resp BP Pulse Ox 98.8 F 75 18 155/80 H 97 01/21/20 12:00 01/21/20 12:00 01/21/20 12:00 01/21/20 12:00 01/21/20 12:00 Intake & Output 01/20/20 01/21/20 01/22/20 06:59 06:59 06:59 Intake Total 500 2400 Output Total 910 2825 1200 Balance -410 -425 -1200 Weight 68.4 kg 67.9 kg Weight/Height Weight 67.9 kg Height 5 ft 10 in General appearance: PRESENT: no acute distress, hard of hearing, thin Exam: Older appearing 74-year-old male no active distress oriented to person only Head exam: PRESENT: atraumatic, normocephalic Eye exam: PRESENT: conjunctiva pink, EOMI, PERRLA. ABSENT: conjunctival injection, nystagmus, scleral icterus Mouth exam: PRESENT: moist Neck exam: PRESENT: other - Fixed neck flexion with minimal rotational movement. Distinct kyphoscoliosis. ABSENT: carotid bruit, full ROM, JVD, lymphadenopathy, tenderness, thyromegaly, tracheal deviation Respiratory exam: PRESENT: clear to auscultation nicolle. ABSENT: rales, rhonchi, wheezes Cardiovascular exam: PRESENT: RRR, +S1, +S2 Pulses: PRESENT: +1 pedal pulses bilateral GI/Abdominal exam: PRESENT: normal bowel sounds, soft. ABSENT: ascites, distended, guarding, mass, organolmegaly, rebound, tenderness Rectal exam: PRESENT: deferred Gentrourinary exam: PRESENT: indwelling catheter Extremities exam: ABSENT: pedal edema Musculoskeletal exam: ABSENT: deformity, dislocation Neurological exam: PRESENT: altered, awake, oriented to person, motor sensory deficit, other - Patient has 2/5 strength in both lower extremities. 3/5 in upper extremities. Nystagmus is noted. No motor deficits of the face are noted. Has intact cough. Pupils equal and reactive. Diminished auditory acuity. ABSENT: alert, oriented to place, oriented to time, oriented to situation Psychiatric exam: PRESENT: flat affect Focused psych exam: ABSENT: restlessness Skin exam: PRESENT: dry, intact, warm. ABSENT: cyanosis, rash Tubes/Lines: PRESENT: Other - Urinary catheter Laboratory/Radiographs Laboratory Results: 01/20/20 08:22 01/20/20 08:22 01/21/20 06:50 C-Reactive Protein < 5.0 01/19/20 01:43 Troponin I < 0.012 Impressions: Chest X-Ray 01/20/20 06:00 IMPRESSION: No acute findings. Extubated. All labs, radiographs, diagnostic studies and EKGs were personally reviewed: Yes In addition, reports of radiographic and diagnostic studies were read: Yes Assessment and Plan - Diagnosis (1) Acute hypoxemic respiratory failure Is this a current diagnosis for this admission?: Yes Plan: Improved. Self-extubated 01.19.2020 (2) Aspiration pneumonitis Is this a current diagnosis for this admission?: Yes Plan: Appears to be recurrent. Speech evaluation noted. (3) Delirium due to another medical condition, acute, hyperactive Is this a current diagnosis for this admission?: Yes Plan: Has nocturnal agitated delirium (sundowning) (4) At risk for aspiration Is this a current diagnosis for this admission?: Yes (5) Lewy body dementia Qualifiers: Dementia behavioral disturbance: with behavioral disturbance Qualified Code(s): G31.83 - Dementia with Lewy bodies; F02.81 - Dementia in other diseases classified elsewhere with behavioral disturbance Is this a current diagnosis for this admission?: Yes (6) Parkinsonism Qualifiers: Parkinsonism type: unspecified Qualified Code(s): G20 - Parkinson's disease Is this a current diagnosis for this admission?: Yes Plan: Appears to be Parkinsonian secondary to medications. (7) Kyphoscoliosis Is this a current diagnosis for this admission?: Yes Plan Summary: 01.21.2020: Patient continues to have significant nocturnal agitated delirium. This morning he is slightly more lethargic. I have elected to add Seroquel at noon and decrease the nighttime Seroquel so as to have no excessive sedation in the morning. Attempt to reestablish day night cycles in order to reduce the sundowning effect. Currently family have been unable to be present as a group because of the coronavirus restrictions. Met with the last evening to discuss the insidious trajectory that his disease is producing. His dementia is much worse and I am fearful that his nation required for intubation may have contributed to an already altered sensorium. We are hopeful this will improve however in discussion with the patient's he has been declining neurologically for some time. She provide significant care for the patient and when he does go to Parkinson related rehab he does not have any energy for any other activities. We have evaluated his speech and swallow. He has passed the perfunctory examination. He does have a significant nasal discharge with posterior nasal drip. He has been seen multiple times by ENT for polyp removal. They have wanted to remove more but they were concerned also about sedation in this patien t with his dementia. When pressed for the time of diagnosis for Parkinson's the patient's says she is not quite sure that he has been officially diagnosed with Parkinson's but an hot header operator suggested it. We are awaiting records to confirm. Patient meet suitability for transition to floor status. His maintains constant vigilance at his bedside and we have discussed her significant stress and exhaustion related to his care. We have encouraged her to rest as well. 01.20.2020:This patient appears to have recurrent aspiration events. His discloses that he has been diagnosed with Parkinson disease however he does not have physical examination findings consistent with this. He does appear to have significant dementia that I feel and believe is under recognized by his . His dementia appears to be more frontal temporal. He does have significant neurological dysfunction with muscular deconditioning and dysfunction. He is at risk for further aspiration and have ordered speech eval. I sincerely believe that his has significant applied psychology teacher exhaustion and because of her care of her may be under recognizing his degree of dysfunction. I have discussed with her the fact that his delirium and frontotemporal processes may have been made worse by the sedation and the intubation. Additionally he had significant time period of hypoxia which may have compromise and already altered sensorium. In his deconditioned state I have asked for physical therapy to be involved to get in a more objective evaluation. I believe that this patient should be placed in a nursing facility. I am concerned giving his evaluation, that he may have the process of progressive supranuclear palsy. I have asked for MRI and MRA of the brain to look at his brainstem as well. He will need neurological follow-up. His states that he does see a neurologist for his "Parkinson's disease" Patient appears to be relatively stable from a hemodynamic and respiratory standpoint but will need to be vigilantly monitored for aspiration. PT and speech therapy have been consulted. Critical Time Critical Time (minutes): 0 - [id number] Level of Care: IMCU Anticipated discharge: SNF Within: within 48 hours -: 1. The care of a critical patient is a dynamic process. This note is a career services representative synopsis but static in nature. The timeframe for treatments given in order is not necessarily the actual time these treatments may have been done. 2. This patient requires critical care secondary to ongoing requirements for therapy not offered or safe outside the critical care environment. Transfer to a lower level of care will result in altered life or limb morbidity and mortality. 3. Multidisciplinary rounds completed. 4. ABCDE bundle addressed.
[2020-01-21] MEDS ORDERED: POLYETHYLENE GLYCOL 3350 POWDER 17 GM/1 PACKET PO PRN (14:36)
[2020-01-21] MEDS: SENNOSIDES/DOCUSATE 8.6-50 MG 1 EACH TABLET PO SCH (21:02)
[2020-01-21] MEDS ORDERED: QUETIAPINE FUMARATE 25 MG TABLET PO SCH (22:00)
[2020-01-22] MEDS: IPRATROPIUM/ALBUTEROL 0.5-2.5 MG/3 ML AMPUL NEB PRN ×3 (01:48→16:44)
[2020-01-22 03:52] LABS: ABSOLUTE BASOPHILS # (AUTO) 0.1 10^3/uL (0.0-0.2); ABSOLUTE EOSINOPHILS # (AUTO) 1.6 10^3/uL (0.0-0.6); ABSOLUTE MONOCYTES (AUTO) 0.4 10^3/uL (0.1-1.4); ABSOLUTE NEUT (AUTO) 2.9 10^3/uL (1.7-8.2); BASOPHILS % (AUTO) 0.8 % (0-2); PLATELET COUNT 176 10^3/uL (150-450); TOTAL CELLS COUNTED % (AUTO) 100 %
[2020-01-22 04:00] LABS: HEMATOCRIT 34.5 % (37.9-51.0); LYMPHOCYTES % (AUTO) 28.9 % (13-45); MEAN CORPUSCULAR HEMOGLOBIN 31.8 pg (27.0-33.4); MEAN CORPUSCULAR HGB CONC 34.9 g/dL (32.0-36.0); MEAN CORPUSCULAR VOLUME 91 fl (80-97); MONOCYTES % (AUTO) 5.5 % (3-13); RED BLOOD COUNT 3.78 10^6/uL (4.35-5.55); RED CELL DISTRIBUTION WIDTH 14.3 % (11.5-14.0); SEGMENTED NEUTROPHILS % (AUTO) 41.7 % (42-78); WHITE BLOOD COUNT 6.8 10^3/uL (4.0-10.5)
[2020-01-22 04:02] LABS: EOSINOPHILS % (AUTO) 23.1 % (0-6)
[2020-01-22 04:10] LABS: ANION GAP 5 (5-19); BLOOD UREA NITROGEN 13 mg/dL (7-20); CALCIUM 8.3 mg/dL (8.4-10.2); CARBON DIOXIDE 29 mmol/L (22-30); CHLORIDE 105 mmol/L (98-107); GLUCOSE 85 mg/dL (75-110); PHOSPHORUS 3.2 mg/dL (2.5-4.5); POTASSIUM 3.4 mmol/L (3.6-5.0)
[2020-01-22] MEDS: HEPARIN SOD (PORCINE) 5,000 UNIT/ML 1 ML VIAL SUBCUT SCH ×3 (05:45→21:02)
[2020-01-22] MEDS: AMPICILLIN SODIUM/SULBACTAM NA 3 GM in NORMAL SALINE 100 ML IV SCH (05:46)
[2020-01-22] MEDS: ASCORBIC ACID 500 MG TABLET PO SCH (11:09)
[2020-01-22] MEDS: RIVASTIGMINE 9.5 MG/24 HR PATCH.TD24 TD SCH (11:09)
[2020-01-22] MEDS: ASPIRIN 325 MG TABLET PO SCH (11:09)
[2020-01-22] MEDS: QUETIAPINE FUMARATE 25 MG TABLET PO SCH ×2 (11:10→21:02)
[2020-01-22] MEDS: PRAMIPEXOLE DI-HCL 0.5 MG TABLET PO SCH ×3 (11:10→18:29)
[2020-01-22] MEDS ORDERED: POTASSIUM CHLORIDE 20 MEQ PACKET PO ONE (13:05)
--- NOTE | 2020-01-22 13:19 | PDOC CRITICAL CARE PROG REPORT ---
General Date:: 01/22/20 ICU Day:: 4 Hospital Day:: 4 Resuscitation Status: Full Code Medical Power of Construction Engineering Manager: : Dorothy Events in the past 12 to 24 Hours:: 01.22.2020: Minimal agitation issues last evening. No hypoxic events or aspiration events noted. 01.21.2020: The patient's night was significant for the agitated delirium. Eventually resolved. Not require medications or than meds have been prescribed already. He is slightly more lethargic this morning but did tolerate a supervised feeding given by his but not self fed. Patient offers no complaints. 01.20.2020:The patient was weaning on mechanical ventilation and self extubated late yesterday afternoon. He has been stable from a respiratory standpoint but had significant agitation and secretion issues last night. Nursing note: "At approximately 2129, pt's stepping out of room. Pt became increasingly agitated and confused. Pt disrobing, becoming very hostile when this racebook writer attempted to redress him. Pt saying that he wanted to leave. This racebook writer attempting to reorient him. Unable. Pt becoming more agitated, attempting to pull out IV's. This racebook writer holding line, unable to get patient to release his epic director on IV. Pt attempting to bite this racebook writer and dig his fingernails into this writers hands. arriving back at bedside, also unable to decrease pt's agitation. calling family to attempt to calm pt. Pt finally relaxing enough to release epic director on IV. Sleeves placed on pt's arms bilaterally. remains at bedside to reassure pt and decrease anxious events. Pt is currently sleeping, no distress noted." He is more quiet today and did receive his medications including Seroquel last evening. I had a long lengthy discussion with the patient's regarding his normal status at home. There appears to be insidious worsening of his overall status. Review of his medical records reveals an admission to the hospital and/or evaluation in the emergency room every 1 to 2 months. Patient's has to continually watch him for excess secretions and has to suction him. She describes the events for this admission is quite concerning. She stated that he could not breathe and became stridorous. She notes that there was hypoxia on his pulse oximeter. Review of systems relevant to events:: 01.22.2020: Patient somewhat lethargic this morning able to tolerate speech evaluation. Otherwise, no other pertinent issues. 01.21.2020: Patient is tolerating diet. Speech and swallow eval recommendations noted. Patient denies any complaints but he is confused and still unaware of where he is. 01.20.2020: Patient was able to swallow his medications. Remains afebrile, hemodynamically non-labile. His strength is diminished at baseline. Reason for ICU Addmission:: Respiratory Failure Physical Exam Vital Signs: Temp Pulse Resp BP Pulse Ox 98.4 F 69 17 156/83 H 97 01/22/20 03:34 01/22/20 10:37 01/22/20 10:37 01/22/20 06:47 01/22/20 10:37 Intake & Output 01/21/20 01/22/20 01/23/20 06:59 06:59 06:59 Intake Total 2400 1400 Output Total 2825 2250 600 Balance -425 -850 -600 Weight 67.9 kg 64.8 kg Weight/Height Weight 64.8 kg Height 5 ft 10 in General appearance: PRESENT: no acute distress, well-nourished Exam: Nonintubated elderly appearing 74-year-old male no active distress. Lethargic but arousable stoic answers questions but confused Head exam: PRESENT: atraumatic, normocephalic Eye exam: PRESENT: conjunctiva pink, EOMI, PERRLA. ABSENT: nystagmus, scleral icterus Ear exam: PRESENT: normal external ear exam Mouth exam: PRESENT: moist Teeth exam: PRESENT: poor dentation Neck exam: PRESENT: other - Chronic forward flexion with extensive kyphoscoliosis. ABSENT: carotid bruit, full ROM, JVD, lymphadenopathy, thyromegaly, tracheal deviation Respiratory exam: PRESENT: clear to auscultation nicolle. ABSENT: rales, rhonchi, wheezes Cardiovascular exam: PRESENT: RRR, +S1, +S2 Pulses: PRESENT: +1 pedal pulses bilateral GI/Abdominal exam: PRESENT: normal bowel sounds, soft. ABSENT: distended, guarding, mass, organolmegaly, rebound, tenderness Rectal exam: PRESENT: deferred Gentrourinary exam: PRESENT: indwelling catheter Extremities exam: ABSENT: pedal edema Musculoskeletal exam: ABSENT: deformity, dislocation Neurological exam: PRESENT: awake, oriented to person. ABSENT: oriented to place, oriented to time, oriented to situation, motor sensory deficit - No focal deficits but globally and symmetrically weak. Psychiatric exam: PRESENT: flat affect Focused psych exam: PRESENT: delusional Skin exam: PRESENT: dry, intact, normal color, warm. ABSENT: cyanosis, mottled, pallor, rash Tubes/Lines: PRESENT: Other - Urinary catheter Laboratory/Radiographs Laboratory Results: 01/22/20 03:25 01/22/20 03:25 01/22/20 01/22/20 03:25 03:25 WBC 6.8 RBC 3.78 L Hgb 12.0 L Hct 34.5 L MCV 91 MCH 31.8 MCHC 34.9 RDW 14.3 H Plt Count 176 Seg Neutrophils % 41.7 L Sodium 139.2 Potassium 3.4 L Chloride 105 Carbon Dioxide 29 Anion Gap 5 BUN 13 Creatinine 0.78 Est GFR ( Amer) > 60 Glucose 85 Calcium 8.3 L Phosphorus 3.2 Magnesium 2.1 01/19/20 02:15 Robles Catheter Urine Culture - Final NO GROWTH 2 DAYS 01/19/20 01:43 Troponin I < 0.012 Impressions: Chest X-Ray 01/20/20 06:00 IMPRESSION: No acute findings. Extubated. All labs, radiographs, diagnostic studies and EKGs were personally reviewed: Yes In addition, reports of radiographic and diagnostic studies were read: Yes Assessment and Plan - Diagnosis (1) Acute hypoxemic respiratory failure Is this a current diagnosis for this admission?: Yes Plan: Resolved. Self-extubated 01.19.2020 (2) Aspiration pneumonitis Is this a current diagnosis for this admission?: Yes Plan: Appears to be recurrent with concern for Progressive nuclear palsey or related to chronic Post-nasal drip. Speech evaluation noted. (3) Delirium due to another medical condition, acute, hyperactive Is this a current diagnosis for this admission?: Yes Plan: Has nocturnal agitated delirium (sundowning). Improved. Reduce night time seroquel (4) At risk for aspiration Is this a current diagnosis for this admission?: Yes (5) Lewy body dementia Qualifiers: Dementia behavioral disturbance: with behavioral disturbance Qualified Code(s): G31.83 - Dementia with Lewy bodies; F02.81 - Dementia in other diseases classified elsewhere with behavioral disturbance Is this a current diagnosis for this admission?: Yes (6) Parkinsonism Qualifiers: Parkinsonism type: unspecified Qualified Code(s): G20 - Parkinson's disease Is this a current diagnosis for this admission?: Yes (7) Kyphoscoliosis Is this a current diagnosis for this admission?: Yes Plan Summary: 01.22.2020: Patient appears oversedated and I have reduced his nighttime Ser oquel. We have transitioned him to mid afternoon Seroquel to prevent the nighttime agitation. Today will be the last day of his antibiotic and he has not had any stigmata or sequelae related to his aspiration as far as infectious disease. Notably, patient has had an insidious declining neurological course. We had multiple discussions with his who is somewhat ambivalent to establish goals of care. She has stated that he would not want to be in a nursing facility. He has significant deconditioning prior to admission and his dementia appears to be worsening. This is going to limit how much his will be able to do given her age and physical limitations. We have asked the family to factor in and to help her as well. Of asked case management and our psychiatric social worker to begin to help with possible palliative care. The patient was at one time under hospice care but given the trajectory of his decline and the 's need to be significantly involved it became problematic. I have asked physical therapy to evaluate the patient as well as occupational therapy so that we can gain a better understanding of the physical and occupational limitations. We did discuss the significant possibility of recurrent aspiration and hypoxic events. The is vigilant at the patient's bedside while at home to suction him as well. In concern for the polyps as a source and the possibility of a granulomatous disease we have sent ANCA and serum inflammatory studies to rule this out. Patient may need higher dose steroids but is receiving intranasal steroids. We will discontinue Robles catheter. 01.21.2020: Patient continues to have significant nocturnal agitated delirium. This morning he is slightly more lethargic. I have elected to add Seroquel at noon and decrease the nighttime Seroquel so as to have no excessive sedation in the morning. Attempt to reestablish day night cycles in order to reduce the sundowning effect. Currently family have been unable to be present as a group because of the coronavirus restrictions. Met with the last evening to discuss the insidious trajectory that his disease is producing. His dementia is much worse and I am fearful that his nation required for intubation may have contributed to an already altered sensorium. We are hopeful this will improve however in discussion with the patient's he has been declining neurologically for some time. She provide significant care for the patient and when he does go to Parkinson related rehab he does not have any energy for any other activities. We have evaluated his speech and swallow. He has passed the perfunctory examination. He does have a significant nasal discharge with posterior nasal drip. He has been seen multiple times by ENT for polyp removal. They have wanted to remove more but they were concerned also about sedation in this patient with his dementia. When pressed for the time of diagnosis for Parkinson's the patient's says she is not quite sure that he has been officially diagnosed with Parkinson's but an trust officer suggested it. We are awaiting records to confirm. Patient meet suitability for transition to floor status. His maintains constant vigilance at his bedside and we have discussed her significant stress and exhaustion related to his care. We have encouraged her to rest as well. 01.20.2020:This patient appears to have recurrent aspiration events. His discloses that he has been diagnosed with Parkinson disease however he does not have physical examination findings consistent with this. He does appear to have significant dementia that I feel and believe is under recognized by his . His dementia appears to be more frontal temporal. He does have significant neurological dysfunction with muscular deconditioning and dysfunction. He is at risk for further aspiration and have ordered speech eval. I sincerely believe that his has significant circular stuffer exhaustion and because of her care of her may be under recognizing his degree of dysfunction. I have discussed with her the fact that his delirium and frontotemporal processes may have been made worse by the sedation and the intubation. Additionally he had significant time period of hypoxia which may have compromise and already altered sensorium. In his deconditioned state I have asked for physical therapy to be involved to get in a more objective evaluation. I believe that this patient should be placed in a nursing facility. I am concerne d giving his evaluation, that he may have the process of progressive supranuclear palsy. I have asked for MRI and MRA of the brain to look at his brainstem as well. He will need neurological follow-up. His states that he does see a neurologist for his "Parkinson's disease" Patient appears to be relatively stable from a hemodynamic and respiratory standpoint but will need to be vigilantly monitored for aspiration. PT and speech therapy have been consulted. Critical Time Critical Time (minutes): 0 - 9923 Level of Care: MEDICAL Anticipated discharge: SNF Within: within 48 hours -: 1. The care of a critical patient is a dynamic process. This note is a account development representative synopsis but static in nature. The timeframe for treatments given in order is not necessarily the actual time these treatments may have been done. 2. This patient requires critical care secondary to ongoing requirements for therapy not offered or safe outside the critical care environment. Transfer to a lower level of care will result in altered life or limb morbidity and mortality. 3. Multidisciplinary rounds completed. 4. ABCDE bundle addressed.
--- NOTE | 2020-01-22 14:34 | PDOC PROGRESS REPORT ---
Subjective Progress Note for:: 01/22/20 Subjective:: Patient is a 74-year-old male with a history of parkinsonism and likely advanced Lewy body dementia, nasal polyps, who was admitted on 01/17/2020 directly to the ICU after being found to be unresponsive at home was rapidly intubated in the field by EMS. In the ER he was noted to be hypotensive and started on Levophed and admitted to the ICU. Patient's unresponsiveness was thought to be due to aspiration into airway. He does have a chronic history of aspiration. He was started on Unasyn in the ICU which was stopped at this point. Patient self extubated yesterday but has been doing well since extubation. Patient was evaluated by speech and swallow therapy and was found to have no aspiration even though this does not rule out silent micro-aspiration. Patient notably has had episodes of agitation with Seroquel is being adjusted. At this point patient is stable and off all pressors and is being transferred to the medical floor for further care. On conversation with patient and patient's , patient's baseline mental status is similar to his current state which entails patient sometimes talks but other times may choose not to respond, but is always slouched over, able to walk at times, also has 25% hearing in 1 ear and fully definitely other and is very limited in his eyesight. She has had similar recurrent episodes with mucus plugging/asphyxiation on secretions requiring hospitalization/ER visits. She understands that his situation will only progress most likely. At this time patient denies any shortness of breath or pain. He appears comfortable on room air. Reason For Visit: RESPIRATORY FAILURE Physical Exam Vital Signs: Temp Pulse Resp BP Pulse Ox 98.4 F 64 17 131/73 H 99 01/22/20 03:34 01/22/20 12:52 01/22/20 12:52 01/22/20 10:47 01/22/20 13:00 Intake & Output 01/21/20 01/22/20 01/23/20 06:59 06:59 06:59 Intake Total 2400 1400 Output Total 6122 2990 434 Balance -425 -850 -249 Weight 67.9 kg 64.8 kg General appearance: PRESENT: no acute distress, hard of hearing, thin, other - Slouched over in bed Respiratory exam: PRESENT: unlabored, wheezes. ABSENT: tachypnea Cardiovascular exam: PRESENT: +S1, +S2. ABSENT: bradycardia, tachycardia GI/Abdominal exam: PRESENT: soft. ABSENT: rebound, rigid, tenderness Neurological exam: PRESENT: alert, awake, oriented to person. ABSENT: oriented to place, oriented to time, oriented to situation Psychiatric exam: ABSENT: agitated, anxious Results Laboratory Results: 01/22/20 03:25 01/22/20 03:25 01/22/20 01/22/20 03:25 03:25 WBC 6.8 RBC 3.78 L Hgb 12.0 L Hct 34.5 L MCV 91 MCH 31.8 MCHC 34.9 RDW 14.3 H Plt Count 176 Seg Neutrophils % 41.7 L Sodium 139.2 Potassium 3.4 L Chloride 105 Carbon Dioxide 29 Anion Gap 5 BUN 13 Creatinine 0.78 Est GFR ( Amer) > 60 Glucose 85 Calcium 8.3 L Phosphorus 3.2 Magnesium 2.1 01/19/20 02:15 Robles Catheter Urine Culture - Final NO GROWTH 2 DAYS 01/19/20 01:43 Troponin I < 0.012 Impressions: Chest X-Ray 01/20/20 06:00 IMPRESSION: No acute findings. Extubated. Assessment and Plan - Diagnosis (1) Lewy body dementia Qualifiers: Dementia behavioral disturbance: with behavioral disturbance Qualified Cod e(s): G31.83 - Dementia with Lewy bodies; F02.81 - Dementia in other diseases classified elsewhere with behavioral disturbance Is this a current diagnosis for this admission?: Yes (2) Delirium due to another medical condition, acute, hyperactive Is this a current diagnosis for this admission?: Yes (3) Acute hypoxemic respiratory failure Is this a current diagnosis for this admission?: Yes (4) Aspiration pneumonitis Is this a current diagnosis for this admission?: Yes (5) Parkinsonism Qualifiers: Parkinsonism type: secondary Parkinsonism Secondary Parkinsonism type: unspecified secondary Qualified Code(s): 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 Antibiotics stopped today. Aspiration precautions Continue rivastigmine and pramipexole Labs sent for evaluation for Gerson's Nebs for wheezing Physical therapy and Occupational Therapy Patient is at high risk of recurrence of his aspiration episodes or asphyxiation no mucous plugs because he has a very weak cough which is likely progressive from his advanced dementia. We will maintain on Seroquel for delirium - Time Time Spent with patient: Less than 15 minutes
[2020-01-22 17:36] LABS: ANTIMYELOPEROXIDASE (MPO) AB <9.0 U/mL (0.0-9.0); CYTOPLASMIC (C-ANCA) <1:20 titer (Neg:<1:20)
[2020-01-22] MEDS: SENNOSIDES/DOCUSATE 8.6-50 MG 1 EACH TABLET PO SCH (21:02)
[2020-01-22 22:09] LABS: ATYPICAL PANCA <1:20 titer (Neg:<1:20)
[2020-01-23] MEDS: IPRATROPIUM/ALBUTEROL 0.5-2.5 MG/3 ML AMPUL NEB PRN ×2 (05:19→16:04)
[2020-01-23] MEDS: ALPRAZOLAM 0.25 MG TABLET PO PRN (05:32)
[2020-01-23] MEDS: HEPARIN SOD (PORCINE) 5,000 UNIT/ML 1 ML VIAL SUBCUT SCH ×3 (05:33→21:45)
[2020-01-23 06:27] LABS: ANION GAP 7 (5-19); BLOOD UREA NITROGEN 15 mg/dL (7-20); CALCIUM 8.6 mg/dL (8.4-10.2); CARBON DIOXIDE 26 mmol/L (22-30); CHLORIDE 105 mmol/L (98-107); GLUCOSE 86 mg/dL (75-110); PHOSPHORUS 3.6 mg/dL (2.5-4.5)
[2020-01-23] MEDS: QUETIAPINE FUMARATE 25 MG TABLET PO SCH ×2 (09:57→21:45)
[2020-01-23] MEDS: ASCORBIC ACID 500 MG TABLET PO SCH (09:57)
[2020-01-23] MEDS: PRAMIPEXOLE DI-HCL 0.5 MG TABLET PO SCH ×3 (09:57→17:03)
[2020-01-23] MEDS: ASPIRIN 325 MG TABLET PO SCH (09:58)
[2020-01-23] MEDS: RIVASTIGMINE 9.5 MG/24 HR PATCH.TD24 TD SCH (10:00)
--- NOTE | 2020-01-23 10:33 | PDOC DISCHARGE SUMMARY ---
Impression - Admit/DC Date/PCP Admission Date/Primary Care Provider: 01/19/20 02:46 MORAIMA AKERS PA-C Discharge Date: 01/23/20 - Discharge Diagnosis (1) Acute hypoxemic respiratory failure Is this a current diagnosis for this admission?: Yes (2) Aspiration pneumonitis Is this a current diagnosis for this admission?: Yes (3) Lewy body dementia Is this a current diagnosis for this admission?: Yes (4) At risk for aspiration Is this a current diagnosis for this admission?: Yes (5) Delirium due to another medical condition, acute, hyperactive Is this a current diagnosis for this admission?: Yes (6) Parkinsonism Is this a current diagnosis for this admission?: Yes - Assessment Summary: Completed regimen of Unasyn in the ICU. Antibiotics stopped today. Aspiration precautions Continue rivastigmine and pramipexole Labs sent for evaluation for Gerson's Nebs for wheezing Physical therapy and Occupational Therapy Patient is at high risk of recurrence of his aspiration episodes or asphyxiation no mucous plugs because he has a very weak cough which is likely progressive from his advanced dementia. We will maintain on Seroquel for delirium - Additional Information Resuscitation Status: Full Code Discharge Diet: As Tolerated Discharge Activity: Activity As Tolerated Referrals: MORAIMA AKERS PA-C [Primary Care Provider] - Follow up as needed Prescriptions: Sennosides/Docusate 8.6-50 mg [Senna Plus Tablet] 1 each PO DAILY 30 Days tablet Quetiapine Fumarate [Seroquel 25 mg Tablet] 25 mg PO Q12 15 Days #30 tablet Home Medications: Acetaminophen 500 mg PO Q6HP PRN 01/19/20 Albuterol Sulfate [Ventolin 0.083% Neb 2.5 mg/3 mL Ampul] 2.5 mg NEB RTQID 01/19/20 Alprazolam [Xanax 0.25 mg Tablet] 0.25 mg PO DAILY 01/19/20 Ascorbic Acid 500 mg PO DAILY 01/19/20 Aspirin [Aspirin 325 mg Tablet] 325 mg PO DAILY PRN 01/19/20 Epinephrine 0.3 mg IJ ASDIR PRN 01/19/20 Fluticasone Propionate [Flonase Nasal Midland 50 Mcg/Midland 16 gm] 1 spray NASL DAILYP PRN 01/19/20 Lidocaine [Lidoderm 5% (700 mg) Transdermal Patch] 1 patch TP Q12 01/19/20 Pramipexole Di-HCl [Mirapex 0.25 mg Tablet] 0.5 mg PO TID 01/19/20 Rivastigmine [Exelon 9.5 mg/24 Hr Transdermal Patch] 1 each TD DAILY 01/19/20 Quetiapine Fumarate [Seroquel 25 mg Tablet] 25 mg PO Q12 15 Days #30 tablet 01/23/20 Sennosides/Docusate 8.6-50 mg [Senna Plus Tablet] 1 each PO DAILY 30 Days tablet 01/23/20 History of Present Illiness History of Present Illness: JAYLON ABDELRAHMAN MARES Parkinson's has continued to progress and in the past 2 years has had increasing number of hospital admissions and ER visits with similar complaints of respiratory distress secondary to inability to handle secretions. Today, patient developed shortness of breath not relieved by albuterol. He was found unresponsive by EMS upon arrival and was intubated with rapid sequence intubation including ketamine. Upon arrival to emergency department, patient was hypotensive and started on levophed. Patient is being admitted to the intensive care unit for management of his respiratory failure. I had a lengthy conversation with his and family. We reviewed the patient's overall trajectory with his Parkinson's disease and aspiration history. Patient's does not seem receptive to the idea that this is the end stage of his disease process and that frequent aspiration is a sign of its progression. Hospital Course Hospital Course: 74-year-old male with a history of parkinsonism and likely advanced Lewy body dementia, nasal polyps, who was admitted on 01/17/2020 directly to the ICU after being found to be unresponsive at home was rapidly intubated in the field by EMS. In the ER he was noted to be hypotensive and started on Levophed and admitted to the ICU. Patient's unresponsiveness was thought to be due to aspiration into airway. He does have a chronic history of aspiration. He was started on Unasyn in the ICU which was stopped at this point. Patient self extubated yesterday but has been doing well since extubation. Patient was evaluated by speech and swallow therapy and was found to have no aspiration even though this does not rule out silent micro-aspiration. Patient notably has had episodes of agitation with Seroquel is being adjusted. Off all pressors and transferred to the medical floor for further care. Tested for Gerson's in the ICU which came back negative. On conversation with patient and patient's , patient's baseline mental status is similar to his current state which entails patient sometimes talks but other times may choose not to respond, but is always slouched over, able to walk at times, also has 25% hearing in 1 ear and fully definitely other and is very limited in his eyesight. She has had similar recurrent episodes with mucus plugging/asphyxiation on secretions requiring hospitalization/ER visits. She understands that his situation will only progress most likely. At this time patient denies any shortness of breath or pain. He appears comfortable on room air. No leukocytosis. We discussed pursuing hospice and patient's states that he has been on hospice before but she did not like that they did not want him to go to the hospital whenever he got sick. States that she understands the concept of hospice but is not ready for this at this time. I have recommended reconsideration of this chronically is considering getting palliative care services. Physical Exam Vital Signs: Temp Pulse Resp BP Pulse Ox 98.0 F 86 16 145/72 H 96 01/23/20 03:06 01/23/20 08:00 01/23/20 08:00 01/23/20 03:06 01/23/20 08:00 Intake & Output 01/22/20 01/23/20 01/24/20 06:59 06:59 06:59 Intake Total 1400 40 Output Total 2250 1300 Balance -850 -1260 Weight 64.8 kg 66.8 kg General appearance: PRESENT: no acute distress, cooperative Neck exam: ABSENT: JVD Respiratory exam: PRESENT: clear to auscultation nicolle Neurological exam: PRESENT: alert, awake Psychiatric exam: ABSENT: agitated, anxious Focused psych exam: ABSENT: pressured speech Results Laboratory Results: WBC 6.8 10^3/uL (4.0-10.5) 01/22/20 03:25 RBC 3.78 10^6/uL (4.35-5.55) L 01/22/20 03:25 Hgb 12.0 g/dL (13.5-17.0) L 01/22/20 03:25 Hct 34.5 % (37.9-51.0) L 01/22/20 03:25 MCV 91 fl (80-97) 01/22/20 03:25 MCH 31.8 pg (27.0-33.4) 01/22/20 03:25 MCHC 34.9 g/dL (32.0-36.0) 01/22/20 03:25 RDW 14.3 % (11.5-14.0) H 01/22/20 03:25 Plt Count 176 10^3/uL (150-450) 01/22/20 03:25 Lymph % (Auto) 28.9 % (13-45) 01/22/20 03:25 Randall % (Auto) 5.5 % (3-13) 01/22/20 03:25 Eos % (Auto) 23.1 % (0-6) H D 01/22/20 03:25 Baso % (Auto) 0.8 % (0-2) 01/22/20 03:25 Absolute Neuts (auto) 2.9 10^3/uL (1.7-8.2) 01/22/20 03:25 Absolute Lymphs (auto) 2.0 10^3/uL (0.5-4.7) 01/22/20 03:25 Absolute Monos (auto) 0.4 10^3/uL (0.1-1.4) 01/22/20 03:25 Absolute Eos (auto) 1.6 10^3/uL (0.0-0.6) H 01/22/20 03:25 Absolute Basos (auto) 0.1 10^3/uL (0.0-0.2) 01/22/20 03:25 Seg Neutrophils % 41.7 % (42-78) L 01/22/20 03:25 PT 15.4 SEC (11.4-15.4) 01/19/20 01:43 INR 1.21 01/19/20 01:43 Carbonic Acid 1.21 mmol/L (1.05-1.35) 01/19/20 16:55 HCO3/H2CO3 Ratio 19:1 01/19/20 16:55 ABG pH 7.38 (7.35-7.45) 01/19/20 16:55 ABG pCO2 40.3 mmHg (35-45) 01/19/20 16:55 ABG pO2 34.7 mmHg (80-100) L* 01/19/20 16:55 ABG HCO3 23.1 mmol/L (20-24) 01/19/20 16:55 ABG Total CO2 24.3 mmol/L (23-27) 01/19/20 16:55 ABG O2 Saturation 65.3 % (94-98) L 01/19/20 16:55 ABG Base Excess -1.9 mmol/L 01/19/20 16:55 FiO2 35% 01/19/20 16:55 Sodium 138.3 mmol/L (137-145) 01/23/20 05:08 Potassium 4.0 mmol/L (3.6-5.0) 01/23/20 05:08 Chloride 105 mmol/L (98-107) 01/23/20 05:08 Carbon Dioxide 26 mmol/L (22-30) 01/23/20 05:08 Anion Gap 7 (5-19) 01/23/20 05:08 BUN 15 mg/dL (7-20) 01/23/20 05:08 Creatinine 0.88 mg/dL (0.52-1.25) 01/23/20 05:08 Est GFR ( Amer) > 60 (>60) 01/23/20 05:08 Est GFR (MDRD) Non-Af > 60 (>60) 01/23/20 05:08 Glucose 86 mg/dL (75-110) 01/23/20 05:08 POC Glucose 140 mg/dL (70-110) H 01/19/20 01:50 Lactic Acid 1.4 mmol/L (0.7-2.1) 01/19/20 08:17 Calcium 8.6 mg/dL (8.4-10.2) 01/23/20 05:08 Phosphorus 3.6 mg/dL (2.5-4.5) 01/23/20 05:08 Magnesium 2.3 mg/dL (1.6-2.3) 01/23/20 05:08 Total Bilirubin 0.5 mg/dL (0.2-1.3) 01/19/20 01:43 Direct Bilirubin 0.2 mg/dL (0.0-0.4) 01/19/20 01:43 Neonat Total Bilirubin Not Reportable 01/19/20 01:43 Neonat Direct Bilirubin Not Reportable 01/19/20 01:43 Neonat Indirect Bili Not Reportable 01/19/20 01:43 AST 21 U/L (17-59) 01/19/20 01:43 ALT 13 U/L (<50) 01/19/20 01:43 Alkaline Phosphatase 53 U/L (38-126) 01/19/20 01:43 Troponin I < 0.012 ng/mL 01/19/20 01:43 C-Reactive Protein < 5.0 mg/L (<10.0) 01/21/20 06:50 Total Protein 5.1 g/dL (6.3-8.2) L 01/19/20 01:43 Albumin 2.8 g/dL (3.5-5.0) L 01/19/20 01:43 Urine Color YELLOW 01/19/20 02:15 Urine Appearance SLIGHTLY-CLOUDY 01/19/20 02:15 Urine pH 5.0 (5.0-9.0) 01/19/20 02:15 Ur Specific Purmela 1.023 01/19/20 02:15 Urine Protein 100 mg/dL (NEGATIVE) H 01/19/20 02:15 Urine Glucose (UA) 50 mg/dL (NEGATIVE) H 01/19/20 02:15 Urine Ketones NEGATIVE mg/dL (NEGATIVE) 01/19/20 02:15 Urine Blood NEGATIVE (NEGATIVE) 01/19/20 02:15 Urine Nitrite (Reflex) NEGATIVE (NEGATIVE) 01/19/20 02:15 Urine Bilirubin NEGATIVE (NEGATIVE) 01/19/20 02:15 Urine Urobilinogen 2.0 mg/dL (<2.0) H 01/19/20 02:15 Leukocyte Esterase Rfl NEGATIVE (NEGATIVE) 01/19/20 02:15 Urine RBC (Auto) 1 /HPF 01/19/20 02:15 U Hyaline Cast (Auto) 25 /LPF 01/19/20 02:15 Urine Bacteria (Auto) TRACE /HPF 01/19/20 02:15 Urine WBC (Reflex) 2 /HPF 01/19/20 02:15 Squamous Epi Cells Auto <1 /HPF 01/19/20 02:15 Urine Mucus (Auto) MOD /LPF 01/19/20 02:15 Urine Ascorbic Acid 20 (NEGATIVE) H 01/19/20 02:15 c-ANCA Antibody <1:20 titer (Neg:<1:20) 01/21/20 06:50 Anti-Proteinase 3 Intrp <3.5 U/mL (0.0-3.5) 01/21/20 06:50 Atypical p-ANCA <1:20 titer (Neg:<1:20) 01/21/20 06:50 p-ANCA Antibody <1:20 titer (Neg:<1:20) 01/21/20 06:50 Myeloperoxidase Ab <9.0 U/mL (0.0-9.0) 01/21/20 06:50 01/19/20 01:43 Troponin I < 0.012 Impressions: Chest X-Ray 01/19/20 02:18 IMPRESSION: No acute findings visualized in the chest. Chest X-Ray 01/20/20 06:00 IMPRESSION: No acute findings. Extubated. Plan Time Spent: Less than 30 Minutes Stroke Is this a Stroke Patient?: No Acute Heart Failure - Is this a Heart Failure Patient?: No
--- NOTE | 2020-01-23 10:40 | ADVANCED CARE ---
- Diagnosis (1) Acute hypoxemic respiratory failure Diagnosis Current: Yes (3) Lewy body dementia Diagnosis Current: Yes (4) At risk for aspiration Diagnosis Current: Yes (6) Parkinsonism Diagnosis Current: Yes Attendance: Patient's and myself. Patient presented room at time of conversation but unable to participate in conversation given his advanced dementia. Resuscitation Status: Full Code Discussion: We discussed pursuing hospice and patient's states that he has been on hospice before but she did not like that they did not want him to go to the hospital whenever he got sick. I went over the concept of hospice care with patient and the likelihood that patient is going to continue to worsen and that he is going to recurrent episodes of aspiration just as before given his advanced progressive dementia. She states that she understands the concept of hospice but is not ready for this for patient at this time. I have recommended reconsideration of this chronically is considering getting palliative care services. She states that she would like somebody to help her out at home rather. Set up home health aide. I have urged patient's to think about palliative care services in the long run. Time Spent: 16 mins
--- NOTE | 2020-01-23 13:56 | Progress Note ---
Provider Note Provider Note: Shortly before ambulance arrived to pick patient up, patient's was found to be hypotensive with systolic in the 80s. As a result discharge has been canceled. Wondering if this could be due to some autonomic dysfunction given patient's parkinsonian symptoms and Lewy body dementia. Will hydrate patient with IV flui ds at this time, check some labs and monitor blood pressure through today.
[2020-01-23] MEDS ORDERED: NORMAL SALINE 1000 ML 1,000 ML IV ONE (14:00)
--- NOTE | 2020-01-23 19:25 | RADIOLOGY REPORT (SQ) ---
EXAM DESCRIPTION: CHEST SINGLE VIEW COMPLETED DATE/TIME: 01/23/2020 7:18 pm REASON FOR STUDY: SOB, wheezing COMPARISON: 01/20/2020 EXAM PARAMETERS: NUMBER OF VIEWS: One view. TECHNIQUE: Single frontal radiographic view of the chest acquired. RADIATION DOSE: NA LIMITATIONS: None. FINDINGS: LUNGS AND PLEURA: No opacities, masses or pneumothorax. No pleural effusion. MEDIASTINUM AND HILAR STRUCTURES: No masses. Contour normal. HEART AND VASCULAR STRUCTURES: Heart normal in size. Normal vasculature. BONES: No acute findings. HARDWARE: None in the chest. OTHER: No other significant finding. IMPRESSION: NO ACUTE RADIOGRAPHIC FINDING IN THE CHEST. TECHNICAL DOCUMENTATION: JOB ID: [id number] [employer]- All Rights Reserved Reading location - IP/workstation name: [email or web address]
[2020-01-23] MEDS: SENNOSIDES/DOCUSATE 8.6-50 MG 1 EACH TABLET PO SCH (21:44)
[2020-01-24] MEDS: IPRATROPIUM/ALBUTEROL 0.5-2.5 MG/3 ML AMPUL NEB PRN ×3 (04:30→16:08)
[2020-01-24] MEDS ORDERED: FUROSEMIDE INJ/PF 20 MG/2 ML SDV ONE (04:45)
[2020-01-24] MEDS ORDERED: MORPHINE SULFATE 10 MG/ML INJ ONE (04:46)
[2020-01-24] MEDS ORDERED: FUROSEMIDE INJ/PF 20 MG/2 ML SDV IV ONE (05:00)
[2020-01-24] MEDS ORDERED: MORPHINE SULFATE 10 MG/ML INJ IV ONE (05:00)
[2020-01-24 05:05] LABS: HEMATOCRIT 39.5 % (37.9-51.0); HEMOGLOBIN 13.6 g/dL (13.5-17.0); MEAN CORPUSCULAR HEMOGLOBIN 31.7 pg (27.0-33.4); MEAN CORPUSCULAR HGB CONC 34.4 g/dL (32.0-36.0); MEAN CORPUSCULAR VOLUME 92 fl (80-97); PLATELET COUNT 188 10^3/uL (150-450); RED BLOOD COUNT 4.28 10^6/uL (4.35-5.55); RED CELL DISTRIBUTION WIDTH 14.4 % (11.5-14.0); WHITE BLOOD COUNT 8.4 10^3/uL (4.0-10.5)
[2020-01-24 05:34] LABS: ANION GAP 6 (5-19); BLOOD UREA NITROGEN 15 mg/dL (7-20); CALCIUM 8.2 mg/dL (8.4-10.2); CARBON DIOXIDE 26 mmol/L (22-30); CHLORIDE 108 mmol/L (98-107); GLUCOSE 87 mg/dL (75-110); POTASSIUM 3.8 mmol/L (3.6-5.0)
[2020-01-24] MEDS: HEPARIN SOD (PORCINE) 5,000 UNIT/ML 1 ML VIAL SUBCUT SCH ×3 (05:47→21:52)
[2020-01-24] MEDS: ASPIRIN 325 MG TABLET PO SCH (09:54)
[2020-01-24] MEDS: PRAMIPEXOLE DI-HCL 0.5 MG TABLET PO SCH ×3 (09:54→18:53)
[2020-01-24] MEDS: ASCORBIC ACID 500 MG TABLET PO SCH (09:55)
[2020-01-24] MEDS: RIVASTIGMINE 9.5 MG/24 HR PATCH.TD24 TD SCH (09:56)
[2020-01-24] MEDS: QUETIAPINE FUMARATE 25 MG TABLET PO SCH (09:57)
--- NOTE | 2020-01-24 14:11 | PDOC PROGRESS REPORT ---
Subjective Progress Note for:: 01/24/20 Subjective:: Had a lengthy discussion with the patient's (30 minutes) regarding the patient's evolution of symptoms and episodic hypoxic episodes at home prompting trips to the hospital. The frustration of not being able to get oxygen at home. Also the concerns about the mucus plugging and buildup with an inability to clear Reason For Visit: RESPIRATORY FAILURE Physical Exam Vital Signs: Temp Pulse Resp BP Pulse Ox 98.1 F 83 18 113/61 97 01/24/20 12:02 01/24/20 12:02 01/24/20 12:02 01/24/20 12:02 01/24/20 12:02 Intake & Output 01/23/20 01/24/20 01/25/20 06:59 06:59 06:59 Intake Total 40 Output Total 1300 600 Balance -1260 -600 Weight 66.8 kg 66.2 kg General appearance: PRESENT: no acute distress, cooperative, well-developed Head exam: PRESENT: atraumatic, normocephalic Eye exam: PRESENT: conjunctiva pink. ABSENT: scleral icterus Ear exam: PRESENT: normal external ear exam. ABSENT: bleeding, drainage Mouth exam: PRESENT: moist, tongue midline Respiratory exam: PRESENT: other - Was only able to partly listen to the left lung as the patient grabbed the stethoscope and would not like I will. Every attempt to auscultate resulted in the patient grabbing the stethoscope.. ABSENT: rales, rhonchi, tachypnea, wheezes Cardiovascular exam: PRESENT: RRR, +S1, +S2 GI/Abdominal exam: PRESENT: normal bowel sounds, soft. ABSENT: distended, tenderness Rectal exam: PRESENT: deferred Extremities exam: ABSENT: pedal edema Neurological exam: PRESENT: alert, awake. ABSENT: oriented to person - Difficult to assess. The patient would not respond to me but he did seem to respond to his ., oriented to place, oriented to time, oriented to situation Psychiatric exam: PRESENT: flat affect. ABSENT: agitated, anxious Focused psych exam: ABSENT: delusional, restlessness Skin exam: PRESENT: dry, normal color, warm. ABSENT: rash Results Laboratory Results: 01/24/20 04:25 01/24/20 04:25 01/24/20 01/24/20 04:25 04:25 WBC 8.4 RBC 4.28 L Hgb 13.6 Hct 39.5 MCV 92 MCH 31.7 MCHC 34.4 RDW 14.4 H Plt Count 188 Sodium 139.7 Potassium 3.8 Chloride 108 H Carbon Dioxide 26 Anion Gap 6 BUN 15 Creatinine 0.83 Est GFR ( Amer) > 60 Glucose 87 Calcium 8.2 L 01/19/20 03:59 Blood Blood Culture - Final NO GROWTH IN 5 DAYS 01/19/20 01:43 Blood Blood Culture - Final NO GROWTH IN 5 DAYS 01/19/20 01:43 Troponin I < 0.012 Impressions: Chest X-Ray 01/23/20 00:00 IMPRESSION: NO ACUTE RADIOGRAPHIC FINDING IN THE CHEST. Assessment and Plan - Diagnosis (1) Aspiration pneumonitis Is this a current diagnosis for this admission?: Yes (2) Acute hypoxemic respiratory failure Is this a current diagnosis for this admission?: Yes (3) Lewy body dementia Qualifiers: Dementia behavioral disturbance: with behavioral disturbance Qualified Code(s): G31.83 - Dementia with Lewy bodies; F02.81 - Dementia in other diseases classified elsewhere with behavioral disturbance Is this a current diagnosis for this admission?: Yes (4) At risk for aspiration Is this a current diagnosis for this admission?: Yes (5) Delirium due to another medical condition, acute, hyperactive Is this a current diagnosis for this admission?: Yes (6) 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 Antibiotics stopped today. Aspiration precautions Continue rivastigmine and pramipexole Labs sent for evaluation for Gerson's Nebs for wheezing Physical therapy and Occupational Therapy Patient is at high risk of recurrence of his aspiration episodes or asphyxiation no mucous plugs because he has a very weak cough which is likely progressive from his advanced dementia. We will maintain on Seroquel for delirium 01/24/2020 I reviewed the patient's last year or so with the patient's and reviewed all of the meds and his recurrent episodes of hypoxia as well as reviewing his current hospitalization during a 30 min discussion. Speech therapy suggests MBS as outpatient. Certainly could be aspirating sec retions. Still requires 3 LPM NC to maintain sat's >90%. Was on room air prior. Kyphosis decreases inspiration by restriction. Continue oxygen supplementation and check nocturnal Pulse Ox as patient may have hypoxia. Hypotension observed yesterday prior to discharge therefore discharge cancelled. Patient responded to IV fluids and pressure is better today. Reviewed meds with . Mirapex should be 0.5 tid. Seroquel changed to 75mg qhs and added protonix 20mg qd Will review nocturnal oximetry in AM. If saturation is <88% then will apply for Home oxygen. Will add mucinex 1200 bid to help improve secretion management - Time Time Spent with patient: 35 or more minutes Medications reviewed and adjusted accordingly: Yes Anticipated discharge: Home Within: within 48 hours
[2020-01-24] MEDS: SENNOSIDES/DOCUSATE 8.6-50 MG 1 EACH TABLET PO SCH (21:52)
[2020-01-24] MEDS: GUAIFENESIN 600 MG TABLET.SA PO SCH (21:52)
[2020-01-24] MEDS: LIDOCAINE 5% (700 MG) TRANSDERMAL ADH..PATCH TP SCH (21:53)
[2020-01-24] MEDS ORDERED: QUETIAPINE FUMARATE 25 MG TABLET PO SCH (22:00)
[2020-01-25] MEDS ORDERED: CLONAZEPAM 1 MG TABLET ONE (03:12)
[2020-01-25] MEDS ORDERED: DIAZEPAM INJ 10 MG/2 ML DISP.SYRIN ONE (03:22)
[2020-01-25] MEDS ORDERED: DIAZEPAM INJ 10 MG/2 ML DISP.SYRIN IV ONE (03:30)
[2020-01-25] MEDS ORDERED: CLONAZEPAM 1 MG TABLET PO ONE (03:30)
[2020-01-25] MEDS: HEPARIN SOD (PORCINE) 5,000 UNIT/ML 1 ML VIAL SUBCUT SCH ×2 (05:54→13:14)
[2020-01-25] MEDS ORDERED: PANTOPRAZOLE SODIUM 20 MG TABLET.DR PO SCH (06:00)
[2020-01-25] MEDS: IPRATROPIUM/ALBUTEROL 0.5-2.5 MG/3 ML AMPUL NEB PRN ×2 (08:51→18:21)
[2020-01-25] MEDS: ASPIRIN 325 MG TABLET PO SCH (10:40)
[2020-01-25] MEDS: ASCORBIC ACID 500 MG TABLET PO SCH (10:40)
[2020-01-25] MEDS: GUAIFENESIN 600 MG TABLET.SA PO SCH (10:40)
[2020-01-25] MEDS: PRAMIPEXOLE DI-HCL 0.5 MG TABLET PO SCH ×3 (10:41→17:25)
[2020-01-25] MEDS: RIVASTIGMINE 9.5 MG/24 HR PATCH.TD24 TD SCH (10:41)
[2020-01-25] MEDS: LIDOCAINE 5% (700 MG) TRANSDERMAL ADH..PATCH TP SCH (12:24)
--- NOTE | 2020-01-25 15:30 | PDOC DISCHARGE SUMMARY ---
Impression - Admit/DC Date/PCP Admission Date/Primary Care Provider: 01/19/20 02:46 MORAIMA AKERS PA-C Discharge Date: 01/25/20 - Discharge Diagnosis (1) Aspiration pneumonitis Is this a current diagnosis for this admission?: Yes (2) Acute hypoxemic respiratory failure Is this a current diagnosis for this admission?: Yes (3) Lewy body dementia Is this a current diagnosis for this admission?: Yes (4) At risk for aspiration Is this a current diagnosis for this admission?: Yes (5) Delirium due to another medical condition, acute, hyperactive Is this a current diagnosis for this admission?: Yes (6) Parkinsonism Is this a current diagnosis for this admission?: Yes (8) Kyphoscoliosis Is this a current diagnosis for this admission?: Yes - Assessment Summary: Completed regimen of Unasyn in the ICU. Antibiotics stopped today. Aspiration precautions Continue rivastigmine and pramipexole Labs sent for evaluation for Gerson's Nebs for wheezing Physical therapy and Occupational Therapy Patient is at high risk of recurrence of his aspiration episodes or asphyxiation no mucous plugs because he has a very weak cough which is likely progressive from his advanced dementia. We will maintain on Seroquel for delirium 01/24/2020 I reviewed the patient's last year or so with the patient's and reviewed all of the meds and his recurrent episodes of hypoxia as well as reviewing his current hospitalization during a 30 min discussion. Speech therapy suggests MBS as outpatient. Certainly could be aspirating secret ions. Still requires 3 LPM NC to maintain sat's >90%. Was on room air prior. Kyphosis decreases inspiration by restriction. Continue oxygen supplementation and check nocturnal Pulse Ox as patient may have hypoxia. Hypotension observed yesterday prior to discharge therefore discharge cancelled. Patient responded to IV fluids and pressure is better today. Reviewed meds with . Mirapex should be 0.5 tid. Seroquel changed to 75mg qhs and added protonix 20mg qd Will review nocturnal oximetry in AM. If saturation is <88% then will apply for Home oxygen. Will add mucinex 1200 bid to help improve secretion management - Additional Information Resuscitation Status: Full Code Discharge Diet: As Tolerated Discharge Activity: Activity As Tolerated Referrals: MORAIMA AKERS PA-C [Primary Care Provider] - 01/29/20 9:30 am Prescriptions: Cephalexin [Cephalexin 500 MG Tablet] 500 mg PO BID 5 Days #10 tablet Sennosides/Docusate 8.6-50 mg [Senna Plus Tablet] 1 each PO DAILY 30 Days tablet Quetiapine Fumarate [Seroquel 25 mg Tablet] 25 mg PO Q12 15 Days #30 tablet Home Medications: Acetaminophen 500 mg PO Q6HP PRN 01/19/20 Albuterol Sulfate [Ventolin 0.083% Neb 2.5 mg/3 mL Ampul] 2.5 mg NEB RTQID 01/19/20 Alprazolam [Xanax 0.25 mg Tablet] 0.25 mg PO DAILY 01/19/20 Ascorbic Acid 500 mg PO DAILY 01/19/20 Aspirin [Aspirin 325 mg Tablet] 325 mg PO DAILY PRN 01/19/20 Epinephrine 0.3 mg IJ ASDIR PRN 01/19/20 Fluticasone Propionate [Flonase Nasal [place] 50 Mcg/[place] 16 gm] 1 spray NASL DAILYP PRN 01/19/20 Lidocaine [Lidoderm 5% (700 mg) Transdermal Patch] 1 patch TP Q12 01/19/20 Pramipexole Di-HCl [Mirapex 0.25 mg Tablet] 0.5 mg PO TID 01/19/20 Rivastigmine [Exelon 9.5 mg/24 Hr Transdermal Patch] 1 each TD DAILY 01/19/20 Quetiapine Fumarate [Seroquel 25 mg Tablet] 25 mg PO Q12 15 Days #30 tablet 01/23/20 Sennosides/Docusate 8.6-50 mg [Senna Plus Tablet] 1 each PO DAILY 30 Days tablet 01/23/20 Cephalexin [Cephalexin 500 MG Tablet] 500 mg PO BID 5 Days #10 tablet 01/25/20 Guaifenesin [Mucinex Sr 600 mg Tablet.sa] 1,200 mg PO Q12 tablet.sa 01/25/20 Ipratropium/Albuterol Sulfate [Duoneb 3 ml Ampul] 3 ml NEB RTQ6HP PRN vial.neb 01/25/20 Pantoprazole Sodium [Protonix [address] Tablet] 20 mg PO Q6AM tablet.dr 01/25/20 Quetiapine Fumarate [Seroquel 25 mg Tablet] 75 mg PO QHS tablet 01/25/20 History of Present Illiness History of Present Illness: JAYLON QUICK JR is a 74 year old male Parkinson's has continued to progress and in the past 2 years has had increasing number of hospital admissions and ER visits with similar complaints of respiratory distress secondary to inability to handle secretions. Today, patient developed shortness of breath not relieved by albuterol. He was found unresponsive by EMS upon arrival and was intubated with rapid sequence intubation including ketamine. Upon arrival to emergency department, patient was hypotensive and started on levophed. Patient is being admitted to the intensive care unit for management of his respiratory failure. I had a lengthy conversation with his and family. We reviewed the patient's overall trajectory with his Parkinson's disease and aspiration history. Patient's does not seem receptive to the idea that this is the end stage of his disease process and that frequent aspiration is a sign of its progression. Hospital Course Hospital Course: 74-year-old male with a history of parkinsonism and likely advanced Lewy body dementia, nasal polyps, who was admitted on 01/17/2020 directly to the ICU after being found to be unresponsive at home was rapidly intubated in the field by EMS. In the ER he was noted to be hypotensive and started on Levophed and admitted to the ICU. Patient's unresponsiveness was thought to be due to aspiration into airway. He does have a chronic history of aspiration. He was started on Unasyn in the ICU which was stopped at this point. Patient self extubated yesterday but has been doing well since extubation. Patient was evaluated by speech and swallow therapy and was found to have no aspiration even though this does not rule out silent micro-aspiration. Patient notably has had episodes of agitation with Seroquel is being adjusted. Off all pressors and transferred to the medical floor for further care. Tested for Gerson's in the ICU which came back negative. On conversation with patient and patient's , patient's baseline mental status is similar to his current state which entails patient sometimes talks but other times may choose not to respond, but is always slouched over, able to walk at times, also has 25% hearing in 1 ear and fully definitely other and is very limited in his eyesight. She has had similar recurrent episodes with mucus plugging/asphyxiation on secretions requiring hospitalization/ER visits. She understands that his situation will only progress most likely. At this time patient denies any shortness of breath or pain. He appears comfortable on room air. No leukocytosis. We discussed pursuing hospice and patient's states that he has been on hospice before but she did not like that they did not want him to go to the hospital whenever he got sick. States that she understands the concept of hospice but is not ready for this at this time. I have recommended reconsideration of this chronically is considering getting palliative care services. 01/25/2020 In the previously anticipated discharge date the patient exhibited significant hypotension requiring multiple fluid boluses. He has responded and his blood pressure is normalized. He exhibited documented hypoxia on room air. His saturation dropped to 83%. This is well below the 88% cutoff for oxygen therapy at night/at home. Oxygen therapy is going to be set up for home. I did have a long discussion with the patient's . A modified barium swallow will likely show at least some aspiration likely for secretions and possibly thin liquids. I explained that when the patient is tired he is more likely to aspirate. She is well aware of positioning to reduce the risk of aspiration. At this point, she understands that this is a chronic progressive disease. He will likely only get worse over time. At some point she will need to consider more comfort oriented measures. Physical Exam Vital Signs: Temp Pulse Resp BP Pulse Ox 97.6 F 102 H 20 101/47 L 93 01/25/20 12:18 01/25/20 14:00 01/25/20 14:00 01/25/20 12:18 01/25/20 14:00 Pulse Oximeter Nocturnal Start: 01/24/20 14:11 Freq: RTQ4 Status: Complete Protocol: Document 01/25/20 04:15 DBE (Rec: 01/25/20 04:15 DBE [id number]) Nocturnal Pulse Oximetry Equipment Usage Equipment in Use Oxygen Delivery Method (includes room Room Air air) O2 Sat by Pulse Oximetry (92-100) 92 Continuous Pulse Oximeter Set Up No Continuous SpO2 Discontinued No Continuous SpO2 Machine # 21 Intake & Output 01/24/20 01/25/20 01/26/20 06:59 06:59 06:59 Intake Total 1543 538 Output Total 600 0 Balance -600 1543 538 Weight 66.2 kg 64.9 kg General appearance: PRESENT: no acute distress, thin Head exam: PRESENT: atraumatic, normocephalic Respiratory exam: PRESENT: clear to auscultation nicolle - Anteriorly, symmetrical, unlabored. ABSENT: rales, rhonchi, tachypnea, wheezes Cardiovascular exam: PRESENT: RRR, +S1, +S2 GI/Abdominal exam: PRESENT: normal bowel sounds, soft. ABSENT: distended, guarding, tenderness Rectal exam: PRESENT: deferred Gentrourinary exam: PRESENT: other - Erythema and tenderness at the urethral meatus Extremities exam: ABSENT: pedal edema Musculoskeletal exam: PRESENT: deformity - Kyphoscoliosis, other - Decreased muscle mass Neurological exam: PRESENT: alert, awake, other - Appears to be back to his baseline with his Lewy body dementia.. ABSENT: oriented to person, oriented to place Psychiatric exam: PRESENT: anxious - Slightly anxious but his states that he has been likely is due to the extended hospitalization., flat affect Results Laboratory Results: WBC 8.4 10^3/uL (4.0-10.5) 01/24/20 04:25 RBC 4.28 10^6/uL (4.35-5.55) L 01/24/20 04:25 Hgb 13.6 g/dL (13.5-17.0) 01/24/20 04:25 Hct 39.5 % (37.9-51.0) 01/24/20 04:25 MCV 92 fl (80-97) 01/24/20 04:25 MCH 31.7 pg (27.0-33.4) 01/24/20 04:25 MCHC 34.4 g/dL (32.0-36.0) 01/24/20 04:25 RDW 14.4 % (11.5-14.0) H 01/24/20 04:25 Plt Count 188 10^3/uL (150-450) 01/24/20 04:25 Lymph % (Auto) 28.9 % (13-45) 01/22/20 03:25 [place] % (Auto) 5.5 % (3-13) 01/22/20 03:25 Eos % (Auto) 23.1 % (0-6) H D 01/22/20 03:25 Baso % (Auto) 0.8 % (0-2) 01/22/20 03:25 Absolute Neuts (auto) 2.9 10^3/uL (1.7-8.2) 01/22/20 03:25 Absolute Lymphs (auto) 2.0 10^3/uL (0.5-4.7) 01/22/20 03:25 Absolute Monos (auto) 0.4 10^3/uL (0.1-1.4) 01/22/20 03:25 Absolute Eos (auto) 1.6 10^3/uL (0.0-0.6) H 01/22/20 03:25 Absolute Basos (auto) 0.1 10^3/uL (0.0-0.2) 01/22/20 03:25 Seg Neutrophils % 41.7 % (42-78) L 01/22/20 03:25 PT 15.4 SEC (11.4-15.4) 01/19/20 01:43 INR 1.21 01/19/20 01:43 Carbonic Acid 1.21 mmol/L (1.05-1.35) 01/19/20 16:55 HCO3/H2CO3 Ratio 19:1 01/19/20 16:55 ABG pH 7.38 (7.35-7.45) 01/19/20 16:55 ABG pCO2 40.3 mmHg (35-45) 01/19/20 16:55 ABG pO2 34.7 mmHg (80-100) L* 01/19/20 16:55 ABG HCO3 23.1 mmol/L (20-24) 01/19/20 16:55 ABG Total CO2 24.3 mmol/L (23-27) 01/19/20 16:55 ABG O2 Saturation 65.3 % (94-98) L 01/19/20 16:55 ABG Base Excess -1.9 mmol/L 01/19/20 16:55 FiO2 35% 01/19/20 16:55 Sodium 139.7 mmol/L (137-145) 01/24/20 04:25 Potassium 3.8 mmol/L (3.6-5.0) 01/24/20 04:25 Chloride 108 mmol/L (98-107) H 01/24/20 04:25 Carbon Dioxide 26 mmol/L (22-30) 01/24/20 04:25 Anion Gap 6 (5-19) 01/24/20 04:25 BUN 15 mg/dL (7-20) 01/24/20 04:25 Creatinine 0.83 mg/dL (0.52-1.25) 01/24/20 04:25 Est GFR ( Amer) > 60 (>60) 01/24/20 04:25 Est GFR (MDRD) Non-Af > 60 (>60) 01/24/20 04:25 Glucose 87 mg/dL (75-110) 01/24/20 04:25 POC Glucose 140 mg/dL (70-110) H 01/19/20 01:50 Lactic Acid 1.4 mmol/L (0.7-2.1) 01/19/20 08:17 Calcium 8.2 mg/dL (8.4-10.2) L 01/24/20 04:25 Phosphorus 3.6 mg/dL (2.5-4.5) 01/23/20 05:08 Magnesium 2.3 mg/dL (1.6-2.3) 01/23/20 05:08 Total Bilirubin 0.5 mg/dL (0.2-1.3) 01/19/20 01:43 Direct Bilirubin 0.2 mg/dL (0.0-0.4) 01/19/20 01:43 Neonat Total Bilirubin Not Reportable 01/19/20 01:43 Neonat Direct Bilirubin Not Reportable 01/19/20 01:43 Neonat Indirect Bili Not Reportable 01/19/20 01:43 AST 21 U/L (17-59) 01/19/20 01:43 ALT 13 U/L (<50) 01/19/20 01:43 Alkaline Phosphatase 53 U/L (38-126) 01/19/20 01:43 Troponin I < 0.012 ng/mL 01/19/20 01:43 C-Reactive Protein < 5.0 mg/L (<10.0) 01/21/20 06:50 Total Protein 5.1 g/dL (6.3-8.2) L 01/19/20 01:43 Albumin 2.8 g/dL (3.5-5.0) L 01/19/20 01:43 Urine Color YELLOW 01/19/20 02:15 Urine Appearance SLIGHTLY-CLOUDY 01/19/20 02:15 Urine pH 5.0 (5.0-9.0) 01/19/20 02:15 Ur Specific [place] 1.023 01/19/20 02:15 Urine Protein 100 mg/dL (NEGATIVE) H 01/19/20 02:15 Urine Glucose (UA) 50 mg/dL (NEGATIVE) H 01/19/20 02:15 Urine Ketones NEGATIVE mg/dL (NEGATIVE) 01/19/20 02:15 Urine Blood NEGATIVE (NEGATIVE) 01/19/20 02:15 Urine Nitrite (Reflex) NEGATIVE (NEGATIVE) 01/19/20 02:15 Urine Bilirubin NEGATIVE (NEGATIVE) 01/19/20 02:15 Urine Urobilinogen 2.0 mg/dL (<2.0) H 01/19/20 02:15 Leukocyte Esterase Rfl NEGATIVE (NEGATIVE) 01/19/20 02:15 Urine RBC (Auto) 1 /HPF 01/19/20 02:15 U Hyaline Cast (Auto) 25 /LPF 01/19/20 02:15 Urine Bacteria (Auto) TRACE /HPF 01/19/20 02:15 Urine WBC (Reflex) 2 /HPF 01/19/20 02:15 Squamous Epi Cells Auto <1 /HPF 01/19/20 02:15 Urine Mucus (Auto) MOD /LPF 01/19/20 02:15 Urine Ascorbic Acid 20 (NEGATIVE) H 01/19/20 02:15 c-ANCA Antibody <1:20 titer (Neg:<1:20) 01/21/20 06:50 Anti-Proteinase 3 Intrp <3.5 U/mL (0.0-3.5) 01/21/20 06:50 Atypical p-ANCA <1:20 titer (Neg:<1:20) 01/21/20 06:50 p-ANCA Antibody <1:20 titer (Neg:<1:20) 01/21/20 06:50 Myeloperoxidase Ab <9.0 U/mL (0.0-9.0) 01/21/20 06:50 01/19/20 01:43 Troponin I < 0.012 Impressions: Chest X-Ray 01/19/20 02:18 IMPRESSION: No acute findings visualized in the chest. Chest X-Ray 01/20/20 06:00 IMPRESSION: No acute findings. Extubated. Chest X-Ray 01/23/20 00:00 IMPRESSION: NO ACUTE RADIOGRAPHIC FINDING IN THE CHEST. Plan Health Concerns: The patient has a chronic progressive disease that is getting into the late stages. The ongoing trajectory of his illness will require a treatment plan leaning towards conservative and comfort. The , I believe, appreciates that at this time. We did speak about the fact that at some point the patient should be able to have whatever he wants to eat or drink. There is no need to try and force fluids. He is going to decline it is just a question of when. At some point I believe re-enrolling in hospice will be appropriate. Plan of Treatment: Return to home. Note the patient has oxygen hopefully we can avoid multiple emergency department visits. I encouraged ongoing Mucinex to thin secretions. He has a lift chair and that will help with mobility and we discussed the importance of positioning. It may not be appropriate to return to the Parkinson's therapy class unless he gets much stronger. She can certainly work on mobility at home initially. Goals: 1 of the goals will be to adjust the treatment regimen to account for the progression of his disease. This will be a difficult transition for the patient's but she knows that it is coming. At some point she might consider re-enrolling with hospice. Time Spent: Greater than 30 Minutes Stroke Is this a Stroke Patient?: No Acute Heart Failure - Is this a Heart Failure Patient?: No
[2020-01-25 17:39] VITALS: BP 159/98
== END 2020-01-25 19:11 | disposition home or self-care (01) | DRG 208 ==
LOC: ER 01:39 → EH 02:46 → ICU 03:40 → 3W 01-22 15:45
PROVIDERS: ADMIT Internal Medicine Critical Care Medicine; ATTEND Hospitalist
PROC: 5A1935Z Respiratory Ventilation, Less than 24 Consecutive Hours (ICD-10-PCS; principal; 2020-01-19)
DX: J96.01 Acute respiratory failure with hypoxia (principal); J69.0 Pneumonitis due to inhalation of food and vomit; F05 Delirium due to known physiological condition; G20 Parkinson's disease; I48.91 Unspecified atrial fibrillation; J44.9 Chronic obstructive pulmonary disease, unspecified; D32.9 Benign neoplasm of meninges, unspecified; Z88.8 Allergy status to other drugs, medicaments and biological substances; G31.83 Neurocognitive disorder with Lewy bodies; F02.80 Dementia in other diseases classified elsewhere, unspecified severity, without behavioral disturbance, psychotic disturbance, mood disturbance, and anxiety; M41.9 Scoliosis, unspecified; T43.595A Adverse effect of other antipsychotics and neuroleptics, initial encounter; Z79.82 Long term (current) use of aspirin; Z79.899 Other long term (current) drug therapy; Z78.1 Physical restraint status
CPT/HCPCS: 36415; 71045; 80048; 80053; 81001; 82803; 82962; 83516; 83605; 83735; 84100; 84484; 85025; 85027; 85610; 86140; 86256; 87040; 87086; 93005; 93010; 94003; 94640; 94667; 94668; 94762; 96365; 99233; 99291; 99292; J0295; J1644; J1940; J2250; J2270; J2930; J3360; J3490; J7030; J7050; J7060; J7120; J7620

== ENCOUNTER 2020-02-01 16:54 | Inpatient (IN) | payer MEDICARE, BC ==
[~2020-02-01 16:54] MED LIST changes: -DIPHENHYDRAMINE HCL 50 MG/ML VIAL ONE; -EPINEPHRINE INJ 1 MG/10 ML DISP.SYRIN ONE; +ETOMIDATE INJ/PF 20 MG/10 ML SDV IV ONE; -FENTANYL CITRATE INJ/PF 100 MCG/2 ML AMPUL ONE; -FLUMAZENIL INJ 0.5 MG/5 ML VIAL ONE; -GLUCAGON,HUMAN RECOMB 1 MG INJ ONE; -MIDAZOLAM 2 MG/2 ML INJ ONE; -NALOXONE HCL INJ/PF 0.4 MG/1 ML SDV ONE; -ONDANSETRON HCL INJ/PF 4 MG/2 ML SDV ONE; +ROCURONIUM BROMIDE INJ 50 MG/5 ML VIAL IV ONE
[2020-02-01] MEDS ORDERED: MIDAZOLAM 2 MG/2 ML INJ IV ONE ×2 (17:17→17:31)
[2020-02-01 17:25] LABS: VENOUS BLOOD BASE EXCESS 3.6 mmol/L; VENOUS BLOOD HCO3 31.6 mmol/L (20-32); VENOUS BLOOD PCO2 63.1 mmHg (35-63); VENOUS BLOOD PH 7.32 (7.30-7.42)
[2020-02-01] MEDS ORDERED: MIDAZOLAM HCL 50 MG/100 ML RTUINJ IV PRN (17:30)
[2020-02-01] MEDS ORDERED: ROCURONIUM BROMIDE INJ 50 MG/5 ML VIAL IV ONE (17:31)
[2020-02-01 17:34] LABS: ABSOLUTE BASOPHILS # (AUTO) 0.1 10^3/uL (0.0-0.2); ABSOLUTE EOSINOPHILS # (AUTO) 1.9 10^3/uL (0.0-0.6); ABSOLUTE LYMPHOCYTES (AUTO) 1.3 10^3/uL (0.5-4.7); ABSOLUTE MONOCYTES (AUTO) 0.4 10^3/uL (0.1-1.4); ABSOLUTE NEUT (AUTO) 10.1 10^3/uL (1.7-8.2); BASOPHILS % (AUTO) 0.4 % (0-2); EOSINOPHILS % (AUTO) 13.6 % (0-6); HEMATOCRIT 40.5 % (37.9-51.0); HEMOGLOBIN 13.8 g/dL (13.5-17.0); LYMPHOCYTES % (AUTO) 9.8 % (13-45); MEAN CORPUSCULAR HEMOGLOBIN 31.8 pg (27.0-33.4); MEAN CORPUSCULAR VOLUME 94 fl (80-97); MONOCYTES % (AUTO) 2.9 % (3-13); PLATELET COUNT 233 10^3/uL (150-450); RED BLOOD COUNT 4.33 10^6/uL (4.35-5.55); RED CELL DISTRIBUTION WIDTH 15.3 % (11.5-14.0); SEGMENTED NEUTROPHILS % (AUTO) 73.3 % (42-78); TOTAL CELLS COUNTED % (AUTO) 100 %; WHITE BLOOD COUNT 13.8 10^3/uL (4.0-10.5)
[2020-02-01 17:38] LABS: INTERNATIONAL RATION (INR) 1.11; PROTHROMBIN TIME 14.3 SEC (11.4-15.4)
[2020-02-01 17:42] LABS: ALBUMIN 3.8 g/dL (3.5-5.0); ALKALINE PHOSPHATASE 66 U/L (38-126); ANION GAP 6 (5-19); ASPARTATE AMINO TRANSFERASE 20 U/L (17-59); BILIRUBIN,DIRECT 0.2 mg/dL (0.0-0.4); BLOOD UREA NITROGEN 21 mg/dL (7-20); CALCIUM 9.2 mg/dL (8.4-10.2); CARBON DIOXIDE 30 mmol/L (22-30); CHLORIDE 105 mmol/L (98-107); GLUCOSE 107 mg/dL (75-110); POTASSIUM 5.1 mmol/L (3.6-5.0); TOTAL PROTEIN 6.5 g/dL (6.3-8.2)
[2020-02-01] MEDS: NORMAL SALINE 1000 ML 1,000 ML IV PRN ×2 (18:03→18:51)
--- NOTE | 2020-02-01 18:24 | RADIOLOGY REPORT (SQ) ---
EXAM DESCRIPTION: CHEST SINGLE VIEW COMPLETED DATE/TIME: 02/01/2020 5:57 pm REASON FOR STUDY: ET tube placement COMPARISON: AP view of the chest from 01/23/2020. EXAM PARAMETERS: NUMBER OF VIEWS: One view. TECHNIQUE: An AP view of the chest was obtained. RADIATION DOSE: NA LIMITATIONS: None. FINDINGS: LUNGS AND PLEURA: No consolidation, pleural effusion or pneumothorax. MEDIASTINUM AND HILAR STRUCTURES: No mediastinal or hilar contour abnormality. HEART AND VASCULAR STRUCTURES: The cardiac silhouette and pulmonary vasculature are within normal kelsey its. BONES: No acute findings. HARDWARE: The tip of the endotracheal tube projects 5.9 cm above the samanta. The tip and side hole o f the enteric tube project within the gastric lumen. OTHER: No other finding. IMPRESSION: No acute cardiopulmonary process. Proper position of the enteric and endotracheal tubes as detailed above. TECHNICAL DOCUMENTATION: JOB ID: [id number] 2010 [employer]- All Rights Reserved Reading location - IP/workstation name: [email or web address]
[2020-02-01] MEDS ORDERED: CEFEPIME 1 GM/D5W RTU 1 GM/50 ML RTUPB IV ONE (18:36)
--- NOTE | 2020-02-01 18:43 | ER Document Report ---
ED General - General Chief Complaint: Respiratory Distress Stated Complaint: RESPIRATORY DISTRESS Time Seen by Provider: 02/01/20 17:30 Primary Care Provider: MORAIMA AKERS PA-C [Primary Care Provider] - Follow up as needed TRAVEL OUTSIDE OF THE [place] IN LAST 30 DAYS: No - HPI Notes: Patient is a 74-year-old male brought to the emergency department for evaluation of respiratory distress. EMS offers mildly available history, as patient has a history of Parkinson's, dementia, as well as altered mental status secondary to hypoxia. Evidently has had repeated episodes of respiratory failure. His oxygen saturation was in the 70s on 6 L per nasal cannula upon the arrival of EM S. They noted that he was febrile with a 99.7 axillary temperature. I do note that the patient was admitted to the hospital recently, intubated for respiratory failure. I am unsure as to the exact date of his discharge. The patient is really not able to cooperate with any questions, seems agitated, and is intermittently pulling at the CPAP mask as placed in route. - Related Data Allergies/Adverse Reactions: cimetidine [From Tagamet] Allergy (Severe, Verified 01/15/20 16:04) Anaphylaxis ranitidine HCl [From Zantac] Allergy (Verified 01/15/20 16:04) Edema Past Medical History - General Information source: Emergency Med Personnel, [facility] Records - Social History Smoking Status: Unknown if Ever Smoked Chew tobacco use (# tins/day): No Frequency of alcohol use: None Drug Abuse: None Family History: CAD - Mother, COPD - Father Patient has suicidal ideation: No Patient has homicidal ideation: No - Past Medical History Cardiac Medical History: Reports: Hx Atrial Fibrillation Denies: Hx Coronary Artery Disease, Hx Heart Attack, Hx Hypertension, Hx Pu lmonary Embolism Pulmonary Medical History: Reports: Hx Respiratory Failure Denies: Hx Asthma, Hx Bronchitis, Hx COPD, Hx Pneumonia Neurological Medical History: Reports: Hx Parkinson's Disease. Denies: Hx Cerebrovascular Accident, Hx Seizures Endocrine Medical History: Denies: Hx Diabetes Mellitus Type 1, Hx Diabetes Tonja litus Type 2, Hx Hyperthyroidism, Hx Hypothyroidism Renal/ Medical History: Denies: Hx Peritoneal Dialysis Malignancy Medical History: Reports Hx Skin Cancer GI Medical History: Reports: Hx Ulcer - 1978 [facility]. Denies: Hx Cirrhosis, Hx Hepatitis, Hx Hiatal Hernia Musculoskeletal Medical History: Denies Hx Arthritis, Denies Hx Gout Skin Medical History: Denies Hx Eczema, Denies Hx Psoriasis Psychiatric Medical History: Reports: Hx Dementia - Parkinson's, Hx Depression Infectious Medical History: Denies: Hx Hepatitis Past Surgical History: Reports: Hx Cardiac Catheterization, Hx Cardiac Surgery - ablation, Other - Patient has undergone cardiac ablation for A. fib. Denies: Hx Open Heart Surgery, Hx Pacemaker - Immunizations Hx Diphtheria, Pertussis, Tetanus Vaccination: No Review of Systems - Review of Systems -: Yes ROS unobtainable due to patient's medical condition Physical Exam - Vital signs Vitals: Resp 27 H 02/01/20 16:57 - Notes Notes: This is a 74-year-old male who appears his stated age in a moderate amount of distress. He has CPAP mask in place, is pulling at it anxiously. He is unable to follow commands, only intermittently answers questions, and does so inappropriately at times. Head is normocephalic and atraumatic, pupils are equal round, active to light. Oral mucosa is slightly dry. Heart is irregularly irregular, tachycardic. Lungs show diminished breath sounds and expiratory wheezes throughout. Abdomen is soft, nontender. He has marked increased work of breathing, despite the CPAP in place. Extremities without cyanosis or clubbing. Course - Re-evaluation Re-evalutation: 02/01/20 18:41 Patient presents to the emergency department for evaluation. He was in respiratory distress, noted to be febrile upon arrival per EMS. I was concerned about the possibility of coronavirus infection, and this patient has not yet been tested. Patient also has a history of failing positive pressure ventilation. Despite CPAP being in place for some time, and some clinical improvement per EMS, he still was showing marked increased work of breathing. Decision was made to proceed with intubation. Please see separate procedure note. Laboratory investigations were obtained. Patient was found to be hypotensive, he was given a 2 L fluid bolus. Given his hypotension and elevated white count, he does meet sepsis criteria. The patient was covered with cefepime. Covidien influenza testing are pending at this time, we will continue to monitor. I will contact ICU for admission. 02/01/20 19:05 I spoke with Yoan Love, government property inspector overnight, the patient will be accepted to the ICU for further care. - Vital Signs Vital signs: Temp Pulse Resp BP Pulse Ox 97.9 F 18 83/59 L 96 02/01/20 18:19 02/01/20 18:19 02/01/20 18:19 02/01/20 18:19 - Laboratory Result Diagrams: 02/01/20 17:05 02/01/20 17:09 Laboratory results interpreted by me: 02/01/20 02/01/20 02/01/20 17:05 17:09 17:09 WBC 13.8 H RBC 4.33 L RDW 15.3 H Lymph % (Auto) 9.8 L [place] % (Auto) 2.9 L Eos % (Auto) 13.6 H Absolute Neuts (auto) 10.1 H Absolute Eos (auto) 1.9 H VBG pCO2 63.1 H Potassium 5.1 H BUN 21 H - Diagnostic Test Radiology reviewed: Image reviewed, Reports reviewed Radiology results interpreted by me: 02/01/20 18:43 Chest X-Ray 02/01/20 00:00 IMPRESSION: No acute cardiopulmonary process. Proper position of the enteric and endotracheal tubes as detailed above. Procedures - Intubation Orotracheal Medications: Etomidate, Succinylcholine Intubation method: Orotracheal Blade type: River Blade size: 3 Equipment used: Glidescope ETT size: 7.5 Breath Sounds after Intubation: Equal End tidal CO2 confirmed: Yes Ventilator settings: SIMV Critical Care Note - Critical Care Note Total time excluding time spent on procedures (mins): 40 Discharge - Discharge Clinical Impression: Tachycardia, Acute hypoxemic respiratory failure Sepsis Qualifiers: Sepsis type: sepsis due to unspecified organism Sepsis acute organ dysfunction status: with acute organ dysfunction Severe sepsis acute organ dysfunction type: acute respiratory failure Acute respiratory failure type: with hypoxia Severe sepsis shock status: without septic shock Qualified Code(s): A41.9 - Sepsis, unspecified organism Condition: Stable Disposition: ADMITTED INPATIENT Admitting Provider: Dr. Delvalle, Authorization Nurse Referrals: MORAIMA AKERS PA-C [Primary Care Provider] - Follow up as needed
[2020-02-01 19:06] LABS: A TYPE INFLUENZA AG NEGATIVE (NEGATIVE); B INFLUENZA AG NEGATIVE (NEGATIVE)
--- NOTE | 2020-02-01 20:00 | EKG REPORT ---
SEVERITY:- OTHERWISE NORMAL ECG - SINUS RHYTHM LOW VOLTAGE IN FRONTAL LEADS : Confirmed by: Ruperto Rivera MD 01-Feb-2020 19:59:57
[2020-02-01 23:33] LABS: ARTERIAL BLOOD BASE EXCESS -0.6 mmol/L; ARTERIAL BLOOD H2CO3 1.11 mmol/L (1.05-1.35); ARTERIAL BLOOD HCO3 23.5 mmol/L (20-24); ARTERIAL BLOOD PCO2 36.8 mmHg (35-45); ARTERIAL BLOOD PH 7.42 (7.35-7.45); ARTERIAL BLOOD PO2 153.4 mmHg (80-100); ARTERIAL BLOOD TOTAL CO2 24.6 mmol/L (23-27)
[2020-02-01 23:35] LABS: ARTERIAL BLOOD FIO2 45%
[2020-02-02] MEDS ORDERED: AMPICILLIN SOD/SULBACTAM 3 GM VIAL IV ONE (00:45)
--- NOTE | 2020-02-02 01:11 | CRITICAL CARE ADMISSION REPORT ---
HPI Date:: 02/01/20 Time:: 20:30 Reason for ICU Reason:: Respiratory Failure HPI: 74-year-old gentleman with a known history of parkinsonian/Lewy body dementia, nasal polyps and frequent hospital admissions for respiratory insufficiency. He was recently admitted on January 18 requiring intubation for what was likely aspiration with mucous plugging. Also required vasoactive support during last admission. Today he presents to the emergency room with severe respiratory distress, fever, leukocytosis and hypotension. He was given 2 L of fluids and was intubated. We will admit him to the intensive care unit for management of his respiratory failure and septic shock. History obtained from:: Medical Record - Diagnosis/Plan (1) Acute hypoxemic respiratory failure Is this a current diagnosis for this admission?: Yes Plan: Intubated. Vent settings: IMV, Vt: 400, RR: 18, PEEP: 5, PSV: 5, FiO2: 45% Maintain SpO2 90-95%. FU ABG on these settings. Obtain Sputum Culture. Likely aspiration pneumonia, started on Unasyn. (2) Sepsis Qualifiers: Sepsis type: sepsis due to unspecified organism Sepsis acute organ dysfunction status: with acute organ dysfunction Severe sepsis acute organ dysfunction type: acute respiratory failure Acute respiratory failure type: with hypoxia Severe sepsis shock status: with septic shock Qualified Code(s): A41.9 - Sepsis, unspecified organism; R65.21 - Severe sepsis with septic shock; J96.01 - Acute respiratory failure with hypoxia Is this a current diagnosis for this admission?: Yes Plan: Continue Unasyn. IVF bolus as needed to maintain MAP > 65. Currently with adequate vascular access and no current vasoactive medications. Low threshold for placing central line, however not needed at this time. FU WBC in am. (3) Aspiration pneumonitis Is this a current diagnosis for this admission?: Yes Plan: As stated above. Continue Unasyn. I held an extensive conversations with the patients during his last admission regarding the end stage of his dementia and it likely resulting in frequent hospitalizations due to aspiration. Further discussion is needed. (4) Dementia Qualifiers: Dementia type: Parkinson's disease Dementia behavioral disturbance: with behavioral disturbance Qualified Code(s): G20 - Parkinson's disease; F02.81 - Dementia in other diseases classified elsewhere with behavioral disturbance Is this a current diagnosis for this admission?: Yes Plan: This admission to the intensive care unit represents a pattern of end-stage d ementia with frequent aspiration. He has fortunately recovered quickly after each episode thus far, however, he is at severe risk of frequent intubation. It is appropriate at this time to suggest a tracheostomy placement to manage his airway and avoid frequent emergent readmissions to the hospital. If tracheostomy tube is not desired, further discussion should be held regarding hospice care despite the family's resistance to pursuing end-of-life care. Past Medical History Cardiac Medical History: Reports: Atrial Fibrillation Denies: Coronary Artery Disease, Myocardial Infarction, Hypertension, Pulmonary Embolism Pulmonary Medical History: Reports: Respiratory Failure Denies: Asthma, Bronchitis, Chronic Obstructive Pulmonary Disease (COPD), Pneumonia Neurological Medical History: Denies: Seizures Endocrine Medical History: Denies: Diabetes Mellitus Type 1, Diabetes Mellitus Type 2, Hyperthyroidism, Hypothyroidism Malignancy Medical History: Reports: Skin Cancer GI Medical History: Denies: Cirrhosis, Hepatitis, Hiatal Hernia Musculoskeltal Medical History: Denies: Arthritis, Gout Skin Medical History: Denies: Eczema, Psoriasis Psychiatric Medical History: Reports: Dementia - Parkinson's, Depression Hematology: Denies: Anemia, Sickle Cell Disease, Bleeding Tendencies Past Surgical History Past Surgical History: Reports: Cardiac Catheterization, Other - Patient has undergone cardiac ablation for A. fib Denies: Pacemaker Social/Family History - Social History Smoking Status: Unknown if Ever Smoked Frequency of Alcohol Use: None Hx Recreational Drug Use: No Drugs: None Hx Prescription Drug Abuse: No - Medication/Allergies Home Medications: Acetaminophen 500 mg PO Q6HP PRN 01/19/20 Albuterol Sulfate [Ventolin 0.083% Neb 2.5 mg/3 mL Ampul] 2.5 mg NEB RTQID 01/19/20 Alprazolam [Xanax 0.25 mg Tablet] 0.25 mg PO DAILYP PRN 01/19/20 Ascorbic Acid 500 mg PO DAILY 01/19/20 Aspirin [Aspirin 325 mg Tablet] 325 mg PO DAILY 01/19/20 Epinephrine 0.3 mg IJ ASDIR PRN 01/19/20 Fluticasone Propionate [Flonase Nasal [place] 50 Mcg/[place] 16 gm] 1 spray NASL DAILYP PRN 01/19/20 Pramipexole Di-HCl [Mirapex 0.25 mg Tablet] 0.5 mg PO TID 01/19/20 Rivastigmine [Exelon 9.5 mg/24 Hr Transdermal Patch] 1 each TD DAILY 01/19/20 Quetiapine Fumarate [Seroquel 25 mg Tablet] 25 mg PO Q12 15 Days #30 tablet 01/23/20 Ipratropium/Albuterol Sulfate [Duoneb 3 ml Ampul] 3 ml NEB RTQ6HP PRN 02/01/20 Omeprazole 20 mg PO DAILY 02/01/20 Allergies/Adverse Reactions: cimetidine [From Tagamet] Allergy (Severe, Verified 01/15/20 16:04) Anaphylaxis ranitidine HCl [From Zantac] Allergy (Verified 01/15/20 16:04) Edema Review of Systems ROS unobtainable: Due to endotracheal tube Physical Exam Vital Signs: Temp Pulse Resp BP Pulse Ox 95.9 F L 18 145/77 H 100 02/01/20 19:46 02/01/20 19:46 02/01/20 19:46 02/01/20 19:46 Intake & Output 01/31/20 02/01/20 02/02/20 06:59 06:59 06:59 Intake Total 1852 Balance 1852 Weight 63 kg Weight/Height Weight 63 kg Height 5 ft 7 in General appearance: PRESENT: well-developed Head exam: PRESENT: atraumatic Eye exam: PRESENT: EOMI, PERRLA Neck exam: ABSENT: JVD Respiratory exam: PRESENT: symmetrical. ABSENT: accessory muscle use, rales, retraction, wheezes Cardiovascular exam: PRESENT: RRR Pulses: PRESENT: normal carotid pulses Vascular exam: PRESENT: normal capillary refill GI/Abdominal exam: PRESENT: normal bowel sounds Gentrourinary exam: ABSENT: lacerations Extremities exam: ABSENT: pedal edema Musculoskeletal exam: PRESENT: normal inspection Neurological exam: PRESENT: CN II-XII grossly intact, other - Sedated Skin exam: PRESENT: intact, normal color, warm. ABSENT: skin tears Tubes/Lines: PRESENT: Endotracheal Tube Laboratory/Radiographs Laboratory Results: 02/01/20 17:05 02/01/20 17:09 02/01/20 02/01/20 02/01/20 17:05 17:09 17:09 WBC 13.8 H RBC 4.33 L Hgb 13.8 Hct 40.5 MCV 94 MCH 31.8 MCHC 34.0 RDW 15.3 H Plt Count 233 Seg Neutrophils % 73.3 VBG pH 7.32 VBG pCO2 63.1 H VBG HCO3 31.6 VBG Base Excess 3.6 Sodium 140.8 Potassium 5.1 H Chloride 105 Carbon Dioxide 30 Anion Gap 6 BUN 21 H Creatinine 1.00 Est GFR ( Amer) > 60 Glucose 107 Lactic Acid Calcium 9.2 Total Bilirubin 1.0 AST 20 Alkaline Phosphatase 66 Total Protein 6.5 Albumin 3.8 02/01/20 17:09 WBC RBC Hgb Hct MCV MCH MCHC RDW Plt Count Seg Neutrophils % VBG pH VBG pCO2 VBG HCO3 VBG Base Excess Sodium Potassium Chloride Carbon Dioxide Anion Gap BUN Creatinine Est GFR ( Amer) Glucose Lactic Acid 1.3 Calcium Total Bilirubin AST Alkaline Phosphatase Total Protein Albumin 02/01/20 17:09 Troponin I < 0.012 Impressions: Chest X-Ray 02/01/20 00:00 IMPRESSION: No acute cardiopulmonary process. Proper position of the enteric and endotracheal tubes as detailed above. All labs, radiographs, diagnostic studies and EKGs were personally reviewed: Yes In addition, reports of radiographic and diagnostic studies were read: Yes Critical Time Critical Time (minutes): 65 -: The care of a critically ill patient is dynamic. This note represents a static moment in the admission process. Orders and treatments may be given simultaneously and urgently, and time is not sales representative canvas products of the treatment process. This patient requires Critical Care secondary to life threatening organ or limb dysfunction. Without Critical Care services, the patient is at risk for increased mortality and morbidity.
[2020-02-02] MEDS ORDERED: MIDAZOLAM HCL 50 MG/100 ML RTUINJ IV PRN (01:54)
[2020-02-02] MEDS: RINGERS SOLUTION,LACTATED 1,000 ML IV PRN ×2 (03:00→15:15)
[2020-02-02] MEDS ORDERED: AMPICILLIN SOD/SULBACTAM 3 GM VIAL IV PRN (06:00)
[2020-02-02] MEDS: AMPICILLIN SODIUM/SULBACTAM NA 3 GM in NORMAL SALINE 100 ML IV SCH ×3 (06:53→18:55)
[2020-02-02] MEDS ORDERED: PROPOFOL 1,000 MG/100 ML INFUS..BTL IV ONE (09:03)
[2020-02-02] MEDS: PROPOFOL 1,000 MG/100 ML INFUS..BTL IV PRN ×3 (09:05→21:59)
--- NOTE | 2020-02-02 13:45 | PDOC CRITICAL CARE PROG REPORT ---
General Date:: 02/02/20 ICU Day:: 2 Hospital Day:: 2 Resuscitation Status: Full Code Events in the past 12 to 24 Hours:: 74-year-old white male with Parkinson's disease and dementia. He is here with another episode of respiratory failure presumably due to the fact that he cannot clear secretions due to involvement of his pharynx with his Parkinson's disease. Apparently, his remains very unrealistic about his prognosis. He has been started on Unasyn empirically for the possibility of aspiration pneumonia and was intubated in the ER last night. Reason for ICU Addmission:: Respiratory Failure Physical Exam Vital Signs: Temp Pulse Resp BP Pulse Ox 97.5 F 67 18 98/62 L 98 02/02/20 12:00 02/02/20 12:00 02/02/20 12:00 02/02/20 12:00 02/02/20 13:12 Intake & Output 02/01/20 02/02/20 02/03/20 06:59 06:59 06:59 Intake Total 1949 167 Output Total 360 340 Balance 1589 -173 Weight 73.5 kg 73.5 kg Weight/Height Weight 73.5 kg Height 5 ft 7 in General appearance: PRESENT: no acute distress - Orally intubated and sedated, thin Eye exam: PRESENT: EOMI, PERRLA. ABSENT: conjunctival injection Neck exam: ABSENT: JVD, lymphadenopathy, thyromegaly Respiratory exam: PRESENT: rhonchi Cardiovascular exam: PRESENT: RRR GI/Abdominal exam: PRESENT: soft. ABSENT: tenderness Extremities exam: ABSENT: joint swelling Musculoskeletal exam: ABSENT: deformity Neurological exam: PRESENT: altered Skin exam: PRESENT: dry, warm Laboratory/Radiographs Laboratory Results: 02/01/20 17:05 02/01/20 17:09 02/01/20 02/01/20 02/01/20 17:05 17:09 17:09 WBC 13.8 H RBC 4.33 L Hgb 13.8 Hct 40.5 MCV 94 MCH 31.8 MCHC 34.0 RDW 15.3 H Plt Count 233 Seg Neutrophils % 73.3 Carbonic Acid HCO3/H2CO3 Ratio ABG pH ABG pCO2 ABG pO2 ABG HCO3 ABG O2 Saturation ABG Base Excess VBG pH 7.32 VBG pCO2 63.1 H VBG HCO3 31.6 VBG Base Excess 3.6 FiO2 Sodium 140.8 Potassium 5.1 H Chloride 105 Carbon Dioxide 30 Anion Gap 6 BUN 21 H Creatinine 1.00 Est GFR ( Amer) > 60 Glucose 107 Lactic Acid Calcium 9.2 Total Bilirubin 1.0 AST 20 Alkaline Phosphatase 66 Total Protein 6.5 Albumin 3.8 02/01/20 02/01/20 02/01/20 17:09 21:10 23:06 WBC RBC Hgb Hct MCV MCH MCHC RDW Plt Count Seg Neutrophils % Carbonic Acid HCO3/H2CO3 Ratio ABG pH ABG pCO2 ABG pO2 ABG HCO3 ABG O2 Saturation ABG Base Excess VBG pH VBG pCO2 VBG HCO3 VBG Base Excess FiO2 Sodium Potassium Chloride Carbon Dioxide Anion Gap BUN Creatinine Est GFR ( Amer) Glucose Lactic Acid 1.3 0.9 0.7 Calcium Total Bilirubin AST Alkaline Phosphatase Total Protein Albumin 02/01/20 23:18 WBC RBC Hgb Hct MCV MCH MCHC RDW Plt Count Seg Neutrophils % Carbonic Acid 1.11 HCO3/H2CO3 Ratio 21:1 ABG pH 7.42 ABG pCO2 36.8 ABG pO2 153.4 H ABG HCO3 23.5 ABG O2 Saturation 99.0 H ABG Base Excess -0.6 VBG pH VBG pCO2 VBG HCO3 VBG Base Excess FiO2 45% Sodium Potassium Chloride Carbon Dioxide Anion Gap BUN Creatinine Est GFR ( Amer) Glucose Lactic Acid Calcium Total Bilirubin AST Alkaline Phosphatase Total Protein Albumin 02/01/20 17:09 Troponin I < 0.012 Impressions: Chest X-Ray 02/01/20 00:00 IMPRESSION: No acute cardiopulmonary process. Proper position of the enteric and endotracheal tubes as detailed above. Assessment and Plan Plan Summary: Plan: Vent support overnight then try to extubate Routine DVT and ulcer prophylaxis Carafate added to NG also Continue Unasyn Critical Time Critical Time (minutes): 20 Level of Care: ICU
--- NOTE | 2020-02-02 14:53 | RADIOLOGY REPORT (SQ) ---
EXAM DESCRIPTION: CHEST SINGLE VIEW IMAGES COMPLETED DATE/TIME: 02/02/2020 2:40 pm REASON FOR STUDY: pneumonia COMPARISON: 02/01/2020 NUMBER OF VIEWS: One view. TECHNIQUE: Single frontal radiographic image of the chest acquired. LIMITATIONS: None. FINDINGS: LUNGS AND PLEURA: Stable appearance. MEDIASTINUM AND HILAR STRUCTURES: Stable heart size and mediastinal structures. HEART AND VASCULAR STRUCTURES: Stable appearance. SUPPORT DEVICES: Appropriate location without change. BONES: No acute findings. OTHER: No other significant finding. IMPRESSION: STABLE APPEARANCE OF THE CHEST. SUPPORT DEVICES UNCHANGED. TECHNICAL DOCUMENTATION: JOB ID: [id number] 2010 [employer]- All Rights Reserved Reading location - IP/workstation name: [email or web address]
[2020-02-02] MEDS: SUCRALFATE 1 GM TABLET PO SCH ×2 (15:16→18:55)
[2020-02-02] MEDS: ENOXAPARIN SODIUM INJ 40 MG/0.4 ML DISP.SYRIN SUBCUT SCH (15:17)
[2020-02-03] MEDS: AMPICILLIN SODIUM/SULBACTAM NA 3 GM in NORMAL SALINE 100 ML IV SCH ×5 (00:36→23:16)
[2020-02-03] MEDS: SUCRALFATE 1 GM TABLET PO SCH ×5 (00:36→23:16)
[2020-02-03] MEDS: RINGERS SOLUTION,LACTATED 1,000 ML IV PRN ×3 (00:47→23:17)
[2020-02-03 05:23] LABS: ABSOLUTE BASOPHILS # (AUTO) 0.1 10^3/uL (0.0-0.2); ABSOLUTE EOSINOPHILS # (AUTO) 0.5 10^3/uL (0.0-0.6); ABSOLUTE LYMPHOCYTES (AUTO) 2.2 10^3/uL (0.5-4.7); ABSOLUTE MONOCYTES (AUTO) 0.5 10^3/uL (0.1-1.4); ABSOLUTE NEUT (AUTO) 5.6 10^3/uL (1.7-8.2); BASOPHILS % (AUTO) 0.7 % (0-2); EOSINOPHILS % (AUTO) 5.8 % (0-6); HEMATOCRIT 36.6 % (37.9-51.0); HEMOGLOBIN 12.6 g/dL (13.5-17.0); LYMPHOCYTES % (AUTO) 24.8 % (13-45); MEAN CORPUSCULAR HGB CONC 34.3 g/dL (32.0-36.0); MEAN CORPUSCULAR VOLUME 93 fl (80-97); MONOCYTES % (AUTO) 5.7 % (3-13); PLATELET COUNT 213 10^3/uL (150-450); RED BLOOD COUNT 3.92 10^6/uL (4.35-5.55); RED CELL DISTRIBUTION WIDTH 14.8 % (11.5-14.0); TOTAL CELLS COUNTED % (AUTO) 100 %; WHITE BLOOD COUNT 8.9 10^3/uL (4.0-10.5)
[2020-02-03] MEDS: PROPOFOL 1,000 MG/100 ML INFUS..BTL IV PRN (05:34)
[2020-02-03 05:49] LABS: ALBUMIN 2.9 g/dL (3.5-5.0); ALKALINE PHOSPHATASE 52 U/L (38-126); ANION GAP 6 (5-19); ASPARTATE AMINO TRANSFERASE 24 U/L (17-59); BILIRUBIN,DIRECT 0.4 mg/dL (0.0-0.4); BILIRUBIN,TOTAL 0.6 mg/dL (0.2-1.3); BLOOD UREA NITROGEN 25 mg/dL (7-20); CALCIUM 8.3 mg/dL (8.4-10.2); CARBON DIOXIDE 24 mmol/L (22-30); CHLORIDE 108 mmol/L (98-107); GLUCOSE 89 mg/dL (75-110); POTASSIUM 3.8 mmol/L (3.6-5.0); TOTAL PROTEIN 5.5 g/dL (6.3-8.2)
--- NOTE | 2020-02-03 08:53 | PDOC CRITICAL CARE PROG REPORT ---
General Date:: 02/03/20 Resuscitation Status: Full Code Events in the past 12 to 24 Hours:: 74-year-old white male with Parkinson's disease and dementia. He is here with another episode of respiratory failure presumably due to the fact that he cannot clear secretions due to involvement of his pharynx with his Parkinson's disease. Apparently, his remains very unrealistic about his prognosis. He has been started on Unasyn empirically for the possibility of aspiration pneumonia. Chest x-ray remains clear, white count is down and he is ready for a trial of extubation. Reason for ICU Addmission:: Respiratory Failure Physical Exam Vital Signs: Temp Pulse Resp BP Pulse Ox 97.0 F 67 18 171/90 H 100 02/03/20 08:00 02/03/20 08:00 02/03/20 08:00 02/03/20 08:00 02/03/20 08:00 Intake & Output 02/02/20 02/03/20 02/04/20 06:59 06:59 06:59 Intake Total 1949 2724 Output Total 360 1260 100 Balance 1589 1464 -100 Weight 73.5 kg 62.6 kg Weight/Height Weight 62.6 kg Height 5 ft 7 in General appearance: PRESENT: no acute distress - Orally intubated and sedated, thin Head exam: PRESENT: normocephalic Eye exam: PRESENT: EOMI, PERRLA. ABSENT: conjunctival injection Neck exam: ABSENT: JVD, lymphadenopathy Respiratory exam: PRESENT: clear to auscultation nicolle Cardiovascular exam: PRESENT: RRR GI/Abdominal exam: PRESENT: soft. ABSENT: tenderness Neurological exam: PRESENT: altered - Orally intubated and sedated Skin exam: PRESENT: dry, warm Laboratory/Radiographs Laboratory Results: 02/03/20 04:45 02/03/20 04:45 02/03/20 02/03/20 02/03/20 04:45 04:45 04:45 WBC 8.9 RBC 3.92 L Hgb 12.6 L Hct 36.6 L MCV 93 MCH 32.0 MCHC 34.3 RDW 14.8 H Plt Count 213 Seg Neutrophils % 63.0 Sodium 138.1 Potassium 3.8 Chloride 108 H Carbon Dioxide 24 Anion Gap 6 BUN 25 H Creatinine 0.74 Est GFR ( Amer) > 60 Glucose 89 Calcium 8.3 L Total Bilirubin 0.6 AST 24 Alkaline Phosphatase 52 Total Protein 5.5 L Albumin 2.9 L TSH 5.51 H 02/01/20 17:09 Troponin I < 0.012 Impressions: Chest X-Ray 02/02/20 00:00 IMPRESSION: STABLE APPEARANCE OF THE CHEST. SUPPORT DEVICES UNCHANGED. Assessment and Plan - Diagnosis (1) Acute hypoxemic respiratory failure Is this a current diagnosis for this admission?: Yes Plan Summary: Impression: Respiratory failure due to inability to clear secretions Parkinson's disease and dementia No evidence of progressive aspiration pneumonia Plan: Stop sedation Extubate when he comes around Continue Unasyn Critical Time Critical Time (minutes): 20 Level of Care: ICU
[2020-02-03] MEDS ORDERED: AMPICILLIN SOD/SULBACTAM 3 GM VIAL IV SCH (10:00)
[2020-02-03] MEDS: ENOXAPARIN SODIUM INJ 40 MG/0.4 ML DISP.SYRIN SUBCUT SCH (10:50)
[2020-02-03] MEDS: LEVOTHYROXINE SODIUM INJ/PF 0.1 MG SDV IV SCH (10:50)
--- NOTE | 2020-02-03 12:12 | RADIOLOGY REPORT (SQ) ---
EXAM DESCRIPTION: KUB/ABDOMEN (SINGLE VIEW) IMAGES COMPLETED DATE/TIME: 02/03/2020 11:50 am REASON FOR STUDY: Placement of Dobhoff COMPARISON: Abdominal films 05/20/2019 NUMBER OF VIEWS: One view. TECHNIQUE: Upright radiographic image of the abdomen acquired. LIMITATIONS: None. FINDINGS: A nasogastric tube tip and side port in the stomach. Stomach is decompressed. BOWEL GAS PATTERN: Moderate stool throughout the colon. No dilated small bowel loops. CALCIFICATIONS: No suspicious calcifications. SOFT TISSUES: No gross mass or suggestion of organomegaly. HARDWARE: Robles catheter in the bladder. Nasogastric tube tip and side port in the stomach BONES: No acute fracture. No worrisome bone lesions. OTHER: No other significant finding. IMPRESSION: Nasogastric tube tip and side port in the stomach. TECHNICAL DOCUMENTATION: JOB ID: [id number] 2010 [employer]- All Rights Reserved Reading location - IP/workstation name: [email or web address]
[2020-02-03] MEDS ORDERED: PRAMIPEXOLE DI-HCL 0.5 MG TABLET NG ONE (21:15)
[2020-02-03] MEDS ORDERED: ALPRAZOLAM 0.25 MG TABLET NG ONE (21:15)
[2020-02-03] MEDS ORDERED: PRAMIPEXOLE DI-HCL 0.5 MG TABLET ONE (22:40)
[2020-02-03] MEDS ORDERED: QUETIAPINE FUMARATE 25 MG TABLET ONE (22:40)
[2020-02-03] MEDS: QUETIAPINE FUMARATE 25 MG TABLET NG SCH (22:46)
[2020-02-04] MEDS: AMPICILLIN SODIUM/SULBACTAM NA 3 GM in NORMAL SALINE 100 ML IV SCH ×4 (05:49→23:45)
[2020-02-04] MEDS: SUCRALFATE 1 GM TABLET PO SCH ×4 (05:53→23:45)
[2020-02-04] MEDS: LEVOTHYROXINE SODIUM INJ/PF 0.1 MG SDV IV SCH (10:13)
[2020-02-04] MEDS: ENOXAPARIN SODIUM INJ 40 MG/0.4 ML DISP.SYRIN SUBCUT SCH (10:13)
[2020-02-04] MEDS: ALPRAZOLAM 0.25 MG TABLET NG SCH ×2 (10:14→17:51)
[2020-02-04] MEDS: RIVASTIGMINE 9.5 MG/24 HR PATCH.TD24 TD SCH (10:15)
[2020-02-04] MEDS: RINGERS SOLUTION,LACTATED 1,000 ML IV PRN ×2 (10:15→21:34)
[2020-02-04] MEDS: PRAMIPEXOLE DI-HCL 0.5 MG TABLET NG SCH ×3 (10:15→17:51)
--- NOTE | 2020-02-04 13:50 | PDOC CRITICAL CARE PROG REPORT ---
General Date:: 02/03/30 Resuscitation Status: Full Code Events in the past 12 to 24 Hours:: 74-year-old white male with Parkinson's disease and dementia. He is here with another episode of respiratory failure presumably due to the fact that he cannot clear secretions due to involvement of his pharynx with his Parkinson's disease. Apparently, his remains very unrealistic about his prognosis. He has been started on Unasyn empirically for the possibility of aspiration pneumonia. He has tolerated extubation thus far but remains an aspiration risk. He is tolerating enteral feeds with a Dobbhoff. Reason for ICU Addmission:: Respiratory Failure Physical Exam Vital Signs: Temp Pulse Resp BP Pulse Ox 99.5 F 49 L 17 129/63 H 97 02/04/20 12:00 02/04/20 12:00 02/04/20 12:00 02/04/20 12:00 02/04/20 12:00 Intake & Output 02/03/20 02/04/20 02/05/20 06:59 06:59 06:59 Intake Total 2724 2746 1100 Output Total 1260 3785 780 Balance 1464 -1039 320 Weight 62.6 kg 62 kg 62 kg Weight/Height Weight 62 kg Height 5 ft 7 in General appearance: PRESENT: no acute distress Head exam: PRESENT: normocephalic Mouth exam: PRESENT: neck supple Respiratory exam: PRESENT: clear to auscultation nicolle Cardiovascular exam: PRESENT: RRR GI/Abdominal exam: PRESENT: soft. ABSENT: tenderness Musculoskeletal exam: PRESENT: deformity - contractures related to Parkinson's disease including neck. ABSENT: full ROM Neurological exam: PRESENT: alert, awake Skin exam: PRESENT: dry, warm Laboratory/Radiographs Laboratory Results: 02/03/20 04:45 02/03/20 04:45 02/01/20 23:18 Tracheal Aspirate Gram Stain - Final 02/01/20 23:18 Tracheal Aspirate Sputum Culture - Final NORMAL BREE 02/01/20 17:09 Troponin I < 0.012 Impressions: Chest X-Ray 02/02/20 00:00 IMPRESSION: STABLE APPEARANCE OF THE CHEST. SUPPORT DEVICES UNCHANGED. KUB X-Ray 02/03/20 11:32 IMPRESSION: Nasogastric tube tip and side port in the stomach. Assessment and Plan - Diagnosis (1) Acute hypoxemic respiratory failure Is this a current diagnosis for this admission?: Yes Plan Summary: Impression: Respiratory failure due to inability to clear secretions Parkinson's disease and dementia No evidence of progressive aspiration pneumonia Plan: Extubated yesterday Continue Unasyn Continue NG feeds X-ray in a.m. Critical Time Critical Time (minutes): 25 Level of Care: ICU
[2020-02-04] MEDS: QUETIAPINE FUMARATE 25 MG TABLET NG SCH (21:33)
--- NOTE | 2020-02-04 23:49 | RADIOLOGY REPORT (SQ) ---
CLINICAL INDICATION: new DHT, confirm placement. TECHNIQUE: Single portable AP supine image(s) of the abdomen. 2331 hours COMPARISON: February 03, 2020. FINDINGS: A nonspecific gas pattern is identified. No evidence of high grade obstruction. No evidence of free air. Visualized bones are unremarkable. IMPRESSION: No acute intra-abdominal process is identified. Weighted nasogastric feeding tube tip projects over the stomach, satisfactory. The wire is still within this device
[2020-02-05 04:47] LABS: ABSOLUTE EOSINOPHILS # (AUTO) 0.9 10^3/uL (0.0-0.6); ABSOLUTE LYMPHOCYTES (AUTO) 1.3 10^3/uL (0.5-4.7); ABSOLUTE MONOCYTES (AUTO) 0.5 10^3/uL (0.1-1.4); ABSOLUTE NEUT (AUTO) 4.1 10^3/uL (1.7-8.2); BASOPHILS % (AUTO) 0.6 % (0-2); EOSINOPHILS % (AUTO) 13.7 % (0-6); HEMATOCRIT 38.3 % (37.9-51.0); HEMOGLOBIN 12.9 g/dL (13.5-17.0); LYMPHOCYTES % (AUTO) 18.4 % (13-45); MEAN CORPUSCULAR HEMOGLOBIN 31.1 pg (27.0-33.4); MEAN CORPUSCULAR HGB CONC 33.7 g/dL (32.0-36.0); MEAN CORPUSCULAR VOLUME 92 fl (80-97); MONOCYTES % (AUTO) 7.3 % (3-13); PLATELET COUNT 213 10^3/uL (150-450); RED BLOOD COUNT 4.15 10^6/uL (4.35-5.55); RED CELL DISTRIBUTION WIDTH 14.4 % (11.5-14.0); TOTAL CELLS COUNTED % (AUTO) 100 %; WHITE BLOOD COUNT 6.8 10^3/uL (4.0-10.5)
[2020-02-05 05:16] LABS: ANION GAP 5 (5-19); BLOOD UREA NITROGEN 11 mg/dL (7-20); CALCIUM 8.5 mg/dL (8.4-10.2); CARBON DIOXIDE 26 mmol/L (22-30); CHLORIDE 106 mmol/L (98-107); GLUCOSE 121 mg/dL (75-110); PHOSPHORUS 2.4 mg/dL (2.5-4.5); POTASSIUM 3.4 mmol/L (3.6-5.0)
[2020-02-05] MEDS: AMPICILLIN SODIUM/SULBACTAM NA 3 GM in NORMAL SALINE 100 ML IV SCH ×3 (06:13→17:08)
[2020-02-05] MEDS: SUCRALFATE 1 GM TABLET PO SCH ×3 (06:14→17:08)
--- NOTE | 2020-02-05 08:55 | RADIOLOGY REPORT (SQ) ---
EXAM DESCRIPTION: CHEST SINGLE VIEW IMAGES COMPLETED DATE/TIME: 02/05/2020 6:29 am REASON FOR STUDY: pneumonia COMPARISON: 02/02/2020 NUMBER OF VIEWS: One view. TECHNIQUE: Single frontal radiographic image of the chest acquired. LIMITATIONS: Positioning obscures the apices. FINDINGS: LUNGS AND PLEURA: No pneumothorax or infiltrate. MEDIASTINUM AND HEART: Stable heart size and mediastinal structures. SUPPORT DEVICES: Feeding tube tip coiled overlying the stomach. BONY STRUCTURES: No acute findings. HARDWARE: None. OTHER: No other significant finding. IMPRESSION: Stable appearance chest. Reading location - IP/workstation name: [email or web address]
[2020-02-05] MEDS ORDERED: ASCORBIC ACID 500 MG TABLET NG SCH (10:00)
[2020-02-05] MEDS ORDERED: PANTOPRAZOLE SODIUM 40 MG VIAL IV SCH (10:00)
[2020-02-05] MEDS: RIVASTIGMINE 9.5 MG/24 HR PATCH.TD24 TD SCH (11:16)
[2020-02-05] MEDS: ENOXAPARIN SODIUM INJ 40 MG/0.4 ML DISP.SYRIN SUBCUT SCH (11:17)
[2020-02-05] MEDS: LEVOTHYROXINE SODIUM INJ/PF 0.1 MG SDV IV SCH (11:17)
[2020-02-05] MEDS: ALPRAZOLAM 0.25 MG TABLET NG SCH (11:17)
[2020-02-05] MEDS: PRAMIPEXOLE DI-HCL 0.5 MG TABLET NG SCH (11:18)
[2020-02-05] MEDS ORDERED: ALPRAZOLAM 0.25 MG TABLET PO PRN (11:19)
[2020-02-05] MEDS ORDERED: FLUTICASONE NASAL SPRAY 50 MCG/SPRY 120 SPRAY/16 GM NASL PRN (11:19)
--- NOTE | 2020-02-05 11:19 | PDOC CRITICAL CARE PROG REPORT ---
General Date:: 02/05/20 ICU Day:: 4 Hospital Day:: 4 Resuscitation Status: Full Code Events in the past 12 to 24 Hours:: Extubated and doing fairly well. Review of systems relevant to events:: Respiratory, neurological. Reason for ICU Addmission:: Respiratory Failure - Medications: Medications reviewed and adjusted accordingly: Yes Vasopressors:: None Sedation:: None Physical Exam Vital Signs: Temp Pulse Resp BP Pulse Ox 98.1 F 63 15 167/83 H 98 02/05/20 08:00 02/05/20 10:00 02/05/20 10:00 02/05/20 10:00 02/05/20 10:00 Intake & Output 02/04/20 02/05/20 02/06/20 06:59 06:59 06:59 Intake Total 2746 3096 Output Total 3785 1975 Balance -1039 1121 Weight 62 kg 61.3 kg Weight/Height Weight 61.3 kg Height 5 ft 7 in General appearance: PRESENT: no acute distress, hard of hearing, thin Head exam: PRESENT: atraumatic, normocephalic Eye exam: PRESENT: conjunctiva pink, EOMI, PERRLA. ABSENT: scleral icterus Ear exam: PRESENT: normal external ear exam Mouth exam: PRESENT: moist, tongue midline Neck exam: PRESENT: other - Hunched forward. Respiratory exam: PRESENT: clear to auscultation nicolle. ABSENT: rales, rhonchi, wheezes Cardiovascular exam: PRESENT: RRR. ABSENT: diastolic murmur, rubs, systolic murmur GI/Abdominal exam: PRESENT: normal bowel sounds, soft. ABSENT: distended, guarding, mass, organolmegaly, rebound, tenderness Rectal exam: PRESENT: deferred Extremities exam: PRESENT: full ROM. ABSENT: calf tenderness, clubbing, pedal edema Neurological exam: PRESENT: alert, altered, awake, CN II-XII grossly intact Psychiatric exam: PRESENT: appropriate affect, normal mood. ABSENT: homicidal ideation, suicidal ideation Skin exam: PRESENT: dry, intact, warm. ABSENT: cyanosis, rash Tubes/Lines: PRESENT: Nasogastic Tube Laboratory/Radiographs Laboratory Results: 02/05/20 04:34 02/05/20 04:34 02/05/20 02/05/20 04:34 04:34 WBC 6.8 RBC 4.15 L Hgb 12.9 L Hct 38.3 MCV 92 MCH 31.1 MCHC 33.7 RDW 14.4 H Plt Count 213 Seg Neutrophils % 60.0 Sodium 137.4 Potassium 3.4 L Chloride 106 Carbon Dioxide 26 Anion Gap 5 BUN 11 Creatinine 0.58 Est GFR ( Amer) > 60 Glucose 121 H Calcium 8.5 Phosphorus 2.4 L Magnesium 2.0 02/01/20 23:18 Tracheal Aspirate Gram Stain - Final 02/01/20 23:18 Tracheal Aspirate Sputum Culture - Final NORMAL BREE 02/01/20 17:09 Troponin I < 0.012 Impressions: KUB X-Ray 02/04/20 00:00 IMPRESSION: No acute intra-abdominal process is identified. Weighted nasogastric feeding tube tip projects over the stomach, satisfactory. The wire is still within this device Chest X-Ray 02/05/20 07:00 IMPRESSION: Stable appearance chest. All labs, radiographs, diagnostic studies and EKGs were personally reviewed: Yes In addition, reports of radiographic and diagnostic studies were read: Yes Assessment and Plan - Diagnosis (1) SIRS (systemic inflammatory response syndrome) Is this a current diagnosis for this admission?: Yes Plan: Although he met criteria for sepsis he has shown no growth in his cultures. This is more indicative of SIRS. (2) Acute hypoxemic respiratory failure Is this a current diagnosis for this admission?: Yes Plan: This has resolved for now. I do not believe he is positive for COVID. I believe this is from aspiration. Awaiting results. Continue precautions though. (3) Tachycardia Is this a current diagnosis for this admission?: Yes Plan: Resolved (4) Aspiration pneumonitis Is this a current diagnosis for this admission?: Yes Plan: This is a consequence of Parkinson's and Lewy-body dementia. This is common and frequent especially in the final stages. (5) At risk for aspiration Is this a current diagnosis for this admission?: Yes Plan: Although he has recovered from this episode it will become more frequent and l ikely lead to his demise. Ideally he would likely benefit from a DNR status. (6) Delirium due to another medical condition, acute, hyperactive Is this a current diagnosis for this admission?: Yes Plan: He seems back at baseline for now. (7) Dementia Qualifiers: Dementia type: Lewy body dementia Dementia behavioral disturbance: with behavioral disturbance Qualified Code(s): G31.83 - Dementia with Lewy bodies; F02.81 - Dementia in other diseases classified elsewhere with behavioral disturbance Is this a current diagnosis for this admission?: Yes Plan: Control symptoms as much as possible. (8) Lewy body dementia Qualifiers: Dementia behavioral disturbance: with behavioral disturbance Qualified Code(s): G31.83 - Dementia with Lewy bodies; F02.81 - Dementia in other diseases classified elsewhere with behavioral disturbance Is this a current diagnosis for this admission?: Yes Plan: As above. 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 Plan Summary: OK to downgrade today. Critical Time Critical Time (minutes): 35 Level of Care: MEDICAL Anticipated discharge: SNF Within: within 72 hours -: 1. The care of a critical patient is a dynamic process. This note is a appliance service representative synopsis but static in nature. The timeframe for treatments given in order is not necessarily the actual time these treatments may have been done. 2. This patient requires critical care secondary to ongoing requirements for therapy not offered or safe outside the critical care environment. Transfer to a lower level of care will result in altered life or limb morbidity and mortality. 3. Multidisciplinary rounds completed. 4. ABCDE bundle addressed.
--- NOTE | 2020-02-05 13:54 | Progress Note ---
Provider Note Provider Note: 74-year-old male with multiple hospital admissions for respiratory failure, Parkinson's, Lewy body dementia, nasal polyps admitted on January 18 for aspiration pneumonia with mucous plugging. He required pressor support during the last admission. He came back again on 02/01/2020 with a similar problems with severe respiratory distress, fever, leukocytosis and hypotension. Was admitted to ICU given IV fluids he was promptly intubated. His condition is improved gradually acute hypoxic respiratory failure resolved and extubated. Blood cultures sputum cultures are negative. Sepsis resolved. Patient receiving feeding by Dobbhoff. Patient also has a Robles's catheter. Bedbound unable to communicate well because of underlying Lewy body dementia. Status is full code. covid test done and report is pending. Patient is going to be downgraded to fifth floor from ICU today. Again acute hypoxic respiratory fa ilure resolved pulse ox today is 97% on room air. Tachycardia is resolved heart rate is in the 60s. Aspiration pneumonitis resolved status post extubation. Presently on Unasyn. Patient still high risk for aspiration. Mental status back to baseline. Examination today patient is comfortable in the bed not in distress. Awake alert unable to communicate. Pupils are equal and reactive light accommodation Dobbhoff feeding tube present. Chest bilateral entry was decreased S1-S2 present in sinus rhythm. Abdomen soft flat nontender bowel sounds are present. Robles's catheter in place. Extremities with no pedal edema peripheral pulses are poor. In my opinion patient needs to be DNR and needs to go to a long-term care facility. He is going to the fifth floor with a droplet isolation because coronavirus test was done and results are pending.
[2020-02-05] MEDS ORDERED: PRAMIPEXOLE DI-HCL 0.25 MG TABLET PO SCH (14:00)
[2020-02-05] MEDS: PRAMIPEXOLE DI-HCL 0.5 MG TABLET PO SCH ×2 (14:37→17:08)
[2020-02-05] MEDS ORDERED: POTASSIUM PHOS,M-BASIC-D-BASIC 30 MMOL in NORMAL SALINE 500 ML IV ONE (17:00)
[2020-02-05] MEDS: RINGERS SOLUTION,LACTATED 1,000 ML IV PRN (17:08)
[2020-02-05] MEDS: QUETIAPINE FUMARATE 25 MG TABLET PO SCH (22:22)
[2020-02-06] MEDS: AMPICILLIN SODIUM/SULBACTAM NA 3 GM in NORMAL SALINE 100 ML IV SCH ×4 (00:43→17:06)
[2020-02-06] MEDS: SUCRALFATE 1 GM TABLET PO SCH ×4 (00:43→17:06)
[2020-02-06 05:13] LABS: ABSOLUTE EOSINOPHILS # (AUTO) 1.2 10^3/uL (0.0-0.6); ABSOLUTE LYMPHOCYTES (AUTO) 1.1 10^3/uL (0.5-4.7); ABSOLUTE MONOCYTES (AUTO) 0.4 10^3/uL (0.1-1.4); ABSOLUTE NEUT (AUTO) 3.3 10^3/uL (1.7-8.2); BASOPHILS % (AUTO) 0.6 % (0-2); EOSINOPHILS % (AUTO) 20.1 % (0-6); HEMATOCRIT 37.2 % (37.9-51.0); HEMOGLOBIN 12.8 g/dL (13.5-17.0); LYMPHOCYTES % (AUTO) 17.8 % (13-45); MEAN CORPUSCULAR HEMOGLOBIN 31.5 pg (27.0-33.4); MEAN CORPUSCULAR HGB CONC 34.5 g/dL (32.0-36.0); MEAN CORPUSCULAR VOLUME 91 fl (80-97); MONOCYTES % (AUTO) 6.4 % (3-13); PLATELET COUNT 211 10^3/uL (150-450); RED BLOOD COUNT 4.08 10^6/uL (4.35-5.55); RED CELL DISTRIBUTION WIDTH 14.1 % (11.5-14.0); SEGMENTED NEUTROPHILS % (AUTO) 55.1 % (42-78); TOTAL CELLS COUNTED % (AUTO) 100 %; WHITE BLOOD COUNT 5.9 10^3/uL (4.0-10.5)
[2020-02-06 05:36] LABS: ALBUMIN 2.7 g/dL (3.5-5.0); ALKALINE PHOSPHATASE 54 U/L (38-126); ANION GAP 6 (5-19); ASPARTATE AMINO TRANSFERASE 45 U/L (17-59); BILIRUBIN,TOTAL 0.6 mg/dL (0.2-1.3); BLOOD UREA NITROGEN 9 mg/dL (7-20); CALCIUM 8.2 mg/dL (8.4-10.2); CARBON DIOXIDE 27 mmol/L (22-30); CHLORIDE 105 mmol/L (98-107); GLUCOSE 109 mg/dL (75-110); POTASSIUM 3.6 mmol/L (3.6-5.0); TOTAL PROTEIN 4.9 g/dL (6.3-8.2)
[2020-02-06] MEDS: PANTOPRAZOLE SODIUM 20 MG TABLET.DR PO SCH (06:28)
[2020-02-06] MEDS: QUETIAPINE FUMARATE 25 MG TABLET PO SCH ×2 (09:57→22:43)
[2020-02-06] MEDS: RIVASTIGMINE 9.5 MG/24 HR PATCH.TD24 TD SCH (09:57)
[2020-02-06] MEDS: ENOXAPARIN SODIUM INJ 40 MG/0.4 ML DISP.SYRIN SUBCUT SCH (09:57)
[2020-02-06] MEDS: ASCORBIC ACID 500 MG TABLET PO SCH (09:58)
[2020-02-06] MEDS: ASPIRIN 325 MG TABLET PO SCH (09:58)
[2020-02-06] MEDS: PRAMIPEXOLE DI-HCL 0.5 MG TABLET PO SCH ×3 (09:58→17:06)
[2020-02-06] MEDS: RINGERS SOLUTION,LACTATED 1,000 ML IV PRN (14:20)
--- NOTE | 2020-02-06 14:24 | PDOC PROGRESS REPORT ---
Subjective Progress Note for:: 02/06/20 Subjective:: Follow-up of aspiration pneumonia He is currently been ruled out for COVID 19 Reason For Visit: RESPIRATORY FAILURE,SEPTIC SHOCK Physical Exam Vital Signs: Temp Pulse Resp BP Pulse Ox 97.8 F 65 20 131/77 H 97 02/06/20 08:47 02/06/20 08:47 02/06/20 08:47 02/06/20 08:47 02/06/20 08:47 Intake & Output 02/05/20 02/06/20 02/07/20 06:59 06:59 06:59 Intake Total 3092007 Output Total 1974 3000 450 Balance 1121 -992 444 Weight 61.3 kg 63.1 kg General appearance: PRESENT: no acute distress, other - Elderly kyphotic Head exam: PRESENT: atraumatic Respiratory exam: PRESENT: crackles, rhonchi, unlabored Cardiovascular exam: PRESENT: RRR, +S1, +S2 Rectal exam: PRESENT: deferred Results Laboratory Results: 02/06/20 04:28 02/06/20 04:28 02/06/20 02/06/20 04:28 04:28 WBC 5.9 RBC 4.08 L Hgb 12.8 L Hct 37.2 L MCV 91 MCH 31.5 MCHC 34.5 RDW 14.1 H Plt Count 211 Seg Neutrophils % 55.1 Sodium 138.0 Potassium 3.6 Chloride 105 Carbon Dioxide 27 Anion Gap 6 BUN 9 Creatinine 0.61 Est GFR ( Amer) > 60 Glucose 109 Calcium 8.2 L Magnesium 1.9 Total Bilirubin 0.6 AST 45 Alkaline Phosphatase 54 Total Protein 4.9 L Albumin 2.7 L 02/01/20 17:09 Troponin I < 0.012 Impressions: KUB X-Ray 02/04/20 00:00 IMPRESSION: No acute intra-abdominal process is identified. Weighted nasogastric feeding tube tip projects over the stomach, satisfactory. The wire is still within this device Chest X-Ray 02/05/20 07:00 IMPRESSION: Stable appearance chest. Assessment and Plan - Diagnosis (1) Acute hypoxemic respiratory failure Is this a current diagnosis for this admission?: Yes Plan: This has resolved for now. Likely secondary to aspiration pneumonia Follow-up on coronavirus result (2) SIRS (systemic inflammatory response syndrome) Is this a current diagnosis for this admission?: Yes Plan: Possibly with early sepsis (3) Sepsis Qualifiers: Sepsis type: sepsis due to unspecified organism Sepsis acute organ dysfunction status: with acute organ dysfunction Severe sepsis acute organ dysfunction type: acute respiratory failure Acute respiratory failure type: with hypoxia Severe sepsis shock status: with septic shock Qualified Code(s): A41.9 - Sepsis, unspecified organism; R65.21 - Severe sepsis with septic shock; J96.01 - Acute respiratory failure with hypoxia Is this a current diagnosis for this admission?: Yes (4) Aspiration pneumonitis Is this a current diagnosis for this admission?: Yes Plan: This is a consequence of Parkinson's and Lewy-body dementia. (5) Suspected COVID-19 virus infection Is this a current diagnosis for this admission?: Yes Plan: Patient has already been tested and results pending
[2020-02-06] MEDS ORDERED: IPRATROPIUM/ALBUTEROL 0.5-2.5 MG/3 ML AMPUL NEB ONE ×2 (22:39→22:41)
[2020-02-06 22:46] LABS: ARTERIAL BLOOD BASE EXCESS -2.3 mmol/L; ARTERIAL BLOOD H2CO3 1.99 mmol/L (1.05-1.35); ARTERIAL BLOOD HCO3 26.7 mmol/L (20-24); ARTERIAL BLOOD O2 SATURATION 95.5 % (94-98); ARTERIAL BLOOD PCO2 66.1 mmHg (35-45); ARTERIAL BLOOD PH 7.22 (7.35-7.45); ARTERIAL BLOOD TOTAL CO2 28.7 mmol/L (23-27)
[2020-02-06 22:47] LABS: ARTERIAL BLOOD FIO2 36%
--- NOTE | 2020-02-06 22:56 | RADIOLOGY REPORT (SQ) ---
EXAM DESCRIPTION: AP portable radiograph of the chest CLINICAL HISTORY: 74 years Male, respiratory distress; r/o new acute process COMPARISON: Portable view of the chest 02/05/2020 FINDINGS: Lungs: Lungs are clear. No pneumonia or edema. No pneumothorax or pleural effusion. Mediastinum: Cardiac and mediastinal silhouette are normal. Feeding tube passes through the esophagus and into the upper stomach Bones: There is curvature the thoracic spine convex right which may be positional. IMPRESSION: No pneumonia or edema. No acute process is seen.
--- NOTE | 2020-02-06 22:58 | RADIOLOGY REPORT (SQ) ---
EXAM DESCRIPTION: AP supine portable view of the abdomen CLINICAL HISTORY: 74 years Male, feeding tube position check with resp distress COMPARISON: Portable view of the abdomen 02/04/2020 FINDINGS: Previously of feeding tube was in the stomach pointed towards the gastric fundus. This is now coiled predominantly in the gastric fundus and in the body the pancreas. The tip of the feeding tube is in the gastric fundus. Bowel gas pattern is unremarkable. There is a small amount of stool noted in the rectal vault and there appears to be a rectal tube or possibly a Robles catheter. IMPRESSION: Feeding tube is coiled on the stomach and the tip is in the gastric antrum.
[2020-02-07] MEDS: AMPICILLIN SODIUM/SULBACTAM NA 3 GM in NORMAL SALINE 100 ML IV SCH ×5 (00:05→22:46)
--- NOTE | 2020-02-07 00:51 | Progress Note ---
Provider Note Provider Note: Date/Time of encounter: 02/06/2020 21:55 PM Mr. Burns is a 74-year-old male with advanced Lewy body dementia, Parkinson's, COPD, and chronic aspiration who originally presented with aspiration pneumonitis and SIRS. His condition improved and he was subsequently transferred to the medical [facility]. Dr. Schmidt asked me to evaluate Mr. Burns for respiratory failure as the nurse informed him of increased work of breathing and retractions. Upon evaluating Mr. Burns, he indeed had severe work of breathing utilizing scalene and intercostal accessory muscles as well as nasal flaring. He was wheezing with diminished breath sounds and was in acute respiratory failure for which the oxygen had been increased throughout the day. I ordered an ABG, chest x-ray, and also a KUB to determine placement of the small-bore feeding tube. The ABG demonstrated respiratory acidosis pH 7.22 PaCO2 66, chest x-ray was clear with no acute infiltrate/mucus plug/pneumothorax/pulmonary congestion per my read, and Dobhoff feeding tube is coiled in the stomach with the tip refluxed back towards the gastric antrum per my read. Following imaging, naso-tracheal suction was performed yielding a moderate amount of hypopharyngeal secretions which were not enteral feeding appearance. His work of breathing did not resolve, therefore, a BiPAP was applied for impending respiratory failure and a Duo-neb breathing treatment was administered in circuit. Mr Burns's wheezing and work of breathing resolved with Duo-neb as well as IPAP 12 EPAP 6 RR 6 as initial settings. Focused physical exam: Constitutional: respiratory distress with severe work of breathing Neuro: Awake, but not as alert as he previously was when he transferred to the [facility] due to hypercapnia/hypoxemia Pulm: Wheezing/diminished, labored, tachypneic, chest expansion symmetrical CV: Sinus tachycardia, s1s2 GI: soft, non-distended Assessment: Acute respiratory failure due to hypercapnia and hypoxia COPD Acute metabolic encephalopathy due to respiratory acidosis Lewy body dementia Plan summary/recommendations: I anticipate he will be more alert in the morning after wearing BiPAP overnight and he will likely be able to be weaned off non-invasive ventilation in the AM. He does not need a repeat CXR in the AM, nor do I feel he needs a repeat ABG as I am confident the BiPAP will resolve his hypercapnia. Unfortunately, the patient is unable to cooperate with incentive spirometry given his dementia. Will add duo-nebs available prn wheezing as the patient has COPD. Discontinue maintenance IV fluids as they are no longer necessary and he is tolerating tube feeding. Continue enteral nutrition and feeding tube flushes as ordered as this should be adequate for hydration. Will obtain CBC in the AM to evaluate for leukocytosis as it is not necessary at this moment and was not present on labs this AM, BMP to evaluate serum Na+ and renal function, Phos level to ensure patient has adequate ATP to support breathing and he has required exogenous PO4 supplementation this hospitalization. Replete phosphorus to goal of > or = to 4 mg/dL. Hold Xanax and Seroquel this evening given above events. However, I recommend re-evaluating continuance of Xanax/Seroquel (home meds) to avoid withdrawal in the morning on 02/07/2020 and will leave at the discretion of the hospitalist. Continue to f/u pending COVID-19 test daily until resulted. I updated Dr Schmidt of the interventions, improvement in condition, disposition, and f/u recommendations. Disposition: Patient may stay in current Rm [id number] on medical [facility] with non- invasive ventilation as work of breathing and wheezing is completely resolved at this time. No need for ICU at this time. Please call if patient condition deteriorates for re-evaluation. Critical care time spent: 40 minutes ICD-10 code 52241
[2020-02-07] MEDS: SUCRALFATE 1 GM TABLET PO SCH ×4 (03:25→17:40)
[2020-02-07] MEDS: PANTOPRAZOLE SODIUM 20 MG TABLET.DR PO SCH (06:20)
[2020-02-07 08:45] LABS: ABSOLUTE EOSINOPHILS # (AUTO) 0.1 10^3/uL (0.0-0.6); ABSOLUTE MONOCYTES (AUTO) 0.7 10^3/uL (0.1-1.4); ABSOLUTE NEUT (AUTO) 5.5 10^3/uL (1.7-8.2); BASOPHILS % (AUTO) 0.3 % (0-2); EOSINOPHILS % (AUTO) 0.9 % (0-6); HEMATOCRIT 37.7 % (37.9-51.0); LYMPHOCYTES % (AUTO) 13.4 % (13-45); MEAN CORPUSCULAR HEMOGLOBIN 31.8 pg (27.0-33.4); MEAN CORPUSCULAR HGB CONC 34.6 g/dL (32.0-36.0); MEAN CORPUSCULAR VOLUME 92 fl (80-97); MONOCYTES % (AUTO) 9.5 % (3-13); PLATELET COUNT 209 10^3/uL (150-450); RED CELL DISTRIBUTION WIDTH 14.1 % (11.5-14.0); SEGMENTED NEUTROPHILS % (AUTO) 75.9 % (42-78); TOTAL CELLS COUNTED % (AUTO) 100 %; WHITE BLOOD COUNT 7.2 10^3/uL (4.0-10.5)
[2020-02-07 09:02] LABS: BLOOD UREA NITROGEN 20 mg/dL (7-20); CALCIUM 8.4 mg/dL (8.4-10.2); CARBON DIOXIDE 29 mmol/L (22-30); CHLORIDE 105 mmol/L (98-107); GLUCOSE 149 mg/dL (75-110); PHOSPHORUS 2.9 mg/dL (2.5-4.5)
[2020-02-07 09:10] LABS: POTASSIUM 4.4 mmol/L (3.6-5.0)
[2020-02-07 09:13] LABS: ANION GAP 4 (5-19)
[2020-02-07] MEDS: ASPIRIN 325 MG TABLET PO SCH (10:21)
[2020-02-07] MEDS: ASCORBIC ACID 500 MG TABLET PO SCH (10:22)
[2020-02-07] MEDS: RIVASTIGMINE 9.5 MG/24 HR PATCH.TD24 TD SCH (10:22)
[2020-02-07] MEDS: PRAMIPEXOLE DI-HCL 0.5 MG TABLET PO SCH ×3 (10:22→17:40)
--- NOTE | 2020-02-07 10:37 | PDOC PROGRESS REPORT ---
Subjective Progress Note for:: 02/07/20 Subjective:: The patient remains on BiPAP. He is still obtunded. His last PCO2 was still elevated and so I will check another blood gas today. Reason For Visit: RESPIRATORY FAILURE,SEPTIC SHOCK Physical Exam Vital Signs: Temp Pulse Resp BP Pulse Ox 97.7 F 61 20 122/65 100 02/07/20 08:59 02/07/20 08:59 02/07/20 08:59 02/07/20 08:59 02/07/20 08:59 Intake & Output 02/06/20 02/07/20 02/08/20 06:59 06:59 06:59 Intake Total 2007 2647 100 Output Total 3000 450 Balance -992 2197 100 Weight 63.1 kg 63.1 kg General appearance: PRESENT: other - Patient is still on BiPAP. No verbal interaction during this encounter. Head exam: PRESENT: atraumatic, normocephalic Respiratory exam: PRESENT: decreased breath sounds, rhonchi - Possible rhonchi. Difficult to auscultate due to BiPAP, symmetrical. ABSENT: tachypnea, wheezes Cardiovascular exam: PRESENT: RRR, +S1, +S2 GI/Abdominal exam: PRESENT: diminished bowel sounds, soft, other - Feeding tube in place Neurological exam: PRESENT: other - Did not respond to verbal stimulus. ABSENT: awake Focused psych exam: PRESENT: other - No interaction today Skin exam: PRESENT: other - Facial flushing Results Laboratory Results: 02/07/20 08:19 02/07/20 08:19 02/06/20 02/07/20 02/07/20 22:35 08:19 08:19 WBC 7.2 RBC 4.10 L Hgb 13.0 L Hct 37.7 L MCV 92 MCH 31.8 MCHC 34.6 RDW 14.1 H Plt Count 209 Seg Neutrophils % 75.9 Carbonic Acid 1.99 H HCO3/H2CO3 Ratio 13:1 ABG pH 7.22 L ABG pCO2 66.1 H ABG pO2 94.0 ABG HCO3 26.7 H ABG O2 Saturation 95.5 ABG Base Excess -2.3 FiO2 36% Sodium 138.3 Potassium 4.4 Chloride 105 Carbon Dioxide 29 Anion Gap 4 L BUN 20 Creatinine 0.72 Est GFR ( Amer) > 60 Glucose 149 H Calcium 8.4 Phosphorus 2.9 02/01/20 18:04 Blood Blood Culture - Final NO GROWTH IN 5 DAYS 02/01/20 17:02 Blood Blood Culture - Final NO GROWTH IN 5 DAYS 02/01/20 17:09 Troponin I < 0.012 Impressions: Chest X-Ray 02/06/20 00:00 IMPRESSION: No pneumonia or edema. No acute process is seen. KUB X-Ray 02/06/20 00:00 IMPRESSION: Feeding tube is coiled on the stomach and the tip is in the gastric antrum. Assessment and Plan - Diagnosis (1) Acute hypoxemic respiratory failure Is this a current diagnosis for this admission?: Yes Plan: This has resolved for now. Likely secondary to aspiration pneumonia Follow-up on coronavirus result 02/07/2020 Unfortunately the patient is back on BiPAP. His PCO2 was 66 yesterday. It is acute respiratory failure with hypoxia and hypercapnia. We will obtain another blood gas today. The respiratory failure is secondary to the aspiration pneumonitis. There is also suspicion of Covid-19. (2) SIRS (systemic inflammatory response syndrome) Is this a current diagnosis for this admission?: Yes Plan: Possibly with early sepsis (3) Aspiration pneumonitis Is this a current diagnosis for this admission?: Yes Plan: This is a consequence of Parkinson's and Lewy-body dementia. February 07, 2020 The patient is high risk for aspiration. Due to his weakened state I believe his risk has worsened since his last admission. He is on Unasyn for the aspiration pneumonia. (4) Sepsis due to pneumonia Is this a current diagnosis for this admission?: Yes Plan: 02/07/2020 On admission the patient exhibited low blood pressure, increased work of breathing and hypoxia which qualifies for a diagnosis of sepsis. The sepsis has resolved at this point. Continue aggressive therapy for the pneumonia and respiratory failure. (5) Lewy body dementia Qualifiers: Dementia behavioral disturbance: with behavioral disturbance Qualified Code(s): G31.83 - Dementia with Lewy bodies; F02.81 - Dementia in other diseases classified elsewhere with behavioral disturbance Is this a current diagnosis for this admission?: Yes Plan: As above. 02/07/2020 Unfortunately this is a chronic progressive illness without any significant treatment. Continue supportive care while treating the comorbidities. (6) Suspected COVID-19 virus infection Is this a current diagnosis for this admission?: Yes Plan: Patient has already been tested and results pending February 07, 2020 Final results still pending - Time Time Spent with patient: 15-24 minutes Medications reviewed and adjusted accordingly: Yes
[2020-02-07] MEDS: ENOXAPARIN SODIUM INJ 40 MG/0.4 ML DISP.SYRIN SUBCUT SCH (11:11)
[2020-02-07 18:01] LABS: ARTERIAL BLOOD BASE EXCESS 5.6 mmol/L; ARTERIAL BLOOD H2CO3 1.27 mmol/L (1.05-1.35); ARTERIAL BLOOD HCO3 29.8 mmol/L (20-24); ARTERIAL BLOOD O2 SATURATION 99.6 % (94-98); ARTERIAL BLOOD PCO2 42.1 mmHg (35-45); ARTERIAL BLOOD PH 7.47 (7.35-7.45); ARTERIAL BLOOD PO2 230.3 mmHg (80-100); ARTERIAL BLOOD TOTAL CO2 31.1 mmol/L (23-27)
[2020-02-07 18:05] LABS: ARTERIAL BLOOD FIO2 50
[2020-02-08] MEDS: SUCRALFATE 1 GM TABLET PO SCH ×4 (01:15→17:04)
[2020-02-08] MEDS: PANTOPRAZOLE SODIUM 20 MG TABLET.DR PO SCH (05:05)
[2020-02-08] MEDS: AMPICILLIN SODIUM/SULBACTAM NA 3 GM in NORMAL SALINE 100 ML IV SCH ×3 (05:10→17:08)
[2020-02-08] MEDS: ASPIRIN 325 MG TABLET PO SCH (10:52)
[2020-02-08] MEDS: PRAMIPEXOLE DI-HCL 0.5 MG TABLET PO SCH ×3 (10:52→17:04)
[2020-02-08] MEDS: ASCORBIC ACID 500 MG TABLET PO SCH (10:52)
[2020-02-08] MEDS: ENOXAPARIN SODIUM INJ 40 MG/0.4 ML DISP.SYRIN SUBCUT SCH (11:23)
[2020-02-08] MEDS: RIVASTIGMINE 9.5 MG/24 HR PATCH.TD24 TD SCH (11:23)
--- NOTE | 2020-02-08 14:42 | PDOC PROGRESS REPORT ---
Subjective Progress Note for:: 02/08/20 Subjective:: The patient in fact is awake today. His eyes are open. He is trying to verbalize. With the BiPAP mask in his weakened state it is difficult to understand what he is trying to say. This is clearly better than yesterday. Reason For Visit: RESPIRATORY FAILURE,SEPTIC SHOCK Physical Exam Vital Signs: Temp Pulse Resp BP Pulse Ox 98.7 F 79 20 160/91 H 99 02/08/20 08:00 02/08/20 08:00 02/08/20 12:40 02/08/20 08:00 02/08/20 04:00 Intake & Output 02/07/20 02/08/20 02/09/20 06:59 06:59 06:59 Intake Total 2647 400 200 Output Total 450 275 Balance 2197 125 200 Weight 63.1 kg 63.1 kg General appearance: PRESENT: other - Still with kyphotic posturing. He does not appear to be struggling to breathe but is still on BiPAP. Head exam: PRESENT: atraumatic, normocephalic Ear exam: PRESENT: normal external ear exam. ABSENT: bleeding, drainage Mouth exam: PRESENT: other - BiPAP mask in place Respiratory exam: PRESENT: rhonchi - Faint rhonchi at bases, symmetrical. ABSENT: accessory muscle use, rales, tachypnea, wheezes Cardiovascular exam: PRESENT: RRR, +S1, +S2 GI/Abdominal exam: PRESENT: diminished bowel sounds, soft. ABSENT: tenderness Neurological exam: PRESENT: alert, awake, other - As noted above unable to effectively communicate with the patient but he is clearly better than yesterday. Psychiatric exam: PRESENT: flat affect. ABSENT: agitated, anxious Skin exam: PRESENT: other - Facial flushing Results Laboratory Results: 02/07/20 08:19 02/07/20 08:19 02/07/20 02/07/20 15:45 17:35 Carbonic Acid Cancelled 1.27 HCO3/H2CO3 Ratio Cancelled 23:1 ABG pH Cancelled 7.47 H ABG pCO2 Cancelled 42.1 ABG pO2 Cancelled 230.3 H ABG HCO3 Cancelled 29.8 H ABG O2 Saturation Cancelled 99.6 H ABG Base Excess Cancelled 5.6 FiO2 Cancelled 50 02/01/20 17:09 Troponin I < 0.012 Impressions: Chest X-Ray 02/06/20 00:00 IMPRESSION: No pneumonia or edema. No acute process is seen. KUB X-Ray 02/06/20 00:00 IMPRESSION: Feeding tube is coiled on the stomach and the tip is in the gastric antrum. Assessment and Plan - Diagnosis (1) Acute hypoxemic respiratory failure Is this a current diagnosis for this admission?: Yes Plan: This has resolved for now. Likely secondary to aspiration pneumonia Follow-up on coronavirus result 02/07/2020 Unfortunately the patient is back on BiPAP. His PCO2 was 66 yesterday. It is acute respiratory failure with hypoxia and hypercapnia. We will obtain another blood gas today. The respiratory failure is secondary to the aspiration pneumonitis. There is also suspicion of Covid-19. 02/08/2020 The patient remains on BiPAP. His PCO2 from yesterday evening was down to 42. We can definitely begin to taper/wean from BiPAP. Hopefully the patient will co ntinue to improve. (2) Aspiration pneumonitis Is this a current diagnosis for this admission?: Yes Plan: This is a consequence of Parkinson's and Lewy-body dementia. February 07, 2020 The patient is high risk for aspiration. Due to his weakened state I believe his risk has worsened since his last admission. He is on Unasyn for the aspiration pneumonia. 02/08/2020 White blood cell count has been normal for approximately 5 days. We will continue his Unasyn until completion. Unfortunately he is still high risk for aspiration. We will continue to use the Dobbhoff feeding tube for now. (3) Sepsis due to pneumonia Is this a current diagnosis for this admission?: Yes Plan: 02/07/2020 On admission the patient exhibited low blood pressure, increased work of breat jackelyn and hypoxia which qualifies for a diagnosis of sepsis. The sepsis has resolved at this point. Continue aggressive therapy for the pneumonia and respiratory failure. 02/08/2020 Sepsis has resolved (4) Lewy body dementia Qualifiers: Dementia behavioral disturbance: with behavioral disturbance Qualified Code(s): G31.83 - Dementia with Lewy bodies; F02.81 - Dementia in other diseases classified elsewhere with behavioral disturbance Is this a current diagnosis for this admission?: Yes Plan: As above. 02/07/2020 Unfortunately this is a chronic progressive illness without any significant treatment. Continue supportive care while treating the comorbidities. 02/08/2020 Continue supportive care (5) Suspected COVID-19 virus infection Is this a current diagnosis for this admission?: Yes Plan: Patient has already been tested and results pending February 07, 2020 Final results still pending 02/08/2020 Results are still pending. Patient is beginning to respond to the antibiotic therapy but is still difficult to know if this is purely aspiration pneumonia or viral pneumonia from the Covid-19 virus or possibly both. (6) SIRS (systemic inflammatory response syndrome) Is this a current diagnosis for this admission?: Yes Plan: Possibly with early sepsis - Time Time Spent with patient: 15-24 minutes Medications reviewed and adjusted accordingly: Yes
[2020-02-09] MEDS: AMPICILLIN SODIUM/SULBACTAM NA 3 GM in NORMAL SALINE 100 ML IV SCH ×2
[2020-02-09] MEDS: PANTOPRAZOLE SODIUM 20 MG TABLET.DR PO SCH (05:43)
[2020-02-09] MEDS: SUCRALFATE 1 GM TABLET PO SCH ×4 (05:43→17:03)
[2020-02-09 06:59] LABS: ABSOLUTE BASOPHILS # (AUTO) 0.1 10^3/uL (0.0-0.2); ABSOLUTE EOSINOPHILS # (AUTO) 0.8 10^3/uL (0.0-0.6); ABSOLUTE LYMPHOCYTES (AUTO) 1.2 10^3/uL (0.5-4.7); ABSOLUTE MONOCYTES (AUTO) 0.5 10^3/uL (0.1-1.4); ABSOLUTE NEUT (AUTO) 4.5 10^3/uL (1.7-8.2); BASOPHILS % (AUTO) 1.1 % (0-2); EOSINOPHILS % (AUTO) 11.6 % (0-6); HEMATOCRIT 37.6 % (37.9-51.0); HEMOGLOBIN 12.9 g/dL (13.5-17.0); MEAN CORPUSCULAR HEMOGLOBIN 31.7 pg (27.0-33.4); MEAN CORPUSCULAR HGB CONC 34.4 g/dL (32.0-36.0); MEAN CORPUSCULAR VOLUME 92 fl (80-97); MONOCYTES % (AUTO) 7.4 % (3-13); PLATELET COUNT 230 10^3/uL (150-450); RED BLOOD COUNT 4.08 10^6/uL (4.35-5.55); RED CELL DISTRIBUTION WIDTH 14.3 % (11.5-14.0); SEGMENTED NEUTROPHILS % (AUTO) 62.9 % (42-78); TOTAL CELLS COUNTED % (AUTO) 100 %; WHITE BLOOD COUNT 7.2 10^3/uL (4.0-10.5)
[2020-02-09 07:17] LABS: BLOOD UREA NITROGEN 17 mg/dL (7-20); CALCIUM 8.7 mg/dL (8.4-10.2); CARBON DIOXIDE 30 mmol/L (22-30); CHLORIDE 103 mmol/L (98-107); GLUCOSE 116 mg/dL (75-110); POTASSIUM 3.9 mmol/L (3.6-5.0)
[2020-02-09 07:26] LABS: ANION GAP 5 (5-19)
[2020-02-09] MEDS: RIVASTIGMINE 9.5 MG/24 HR PATCH.TD24 TD SCH (09:58)
[2020-02-09] MEDS: ENOXAPARIN SODIUM INJ 40 MG/0.4 ML DISP.SYRIN SUBCUT SCH (09:58)
[2020-02-09] MEDS: ASCORBIC ACID 500 MG TABLET PO SCH (10:13)
[2020-02-09] MEDS: PRAMIPEXOLE DI-HCL 0.5 MG TABLET PO SCH ×3 (10:13→17:03)
[2020-02-09] MEDS: ASPIRIN 325 MG TABLET PO SCH (10:13)
--- NOTE | 2020-02-09 13:21 | PDOC PROGRESS REPORT ---
Subjective Progress Note for:: 02/09/20 Subjective:: The patient is awake and alert. Unfortunately due to his severe kyphosis he has difficulty raising his head. When I did mention his Shelli's name he did attempt to verbally respond. During the encounter he verbalized several things but was very difficult to comprehend due to the BiPAP mask. Reason For Visit: RESPIRATORY FAILURE,SEPTIC SHOCK Physical Exam Vital Signs: Temp Pulse Resp BP Pulse Ox 98.5 F 72 18 154/83 H 100 02/09/20 04:28 02/09/20 04:28 02/09/20 08:47 02/09/20 04:28 02/09/20 08:47 Intake & Output 02/08/20 02/09/20 02/10/20 06:59 06:59 06:59 Intake Total 400 2225 299 Output Total 275 375 Balance 125 1850 299 Weight 63.1 kg 64.7 kg General appearance: PRESENT: other - Well-developed extremely frail 74-year-old patient with severe kyphosis. His eyes are open and he does make attempts to respond verbally. Mouth exam: PRESENT: other - BiPAP mask in place Respiratory exam: PRESENT: clear to auscultation nicolle, symmetrical, unlabored. ABSENT: rales, rhonchi, tachypnea, wheezes Cardiovascular exam: PRESENT: RRR, +S1, +S2 GI/Abdominal exam: PRESENT: normal bowel sounds, soft. ABSENT: distended, guarding, tenderness Rectal exam: PRESENT: deferred Musculoskeletal exam: ABSENT: ambulatory Neurological exam: PRESENT: alert, altered, awake, other - Difficult to assess due to severe dementia Psychiatric exam: ABSENT: agitated, anxious Skin exam: PRESENT: dry, warm, other - Facial flushing. ABSENT: rash Results Laboratory Results: 02/09/20 06:25 02/09/20 06:25 02/09/20 02/09/20 06:25 06:25 WBC 7.2 RBC 4.08 L Hgb 12.9 L Hct 37.6 L MCV 92 MCH 31.7 MCHC 34.4 RDW 14.3 H Plt Count 230 Seg Neutrophils % 62.9 Sodium 137.9 Potassium 3.9 Chloride 103 Carbon Dioxide 30 Anion Gap 5 BUN 17 Creatinine 0.61 Est GFR ( Amer) > 60 Glucose 116 H Calcium 8.7 Magnesium 2.3 02/01/20 17:09 Troponin I < 0.012 Impressions: Chest X-Ray 02/06/20 00:00 IMPRESSION: No pneumonia or edema. No acute process is seen. KUB X-Ray 02/06/20 00:00 IMPRESSION: Feeding tube is coiled on the stomach and the tip is in the gastric antrum. Assessment and Plan - Diagnosis (1) Acute hypoxemic respiratory failure Is this a current diagnosis for this admission?: Yes Plan: This has resolved for now. Likely secondary to aspiration pneumonia Follow-up on coronavirus result 02/07/2020 Unfortunately the patient is back on BiPAP. His PCO2 was 66 yesterday. It is acute respiratory failure with hypoxia and hypercapnia. We will obtain another blood gas today. The respiratory failure is secondary to the aspiration pneumonitis. There is also suspicion of Covid-19. 02/08/2020 The patient remains on BiPAP. His PCO2 from yesterday evening was down to 42. We can definitely begin to taper/wean from BiPAP. Hopefully the patient will continue to improve. February 09, 2020 Still requiring BiPAP. Cognitively he is definitely showing slow improvement. It is a goal to wean him from BiPAP and eventually taper the oxygen. Will need to do this slowly so as not to cause a setback. (2) Aspiration pneumonitis Is this a current diagnosis for this admission?: Yes Plan: This is a consequence of Parkinson's and Lewy-body dementia. February 07, 2020 The patient is high risk for aspiration. Due to his weakened state I believe his risk has worsened since his last admission. He is on Unasyn for the aspiration pneumonia. 02/08/2020 White blood cell count has been normal for approximately 5 days. We will continue his Unasyn until completion. Unfortunately he is still high risk for aspiration. We will continue to use the Dobbhoff feeding tube for now. February 09, 2020 He just completed a course of IV Unasyn. (3) Sepsis due to pneumonia Is this a current diagnosis for this admission?: Yes Plan: 02/07/2020 On admission the patient exhibited low blood pressure, increased work of breathing and hypoxia which qualifies for a diagnosis of sepsis. The sepsis has resolved at this point. Continue aggressive therapy for the pneumonia and respiratory failure. 02/08/2020 Sepsis has resolved (4) Lewy body dementia Qualifiers: Dementia behavioral disturbance: with behavioral disturbance Qualified Code(s): G31.83 - Dementia with Lewy bodies; F02.81 - Dementia in other diseases classified elsewhere with behavioral disturbance Is this a current diagnosis for this admission?: Yes Plan: As above. 02/07/2020 Unfortunately this is a chronic progressive illness without any significant treatment. Continue supportive care while treating the comorbidities. 02/08/2020 Continue supportive care February 09, 2020 As noted above he is more responsive today. The patient is still not alert enough for his oral medications. The Seroquel certainly is not indicated at this time because he is just beginning to respond and we do not want to use any sedating medications. He is not exhibiting any other symptoms not related to the sepsis and infection at this time. We will resume oral medications as soon as it is safe. The Dobbhoff feeding tube is too narrow and if we try and crushed medications and passed them through the tube it will clog it. The trauma of putting in a nasogastric tube, I feel, would be significant for the patient and not necessarily worth a change. (5) Suspected COVID-19 virus infection Is this a current diagnosis for this admission?: Yes Plan: Patient has already been tested and results pending February 07, 2020 Final results still pending 02/08/2020 Results are still pending. Patient is beginning to respond to the antibiotic therapy but is still difficult to know if this is purely aspiration pneumonia or viral pneumonia from the Covid-19 virus or possibly both. February 09, 2020 Results still pending (6) SIRS (systemic inflammatory response syndrome) Is this a current diagnosis for this admission?: Yes Plan: Possibly with early sepsis - Time Time Spent with patient: 15-24 minutes Medications reviewed and adjusted accordingly: Yes
[2020-02-10] MEDS: SUCRALFATE 1 GM TABLET PO SCH ×5 (01:45→23:16)
--- NOTE | 2020-02-10 03:22 | RADIOLOGY REPORT (SQ) ---
AP Portable chest: 02/10/2020 2:20 AM CDT History: 74-year old patient with nasogastric tube placement. Comparison: Chest radiograph performed 02/06/2020. Findings: The cardiomediastinal silhouette is normal in size. No pneumothorax is seen. No acute airspace opacities are seen on the provided imaging. No discrete pleural effusion is apparent. An enteric tube tip is seen overlying the left upper quadrant of the abdomen, projecting at the stomach. The tube appears to be coiled upon itself. The patient's chin and positioning cuts off the apices. Impression: No acute airspace opacities are seen on the provided imaging. The enteric tube traverses below the left hemidiaphragm. The tip is not seen on this examination.
[2020-02-10] MEDS: PANTOPRAZOLE SODIUM 20 MG TABLET.DR PO SCH (05:22)
[2020-02-10] MEDS: ASPIRIN 325 MG TABLET PO SCH (13:22)
[2020-02-10] MEDS: ASCORBIC ACID 500 MG TABLET PO SCH (13:25)
[2020-02-10] MEDS: PRAMIPEXOLE DI-HCL 0.5 MG TABLET PO SCH ×3 (13:34→17:07)
[2020-02-10] MEDS: RIVASTIGMINE 9.5 MG/24 HR PATCH.TD24 TD SCH (13:34)
[2020-02-10] MEDS: ENOXAPARIN SODIUM INJ 40 MG/0.4 ML DISP.SYRIN SUBCUT SCH (13:34)
--- NOTE | 2020-02-10 15:59 | PDOC PROGRESS REPORT ---
Subjective Progress Note for:: 02/10/20 Subjective:: Follow-up of aspiration pneumonia Patient is awake and responsive though difficult to understand his mumblings. He does appear to be comfortable Reason For Visit: RESPIRATORY FAILURE,SEPTIC SHOCK Physical Exam Vital Signs: Temp Pulse Resp BP Pulse Ox 98.3 F 61 16 141/69 H 100 02/10/20 12:38 02/10/20 14:00 02/10/20 12:38 02/10/20 12:38 02/10/20 12:38 Intake & Output 02/09/20 02/10/20 02/11/20 06:59 06:59 06:59 Intake Total 2225 299 Output Total 375 1455 Balance 1850 -1156 Weight 64.7 kg 63.5 kg Results Laboratory Results: 02/09/20 06:25 02/09/20 06:25 02/01/20 17:09 Troponin I < 0.012 Impressions: KUB X-Ray 02/06/20 00:00 IMPRESSION: Feeding tube is coiled on the stomach and the tip is in the gastric antrum. Assessment and Plan - Diagnosis (1) Acute hypoxemic respiratory failure Is this a current diagnosis for this admission?: Yes Plan: This has resolved for now. Likely secondary to aspiration pneumonia Follow-up on coronavirus result 02/07/2020 Unfortunately the patient is back on BiPAP. His PCO2 was 66 yesterday. It is acute respiratory failure with hypoxia and hypercapnia. We will obtain another blood gas today. The respiratory failure is secondary to the aspiration pneumonitis. There is also suspicion of Covid-19. 02/08/2020 The patient remains on BiPAP. His PCO2 from yesterday evening was down to 42. We can definitely begin to taper/wean from BiPAP. Hopefully the patient will continue to improve. February 09, 2020 Still requiring BiPAP. Cognitively he is definitely showing slow improvement. It is a goal to wean him from BiPAP and eventually taper the oxygen. Will need to do this slowly so as not to cause a setback. 02/09 Intermittent BIPAP use, wean off as tolerated (2) SIRS (systemic inflammatory response syndrome) Is this a current diagnosis for this admission?: Yes Plan: Possibly with early sepsis (3) Sepsis Qualifiers: Sepsis type: sepsis due to unspecified organism Sepsis acute organ dysfunction status: with acute organ dysfunction Severe sepsis acute organ dysfunction type: acute respiratory failure Acute respiratory failure type: with hypercapnia Severe sepsis shock status: with septic shock Qualified Code(s): A41.9 - Sepsis, unspecified organism; R65.21 - Severe sepsis with septic shock; J96.02 - Acute respiratory failure with hypercapnia Is this a current diagnosis for this admission?: Yes (4) Aspiration pneumonitis Is this a current diagnosis for this admission?: Yes Plan: This is a consequence of Parkinson's and Lewy-body dementia. February 07, 2020 The patient is high risk for aspiration. Due to his weakened state I believe his risk has worsened since his last admission. He is on Unasyn for the aspiration pneumonia. 02/08/2020 White blood cell count has been normal for approximately 5 days. We will continue his Unasyn until completion. Unfortunately he is still high risk for aspiration. We will continue to use the Dobbhoff feeding tube for now. February 09, 2020 He just completed a course of IV Unasyn. 02/09 Chest x-ray done today reveals no acute findings. Will watch and monitor patient off antibiotics. Unfortunately due to his physical habitus, kyphoscoliosis he is going to be high Risk for aspiration pneumonitis (5) Suspected COVID-19 virus infection Is this a current diagnosis for this admission?: Yes Plan: Patient has already been tested and results pending February 07, 2020 Final results still pending 02/08/2020 Results are still pending. Patient is beginning to respond to the antibiotic therapy but is still difficult to know if this is purely aspiration pneumonia or viral pneumonia from the Covid-19 virus or possibly both. February 09, 2020 Results still pending 02/09 Result still pending
[2020-02-11] MEDS: PANTOPRAZOLE SODIUM 20 MG TABLET.DR PO SCH (06:15)
[2020-02-11] MEDS: SUCRALFATE 1 GM TABLET PO SCH ×3 (06:15→17:05)
[2020-02-11] MEDS: ENOXAPARIN SODIUM INJ 40 MG/0.4 ML DISP.SYRIN SUBCUT SCH (09:20)
[2020-02-11] MEDS: ASCORBIC ACID 500 MG TABLET PO SCH (09:21)
[2020-02-11] MEDS: ASPIRIN 325 MG TABLET PO SCH (09:21)
[2020-02-11] MEDS: PRAMIPEXOLE DI-HCL 0.5 MG TABLET PO SCH ×3 (09:22→17:05)
[2020-02-11] MEDS: RIVASTIGMINE 9.5 MG/24 HR PATCH.TD24 TD SCH (09:22)
--- NOTE | 2020-02-11 13:09 | PDOC PROGRESS REPORT ---
Subjective Progress Note for:: 02/11/20 Subjective:: Follow-up of aspiration pneumonia No new changes today Reason For Visit: RESPIRATORY FAILURE,SEPTIC SHOCK Physical Exam Vital Signs: Temp Pulse Resp BP Pulse Ox 98.2 F 78 18 154/78 H 100 02/11/20 08:43 02/11/20 08:43 02/11/20 08:43 02/11/20 08:43 02/11/20 08:43 Intake & Output 02/10/20 02/11/20 02/12/20 06:59 06:59 06:59 Intake Total 299 0 Output Total 1455 2675 600 Balance -1156 -2675 -600 Weight 63.5 kg 68 kg General appearance: PRESENT: no acute distress, other - elderly, kyphotic Head exam: PRESENT: atraumatic, normocephalic Eye exam: PRESENT: PERRLA. ABSENT: scleral icterus Mouth exam: PRESENT: tongue midline Neck exam: ABSENT: carotid bruit, JVD, lymphadenopathy, thyromegaly Respiratory exam: PRESENT: crackles, rhonchi. ABSENT: rales, wheezes Cardiovascular exam: PRESENT: RRR, +S1, +S2. ABSENT: diastolic murmur, rubs, systolic murmur GI/Abdominal exam: PRESENT: normal bowel sounds, soft, other - Dobohoff tube in place. ABSENT: distended, guarding, mass, organolmegaly, rebound, tenderness Rectal exam: PRESENT: deferred Extremities exam: PRESENT: full ROM. ABSENT: calf tenderness, clubbing, pedal edema Neurological exam: PRESENT: alert, awake. ABSENT: motor sensory deficit Psychiatric exam: PRESENT: appropriate affect. ABSENT: homicidal ideation, suicidal ideation Skin exam: PRESENT: dry, intact, warm. ABSENT: cyanosis, rash Results Laboratory Results: 02/09/20 06:25 02/09/20 06:25 02/01/20 17:09 Troponin I < 0.012 Impressions: KUB X-Ray 02/06/20 00:00 IMPRESSION: Feeding tube is coiled on the stomach and the tip is in the gastric antrum. Assessment and Plan - Diagnosis (1) Acute hypoxemic respiratory failure Is this a current diagnosis for this admission?: Yes Plan: Patient is currently on nasal cannula (2) SIRS (systemic inflammatory response syndrome) Is this a current diagnosis for this admission?: Yes Plan: Possibly with early sepsis, this is resolved (3) Aspiration pneumonitis Is this a current diagnosis for this admission?: Yes Plan: This is a consequence of Parkinson's and Lewy-body dementia. February 07, 2020 The patient is high risk for aspiration. Due to his weakened state I believe his risk has worsened since his last admission. He is on Unasyn for the aspiration pneumonia. 02/08/2020 White blood cell count has been normal for approximately 5 days. We will continue his Unasyn until completion. Unfortunately he is still high risk for aspiration. We will continue to use the Dobbhoff feeding tube for now. February 09, 2020 He just completed a course of IV Unasyn. 02/09 Chest x-ray done today reveals no acute findings. Will watch and monitor patient off antibiotics. Unfortunately due to his physical habitus, kyp hoscoliosis he is going to be high Risk for aspiration pneumonitis 02/10 patient is currently stable off any antibiotics. COVID-19 is still pending (4) Suspected COVID-19 virus infection Is this a current diagnosis for this admission?: Yes Plan: Follow-up on test - Plan Summary Summary: Discussed with , Dorothy [phone], updated on condition
[2020-02-12] MEDS: SUCRALFATE 1 GM TABLET PO SCH ×4 (05:37→18:01)
[2020-02-12] MEDS: PANTOPRAZOLE SODIUM 20 MG TABLET.DR PO SCH (05:42)
[2020-02-12] MEDS: PRAMIPEXOLE DI-HCL 0.5 MG TABLET PO SCH ×3 (09:24→18:01)
[2020-02-12] MEDS: ENOXAPARIN SODIUM INJ 40 MG/0.4 ML DISP.SYRIN SUBCUT SCH (09:24)
[2020-02-12] MEDS: RIVASTIGMINE 9.5 MG/24 HR PATCH.TD24 TD SCH (09:24)
[2020-02-12] MEDS: ASPIRIN 325 MG TABLET PO SCH (09:24)
[2020-02-12] MEDS: ASCORBIC ACID 500 MG TABLET PO SCH (09:25)
--- NOTE | 2020-02-12 13:37 | PDOC PROGRESS REPORT ---
Subjective Progress Note for:: 02/12/20 Subjective:: Follow-up of aspiration pneumonia With 19 is negative. Patient is actually hemodynamically stable at this time. However is still being fed by the Dobbhoff tube and we will have to decide on long-term feeding of this patient Reason For Visit: RESPIRATORY FAILURE,SEPTIC SHOCK Physical Exam Vital Signs: Temp Pulse Resp BP Pulse Ox 98.1 F 66 16 115/65 91 L 02/12/20 02:20 02/12/20 07:00 02/12/20 02:20 02/12/20 02:20 02/12/20 03:48 Intake & Output 02/11/20 02/12/20 02/13/20 06:59 06:59 06:59 Intake Total 0 574 Output Total 2675 1425 Balance -2675 -851 Weight 68 kg 65.7 kg General appearance: PRESENT: no acute distress, other - Kyphotic Head exam: PRESENT: atraumatic Neck exam: PRESENT: other - His neck is flexed Respiratory exam: PRESENT: unlabored, other - adequate air entry GI/Abdominal exam: PRESENT: normal bowel sounds, soft Rectal exam: PRESENT: deferred Neurological exam: PRESENT: alert, awake Results Laboratory Results: 02/09/20 06:25 02/09/20 06:25 02/01/20 17:09 Troponin I < 0.012 Impressions: KUB X-Ray 02/06/20 00:00 IMPRESSION: Feeding tube is coiled on the stomach and the tip is in the gastric antrum. Assessment and Plan - Diagnosis (1) Acute hypoxemic respiratory failure Is this a current diagnosis for this admission?: Yes Plan: Patient is currently on nasal cannula and his respiratory status appears to be stable and at baseline (2) SIRS (systemic inflammatory response syndrome) Is this a current diagnosis for this admission?: Yes Plan: Possibly with early sepsis, this is resolved (3) Aspiration pneumonitis Is this a current diagnosis for this admission?: Yes Plan: This is a consequence of Parkinson's and Lewy-body dementia. February 07, 2020 The patient is high risk for aspiration. Due to his weakened state I believe his risk has worsened since his last admission. He is on Unasyn for the aspiration pneumonia. 02/08/2020 White blood cell count has been normal for approximately 5 days. We will continue his Unasyn until completion. Unfortunately he is still high risk for aspiration. We will continue to use the Dobbhoff feeding tube for now. February 09, 2020 He just completed a course of IV Unasyn. 02/09 Chest x-ray done today reveals no acute findings. Will watch and monitor patien t off antibiotics. Unfortunately due to his physical habitus, kyphoscoliosis he is going to be high Risk for aspiration pneumonitis 02/10 patient is currently stable off any antibiotics. COVID-19 is still pending 02/11 COVID 19 is negative. Patient remains very high risk for aspiration pneumonitis given his kyphoscoliosis I have consulted speech therapy for evaluation of his swallowing. Patient apparently was able to eat at home according to the prior to admission (4) Suspected COVID-19 virus infection Is this a current diagnosis for this admission?: Yes Plan: Negative - Plan Summary Summary: 02/10 Discussed with , Dorothy [phone], updated on condition
[2020-02-12 18:33] LABS: ABSOLUTE BASOPHILS # (AUTO) 0.1 10^3/uL (0.0-0.2); ABSOLUTE EOSINOPHILS # (AUTO) 0.5 10^3/uL (0.0-0.6); ABSOLUTE LYMPHOCYTES (AUTO) 1.5 10^3/uL (0.5-4.7); ABSOLUTE MONOCYTES (AUTO) 0.6 10^3/uL (0.1-1.4); ABSOLUTE NEUT (AUTO) 5.4 10^3/uL (1.7-8.2); EOSINOPHILS % (AUTO) 6.4 % (0-6); HEMATOCRIT 40.6 % (37.9-51.0); HEMOGLOBIN 13.9 g/dL (13.5-17.0); LYMPHOCYTES % (AUTO) 18.5 % (13-45); MEAN CORPUSCULAR HEMOGLOBIN 31.6 pg (27.0-33.4); MEAN CORPUSCULAR HGB CONC 34.3 g/dL (32.0-36.0); MEAN CORPUSCULAR VOLUME 92 fl (80-97); MONOCYTES % (AUTO) 7.2 % (3-13); PLATELET COUNT 262 10^3/uL (150-450); RED CELL DISTRIBUTION WIDTH 13.9 % (11.5-14.0); SEGMENTED NEUTROPHILS % (AUTO) 66.9 % (42-78); TOTAL CELLS COUNTED % (AUTO) 100 %; WHITE BLOOD COUNT 8.1 10^3/uL (4.0-10.5)
[2020-02-12 19:01] LABS: ANION GAP 5 (5-19); BLOOD UREA NITROGEN 20 mg/dL (7-20); CALCIUM 9.1 mg/dL (8.4-10.2); CARBON DIOXIDE 29 mmol/L (22-30); CHLORIDE 101 mmol/L (98-107); GLUCOSE 102 mg/dL (75-110); POTASSIUM 4.6 mmol/L (3.6-5.0)
--- NOTE | 2020-02-12 19:06 | RADIOLOGY REPORT (SQ) ---
EXAM DESCRIPTION: CHEST SINGLE VIEW IMAGES COMPLETED DATE/TIME: 02/12/2020 6:39 pm REASON FOR STUDY: r/o aspiration COMPARISON: 02/10/2020 EXAM PARAMETERS: NUMBER OF VIEWS: One view. TECHNIQUE: Single frontal radiographic view of the chest acquired. RADIATION DOSE: NA LIMITATIONS: None. FINDINGS: LUNGS AND PLEURA: No opacities, masses or pneumothorax. No pleural effusion. MEDIASTINUM AND HILAR STRUCTURES: No masses. Contour normal. HEART AND VASCULAR STRUCTURES: Heart normal in size. Normal vasculature. BONES: No acute findings. HARDWARE: None in the chest. OTHER: No other significant finding. IMPRESSION: NO ACUTE RADIOGRAPHIC FINDING IN THE CHEST. TECHNICAL DOCUMENTATION: JOB ID: [id number] 2010 [employer]- All Rights Reserved Reading location - IP/workstation name: [email or web address]
[2020-02-13] MEDS: SUCRALFATE 1 GM TABLET PO SCH ×4 (02:59→17:14)
[2020-02-13] MEDS: PANTOPRAZOLE SODIUM 20 MG TABLET.DR PO SCH (05:47)
[2020-02-13 06:37] LABS: ABSOLUTE BASOPHILS # (AUTO) 0.1 10^3/uL (0.0-0.2); ABSOLUTE EOSINOPHILS # (AUTO) 0.7 10^3/uL (0.0-0.6); ABSOLUTE LYMPHOCYTES (AUTO) 1.7 10^3/uL (0.5-4.7); ABSOLUTE MONOCYTES (AUTO) 0.7 10^3/uL (0.1-1.4); ABSOLUTE NEUT (AUTO) 5.4 10^3/uL (1.7-8.2); BASOPHILS % (AUTO) 0.6 % (0-2); EOSINOPHILS % (AUTO) 8.1 % (0-6); HEMATOCRIT 40.4 % (37.9-51.0); HEMOGLOBIN 13.9 g/dL (13.5-17.0); LYMPHOCYTES % (AUTO) 19.7 % (13-45); MEAN CORPUSCULAR HEMOGLOBIN 31.6 pg (27.0-33.4); MEAN CORPUSCULAR HGB CONC 34.5 g/dL (32.0-36.0); MEAN CORPUSCULAR VOLUME 91 fl (80-97); MONOCYTES % (AUTO) 7.7 % (3-13); PLATELET COUNT 248 10^3/uL (150-450); RED BLOOD COUNT 4.42 10^6/uL (4.35-5.55); SEGMENTED NEUTROPHILS % (AUTO) 63.9 % (42-78); TOTAL CELLS COUNTED % (AUTO) 100 %; WHITE BLOOD COUNT 8.5 10^3/uL (4.0-10.5)
[2020-02-13 06:58] LABS: ANION GAP 6 (5-19); BLOOD UREA NITROGEN 20 mg/dL (7-20); CARBON DIOXIDE 29 mmol/L (22-30); CHLORIDE 101 mmol/L (98-107); GLUCOSE 86 mg/dL (75-110); POTASSIUM 4.5 mmol/L (3.6-5.0)
[2020-02-13] MEDS: ASCORBIC ACID 500 MG TABLET PO SCH (09:18)
[2020-02-13] MEDS: PRAMIPEXOLE DI-HCL 0.5 MG TABLET PO SCH ×3 (09:18→17:14)
[2020-02-13] MEDS: ASPIRIN 325 MG TABLET PO SCH (09:18)
[2020-02-13] MEDS: RIVASTIGMINE 9.5 MG/24 HR PATCH.TD24 TD SCH (09:21)
[2020-02-13] MEDS: ENOXAPARIN SODIUM INJ 40 MG/0.4 ML DISP.SYRIN SUBCUT SCH (09:21)
--- NOTE | 2020-02-13 10:15 | PDOC PROGRESS REPORT ---
Subjective Progress Note for:: 02/13/20 Subjective:: 02/13/[id number]-latl-old male admitted for aspiration pneumonia he pulled off his Dobbhoff last night speech evaluation was done we are going to follow the recommendations of pured diet. In my opinion patient needs to be under hospice. Comfortably in the bed because of the kyphosis his posture is forward bending. Not in distress. Is a full code as per the staff. Patient blood cultures are negative and chest x-ray was normal. WBC count is 8.5. Reason For Visit: RESPIRATORY FAILURE,SEPTIC SHOCK Physical Exam Vital Signs: Temp Pulse Resp BP Pulse Ox 98.3 F 66 16 140/70 H 99 02/13/20 07:50 02/13/20 07:50 02/13/20 08:15 02/13/20 07:50 02/13/20 08:15 Intake & Output 02/12/20 02/13/20 02/14/20 06:59 06:59 06:59 Intake Total 574 0 Output Total 1425 425 100 Balance -851 -425 -100 Weight 65.7 kg 64.8 kg General appearance: PRESENT: no acute distress, other - There are kyphosis present Head exam: PRESENT: atraumatic Eye exam: PRESENT: PERRLA Ear exam: PRESENT: normal external ear exam Teeth exam: PRESENT: poor dentation Neck exam: ABSENT: carotid bruit, JVD, lymphadenopathy, thyromegaly Respiratory exam: PRESENT: decreased breath sounds Cardiovascular exam: PRESENT: RRR. ABSENT: diastolic murmur, rubs, systolic murmur GI/Abdominal exam: PRESENT: normal bowel sounds, soft. ABSENT: distended, guarding, mass, organolmegaly, rebound, tenderness Rectal exam: PRESENT: deferred Extremities exam: PRESENT: full ROM. ABSENT: calf tenderness, clubbing, pedal edema Neurological exam: PRESENT: alert, awake, oriented to person, oriented to place, oriented to time, oriented to situation, CN II-XII grossly intact. ABSENT: motor sensory deficit Psychiatric exam: PRESENT: appropriate affect, normal mood. ABSENT: homicidal ideation, suicidal ideation Results Laboratory Results: 02/13/20 05:42 02/13/20 05:42 02/12/20 02/12/20 02/13/20 18:16 18:16 05:42 WBC 8.1 8.5 RBC 4.40 4.42 Hgb 13.9 13.9 Hct 40.6 40.4 MCV 92 91 MCH 31.6 31.6 MCHC 34.3 34.5 RDW 13.9 14.0 Plt Count 262 248 Seg Neutrophils % 66.9 63.9 Sodium 135.0 L Potassium 4.6 Chloride 101 Carbon Dioxide 29 Anion Gap 5 BUN 20 Creatinine 0.68 Est GFR ( Amer) > 60 Glucose 102 Calcium 9.1 02/13/20 05:42 WBC RBC Hgb Hct MCV MCH MCHC RDW Plt Count Seg Neutrophils % Sodium 136.0 L Potassium 4.5 Chloride 101 Carbon Dioxide 29 Anion Gap 6 BUN 20 Creatinine 0.74 Est GFR ( Amer) > 60 Glucose 86 Calcium 9.0 02/01/20 17:09 Troponin I < 0.012 Impressions: KUB X-Ray 02/06/20 00:00 IMPRESSION: Feeding tube is coiled on the stomach and the tip is in the gastric antrum. Chest X-Ray 02/12/20 00:00 IMPRESSION: NO ACUTE RADIOGRAPHIC FINDING IN THE CHEST. Assessment and Plan - Diagnosis (1) Acute hypoxemic respiratory failure Is this a current diagnosis for this admission?: Yes Plan: Patient is currently on nasal cannula and his respiratory status appears to be stable and at baseline 02/13/2020-patient admitted with hypoxic respiratory failure pulse ox is 99% with 2 L nasal cannula. Not in distress. Acute hypoxic respiratory failure is resolving. (2) SIRS (systemic inflammatory response syndrome) Is this a current diagnosis for this admission?: Yes Plan: Possibly with early sepsis, this is resolved (3) Aspiration pneumonitis Is this a current diagnosis for this admission?: Yes Plan: This is a consequence of Parkinson's and Lewy-body dementia. February 07, 2020 The patient is high risk for aspiration. Due to his weakened state I believe his risk has worsened since his last admission. He is on Unasyn for the aspiration pneumonia. 02/08/2020 White blood cell count has been normal for approximately 5 days. We will continue his Unasyn until completion. Unfortunately he is still high risk for aspiration. We will continue to use the Dobbhoff feeding tube for now. February 09, 2020 He just completed a course of IV Unasyn. 02/09 Chest x-ray done today reveals no acute findings. Will watch and monitor patient off antibiotics. Unfortunately due to his physical habitus, kyphoscoliosis he is going to be high Risk for aspiration pneumonitis 02/10 patient is currently stable off any antibiotics. COVID-19 is still pending 02/11 COVID 19 is negative. Patient remains very high risk for aspiration pneumonitis given his kyphoscoliosis I have consulted speech therapy for evaluation of his swallowing. Patient apparently was able to eat at home according to the prior to admission 02/13/20-coronavirus testing is negative. He is a high risk for aspiration because of severe kyphoscoliosis. Speech evaluation was done this morning recommendation is pured diet. As of the body posture he is a high risk for aspiration. Patient completed antibiotic therapy with IV Unasyn now afebrile and recent blood cultures are negative. (4) Suspected COVID-19 virus infection Is this a current diagnosis for this admission?: Yes Plan: Negative - Plan Summary Summary: 02/10 Discussed with , Dorothy [phone], updated on condition
[2020-02-14] MEDS: SUCRALFATE 1 GM TABLET PO SCH ×5 (00:31→23:55)
[2020-02-14] MEDS: PANTOPRAZOLE SODIUM 20 MG TABLET.DR PO SCH (05:30)
[2020-02-14] MEDS: ASPIRIN 325 MG TABLET PO SCH (09:13)
[2020-02-14] MEDS: PRAMIPEXOLE DI-HCL 0.5 MG TABLET PO SCH ×3 (09:13→17:04)
[2020-02-14] MEDS: ASCORBIC ACID 500 MG TABLET PO SCH (09:13)
--- NOTE | 2020-02-14 09:21 | PDOC PROGRESS REPORT ---
Subjective Progress Note for:: 02/14/20 Subjective:: 02/13/[id number]-efuy-old male admitted for aspiration pneumonia he pulled off his Dobbhoff last night speech evaluation was done we are going to follow the recommendations of pured diet. In my opinion patient needs to be under hospice. Comfortably in the bed because of the kyphosis his posture is forward bending. Not in distress. Is a full code as per the staff. Patient blood cultures are negative and chest x-ray was normal. WBC count is 8.5. 02/14/2002-44-ejnu-old male admitted for aspiration pneumonia, he pulled off his Dobbhoff 2 days ago. Speech therapy consult was done the recommended pured diet as per the nurses is not following the commands he is really high risk for aspiration he is alert awake this morning but not communicative I spoke to the patient's she is adamant that V her to try applesauce first if he fails then she will think about feeding tube. As per her placing a feeding tube is a major decision to make. Reason For Visit: RESPIRATORY FAILURE,SEPTIC SHOCK Physical Exam Vital Signs: Temp Pulse Resp BP Pulse Ox 98.2 F 77 14 131/70 H 98 02/14/20 07:41 02/14/20 08:55 02/14/20 08:55 02/14/20 07:41 02/14/20 08:56 Intake & Output 02/13/20 02/14/20 02/15/20 06:59 06:59 06:59 Intake Total 0 Output Total 425 875 Balance -425 -875 Weight 64.8 kg 68.2 kg General appearance: PRESENT: no acute distress, disheveled, thin Head exam: PRESENT: atraumatic Eye exam: PRESENT: PERRLA Mouth exam: PRESENT: neck supple Teeth exam: PRESENT: poor dentation Neck exam: ABSENT: carotid bruit, JVD, lymphadenopathy, thyromegaly Respiratory exam: PRESENT: decreased breath sounds Cardiovascular exam: PRESENT: RRR. ABSENT: diastolic murmur, rubs, systolic murmur GI/Abdominal exam: PRESENT: normal bowel sounds, soft. ABSENT: distended, guarding, mass, organolmegaly, rebound, tenderness Neurological exam: PRESENT: alert, awake Psychiatric exam: PRESENT: appropriate affect, normal mood. ABSENT: homicidal ideation, suicidal ideation Results Laboratory Results: 02/13/20 05:42 02/13/20 05:42 02/01/20 17:09 Troponin I < 0.012 Impressions: KUB X-Ray 02/06/20 00:00 IMPRESSION: Feeding tube is coiled on the stomach and the tip is in the gastric antrum. Chest X-Ray 02/12/20 00:00 IMPRESSION: NO ACUTE RADIOGRAPHIC FINDING IN THE CHEST. Assessment and Plan - Diagnosis (1) Acute hypoxemic respiratory failure Is this a current diagnosis for this admission?: Yes Plan: Patient is currently on nasal cannula and his respiratory status appears to be stable and at baseline 02/13/2020-patient admitted with hypoxic respiratory failure pulse ox is 99% with 2 L nasal cannula. Not in distress. Acute hypoxic respiratory failure is resolving. 02/14/2020-patient admitted with acute hypoxic respiratory failure most likely secondary to aspiration pneumonia pulse ox today is 99% on 3 L. (2) SIRS (systemic inflammatory response syndrome) Is this a current diagnosis for this admission?: Yes Plan: Possibly with early sepsis, this is resolved (3) Aspiration pneumonitis Is this a current diagnosis for this admission?: Yes Plan: This is a consequence of Parkinson's and Lewy-body dementia. February 07, 2020 The patient is high risk for aspiration. Due to his weakened state I believe his risk has worsened since his last admission. He is on Unasyn for the aspiration pneumonia. 02/08/2020 White blood cell count has been normal for approximately 5 days. We will continue his Unasyn until completion. Unfortunately he is still high risk for aspiration. We will continue to use the Dobbhoff feeding tube for now. February 09, 2020 He just completed a course of IV Unasyn. 02/09 Chest x-ray done today reveals no acute findings. Will watch and monitor patient off antibiotics. Unfortunately due to his physical habitus, kyphoscoliosis he is going to be high Risk for aspiration pneumonitis 02/10 patient is currently stable off any antibiotics. COVID-19 is still pending 02/11 COVID 19 is negative. Patient remains very high risk for aspiration pneumonitis given his kyphoscoliosis I have consulted speech therapy for evaluation of his swallowing. Patient apparently was able to eat at home according to the prior to admission 02/13/20-coronavirus testing is negative. He is a high risk for aspiration because of severe kyphoscoliosis. Speech evaluation was done this morning r ecommendation is pured diet. As of the body posture he is a high risk for aspiration. Patient completed antibiotic therapy with IV Unasyn now afebrile and recent blood cultures are negative. 02/14/2020-patient is high risk for severe kyphoscoliosis speech evaluation was done recommendation is pured diet spoke to patient's about feeding tube she basically refused the PEG placement. We have to respect her wishes, in my opinion he is very high risk for aspiration. (4) Suspected COVID-19 virus infection Is this a current diagnosis for this admission?: Yes Plan: Negative (5) Protein-energy malnutrition Is this a current diagnosis for this admission?: Yes Plan: 02/14/2020-patient is thin cachectic on examination wasting of the temporal muscles, quadriceps muscles, deltoid muscles seen. Severe protein energy malnutrition may be secondary to poor oral intake. - Plan Summary Summary: 02/10 Discussed with , Dorothy [phone], updated on condition
[2020-02-14] MEDS: RIVASTIGMINE 9.5 MG/24 HR PATCH.TD24 TD SCH (09:33)
[2020-02-14] MEDS: ENOXAPARIN SODIUM INJ 40 MG/0.4 ML DISP.SYRIN SUBCUT SCH (09:33)
[2020-02-15] MEDS: SUCRALFATE 1 GM TABLET PO SCH ×3 (05:30→18:15)
[2020-02-15] MEDS: PANTOPRAZOLE SODIUM 20 MG TABLET.DR PO SCH (05:30)
--- NOTE | 2020-02-15 08:49 | PDOC PROGRESS REPORT ---
Subjective Progress Note for:: 02/15/20 Subjective:: 02/13/20206471-62-dvrk-old male admitted for aspiration pneumonia he pulled off his Dobbhoff last night speech evaluation was done we are going to follow the recommendations of pured diet. In my opinion patient needs to be under hospice. Comfortably in the bed because of the kyphosis his posture is forward bending. Not in distress. Is a full code as per the staff. Patient blood cultures are negative and chest x-ray was normal. WBC count is 8.5. 02/14/2012-59-dhzn-old male admitted for aspiration pneumonia, he pulled off his Dobbhoff 2 days ago. Speech therapy consult was done the recommended pured diet as per the nurses is not following the commands he is really high risk for aspiration he is alert awake this morning but not communicative I spoke to the patient's she is adamant that V her to try applesauce first if he fails then she will think about feeding tube. As per her placing a feeding tube is a major decision to make. 02/15/2020-no acute events in last 24 hours. Afebrile. I had a long discussion with patient's yesterday she wants to try applesauce and pured diet not interested in PEG tube placement at this time. sHe does not want hospice consult. Reason For Visit: RESPIRATORY FAILURE,SEPTIC SHOCK Physical Exam Vital Signs: Temp Pulse Resp BP Pulse Ox 97.6 F 87 16 143/70 H 99 02/14/20 22:00 02/14/20 22:00 02/14/20 22:00 02/14/20 22:00 02/14/20 22:00 Intake & Output 02/14/20 02/15/20 02/16/20 06:59 06:59 06:59 Output Total 875 100 Balance -875 -100 Weight 68.2 kg 51.3 kg General appearance: PRESENT: no acute distress Head exam: PRESENT: atraumatic Eye exam: PRESENT: PERRLA Mouth exam: PRESENT: neck supple Teeth exam: PRESENT: poor dentation Neck exam: ABSENT: carotid bruit, JVD, lymphadenopathy, thyromegaly Respiratory exam: PRESENT: decreased breath sounds Cardiovascular exam: PRESENT: RRR. ABSENT: diastolic murmur, rubs, systolic murmur GI/Abdominal exam: PRESENT: normal bowel sounds, soft. ABSENT: distended, guarding, mass, organolmegaly, rebound, tenderness Rectal exam: PRESENT: deferred Extremities exam: PRESENT: full ROM. ABSENT: calf tenderness, clubbing, pedal edema Neurological exam: PRESENT: alert, oriented to person Psychiatric exam: PRESENT: appropriate affect, normal mood. ABSENT: homicidal ideation, suicidal ideation Results Laboratory Results: 02/13/20 05:42 02/13/20 05:42 02/01/20 17:09 Troponin I < 0.012 Impressions: KUB X-Ray 02/06/20 00:00 IMPRESSION: Feeding tube is coiled on the stomach and the tip is in the gastric antrum. Chest X-Ray 02/12/20 00:00 IMPRESSION: NO ACUTE RADIOGRAPHIC FINDING IN THE CHEST. Assessment and Plan - Diagnosis (1) Acute hypoxemic respiratory failure Is this a current diagnosis for this admission?: Yes Plan: Patient is currently on nasal cannula and his respiratory status appears to be stable and at baseline 02/13/2020-patient admitted with hypoxic respiratory failure pulse ox is 99% with 2 L nasal cannula. Not in distress. Acute hypoxic respiratory failure is resolving. 02/14/2020-patient admitted with acute hypoxic respiratory failure most likely secondary to aspiration pneumonia pulse ox today is 99% on 3 L. 02/15/2086-54-pcfx-old male admitted with hypoxic respiratory failure, acute Xbox respiratory failure which was resolved pulse ox today is a 99% on room air. (2) SIRS (systemic inflammatory response syndrome) Is this a current diagnosis for this admission?: Yes Plan: Possibly with early sepsis, this is resolved (3) Aspiration pneumonitis Is this a current diagnosis for this admission?: Yes Plan: This is a consequence of Parkinson's and Lewy-body dementia. February 07, 2020 The patient is high risk for aspiration. Due to his weakened state I believe his risk has worsened since his last admission. He is on Unasyn for the aspiration pneumonia. 02/08/2020 White blood cell count has been normal for approximately 5 days. We will continue his Unasyn until completion. Unfortunately he is still high risk for a spiration. We will continue to use the Dobbhoff feeding tube for now. February 09, 2020 He just completed a course of IV Unasyn. 02/09 Chest x-ray done today reveals no acute findings. Will watch and monitor patient off antibiotics. Unfortunately due to his physical habitus, kyphoscoliosis he is going to be high Risk for aspiration pneumonitis 02/10 patient is currently stable off any antibiotics. COVID-19 is still pending 02/11 COVID 19 is negative. Patient remains very high risk for aspiration pneumonitis given his kyphoscoliosis I have consulted speech therapy for evaluation of his swallowing. Patient apparently was able to eat at home according to the prior to admission 02/13/20-coronavirus testing is negative. He is a high risk for aspiration because of severe kyphoscoliosis. Speech evaluation was done this morning recommendation is pured diet. As of the body posture he is a high risk for aspiration. Patient completed antibiotic therapy with IV Unasyn now afebrile and recent blood cultures are negative. 02/14/2020-patient is high risk for severe kyphoscoliosis speech evaluation was done recommendation is pured diet spoke to patient's about feeding tube she basically refused the PEG placement. We have to respect her wishes, in my opinion he is very high risk for aspiration. 02/15/2020-patient is a high risk for aspiration pneumonia because of the severe kyphoscoliosis but his insisting on giving a pured diet with applesauce. She is not interested in PEG tube placement at this time. (4) Suspected COVID-19 virus infection Is this a current diagnosis for this admission?: Yes Plan: Negative (5) Protein-energy malnutrition Is this a current diagnosis for this admission?: Yes Plan: 02/14/2020-patient is thin cachectic on examination wasting of the temporal muscles, quadriceps muscles, deltoid muscles seen. Severe protein energy malnutrition may be secondary to poor oral intake. - Plan Summary Summary: 02/10 Discussed with , Dorothy [phone], updated on condition
[2020-02-15] MEDS: ENOXAPARIN SODIUM INJ 40 MG/0.4 ML DISP.SYRIN SUBCUT SCH (10:21)
[2020-02-15] MEDS: PRAMIPEXOLE DI-HCL 0.5 MG TABLET PO SCH ×3 (10:22→18:15)
[2020-02-15] MEDS: ASCORBIC ACID 500 MG TABLET PO SCH (10:22)
[2020-02-15] MEDS: ASPIRIN 325 MG TABLET PO SCH (10:22)
[2020-02-15] MEDS: RIVASTIGMINE 9.5 MG/24 HR PATCH.TD24 TD SCH (10:22)
--- NOTE | 2020-02-15 13:15 | RADIOLOGY REPORT (SQ) ---
EXAM DESCRIPTION: CHEST SINGLE VIEW IMAGES COMPLETED DATE/TIME: 02/15/2020 1:03 pm REASON FOR STUDY: resp failure COMPARISON: 02/12/2020. EXAM PARAMETERS: NUMBER OF VIEWS: One view. TECHNIQUE: Single frontal radiographic view of the chest acquired. RADIATION DOSE: NA LIMITATIONS: None. FINDINGS: LUNGS AND PLEURA: The lung apices are obscured. No opacities, masses or pneumothorax. No pleural effusion. MEDIASTINUM AND HILAR STRUCTURES: No masses. Contour normal. HEART AND VASCULAR STRUCTURES: Heart normal in size. Normal vasculature. BONES: No acute findings. HARDWARE: None in the chest. OTHER: No other significant finding. IMPRESSION: NO ACUTE RADIOGRAPHIC FINDING IN THE CHEST. TECHNICAL DOCUMENTATION: JOB ID: [id number] 2010 [employer]- All Rights Reserved Reading location - IP/workstation name: [email or web address]
--- NOTE | 2020-02-15 19:27 | PDOC CONSULTATION ---
Consultation Consult Date: 02/15/20 Provider Consulted: SURGICAL SURGICALIST MD Consult reason:: Aspiration pneumonia, evaluate for PEG tube. History of Present Illness Admission Date/PCP: 02/01/20 19:50 MORAIMA AKERS PA-C Patient complains of: Aspiration pneumonia History of Present Illness: JAYLON QUICK JR is a 74 year old male seen in consultation at the request of the hospitalist service. The patient has a progressive dementia, related to Parkinson's disease. The patient is currently on BiPAP, and is somnolent. He does not respond appropriately to questions or stimulation. I had a lengthy (1 hour) discussion with the patient's who is his medical power of promotional demonstrator and caregiver. The reports that the patient has recurring pneumonias, but she is unaware of the root cause. She denies a history of COPD or parenchymal lung disease. She does report that he has lots of "secretions and mucus". They have to be frequently suctioned. She reports that he swallows normally. This is not entirely consistent with the history given from nursing staff. Currently his breathing does appear labored and he is dependent on BiPAP. No significant review of systems can be obtained from the patient due to his mental status. Past Medical History Cardiac Medical History: Reports: Atrial Fibrillation Denies: Coronary Artery Disease, Myocardial Infarction, Hypertension, Pulmonary Embolism Pulmonary Medical History: Reports: Respiratory Failure Denies: Asthma, Bronchitis, Chronic Obstructive Pulmonary Disease (COPD), Pneumonia Neurological Medical History: Denies: Seizures Endocrine Medical History: Denies: Diabetes Mellitus Type 1, Diabetes Mellitus Type 2, Hyperthyroidism, Hypothyroidism Malignancy Medical History: Reports: Skin Cancer GI Medical History: Denies: Cirrhosis, Hepatitis, Hiatal Hernia Musculoskeltal Medical History: Denies: Arthritis, Gout Skin Medical History: Denies: Eczema, Psoriasis Psychiatric Medical History: Reports: Dementia - Parkinson's, Depression Hematology: Denies: Anemia, Sickle Cell Disease, Bleeding Tendencies Past Surgical History Past Surgical History: Reports: Cardiac Catheterization, Other - Patient has undergone cardiac ablation for A. fib Denies: Pacemaker Social History Smoking Status: Unknown if Ever Smoked Electronic Cigarette use?: No Frequency of Alcohol Use: None Hx Recreational Drug Use: No Drugs: None Hx Prescription Drug Abuse: No - Advance Directive Resuscitation Status: Full Code Family History Family History: CAD - Mother, COPD - Father Parental Family History Reviewed: Yes Children Family History Reviewed: Yes Sibling(s) Family History Reviewed.: Yes Medication/Allergy Home Medications: Acetaminophen 500 mg PO Q6HP PRN 01/19/20 Albuterol Sulfate [Ventolin 0.083% Neb 2.5 mg/3 mL Ampul] 2.5 mg NEB RTQID 01/19/20 Alprazolam [Xanax 0.25 mg Tablet] 0.25 mg PO DAILYP PRN 01/19/20 Ascorbic Acid 500 mg PO DAILY 01/19/20 Aspirin [Aspirin 325 mg Tablet] 325 mg PO DAILY 01/19/20 Epinephrine 0.3 mg IJ ASDIR PRN 01/19/20 Fluticasone Propionate [Flonase Nasal [place] 50 Mcg/[place] 16 gm] 1 spray NASL DA ILYP PRN 01/19/20 Pramipexole Di-HCl [Mirapex 0.25 mg Tablet] 0.5 mg PO TID 01/19/20 Rivastigmine [Exelon 9.5 mg/24 Hr Transdermal Patch] 1 each TD DAILY 01/19/20 Quetiapine Fumarate [Seroquel 25 mg Tablet] 25 mg PO Q12 15 Days #30 tablet 01/23/20 Ipratropium/Albuterol Sulfate [Duoneb 3 ml Ampul] 3 ml NEB RTQ6HP PRN 02/01/20 Omeprazole 20 mg PO DAILY 02/01/20 Allergies/Adverse Reactions: cimetidine [From Tagamet] Allergy (Severe, Verified 01/15/20 16:04) Anaphylaxis ranitidine HCl [From Zantac] Allergy (Verified 01/15/20 16:04) Edema Review of Systems ROS unobtainable: Due to mental status Physical Exam Vital Signs: Temp Pulse Resp BP Pulse Ox 97.3 F 81 21 H 109/61 98 02/15/20 14:47 02/15/20 14:47 02/15/20 16:22 02/15/20 14:47 02/15/20 16:22 Intake & Output 02/14/20 02/15/20 02/16/20 06:59 06:59 06:59 Intake Total 100 Output Total 875 100 225 Balance -875 -100 -125 Weight 68.2 kg 51.3 kg General appearance: PRESENT: thin Head exam: PRESENT: atraumatic Eye exam: ABSENT: scleral icterus Mouth exam: PRESENT: neck supple Neck exam: ABSENT: thyromegaly, tracheal deviation, tracheostomy Respiratory exam: PRESENT: rales, rhonchi, tachypnea. ABSENT: unlabored Cardiovascular exam: ABSENT: tachycardia Pulses: PRESENT: normal radial pulses GI/Abdominal exam: PRESENT: soft. ABSENT: distended, tenderness Rectal exam: PRESENT: deferred Extremities exam: ABSENT: pedal edema Musculoskeletal exam: ABSENT: tenderness Neurological exam: ABSENT: alert, awake Psychiatric exam: PRESENT: other - Somnolent Skin exam: ABSENT: erythema, jaundice Results Laboratory Results: 02/13/20 05:42 02/13/20 05:42 02/01/20 17:09 Troponin I < 0.012 Impressions: KUB X-Ray 02/06/20 00:00 IMPRESSION: Feeding tube is coiled on the stomach and the tip is in the gastric antrum. Chest X-Ray 02/15/20 00:00 IMPRESSION: NO ACUTE RADIOGRAPHIC FINDING IN THE CHEST. Assessment & Plan - Diagnosis (1) Aspiration pneumonitis Is this a current diagnosis for this admission?: Yes - Plan Summary Plan Summary: This is a 74-year-old male with a history of aspiration pneumonia, per his medical record. I had a lengthy discussion with the patient's today (approximately 1 hour). She is convinced that the patient has no trouble swallowing. She is perplexed as to the cause of his respiratory difficulties. The patient is currently somnolent on BiPAP. I would certainly recommend delaying PEG tube insertion until his respiratory status has improved. It also may be beneficial to order a barium swallow to demonstrate aspiration, as evidenced to the family that n.p.o. status and tube feedings are necessary. Surgery will follow this patient with you. I will revisit the discussion regarding PEG tube with the patient's /MPOA after his respiratory status has improved.
[2020-02-16] MEDS: SUCRALFATE 1 GM TABLET PO SCH ×4 (00:53→17:09)
[2020-02-16] MEDS ORDERED: NORMAL SALINE 1000 ML 1,000 ML IV PRN (00:57)
[2020-02-16] MEDS: PANTOPRAZOLE SODIUM 20 MG TABLET.DR PO SCH (06:35)
[2020-02-16 08:33] LABS: ABSOLUTE EOSINOPHILS # (AUTO) 0.1 10^3/uL (0.0-0.6); ABSOLUTE LYMPHOCYTES (AUTO) 1.2 10^3/uL (0.5-4.7); ABSOLUTE MONOCYTES (AUTO) 0.6 10^3/uL (0.1-1.4); ABSOLUTE NEUT (AUTO) 7.7 10^3/uL (1.7-8.2); BASOPHILS % (AUTO) 0.5 % (0-2); EOSINOPHILS % (AUTO) 1.1 % (0-6); HEMATOCRIT 40.2 % (37.9-51.0); HEMOGLOBIN 13.8 g/dL (13.5-17.0); LYMPHOCYTES % (AUTO) 12.4 % (13-45); MEAN CORPUSCULAR HEMOGLOBIN 31.7 pg (27.0-33.4); MEAN CORPUSCULAR HGB CONC 34.2 g/dL (32.0-36.0); MEAN CORPUSCULAR VOLUME 93 fl (80-97); PLATELET COUNT 297 10^3/uL (150-450); RED BLOOD COUNT 4.34 10^6/uL (4.35-5.55); RED CELL DISTRIBUTION WIDTH 13.9 % (11.5-14.0); TOTAL CELLS COUNTED % (AUTO) 100 %; WHITE BLOOD COUNT 9.6 10^3/uL (4.0-10.5)
[2020-02-16 08:50] LABS: ALBUMIN 3.8 g/dL (3.5-5.0); ALKALINE PHOSPHATASE 104 U/L (38-126); ANION GAP 11 (5-19); ASPARTATE AMINO TRANSFERASE 35 U/L (17-59); BILIRUBIN,DIRECT 0.3 mg/dL (0.0-0.4); BILIRUBIN,TOTAL 0.5 mg/dL (0.2-1.3); BLOOD UREA NITROGEN 34 mg/dL (7-20); CALCIUM 8.6 mg/dL (8.4-10.2); CARBON DIOXIDE 26 mmol/L (22-30); CHLORIDE 103 mmol/L (98-107); GLUCOSE 119 mg/dL (75-110); POTASSIUM 4.6 mmol/L (3.6-5.0)
--- NOTE | 2020-02-16 09:12 | PDOC PROGRESS REPORT ---
Subjective Progress Note for:: 02/16/20 Subjective:: 02/13/20209922-63-eczb-old male admitted for aspiration pneumonia he pulled off his Dobbhoff last night speech evaluation was done we are going to follow the recommendations of pured diet. In my opinion patient needs to be under hospice. Comfortably in the bed because of the kyphosis his posture is forward bending. Not in distress. Is a full code as per the staff. Patient blood cultures are negative and chest x-ray was normal. WBC count is 8.5. 02/14/2005-13-kvdj-old male admitted for aspiration pneumonia, he pulled off his Dobbhoff 2 days ago. Speech therapy consult was done the recommended pured diet as per the nurses is not following the commands he is really high risk for aspiration he is alert awake this morning but not communicative I spoke to the patient's she is adamant that V her to try applesauce first if he fails then she will think about feeding tube. As per her placing a feeding tube is a major decision to make. 02/15/2020-no acute events in last 24 hours. Afebrile. I had a long discussion with patient's yesterday she wants to try applesauce and pured diet not interested in PEG tube placement at this time. sHe does not want hospice consult. 02/16/20-patient is still on BiPAP. Somnolent. Not responding to verbal comma nds. On chest rub is opening eyes. I spoke to Dr. Hollis as per his recommendations we could arrange for a modified barium swallow. In my opinion is at high risk for aspiration. He is on BiPAP since yesterday and a chest x- ray was negative. Overall prognosis poor condition is critical. I had a prolonged discussion with patient's she has difficulty in accepting that her is a high risk for aspiration as per her his lungs are normal at the time but she has to do suctioning very frequently at home because of secretions and mucus is try to cough up. At this time patient is a full code. I am not sure whether the patient able to participate in a modified barium swallow. Patient is n.p.o. at this time. Reason For Visit: RESPIRATORY FAILURE,SEPTIC SHOCK Physical Exam Vital Signs: Temp Pulse Resp BP Pulse Ox 97.8 F 69 14 136/66 H 100 02/16/20 07:53 02/16/20 07:53 02/16/20 08:00 02/16/20 07:53 02/16/20 07:53 Intake & Output 02/15/20 02/16/20 02/17/20 06:59 06:59 06:59 Intake Total 100 1000 Output Total 100 375 Balance -100 -275 1000 Weight 51.3 kg 49.5 kg General appearance: PRESENT: no acute distress, severe distress Eye exam: PRESENT: PERRLA Mouth exam: PRESENT: moist, tongue midline Teeth exam: PRESENT: poor dentation Neck exam: ABSENT: carotid bruit, JVD, lymphadenopathy, thyromegaly Respiratory exam: PRESENT: decreased breath sounds Cardiovascular exam: PRESENT: RRR. ABSENT: diastolic murmur, rubs, systolic murmur GI/Abdominal exam: PRESENT: normal bowel sounds, soft. ABSENT: distended, guarding, mass, organolmegaly, rebound, tenderness Rectal exam: PRESENT: deferred Extremities exam: PRESENT: full ROM. ABSENT: calf tenderness, clubbing, pedal edema Neurological exam: PRESENT: alert, awake, oriented to person, oriented to place, oriented to time, oriented to situation, CN II-XII grossly intact. ABSENT: motor sensory deficit Psychiatric exam: PRESENT: appropriate affect, normal mood. ABSENT: homicidal ideation, suicidal ideation Skin exam: PRESENT: dry, intact, warm. ABSENT: cyanosis, rash Results Laboratory Results: 02/16/20 08:20 02/16/20 08:20 WBC 9.6 RBC 4.34 L Hgb 13.8 Hct 40.2 MCV 93 MCH 31.7 MCHC 34.2 RDW 13.9 Plt Count 297 Seg Neutrophils % 80.0 H 02/01/20 17:09 Troponin I < 0.012 Impressions: KUB X-Ray 02/06/20 00:00 IMPRESSION: Feeding tube is coiled on the stomach and the tip is in the gastric antrum. Chest X-Ray 02/15/20 00:00 IMPRESSION: NO ACUTE RADIOGRAPHIC FINDING IN THE CHEST. Assessment and Plan - Diagnosis (1) Acute hypoxemic respiratory failure Is this a current diagnosis for this admission?: Yes Plan: Patient is currently on nasal cannula and his respiratory status appears to be stable and at baseline 02/13/2020-patient admitted with hypoxic respiratory failure pulse ox is 99% with 2 L nasal cannula. Not in distress. Acute hypoxic respiratory failure is resolving. 02/14/2020-patient admitted with acute hypoxic respiratory failure most likely secondary to aspiration pneumonia pulse ox today is 99% on 3 L. 02/15/2065-41-wtmc-old male admitted with hypoxic respiratory failure, acute Xbox respiratory failure which was resolved pulse ox today is a 99% on room air. 02/16/20203040-37-spde-old male admitted with acute on chronic hypoxic respiratory failure. Patient is presently on BiPAP. Chest x-ray was negative. Pulse ox on BiPAP is 100%. Plan is to continue nebulizer treatments. (2) SIRS (systemic inflammatory response syndrome) Is this a current diagnosis for this admission?: Yes Plan: Possibly with early sepsis, this is resolved (3) Aspiration pneumonitis Is this a current diagnosis for this admission?: Yes Plan: This is a consequence of Parkinson's and Lewy-body dementia. February 07, 2020 The patient is high risk for aspiration. Due to his weakened state I believe his risk has worsened since his last admission. He is on Unasyn for the aspiration pneumonia. 02/08/2020 White blood cell count has been normal for approximately 5 days. We will continue his Unasyn until completion. Unfortunately he is still high risk for aspiration. We will continue to use the Dobbhoff feeding tube for now. February 09, 2020 He just completed a course of IV Unasyn. 02/09 Chest x-ray done today reveals no acute findings. Will watch and monitor patient off antibiotics. Unfortunately due to his physical habitus, kyphoscoliosis he is going to be high Risk for aspiration pneumonitis 02/10 patient is currently stable off any antibiotics. COVID-19 is still pending 02/11 COVID 19 is negative. Patient remains very high risk for aspiration pneumonitis given his kyphoscoliosis I have consulted speech therapy for evaluation of his swallowing. Patient koffi arently was able to eat at home according to the prior to admission 02/13/20-coronavirus testing is negative. He is a high risk for aspiration because of severe kyphoscoliosis. Speech evaluation was done this morning recommendation is pured diet. As of the body posture he is a high risk for aspiration. Patient completed antibiotic therapy with IV Unasyn now afebrile and recent blood cultures are negative. 02/14/2020-patient is high risk for severe kyphoscoliosis speech evaluation was done recommendation is pured diet spoke to patient's about feeding tube she basically refused the PEG placement. We have to respect her wishes, in my opinion he is very high risk for aspiration. 02/15/2020-patient is a high risk for aspiration pneumonia because of the severe kyphoscoliosis but his insisting on giving a pured diet with applesauce. She is not interested in PEG tube placement at this time. 02/16/20-as per patient's request surgical consult was requested with Dr. Sa guzman. Dr. Hollis spoke to power of patent attorney more than an hour for more than an hour yesterday and the recommendation at this time is to hold off on PEG tube until patient's respiratory status improved. (4) Suspected COVID-19 virus infection Is this a current diagnosis for this admission?: Yes Plan: Negative (5) Protein-energy malnutrition Is this a current diagnosis for this admission?: Yes Plan: 02/14/2020-patient is thin cachectic on examination wasting of the temporal muscles, quadriceps muscles, deltoid muscles seen. Severe protein energy malnutrition may be secondary to poor oral intake. - Plan Summary Summary: 02/10 Discussed with , Dorothy [phone], updated on condition
--- NOTE | 2020-02-16 09:14 | PDOC PROGRESS REPORT ---
Subjective Progress Note for:: 02/16/20 Subjective:: This is a 74-year-old male with progressive neurologic dysfunction (Parkinson's disease and dementia). The patient, per report has dysphasia and recurrent aspiration pneumonitis. He remains on BiPAP this morning. He is minimally responsive to stimuli, and does not respond appropriately to questions upon my evaluation. A review of systems is unable to be obtained due to mental status. Reason For Visit: RESPIRATORY FAILURE,SEPTIC SHOCK Physical Exam Vital Signs: Temp Pulse Resp BP Pulse Ox 97.8 F 69 14 136/66 H 100 02/16/20 07:53 02/16/20 07:53 02/16/20 08:00 02/16/20 07:53 02/16/20 07:53 Intake & Output 02/15/20 02/16/20 02/17/20 06:59 06:59 06:59 Intake Total 100 1000 Output Total 100 375 Balance -100 -275 1000 Weight 51.3 kg 49.5 kg Exam: General appearance: PRESENT: thin Head exam: PRESENT: atraumatic Eye exam: ABSENT: scleral icterus Mouth exam: PRESENT: neck supple Neck exam: ABSENT: thyromegaly, tracheal deviation, tracheostomy Respiratory exam: PRESENT: rales, rhonchi, tachypnea. ABSENT: unlabored Cardiovascular exam: ABSENT: tachycardia Pulses: PRESENT: normal radial pulses GI/Abdominal exam: PRESENT: soft. ABSENT: distended, tenderness Rectal exam: PRESENT: deferred Extremities exam: ABSENT: pedal edema Musculoskeletal exam: ABSENT: tenderness Neurological exam: ABSENT: alert, awake Psychiatric exam: PRESENT: other - Somnolent Skin exam: ABSENT: erythema, jaundice Results Laboratory Results: 02/16/20 08:20 02/16/20 08:20 WBC 9.6 RBC 4.34 L Hgb 13.8 Hct 40.2 MCV 93 MCH 31.7 MCHC 34.2 RDW 13.9 Plt Count 297 Seg Neutrophils % 80.0 H 02/01/20 17:09 Troponin I < 0.012 Impressions: KUB X-Ray 02/06/20 00:00 IMPRESSION: Feeding tube is coiled on the stomach and the tip is in the gastric antrum. Chest X-Ray 02/15/20 00:00 IMPRESSION: NO ACUTE RADIOGRAPHIC FINDING IN THE CHEST. Assessment & Plan - Diagnosis (1) Aspiration pneumonitis Is this a current diagnosis for this admission?: Yes - Plan Summary Plan Summary: 74-year-old male with dementia and Parkinson's disease. He has multiple episodes of aspiration pneumonia in the last year. Clinical staff believes he is aspirating while eating. The family is not as convinced. I would recommend that once the patient is off BiPAP, performing a modified barium swallow to demonstrate oropharyngeal dysphasia. The patient would likely benefit from a gastrostomy, once his respiratory condition improves. Surgery will follow this patient with you. I discussed the case personally with Dr. Brewer.
[2020-02-16] MEDS: ASPIRIN 325 MG TABLET PO SCH (09:38)
[2020-02-16] MEDS: PRAMIPEXOLE DI-HCL 0.5 MG TABLET PO SCH ×3 (09:39→17:09)
[2020-02-16] MEDS: ASCORBIC ACID 500 MG TABLET PO SCH (09:41)
[2020-02-16] MEDS: ENOXAPARIN SODIUM INJ 40 MG/0.4 ML DISP.SYRIN SUBCUT SCH (09:42)
[2020-02-16] MEDS: RIVASTIGMINE 9.5 MG/24 HR PATCH.TD24 TD SCH (09:42)
[2020-02-17] MEDS: SUCRALFATE 1 GM TABLET PO SCH ×4 (00:11→17:31)
[2020-02-17] MEDS: PANTOPRAZOLE SODIUM 20 MG TABLET.DR PO SCH (05:34)
--- NOTE | 2020-02-17 09:40 | PDOC PROGRESS REPORT ---
Subjective Progress Note for:: 02/17/20 Subjective:: 02/13/20209616-40-utus-old male admitted for aspiration pneumonia he pulled off his Dobbhoff last night speech evaluation was done we are going to follow the recommendations of pured diet. In my opinion patient needs to be under hospice. Comfortably in the bed because of the kyphosis his posture is forward bending. Not in distress. Is a full code as per the staff. Patient blood cultures are negative and chest x-ray was normal. WBC count is 8.5. 02/14/2012-30-woqd-old male admitted for aspiration pneumonia, he pulled off his Dobbhoff 2 days ago. Speech therapy consult was done the recommended pured diet as per the nurses is not following the commands he is really high risk for aspiration he is alert awake this morning but not communicative I spoke to the patient's she is adamant that V her to try applesauce first if he fails then she will think about feeding tube. As per her placing a feeding tube is a major decision to make. 02/15/2020-no acute events in last 24 hours. Afebrile. I had a long discussion with patient's yesterday she wants to try applesauce and pured diet not interested in PEG tube placement at this time. sHe does not want hospice consult. 02/16/20-patient is still on BiPAP. Somnolent. Not responding to verbal comma nds. On chest rub is opening eyes. I spoke to Dr. Hollis as per his recommendations we could arrange for a modified barium swallow. In my opinion is at high risk for aspiration. He is on BiPAP since yesterday and a chest x- ray was negative. Overall prognosis poor condition is critical. I had a prolonged discussion with patient's she has difficulty in accepting that her is a high risk for aspiration as per her his lungs are normal at the time but she has to do suctioning very frequently at home because of secretions and mucus is try to cough up. At this time patient is a full code. I am not sure whether the patient able to participate in a modified barium swallow. Patient is n.p.o. at this time. 02/17/20-patient is off the BiPAP he is on 2 end of liters of oxygen with pulse ox is around 97%. Awake and alert. But not following the commands. I had a long discussion with the patient's who has the power of assistant district attorney and as per her, family secondary to PEG placement. Reason For Visit: RESPIRATORY FAILURE,SEPTIC SHOCK Physical Exam Vital Signs: Temp Pulse Resp BP Pulse Ox 97.4 F 73 18 139/63 H 99 02/17/20 08:00 02/17/20 08:00 02/17/20 08:00 02/17/20 08:00 02/17/20 08:12 Intake & Output 02/16/20 02/17/20 02/18/20 06:59 06:59 06:59 Intake Total 100 1000 Output Total 375 350 Balance -275 650 Weight 49.5 kg 51.9 kg General appearance: PRESENT: no acute distress, thin Head exam: PRESENT: atraumatic Eye exam: PRESENT: PERRLA Ear exam: PRESENT: normal external ear exam Mouth exam: PRESENT: moist, tongue midline Teeth exam: PRESENT: poor dentation Neck exam: ABSENT: carotid bruit, JVD, lymphadenopathy, thyromegaly Respiratory exam: PRESENT: decreased breath sounds Cardiovascular exam: PRESENT: RRR. ABSENT: diastolic murmur, rubs, systolic murmur GI/Abdominal exam: PRESENT: normal bowel sounds, soft. ABSENT: distended, guarding, mass, organolmegaly, rebound, tenderness Rectal exam: PRESENT: deferred Neurological exam: PRESENT: alert, awake, oriented to person, oriented to place, oriented to time, oriented to situation, CN II-XII grossly intact. ABSENT: motor sensory deficit Psychiatric exam: PRESENT: appropriate affect, normal mood. ABSENT: homicidal ideation, suicidal ideation Results Laboratory Results: 02/16/20 08:20 02/16/20 08:20 02/01/20 17:09 Troponin I < 0.012 Impressions: KUB X-Ray 02/06/20 00:00 IMPRESSION: Feeding tube is coiled on the stomach and the tip is in the gastric antrum. Chest X-Ray 02/15/20 00:00 IMPRESSION: NO ACUTE RADIOGRAPHIC FINDING IN THE CHEST. Assessment and Plan - Diagnosis (1) Acute hypoxemic respiratory failure Is this a current diagnosis for this admission?: Yes Plan: Patient is currently on nasal cannula and his respiratory status appears to be stable and at baseline 02/13/2020-patient admitted with hypoxic respiratory failure pulse ox is 99% with 2 L nasal cannula. Not in distress. Acute hypoxic respiratory failure is resolving. 02/14/2020-patient admitted with acute hypoxic respiratory failure most likely s econdary to aspiration pneumonia pulse ox today is 99% on 3 L. 02/15/2033-19-xrum-old male admitted with hypoxic respiratory failure, acute hypoxic respiratory failure which was resolved pulse ox today is a 99% on room air. 02/16/20206933-18-ufti-old male admitted with acute on chronic hypoxic respiratory failure. Patient is presently on BiPAP. Chest x-ray was negative. Pulse ox on BiPAP is 100%. Plan is to continue nebulizer treatments. 02/17/2020-patient is off the BiPAP. Presently on 2 1/2 L of oxygen pulse ox is 96 to 97%. Patient still high risk for aspiration. Plan is to continue the pre sent management. (2) SIRS (systemic inflammatory response syndrome) Is this a current diagnosis for this admission?: Yes Plan: Possibly with early sepsis, this is resolved (3) Aspiration pneumonitis Is this a current diagnosis for this admission?: Yes Plan: This is a consequence of Parkinson's and Lewy-body dementia. February 07, 2020 The patient is high risk for aspiration. Due to his weakened state I believe his risk has worsened since his last admission. He is on Unasyn for the aspiration pneumonia. 02/08/2020 White blood cell count has been normal for approximately 5 days. We will continue his Unasyn until completion. Unfortunately he is still high risk for aspiration. We will continue to use the Dobbhoff feeding tube for now. February 09, 2020 He just completed a course of IV Unasyn. 02/09 Chest x-ray done today reveals no acute findings. Will watch and monitor patient off antibiotics. Unfortunately due to his physical habitus, kyphoscoliosis he is going to be high Risk for aspiration pneumonitis 02/10 patient is currently stable off any antibiotics. COVID-19 is still pending 02/11 COVID 19 is negative. Patient remains very high risk for aspiration pneumonitis given his kyphoscoliosis I have consulted speech therapy for evaluation of his swallowing. Patient apparently was able to eat at home according to the prior to admission 02/13/20-coronavirus testing is negative. He is a high risk for aspiration because of severe kyphoscoliosis. Speech evaluation was done this morning recommendation is pured diet. As of the body posture he is a high risk for aspiration. Patient completed antibiotic therapy with IV Unasyn now afebrile and recent blood cultures are negative. 02/14/2020-patient is high risk for severe kyphoscoliosis speech evaluation was done recommendation is pured diet spoke to patient's about feeding tube sh e basically refused the PEG placement. We have to respect her wishes, in my opinion he is very high risk for aspiration. 02/15/2020-patient is a high risk for aspiration pneumonia because of the severe kyphoscoliosis but his insisting on giving a pured diet with applesauce. She is not interested in PEG tube placement at this time. 02/16/20-as per patient's request surgical consult was requested with Dr. Hollis. Dr. Hollis spoke to power of assistant district attorney more than an hour for more than an hour yesterday and the recommendation at this time is to hold off on PEG tube until patient's respiratory status improved. 02/17/2020-patient is high risk for aspiration pneumonia but the family is against PEG placement. (4) Suspected COVID-19 virus infection Is this a current diagnosis for this admission?: Yes Plan: Negative (5) Protein-energy malnutrition Is this a current diagnosis for this admission?: Yes Plan: 02/14/2020-patient is thin cachectic on examination wasting of the temporal muscles, quadriceps muscles, deltoid muscles seen. Severe protein energy malnutrition may be secondary to poor oral intake. - Plan Summary Summary: 02/10 Discussed with , Dorothy [phone], updated on condition
[2020-02-17] MEDS: RIVASTIGMINE 9.5 MG/24 HR PATCH.TD24 TD SCH (09:43)
[2020-02-17] MEDS: ASPIRIN 325 MG TABLET PO SCH (09:54)
[2020-02-17] MEDS: ENOXAPARIN SODIUM INJ 40 MG/0.4 ML DISP.SYRIN SUBCUT SCH (09:54)
[2020-02-17] MEDS: PRAMIPEXOLE DI-HCL 0.5 MG TABLET PO SCH ×3 (09:54→17:31)
[2020-02-17] MEDS: ASCORBIC ACID 500 MG TABLET PO SCH (09:54)
--- NOTE | 2020-02-17 09:54 | PDOC PROGRESS REPORT ---
Subjective Progress Note for:: 02/17/20 Subjective:: This is a 74-year-old male with progressive neurologic dysfunction (Parkinson's disease and dementia). The patient, per report has dysphasia and recurrent aspiration pneumonitis. He remains is no longer requiring BiPAP. He responds to questions, and is slightly confused. He denies chest pain, abdominal pain, headache, dizziness, blurry vision. He does report a sensation of shortness of breath. He also reports weakness and malaise. Reason For Visit: RESPIRATORY FAILURE,SEPTIC SHOCK Physical Exam Vital Signs: Temp Pulse Resp BP Pulse Ox 97.4 F 73 18 139/63 H 99 02/17/20 08:00 02/17/20 08:00 02/17/20 08:00 02/17/20 08:00 02/17/20 08:12 Intake & Output 02/16/20 02/17/20 02/18/20 06:59 06:59 06:59 Intake Total 100 1000 Output Total 375 350 Balance -275 650 Weight 49.5 kg 51.9 kg General appearance: PRESENT: no acute distress, thin Head exam: PRESENT: atraumatic, normocephalic Eye exam: PRESENT: EOMI. ABSENT: scleral icterus Mouth exam: PRESENT: neck supple Neck exam: ABSENT: meningismus, tenderness, thyromegaly, tracheal deviation Respiratory exam: PRESENT: unlabored, other - on 2L nasal canula. ABSENT: chest wall tenderness, tachypnea Cardiovascular exam: ABSENT: tachycardia GI/Abdominal exam: PRESENT: soft. ABSENT: distended, rigid, tenderness Rectal exam: PRESENT: deferred Musculoskeletal exam: ABSENT: ambulatory Neurological exam: PRESENT: alert, awake Psychiatric exam: ABSENT: agitated, anxious Focused psych exam: PRESENT: other - slightly confused Skin exam: ABSENT: cyanosis, erythema, jaundice Results Laboratory Results: 02/16/20 08:20 02/16/20 08:20 02/01/20 17:09 Troponin I < 0.012 Impressions: KUB X-Ray 02/06/20 00:00 IMPRESSION: Feeding tube is coiled on the stomach and the tip is in the gastric antrum. Chest X-Ray 02/15/20 00:00 IMPRESSION: NO ACUTE RADIOGRAPHIC FINDING IN THE CHEST. Assessment & Plan - Diagnosis (1) Aspiration pneumonitis Is this a current diagnosis for this admission?: Yes - Plan Summary Plan Summary: 74-year-old male with dementia and Parkinson's disease. He has multiple episodes of aspiration pneumonia in the last year. Clinical staff believes he is aspirating while eating. The family is not as convinced. Currently awaiting speech eval to demonstrate oropharyngeal dysphasia. The patient would likely benefit from a gastrostomy, once dysphagia is confirmed. Surgery will follow this patient with you.
[2020-02-18] MEDS: SUCRALFATE 1 GM TABLET PO SCH ×4 (00:19→17:06)
[2020-02-18] MEDS: PANTOPRAZOLE SODIUM 20 MG TABLET.DR PO SCH (05:34)
--- NOTE | 2020-02-18 08:58 | PDOC PROGRESS REPORT ---
Subjective Progress Note for:: 02/18/20 Subjective:: 02/13/20208075-18-urgs-old male admitted for aspiration pneumonia he pulled off his Dobbhoff last night speech evaluation was done we are going to follow the recommendations of pured diet. In my opinion patient needs to be under hospice. Comfortably in the bed because of the kyphosis his posture is forward bending. Not in distress. Is a full code as per the staff. Patient blood cultures are negative and chest x-ray was normal. WBC count is 8.5. 02/14/2083-92-bcja-old male admitted for aspiration pneumonia, he pulled off his Dobbhoff 2 days ago. Speech therapy consult was done the recommended pured diet as per the nurses is not following the commands he is really high risk for aspiration he is alert awake this morning but not communicative I spoke to the patient's she is adamant that V her to try applesauce first if he fails then she will think about feeding tube. As per her placing a feeding tube is a major decision to make. 02/15/2020-no acute events in last 24 hours. Afebrile. I had a long discussion with patient's yesterday she wants to try applesauce and pured diet not interested in PEG tube placement at this time. sHe does not want hospice consult. 02/16/20-patient is still on BiPAP. Somnolent. Not responding to verbal comma nds. On chest rub is opening eyes. I spoke to Dr. Hollis as per his recommendations we could arrange for a modified barium swallow. In my opinion is at high risk for aspiration. He is on BiPAP since yesterday and a chest x- ray was negative. Overall prognosis poor condition is critical. I had a prolonged discussion with patient's she has difficulty in accepting that her is a high risk for aspiration as per her his lungs are normal at the time but she has to do suctioning very frequently at home because of secretions and mucus is try to cough up. At this time patient is a full code. I am not sure whether the patient able to participate in a modified barium swallow. Patient is n.p.o. at this time. 02/17/20-patient is off the BiPAP he is on 2 end of liters of oxygen with pulse ox is around 97%. Awake and alert. But not following the commands. I had a long discussion with the patient's who has the power of assistant city attorney and as per her, family secondary to PEG placement. 02/18/2020-patient is off the BiPAP for the last 24 hours. On 2 L of oxygen pulse ox is 100%. He is on pured diet. Family does not want any feeding tube. Vital signs are stable. Plan is to continue the present management at this time. Reason For Visit: RESPIRATORY FAILURE,SEPTIC SHOCK Physical Exam Vital Signs: Temp Pulse Resp BP Pulse Ox 97.5 F 70 16 145/71 H 100 02/18/20 07:20 02/18/20 07:20 02/18/20 07:20 02/18/20 07:20 02/18/20 07:20 Intake & Output 02/17/20 02/18/20 02/19/20 06:59 06:59 06:59 Intake Total 1000 100 Output Total 350 600 Balance 650 -500 Weight 51.9 kg 49.8 kg General appearance: PRESENT: no acute distress, disheveled, thin Head exam: PRESENT: atraumatic Eye exam: PRESENT: PERRLA Mouth exam: PRESENT: moist, tongue midline Teeth exam: PRESENT: dental tenderness Neck exam: ABSENT: carotid bruit, JVD, lymphadenopathy, thyromegaly Respiratory exam: PRESENT: decreased breath sounds Cardiovascular exam: PRESENT: RRR. ABSENT: diastolic murmur, rubs, systolic murmur GI/Abdominal exam: PRESENT: normal bowel sounds, soft. ABSENT: distended, guarding, mass, organolmegaly, rebound, tenderness Rectal exam: PRESENT: deferred Extremities exam: PRESENT: full ROM. ABSENT: calf tenderness, clubbing, pedal edema Neurological exam: PRESENT: alert, CN II-XII grossly intact. ABSENT: oriented to person, oriented to place, oriented to time, oriented to situation Results Laboratory Results: 02/16/20 08:20 02/16/20 08:20 02/01/20 17:09 Troponin I < 0.012 Impressions: KUB X-Ray 02/06/20 00:00 IMPRESSION: Feeding tube is coiled on the stomach and the tip is in the gastric antrum. Chest X-Ray 02/15/20 00:00 IMPRESSION: NO ACUTE RADIOGRAPHIC FINDING IN THE CHEST. Assessment and Plan - Diagnosis (1) Acute hypoxemic respiratory failure Is this a current diagnosis for this admission?: Yes Plan: Patient is currently on nasal cannula and his respiratory status appears to be stable and at baseline 02/13/2020-patient admitted with hypoxic respiratory failure pulse ox is 99% with 2 L nasal cannula. Not in distress. Acute hypoxic respiratory failure is resolving. 02/14/2020-patient admitted with acute hypoxic respiratory failure most likely secondary to aspiration pneumonia pulse ox today is 99% on 3 L. 02/15/2089-54-tqvr-old male admitted with hypoxic respiratory failure, acute hypoxic respiratory failure which was resolved pulse ox today is a 99% on room air. 02/16/20200750-30-nhol-old male admitted with acute on chronic hypoxic respiratory failure. Patient is presently on BiPAP. Chest x-ray was negative. Pulse ox on BiPAP is 100%. Plan is to continue nebulizer treatments. 02/17/2020-patient is off the BiPAP. Presently on 2 1/2 L of oxygen pulse ox is 96 to 97%. Patient still high risk for aspiration. Plan is to continue the present management. 02/18/2020-pulse ox is 100% on 2 L. Patient is still high risk for aspiration pneumonia. Family does not want feeding tube placement. (2) SIRS (systemic inflammatory response syndrome) Is this a current diagnosis for this admission?: Yes Plan: Possibly with early sepsis, this is resolved (3) Aspiration pneumonitis Is this a current diagnosis for this admission?: Yes Plan: This is a consequence of Parkinson's and Lewy-body dementia. February 07, 2020 The patient is high risk for aspiration. Due to his weakened state I believe his risk has worsened since his last admission. He is on Unasyn for the aspi ration pneumonia. 02/08/2020 White blood cell count has been normal for approximately 5 days. We will continue his Unasyn until completion. Unfortunately he is still high risk for aspiration. We will continue to use the Dobbhoff feeding tube for now. February 09, 2020 He just completed a course of IV Unasyn. 02/09 Chest x-ray done today reveals no acute findings. Will watch and monitor patient off antibiotics. Unfortunately due to his physical habitus, kyphoscoliosis he is going to be high Risk for aspiration pneumonitis 02/10 patient is currently stable off any antibiotics. COVID-19 is still pending 02/11 COVID 19 is negative. Patient remains very high risk for aspiration pneumonitis given his kyphoscoliosis I have consulted speech therapy for evaluation of his swallowing. Patient apparently was able to eat at home according to the prior to admission 02/13/20-coronavirus testing is negative. He is a high risk for aspiration because of severe kyphoscoliosis. Speech evaluation was done this morning recommendation is pured diet. As of the body posture he is a high risk for aspiration. Patient completed antibiotic therapy with IV Unasyn now afebrile and recent blood cultures are negative. 02/14/2020-patient is high risk for severe kyphoscoliosis speech evaluation was done recommendation is pured diet spoke to patient's about feeding tube she basically refused the PEG placement. We have to respect her wishes, in my opinion he is very high risk for aspiration. 02/15/2020-patient is a high risk for aspiration pneumonia because of the severe kyphoscoliosis but his insisting on giving a pured diet with applesauce. She is not interested in PEG tube placement at this time. 02/16/20-as per patient's request surgical consult was requested with Dr. Hollis. Dr. Hollis spoke to power of assistant city attorney more than an hour for more than an hour yesterday and the recommendation at this time is to hold off on PEG tube until patient's respiratory status improved. 02/17/2020-patient is high risk for aspiration pneumonia but the family is against PEG placement. (4) Suspected COVID-19 virus infection Is this a current diagnosis for this admission?: Yes Plan: Negative (5) Protein-energy malnutrition Is this a current diagnosis for this admission?: Yes Plan: 02/14/2020-patient is thin cachectic on examination wasting of the temporal muscles, quadriceps muscles, deltoid muscles seen. Severe protein energy malnutrition may be secondary to poor oral intake. - Plan Summary Summary: 02/10 Discussed with , Dorothy [phone], updated on condition
[2020-02-18] MEDS: RIVASTIGMINE 9.5 MG/24 HR PATCH.TD24 TD SCH (09:19)
[2020-02-18] MEDS: ENOXAPARIN SODIUM INJ 40 MG/0.4 ML DISP.SYRIN SUBCUT SCH ×2 (09:31→09:58)
[2020-02-18] MEDS: ASPIRIN 325 MG TABLET PO SCH (09:32)
[2020-02-18] MEDS: ASCORBIC ACID 500 MG TABLET PO SCH (09:32)
[2020-02-18] MEDS: PRAMIPEXOLE DI-HCL 0.5 MG TABLET PO SCH ×3 (09:59→17:05)
[2020-02-18] MEDS ORDERED: ALPRAZOLAM 0.25 MG TABLET PO PRN (13:33)
[2020-02-18] MEDS ORDERED: IPRATROPIUM/ALBUTEROL 0.5-2.5 MG/3 ML AMPUL NEB SCH (13:45)
[2020-02-18] MEDS: IPRATROPIUM/ALBUTEROL 0.5-2.5 MG/3 ML AMPUL NEB PRN (16:28)
[2020-02-19] MEDS: SUCRALFATE 1 GM TABLET PO SCH ×3 (00:58→12:07)
[2020-02-19] MEDS: PANTOPRAZOLE SODIUM 20 MG TABLET.DR PO SCH (06:07)
[2020-02-19] MEDS: IPRATROPIUM/ALBUTEROL 0.5-2.5 MG/3 ML AMPUL NEB PRN (08:12)
[2020-02-19] MEDS ORDERED: IPRATROPIUM/ALBUTEROL 0.5-2.5 MG/3 ML AMPUL NEB PRN (08:14)
[2020-02-19] MEDS: ASPIRIN 325 MG TABLET PO SCH (10:06)
[2020-02-19] MEDS: ASCORBIC ACID 500 MG TABLET PO SCH (10:06)
[2020-02-19] MEDS: PRAMIPEXOLE DI-HCL 0.5 MG TABLET PO SCH ×3 (10:06→14:33)
[2020-02-19] MEDS: ENOXAPARIN SODIUM INJ 40 MG/0.4 ML DISP.SYRIN SUBCUT SCH (10:07)
[2020-02-19] MEDS: RIVASTIGMINE 9.5 MG/24 HR PATCH.TD24 TD SCH (10:07)
--- NOTE | 2020-02-19 10:08 | PDOC PROGRESS REPORT ---
Subjective Progress Note for:: 02/19/20 Subjective:: 02/13/20200772-33-fblr-old male admitted for aspiration pneumonia he pulled off his Dobbhoff last night speech evaluation was done we are going to follow the recommendations of pured diet. In my opinion patient needs to be under hospice. Comfortably in the bed because of the kyphosis his posture is forward bending. Not in distress. Is a full code as per the staff. Patient blood cultures are negative and chest x-ray was normal. WBC count is 8.5. 02/14/2017-94-bbzs-old male admitted for aspiration pneumonia, he pulled off his Dobbhoff 2 days ago. Speech therapy consult was done the recommended pured diet as per the nurses is not following the commands he is really high risk for aspiration he is alert awake this morning but not communicative I spoke to the patient's she is adamant that V her to try applesauce first if he fails then she will think about feeding tube. As per her placing a feeding tube is a major decision to make. 02/15/2020-no acute events in last 24 hours. Afebrile. I had a long discussion with patient's yesterday she wants to try applesauce and pured diet not interested in PEG tube placement at this time. sHe does not want hospice consult. 02/16/20-patient is still on BiPAP. Somnolent. Not responding to verbal comma nds. On chest rub is opening eyes. I spoke to Dr. Hollis as per his recommendations we could arrange for a modified barium swallow. In my opinion is at high risk for aspiration. He is on BiPAP since yesterday and a chest x- ray was negative. Overall prognosis poor condition is critical. I had a prolonged discussion with patient's she has difficulty in accepting that her is a high risk for aspiration as per her his lungs are normal at the time but she has to do suctioning very frequently at home because of secretions and mucus is try to cough up. At this time patient is a full code. I am not sure whether the patient able to participate in a modified barium swallow. Patient is n.p.o. at this time. 02/17/20-patient is off the BiPAP he is on 2 end of liters of oxygen with pulse ox is around 97%. Awake and alert. But not following the commands. I had a long discussion with the patient's who has the power of assistant attorney general and as per her, family secondary to PEG placement. 02/18/2020-patient is off the BiPAP for the last 24 hours. On 2 L of oxygen pulse ox is 100%. He is on pured diet. Family does not want any feeding tube. Vital signs are stable. Plan is to continue the present management at this time. 02/19/20 -patient went for modified barium swallow today and at the recommendation is pured diet with thin liquids. Will follow the speech therapy recommendations. I gave the update with the patient's . Patient is off the BiPAP at this time pulse ox is 98% on 3 L. Because of the bad weather is reluctant to take him home today. Reason For Visit: RESPIRATORY FAILURE,SEPTIC SHOCK Physical Exam Vital Signs: Temp Pulse Resp BP Pulse Ox 97.6 F 74 14 154/82 H 97 02/19/20 07:39 02/19/20 08:12 02/19/20 08:12 02/19/20 07:39 02/19/20 08:12 Intake & Output 02/18/20 02/19/20 02/20/20 06:59 06:59 06:59 Intake Total 100 380 Output Total 600 275 Balance -500 105 Weight 49.8 kg 48.7 kg General appearance: PRESENT: disheveled, thin Head exam: PRESENT: atraumatic Eye exam: PRESENT: conjunctiva pale, PERRLA Mouth exam: PRESENT: neck supple Teeth exam: PRESENT: poor dentation Neck exam: ABSENT: carotid bruit, JVD, lymphadenopathy, thyromegaly Respiratory exam: PRESENT: decreased breath sounds Cardiovascular exam: PRESENT: RRR. ABSENT: diastolic murmur, rubs, systolic murmur GI/Abdominal exam: PRESENT: normal bowel sounds, soft. ABSENT: distended, guarding, mass, organolmegaly, rebound, tenderness Rectal exam: PRESENT: deferred Extremities exam: PRESENT: full ROM. ABSENT: calf tenderness, clubbing, pedal edema Neurological exam: PRESENT: alert, awake, oriented to person, oriented to place, oriented to time, oriented to situation, CN II-XII grossly intact. ABSENT: motor sensory deficit Results Laboratory Results: 02/16/20 08:20 02/16/20 08:20 02/01/20 17:09 Troponin I < 0.012 Impressions: KUB X-Ray 02/06/20 00:00 IMPRESSION: Feeding tube is coiled on the stomach and the tip is in the gastric antrum. Chest X-Ray 02/15/20 00:00 IMPRESSION: NO ACUTE RADIOGRAPHIC FINDING IN THE CHEST. Assessment and Plan - Diagnosis (1) Acute hypoxemic respiratory failure Is this a current diagnosis for this admission?: Yes Plan: Patient is currently on nasal cannula and his respiratory status appears to be stable and at baseline 02/13/2020-patient admitted with hypoxic respiratory failure pulse ox is 99% with 2 L nasal cannula. Not in distress. Acute hypoxic respiratory failure is resolving. 02/14/2020-patient admitted with acute hypoxic respiratory failure most likely secondary to aspiration pneumonia pulse ox today is 99% on 3 L. 02/15/2087-40-zrfx-old male admitted with hypoxic respiratory failure, acute hypoxic respiratory failure which was resolved pulse ox today is a 99% on room air. 02/16/20209632-87-xnmb-old male admitted with acute on chronic hypoxic respiratory failure. Patient is presently on BiPAP. Chest x-ray was negative. Pulse ox on BiPAP is 100%. Plan is to continue nebulizer treatments. 02/17/2020-patient is off the BiPAP. Presently on 2 1/2 L of oxygen pulse ox is 96 to 97%. Patient still high risk for aspiration. Plan is to continue the present management. 02/18/2020-pulse ox is 100% on 2 L. Patient is still high risk for aspiration pneumonia. Family does not want feeding tube placement. 02/19/20-pulse ox today is 98% on 3 L. Plan is to follow the recommendations of the speech therapy and put him on pured diet. (2) SIRS (systemic inflammatory response syndrome) Is this a current diagnosis for this admission?: Yes Plan: Possibly with early sepsis, this is resolved (3) Aspiration pneumonitis Is this a current diagnosis for this admission?: Yes Plan: This is a consequence of Parkinson's and Lewy-body dementia. February 07, 2020 The patient is high risk for aspiration. Due to his weakened state I believe his risk has worsened since his last admission. He is on Unasyn for the aspiration pneumonia. 02/08/2020 White blood cell count has been normal for approximately 5 days. We will continue his Unasyn until completion. Unfortunately he is still high risk for aspiration. We will continue to use the Dobbhoff feeding tube for now. February 09, 2020 He just completed a course of IV Unasyn. 02/09 Chest x-ray done today reveals no acute findings. Will watch and monitor patient off antibiotics. Unfortunately due to his physical habitus, kyphoscoliosis he is going to be high Risk for aspiration pneumonitis 02/10 patient is currently stable off any antibiotics. COVID-19 is still pending 02/11 COVID 19 is negative. Patient remains very high risk for aspiration pneumonitis given his kyphoscoliosis I have consulted speech therapy for evaluation of his swallowing. Patient apparently was able to eat at home according to the prior to admission 02/13/20-coronavirus testing is negative. He is a high risk for aspiration because of severe kyphoscoliosis. Speech evaluation was done this morning recommendation is pured diet. As of the body posture he is a high risk for aspiration. Patient completed antibiotic therapy with IV Unasyn now afebrile and recent blood cultures are negative. 02/14/2020-patient is high risk for severe kyphoscoliosis speech evaluation was done recommendation is pured diet spoke to patient's about feeding tube she basically refused the PEG placement. We have to respect her wishes, in my opinion he is very high risk for aspiration. 02/15/2020-patient is a high risk for aspiration pneumonia because of the severe kyphoscoliosis but his insisting on giving a pured diet with applesauce. She is not interested in PEG tube placement at this time. 02/16/20-as per patient's request surgical consult was requested with Dr. Hollis. Dr. Hollis spoke to power of assistant attorney general more than an hour for more than an hour yesterday and the recommendation at this time is to hold off on PEG tube until patient's respiratory status improved. 02/17/2020-patient is high risk for aspiration pneumonia but the family is against PEG placement. 1320-patient went for barium swallow today the recommendation is pured diet with thin liquids. And family is against feeding tube placement. He is still a high risk for aspiration. (4) Suspected COVID-19 virus infection Is this a current diagnosis for this admission?: Yes Plan: Negative (5) Protein-energy malnutrition Is this a current diagnosis for this admission?: Yes Plan: 02/14/2020-patient is thin cachectic on examination wasting of the temporal muscles, quadriceps muscles, deltoid muscles seen. Severe protein energy malnutrition may be secondary to poor oral intake. - Plan Summary Summary: 02/10 Discussed with , Dorothy [phone], updated on condition
--- NOTE | 2020-02-19 10:13 | RADIOLOGY REPORT (SQ) ---
EXAM DESCRIPTION: COOKIE SWALLOW IMAGES COMPLETED DATE/TIME: 02/19/2020 9:29 am REASON FOR STUDY: asp pneumonia Parkinson's disease, dementia, dysphagia, severe kyphosis COMPARISON: None. TECHNIQUE: Videofluoroscopic swallowing examination was performed in conjunction with speech patholo gy. Videofluoroscopic imaging was obtained and reviewed and these are the findings: RADIATION DOSE: 1 minutes 48 seconds of fluoroscopy was used. 1 images saved to PACS. LIMITATIONS: None FINDINGS: The patient was brought into the fluoro room and placed upright on a modified barium swall ow chair. The patient was then given multiple consistencies mixed with barium to swallow under live fluoroscopic video guidance. According to the Speech Pathologist there was no penetration or aspirat ion. Demonstrates a weak swallow. IMPRESSION: NO EVIDENCE OF PENETRATION OR ASPIRATION. PLEASE SEE SPEECH PATHOLOGIST REPORT FOR OTHER FINDINGS AND RECOMMENDATIONS. COMMENT: Quality ID [id number]: Final reports for procedures using fluoroscopy that document radiation exp osure indices, or exposure time and number of fluorographic images (if radiation exposure indices are not available) TECHNICAL DOCUMENTATION: JOB ID: [id number] 2010 [employer]- All Rights Reserved Reading location - IP/workstation name: [email or web address] [id number]
--- NOTE | 2020-02-19 10:19 | ST Inp Modified Barium Swallow ---
Medical Diagnosis - Medical Diagnoses Medical Diagnosis Description & ICD-10 Code(s): acute hypoxemic respiratory failure, aspiration pneumonia - ICD-10 Tx Diagnosis Coding (1) Dysphagia ICD-10 Code(s): R13.10 - DYSPHAGIA, UNSPECIFIED ST [place] [facility] [place]: 02[place]19/20 - History -: Medical - per EMR: patient admitted 01/31 with respiratory distress, fever, leukocytosis and hypotension and was subsequently intubated. Was extubated on 02/02. Patient has history of Parkinson's and Lewy Body dementia. Patient has been seen by speech therapy on previous admissions, and notable delay in swallow initiation has been seen. It is highly suspected that the patient has an aspiration pneumonia at this time. Patient was being fed by NG tube, however, the patient recently pulled this out and it has not been replaced. Patient is currently on thin liquids and puree solids per bedside clinicial swallow assessment, however, patient was judged to be at risk of aspiration due to underlying medical condition, positioning, and mental status. Medications: Medications Reviewed Allergies: Refer to medical record - Subjective Current Nutritional Means: PO Current PO Diet: Pureed - with thin liquids Current Symptoms: Poor intake, Hx of asp. pneumonia Pain: no signs/symptoms of pain - Objective Assessment: Upright - Patient is very kyphotic, head/neck positioning was near completely horizontal., Left Lateral - Food Trials The Patient: fed by ST, via cup, via spoon - Pharyngeal Stage Pahryngeal Stage Comments: Patient demonstrated functional pharyngeal phase swallowing for thin liquids and puree solids. No aspiration was seen, no significant pharyngeal residue was seen. Patient did demonstrate significant difficulty accepting PO trials, secondary to confusion, as well as positioning. - Impression/Summary Laryngeal Penetration: No Tracheal Aspiration: no Patient Presents With: Oral stage dysphagia Risk of Aspiration: Moderate Risk of Nutritional Compromise: Severe Risk Due To: Moderate aspiraiton risk present due to underlying medical condition and positioning challenges. Severe nutritional compromise risk due to poor PO intake, reduced PO acceptance - Recommendations Solid Diet Recommendations: Pureed Liquid Diet Recommendations: Thin Strict Aspitarion Precautions: Yes Dysphagia Therapy with [employer]: No Recommended Techniques: Fully Upright During Meal - as allowed by patient's posture, Small Bites and Sips Supervision: requires assistance - Time Total Time: 30 Total Timed Minutes: 30
--- NOTE | 2020-02-19 15:32 | PDOC DISCHARGE SUMMARY ---
Impression - Admit/DC Date/PCP Admission Date/Primary Care Provider: 02/01/20 19:50 MORAIMA AKERS PA-C Discharge Date: 02/19/20 - Discharge Diagnosis (1) Acute hypoxemic respiratory failure Is this a current diagnosis for this admission?: Yes (2) SIRS (systemic inflammatory response syndrome) Is this a current diagnosis for this admission?: Yes (3) Aspiration pneumonitis Is this a current diagnosis for this admission?: Yes (4) Suspected COVID-19 virus infection Is this a current diagnosis for this admission?: Yes (5) Protein-energy malnutrition Is this a current diagnosis for this admission?: Yes - Assessment Summary: 02/10 Discussed with , Dorothy [id number], updated on condition(1) Acute hypoxemic respiratory failure Is this a current diagnosis for this admission?: Yes Plan: Patient is currently on nasal cannula and his respiratory status appears to be stable and at baseline 02/13/2020-patient admitted with hypoxic respiratory failure pulse ox is 99% with 2 L nasal cannula. Not in distress. Acute hypoxic respiratory failure is resolving. 02/14/2020-patient admitted with acute hypoxic respiratory failure most likely secondary to aspiration pneumonia pulse ox today is 99% on 3 L. 02/15/2039-77-hikk-old male admitted with hypoxic respiratory failure, acute hypoxic respiratory failure which was resolved pulse ox today is a 99% on room air. 02/16/[id number]-bsgx-old male admitted with acute on chronic hypoxic respiratory failure. Patient is presently on BiPAP. Chest x-ray was negative. Pulse ox on BiPAP is 100%. Plan is to continue nebulizer treatments. 02/17/2020-patient is off the BiPAP. Presently on 2 1/2 L of oxygen pulse ox is 96 to 97%. Patient still high risk for aspiration. Plan is to continue the present management. 02/18/2020-pulse ox is 100% on 2 L. Patient is still high risk for aspiration pneumonia. Family does not want feeding tube placement. 02/19/20-pulse ox today is 98% on 3 L. Plan is to follow the recommendations of the speech therapy and put him on pured diet. (2) SIRS (systemic inflammatory response syndrome) Is this a current diagnosis for this admission?: Yes Plan: Possibly with early sepsis, this is resolved (3) Aspiration pneumonitis Is this a current diagnosis for this admission?: Yes Plan: This is a consequence of Parkinson's and Lewy-body dementia. February 07, 2020 The patient is high risk for aspiration. Due to his weakened state I believe his risk has worsened since his last admission. He is on Unasyn for the aspiration pneumonia. 02/08/2020 White blood cell count has been normal for approximately 5 days. We will ankita nue his Unasyn until completion. Unfortunately he is still high risk for aspiration. We will continue to use the Dobbhoff feeding tube for now. February 09, 2020 He just completed a course of IV Unasyn. 02/09 Chest x-ray done today reveals no acute findings. Will watch and monitor patient off antibiotics. Unfortunately due to his physical habitus, kyphoscoliosis he is going to be high Risk for aspiration pneumonitis 02/10 patient is currently stable off any antibiotics. COVID-19 is still pending 02/11 COVID 19 is negative. Patient remains very high risk for aspiration pneumonitis given his kyphoscoliosis I have consulted speech therapy for evaluation of his swallowing. Patient apparently was able to eat at home according to the prior to admission 02/13/20-coronavirus testing is negative. He is a high risk for aspiration because of severe kyphoscoliosis. Speech evaluation was done this morning recommendation is pured diet. As of the body posture he is a high risk for aspiration. Patient completed antibiotic therapy with IV Unasyn now afebrile and recent blood cultures are negative. 02/14/2020-patient is high risk for severe kyphoscoliosis speech evaluation was done recommendation is pured diet spoke to patient's about feeding tube she basically refused the PEG placement. We have to respect her wishes, in my opinion he is very high risk for aspiration. 02/15/2020-patient is a high risk for aspiration pneumonia because of the severe kyphoscoliosis but his insisting on giving a pured diet with applesauce. She is not interested in PEG tube placement at this time. 02/16/20-as per patient's request surgical consult was requested with Dr. Hollis. Dr. Hollis spoke to power of it training specialist more than an hour for more than an hour yesterday and the recommendation at this time is to hold off on PEG tube until patient's respiratory status improved. 02/17/2020-patient is high risk for aspiration pneumonia but the family is against PEG placement. 1320-patient went for barium swallow today the recommendation is pured diet with thin liquids. And family is against feeding tube placement. He is still a high risk for aspiration. (4) Suspected COVID-19 virus infection Is this a current diagnosis for this admission?: Yes Plan: Negative (5) Protein-energy malnutrition Is this a current diagnosis for this admission?: Yes Plan: 02/14/2020-patient is thin cachectic on examination wasting of the temporal muscles, quadriceps muscles, deltoid muscles seen. Severe protein energy malnutrition may be secondary to poor oral intake. - Additional Information Resuscitation Status: Full Code Discharge Diet: Other (Comments) - Pured diet with thickened liquids Discharge Activity: Bedrest Referrals: [facility] [Outside] (PATIENT TO BE FOLLOWED BY HEALTH DEPT. ON SELF QUARANTINE AT HOME. ONCE THE HEALTH DEPT. RELEASES PATIENT THEN PATIENT MAY SCHEDULE A FOLLOW UP APPT. WITH PCP.) MORAIMA AKERS PA-C [Primary Care Provider] - Follow up as needed Home Medications: Albuterol Sulfate [Ventolin 0.083% Neb 2.5 mg/3 mL Ampul] 2.5 mg NEB RTQID 01/19/20 Alprazolam [Xanax 0.25 mg Tablet] 0.25 mg PO DAILYP PRN 01/19/20 Ascorbic Acid 500 mg PO DAILY 01/19/20 Aspirin [Aspirin 325 mg Tablet] 325 mg PO DAILY 01/19/20 Epinephrine 0.3 mg IJ ASDIR PRN 01/19/20 Fluticasone Propionate [Flonase Nasal Orlando 50 Mcg/[place] 16 gm] 1 spray NASL DAILYP PRN 01/19/20 Pramipexole Di-HCl [Mirapex 0.25 mg Tablet] 0.5 mg PO TID 01/19/20 Rivastigmine [Exelon 9.5 mg/24 Hr Transdermal Patch] 1 each TD DAILY 01/19/20 Quetiapine Fumarate [Seroquel 25 mg Tablet] 25 mg PO Q12 15 Days #30 tablet 01/23/20 Ipratropium/Albuterol Sulfate [Duoneb 3 ml Ampul] 3 ml NEB [id number] PRN 02/01/20 Omeprazole 20 mg PO DAILY 02/01/20 Sucralfate [Carafate 1 gm Tablet] 1 gm PO Q6 tablet 02/19/20 History of Present Illiness History of Present Illness: JAYLON QUICK JR is a 74 year old male 74-year-old gentleman with a known history of parkinsonian/Lewy body dementia, nasal polyps and frequent hospital admissions for respiratory insufficiency. He was recently admitted on January 18 requiring intubation for what was likely aspiration with mucous plugging. Also required vasoactive support during last admission. Today he presents to the emergency room with severe respiratory distress, fever, leukocytosis and hypotension. He was given 2 L of fluids and was intubated. We will admit him to the intensive care unit for management of his respiratory failure and septic shock. Hospital Course Hospital Course: 02/13/[id number]-ibjz-old male admitted for aspiration pneumonia he pulled off his Dobbhoff last night speech evaluation was done we are going to follow the recommendations of pured diet. In my opinion patient needs to be under hospice. Comfortably in the bed because of the kyphosis his posture is forward bending. Not in distress. Is a full code as per the staff. Patient blood cultures are negative and chest x-ray was normal. WBC count is 8.5. 02/14/2007-03-fgnm-old male admitted for aspiration pneumonia, he pulled off his Dobbhoff 2 days ago. Speech therapy consult was done the recommended pured diet as per the nurses is not following the commands he is really high risk for aspiration he is alert awake this morning but not communicative I spoke to the patient's she is adamant that V her to try applesauce first if he fails then she will think about feeding tube. As per her placing a feeding tube is a major decision to make. 02/15/2020-no acute events in last 24 hours. Afebrile. I had a long discussion with patient's yesterday she wants to try applesauce and pured diet not interested in PEG tube placement at this time. sHe does not want hospice consult. 02/16/20-patient is still on BiPAP. Somnolent. Not responding to verbal commands. On chest rub is opening eyes. I spoke to Dr. Hollis as per his recommendations we could arrange for a modified barium swallow. In my opinion is at high risk for aspiration. He is on BiPAP since yesterday and a chest x- ray was negative. Overall prognosis poor condition is critical. I had a prolonged discussion with patient's she has difficulty in accepting that her is a high risk for aspiration as per her his lungs are normal at the time but she has to do suctioning very frequently at home because of secretions and mucus is try to cough up. At this time patient is a full code. I am not sure whether the patient able to participate in a modified barium swallow. Patient is n.p.o. at this time. 02/17/20-patient is off the BiPAP he is on 2 end of liters of oxygen with pulse o x is around 97%. Awake and alert. But not following the commands. I had a long discussion with the patient's who has the power of it training specialist and as per her, family secondary to PEG placement. 02/18/2020-patient is off the BiPAP for the last 24 hours. On 2 L of oxygen pulse ox is 100%. He is on pured diet. Family does not want any feeding tube. Vital signs are stable. Plan is to continue the present management at this time. 02/19/20 -patient went for modified barium swallow today and at the recommendation is pured diet with thin liquids. Will follow the speech therapy recommendations. I gave the update with the patient's . Patient is off the BiPAP at this time pulse ox is 98% on 3 L. Because of the bad weather is reluctant to take him home today. 02/19/2020-patient's agreed to take him home today. She was advised to give a pured diet with thin liquids and advised to continue to provide oxygen supplementations at 2 L/min. She was also advised to bring him to the ER if he has a fever, change in mental status, nausea vomitings. Physical Exam Vital Signs: Temp Pulse Resp BP Pulse Ox 97.6 F 68 20 107/59 L 100 02/19/20 11:26 02/19/20 11:26 02/19/20 11:26 02/19/20 11:26 02/19/20 11:26 Intake & Output 02/18/20 02/19/20 02/20/20 06:59 06:59 06:59 Intake Total 100 380 120 Output Total 600 275 100 Balance -500 105 20 Weight 49.8 kg 48.7 kg General appearance: PRESENT: no acute distress, disheveled, thin Head exam: PRESENT: atraumatic Eye exam: PRESENT: conjunctiva pale, PERRLA Mouth exam: PRESENT: moist, tongue midline Teeth exam: PRESENT: poor dentation Neck exam: ABSENT: carotid bruit, JVD, lymphadenopathy, thyromegaly Respiratory exam: PRESENT: decreased breath sounds Cardiovascular exam: PRESENT: RRR. ABSENT: diastolic murmur, rubs, systolic murmur GI/Abdominal exam: PRESENT: normal bowel sounds, soft. ABSENT: distended, guarding, mass, organolmegaly, rebound, tenderness Rectal exam: PRESENT: deferred Extremities exam: PRESENT: full ROM. ABSENT: calf tenderness, clubbing, pedal edema Neurological exam: PRESENT: alert, awake, oriented to person, oriented to place, oriented to time, oriented to situation, CN II-XII grossly intact. ABSENT: motor sensory deficit Psychiatric exam: PRESENT: appropriate affect, normal mood. ABSENT: homicidal ideation, suicidal ideation Results Laboratory Results: WBC 9.6 10^3/uL (4.0-10.5) 02/16/20 08:20 RBC 4.34 10^6/uL (4.35-5.55) L 02/16/20 08:20 Hgb 13.8 g/dL (13.5-17.0) 02/16/20 08:20 Hct 40.2 % (37.9-51.0) 02/16/20 08:20 MCV 93 fl (80-97) 02/16/20 08:20 MCH 31.7 pg (27.0-33.4) 02/16/20 08:20 MCHC 34.2 g/dL (32.0-36.0) 02/16/20 08:20 RDW 13.9 % (11.5-14.0) 02/16/20 08:20 Plt Count 297 10^3/uL (150-450) 02/16/20 08:20 Lymph % (Auto) 12.4 % (13-45) L 02/16/20 08:20 [place] % (Auto) 6.0 % (3-13) 02/16/20 08:20 Eos % (Auto) 1.1 % (0-6) 02/16/20 08:20 Baso % (Auto) 0.5 % (0-2) 02/16/20 08:20 Absolute Neuts (auto) 7.7 10^3/uL (1.7-8.2) 02/16/20 08:20 Absolute Lymphs (auto) 1.2 10^3/uL (0.5-4.7) 02/16/20 08:20 Absolute Monos (auto) 0.6 10^3/uL (0.1-1.4) 02/16/20 08:20 Absolute Eos (auto) 0.1 10^3/uL (0.0-0.6) 02/16/20 08:20 Absolute Basos (auto) 0.0 10^3/uL (0.0-0.2) 02/16/20 08:20 Seg Neutrophils % 80.0 % (42-78) H 02/16/20 08:20 PT 14.3 SEC (11.4-15.4) 02/01/20 17:09 INR 1.11 02/01/20 17:09 Carbonic Acid 1.27 mmol/L (1.05-1.35) 02/07/20 17:35 HCO3/H2CO3 Ratio 23:1 02/07/20 17:35 ABG pH 7.47 (7.35-7.45) H 02/07/20 17:35 ABG pCO2 42.1 mmHg (35-45) 02/07/20 17:35 ABG pO2 230.3 mmHg (80-100) H 02/07/20 17:35 ABG HCO3 29.8 mmol/L (20-24) H 02/07/20 17:35 ABG Total CO2 31.1 mmol/L (23-27) H 02/07/20 17:35 ABG O2 Saturation 99.6 % (94-98) H 02/07/20 17:35 ABG Base Excess 5.6 mmol/L 02/07/20 17:35 VBG pH 7.32 (7.30-7.42) 02/01/20 17:09 VBG pCO2 63.1 mmHg (35-63) H 02/01/20 17:09 VBG HCO3 31.6 mmol/L (20-32) 02/01/20 17:09 VBG Base Excess 3.6 mmol/L 02/01/20 17:09 FiO2 50 02/07/20 17:35 Sodium 140.3 mmol/L (137-145) 02/16/20 08:20 Potassium 4.6 mmol/L (3.6-5.0) 02/16/20 08:20 Chloride 103 mmol/L (98-107) 02/16/20 08:20 Carbon Dioxide 26 mmol/L (22-30) 02/16/20 08:20 Anion Gap 11 (5-19) 02/16/20 08:20 BUN 34 mg/dL (7-20) H 02/16/20 08:20 Creatinine 1.15 mg/dL (0.52-1.25) 02/16/20 08:20 Est GFR ( Amer) > 60 (>60) 02/16/20 08:20 Est GFR (MDRD) Non-Af > 60 (>60) 02/16/20 08:20 Glucose 119 mg/dL (75-110) H 02/16/20 08:20 POC Glucose 127 mg/dL (70-110) H 02/06/20 19:52 Lactic Acid 0.7 mmol/L (0.7-2.1) 02/01/20 23:06 Calcium 8.6 mg/dL (8.4-10.2) 02/16/20 08:20 Phosphorus 2.9 mg/dL (2.5-4.5) 02/07/20 08:19 Magnesium 2.3 mg/dL (1.6-2.3) 02/16/20 08:20 Total Bilirubin 0.5 mg/dL (0.2-1.3) 02/16/20 08:20 Direct Bilirubin 0.3 mg/dL (0.0-0.4) 02/16/20 08:20 Neonat Total Bilirubin Not Reportable 02/16/20 08:20 Neonat Direct Bilirubin Not Reportable 02/16/20 08:20 Neonat Indirect Bili Not Reportable 02/16/20 08:20 AST 35 U/L (17-59) 02/16/20 08:20 ALT 39 U/L (<50) 02/16/20 08:20 Alkaline Phosphatase 104 U/L (38-126) 02/16/20 08:20 Troponin I < 0.012 ng/mL 02/01/20 17:09 Total Protein 6.0 g/dL (6.3-8.2) L 02/16/20 08:20 Albumin 3.8 g/dL (3.5-5.0) 02/16/20 08:20 TSH 5.51 uIU/mL (0.47-4.68) H 02/03/20 04:45 Random Cortisol 13.90 ug/dL (None Established) 02/05/20 04:34 COVID-19 Source NASAL WASHING 02/01/20 18:25 COVID-19 (MIRNA) Not Detected (Not Detect) 02/01/20 18:25 Influenza A (Rapid) NEGATIVE (NEGATIVE) 02/01/20 18:25 Influenza B (Rapid) NEGATIVE (NEGATIVE) 02/01/20 18:25 02/01/20 17:09 Troponin I < 0.012 Impressions: Chest X-Ray 02/01/20 00:00 IMPRESSION: No acute cardiopulmonary process. Proper position of the enteric and endotracheal tubes as detailed above. Chest X-Ray 02/02/20 00:00 IMPRESSION: STABLE APPEARANCE OF THE CHEST. SUPPORT DEVICES UNCHANGED. KUB X-Ray 02/03/20 11:32 IMPRESSION: Nasogastric tube tip and side port in the stomach. KUB X-Ray 02/04/20 00:00 IMPRESSION: No acute intra-abdominal process is identified. Weighted nasogastric feeding tube tip projects over the stomach, satisfactory. The wire is still within this device Chest X-Ray 02/05/20 07:00 IMPRESSION: Stable appearance chest. Chest X-Ray 02/06/20 00:00 IMPRESSION: No pneumonia or edema. No acute process is seen. KUB X-Ray 02/06/20 00:00 IMPRESSION: Feeding tube is coiled on the stomach and the tip is in the gastric antrum. Chest X-Ray 02/12/20 00:00 IMPRESSION: NO ACUTE RADIOGRAPHIC FINDING IN THE CHEST. Chest X-Ray 02/15/20 00:00 IMPRESSION: NO ACUTE RADIOGRAPHIC FINDING IN THE CHEST. Modified Barium Swallow 02/19/20 00:00 IMPRESSION: NO EVIDENCE OF PENETRATION OR ASPIRATION. PLEASE SEE SPEECH PATHOLOGIST REPORT FOR OTHER FINDINGS AND RECOMMENDATIONS. Plan Time Spent: Greater than 30 Minutes Stroke Is this a Stroke Patient?: No Acute Heart Failure - Is this a Heart Failure Patient?: No
[2020-02-19 16:14] VITALS: BP 134/71
== END 2020-02-19 16:57 | disposition home or self-care (01) | DRG 871 ==
LOC: ER 16:54 → EH 19:50 → ICU 21:23 → 5 02-05 23:30 → 3S 02-11 17:34 → 4S 02-14 17:46
PROVIDERS: ADMIT Family Medicine; ATTEND Internal Medicine
PROC: 5A1945Z Respiratory Ventilation, 24-96 Consecutive Hours (ICD-10-PCS; principal; 2020-02-01)
PROC: 0BH17EZ Insertion of Endotracheal Airway into Trachea, Via Natural or Artificial Opening (ICD-10-PCS; 2020-02-01)
PROC: 0DH67UZ Insertion of Feeding Device into Stomach, Via Natural or Artificial Opening (ICD-10-PCS; 2020-02-04)
PROC: 5A09557 Assistance with Respiratory Ventilation, Greater than 96 Consecutive Hours, Continuous Positive Airway Pressure (ICD-10-PCS; 2020-02-06)
DX: A41.9 Sepsis, unspecified organism (principal); J69.0 Pneumonitis due to inhalation of food and vomit; J96.01 Acute respiratory failure with hypoxia; E43 Unspecified severe protein-calorie malnutrition; G93.41 Metabolic encephalopathy; R64 Cachexia; G20 Parkinson's disease; F02.80 Dementia in other diseases classified elsewhere, unspecified severity, without behavioral disturbance, psychotic disturbance, mood disturbance, and anxiety; I48.91 Unspecified atrial fibrillation; J44.9 Chronic obstructive pulmonary disease, unspecified; M41.9 Scoliosis, unspecified; J33.9 Nasal polyp, unspecified; Z79.82 Long term (current) use of aspirin; Z79.899 Other long term (current) drug therapy; Z79.51 Long term (current) use of inhaled steroids; Z74.01 Bed confinement status; Z03.818 Encounter for observation for suspected exposure to other biological agents ruled out; Z78.1 Physical restraint status
CPT/HCPCS: 36415; 36600; 51702; 71045; 74018; 74230; 80048; 80053; 82533; 82803; 82962; 83605; 83735; 84100; 84443; 84484; 85025; 85610; 87040; 87070; 87205; 87635; 87804; 93005; 93010; 94002; 94003; 94640; 94660; 96361; 96365; 99233; 99291; C9113; J0295; J0692; J1650; J2250; J2704; J3490; J7030; J7040; J7050; J7120; J7620

== ENCOUNTER 2020-09-15 16:08 | Emergency (ER) | payer MEDICARE, BC ==
[2020-09-15] MEDS ORDERED: NORMAL SALINE 1000 ML 1,000 ML IV ONE (16:53)
[2020-09-15 17:00] LABS: APPEARANCE,URINE CLEAR; BILIRUBIN,URINE NEGATIVE (NEGATIVE); COLOR,URINE YELLOW; GLUCOSE, URINE NEGATIVE (NEGATIVE); KETONES,URINE NEGATIVE (NEGATIVE); LEUKOCYTE ESTERASE,URINE NEGATIVE (NEGATIVE); NITRITE,URINE NEGATIVE (NEGATIVE); PROTEIN,URINE NEGATIVE (NEGATIVE); URINE SPECIFIC GRAVITY 1.025
--- NOTE | 2020-09-15 17:28 | ER Document Report ---
Entered by CATY TORRES SCRIBE 09/15/20 [id number] Acting as scribe for:JEFFREY MCCARTNEY DO ED General - General Chief Complaint: Near Syncope Stated Complaint: BLOOD PRESSURE PROBLEMS Time Seen by Provider: 09/15/20 16:31 Primary Care Provider: MORAIMA AKERS PA-C [Primary Care Provider] - 09/16/20 Mode of Arrival: Medic Information source: Emergency Med Personnel, REPLACED BY [facility] Records Cannot obtain history due to: Dementia Notes: This 74 year old demented male patient presents to the emergency department today with complaints of a syncopal vs. near-syncopal event in the setting of a bowel movement. It is unclear whether the patient was actually on the toilet when this event occurred or if he was getting up to go to the bathroom. The patient had a blood pressure of 60s/40s when EMS arrived, after 250 mL of lactated ringers the patient's pressure morgan to 128/74. Patient was asked if had pain anywhere and he states "39 or maybe even 40", history is limited. TRAVEL OUTSIDE OF THE [place] IN LAST 30 DAYS: No - Related Data Allergies/Adverse Reactions: cimetidine [From Tagamet] Allergy (Severe, Verified 09/15/20 17:03) Anaphylaxis ranitidine HCl [From Zantac] Allergy (Verified 09/15/20 17:03) Edema Past Medical History - General Information source: REPLACED BY [facility] Records Cannot obtain history due to: Dementia - Social History Smoking Status: Former Smoker Cigarette use (# per day): No Frequency of alcohol use: None Drug Abuse: None Lives with: Family Family History: Reviewed & Not Pertinent, CAD - Mother, COPD - Father - Past Medical History Cardiac Medical History: Reports: Hx Atrial Fibrillation Pulmonary Medical History: Reports: Hx Respiratory Failure Neurological Medical History: Reports: Hx Parkinson's Disease Malignancy Medical History: Reports Hx Skin Cancer GI Medical History: Reports: Hx Ulcer - 1977 [facility] Psychiatric Medical History: Reports: Hx Dementia - Parkinson's, Hx Depression Past Surgical History: Reports: Hx Cardiac Catheterization, Hx Cardiac Surgery - ablation, Other - Patient has undergone cardiac ablation for A. fib - Immunizations Hx Diphtheria, Pertussis, Tetanus Vaccination: No Review of Systems - Review of Systems -: Yes ROS unobtainable due to patient's medical condition Physical Exam - Vital signs Vitals: Resp Pulse Ox 16 100 09/15/20 16:17 09/15/20 16:17 - Notes Notes: Physical Exam: General: Alert, pleasantly demented, does not follow commands, asked if he had pain anywhere and he responds "39 or maybe even 40". HEENT: Temporal wasting. Atraumatic. PERRL. Extraocular movements intact. Oropharynx clear. Neck: Supple. Non-tender. Respiratory: No respiratory distress. Clear and equal breath sounds bilaterally. Cardiovascular: Regular rate and rhythm. Abdominal: Mild epigastric tenderness to palpation. No distension. Normal Bowel Sounds. Back: No gross abnormalities. Extremities: Moves all four extremities. Upper extremities: 4/5 upper extremity senior unix administrator strength. Lower extremities: Chronic thickened toenails. No edema. Normal ROM. Neurological: Unable to follow commands for neuro exam Skin: Warm. Dry. Normal color. Course - Re-evaluation Re-evalutation: 09/15/20 19:28 MDM Frail elderly male here with after near syncope at home while attempting to have a bowel movement. He has a h/o syncope/ near syncope. His history is limited by dementia. He is disimpacted by me here and his ekg and other ancillary tests are reassuring. I feel he may follow up. - Vital Signs Vital signs: Temp Pulse Resp BP Pulse Ox 98.7 F 17 117/73 99 09/15/20 16:36 09/15/20 19:01 09/15/20 19:01 09/15/20 19:01 - Laboratory Result Diagrams: 09/15/20 17:05 09/15/20 17:05 Laboratory results interpreted by me: 09/15/20 09/15/20 09/15/20 16:50 17:05 17:05 WBC 11.7 H RDW 14.9 H Lymph % (Auto) 9.5 L Absolute Neuts (auto) 9.7 H Seg Neutrophils % 82.6 H BUN 25 H Glucose 133 H Creatine Kinase 44 L TSH Urine Urobilinogen 2.0 H 09/15/20 17:05 WBC RDW Lymph % (Auto) Absolute Neuts (auto) Seg Neutrophils % BUN Glucose Creatine Kinase TSH 4.96 H Urine Urobilinogen Discharge - Discharge Clinical Impression: Near syncope Condition: Stable Disposition: HOME, SELF-CARE Instructions: Constipation ([facility]), Dementia ([facility]), Near Syncopal Episode ([facility]) Additional Instructions: Continue the miralax and the suppositories. See your doctor in follow up. Please return here for chest pain, shortness of breath, other problems or other concerns. Aside from a bit of dehydration your blood work here looked good. Call Moraima Akers tomorrow for follow up. Referrals: MORAIMA AKERS PA-C [Primary Care Provider] - 09/16/20 I personally performed the services described in the documentation, reviewed and edited the documentation which was dictated to the scribe in my presence, and it accurately records my words and actions.
[2020-09-15 17:32] LABS: ABSOLUTE BASOPHILS # (AUTO) 0.1 10^3/uL (0.0-0.2); ABSOLUTE EOSINOPHILS # (AUTO) 0.4 10^3/uL (0.0-0.6); ABSOLUTE LYMPHOCYTES (AUTO) 1.1 10^3/uL (0.5-4.7); ABSOLUTE MONOCYTES (AUTO) 0.4 10^3/uL (0.1-1.4); ABSOLUTE NEUT (AUTO) 9.7 10^3/uL (1.7-8.2); BASOPHILS % (AUTO) 0.5 % (0-2); EOSINOPHILS % (AUTO) 3.6 % (0-6); HEMATOCRIT 40.6 % (37.9-51.0); HEMOGLOBIN 13.6 g/dL (13.5-17.0); LYMPHOCYTES % (AUTO) 9.5 % (13-45); MEAN CORPUSCULAR HEMOGLOBIN 30.7 pg (27.0-33.4); MEAN CORPUSCULAR HGB CONC 33.5 g/dL (32.0-36.0); MEAN CORPUSCULAR VOLUME 92 fl (80-97); MONOCYTES % (AUTO) 3.8 % (3-13); PLATELET COUNT 206 10^3/uL (150-450); RED BLOOD COUNT 4.43 10^6/uL (4.35-5.55); RED CELL DISTRIBUTION WIDTH 14.9 % (11.5-14.0); SEGMENTED NEUTROPHILS % (AUTO) 82.6 % (42-78); TOTAL CELLS COUNTED % (AUTO) 100 %; WHITE BLOOD COUNT 11.7 10^3/uL (4.0-10.5)
--- NOTE | 2020-09-15 17:52 | RADIOLOGY REPORT (SQ) ---
EXAM DESCRIPTION: CHEST SINGLE VIEW IMAGES COMPLETED DATE/TIME: 09/15/2020 5:42 pm REASON FOR STUDY: htn COMPARISON: Chest x-ray 02/15/2020, 02/12/2020. EXAM PARAMETERS: NUMBER OF VIEWS: One view. TECHNIQUE: Single frontal radiographic view of the chest acquired. RADIATION DOSE: NA LIMITATIONS: None. FINDINGS: LUNGS AND PLEURA: No consolidation, pneumothorax or pleural effusion. MEDIASTINUM AND HILAR STRUCTURES: No masses. Contour normal. HEART AND VASCULAR STRUCTURES: Heart normal in size. Normal vasculature. BONES: No acute findings. HARDWARE: None in the chest. IMPRESSION: No acute radiographic finding in the chest. TECHNICAL DOCUMENTATION: JOB ID: [id number] [employer]- All Rights Reserved Reading location - IP/workstation name: [email or web address]
[2020-09-15 18:02] LABS: ALKALINE PHOSPHATASE 90 U/L (38-126); ANION GAP 13 (5-19); ASPARTATE AMINO TRANSFERASE 22 U/L (17-59); BILIRUBIN,DIRECT 0.1 mg/dL (0.0-0.4); BILIRUBIN,TOTAL 0.7 mg/dL (0.2-1.3); BLOOD UREA NITROGEN 25 mg/dL (7-20); CALCIUM 9.3 mg/dL (8.4-10.2); CARBON DIOXIDE 22 mmol/L (22-30); CHLORIDE 107 mmol/L (98-107); CREATINE KINASE 44 U/L (55-170); GLUCOSE 133 mg/dL (75-110); POTASSIUM 4.1 mmol/L (3.6-5.0)
[2020-09-15 18:12] LABS: CREATINE KINASE MB 0.77 ng/mL (<4.55)
--- NOTE | 2020-09-15 18:13 | EKG REPORT ---
SEVERITY:- ABNORMAL ECG - SINUS RHYTHM : Confirmed by: Floyd Fountain MD 15-Sep-2020 18:12:28
[2020-09-15 18:20] LABS: TROPONIN I < 0.012 ng/mL
[2020-09-15 20:10] VITALS: BP 121/77
== END 2020-09-15 20:25 | disposition home or self-care (01) ==
LOC: ER 16:08
DX: R55 Syncope and collapse (principal); G20 Parkinson's disease; I48.91 Unspecified atrial fibrillation; Z88.8 Allergy status to other drugs, medicaments and biological substances; Z87.891 Personal history of nicotine dependence
CPT/HCPCS: 93005; 99285; 96360; 96361; 36415; 82553; 82550; 83735; 84443; 85025; 80053; 81001; 84484; 71045; 93010; J7030